=== PATIENT | female | born 1935 | race Caucasian/White ===

== ENCOUNTER 2017-03-17 14:17 | Inpatient (IN) | payer MEDICARE, OTHER ==
[~2017-03-17] VITALS: Ht 165.1 cm; Wt 73.0 kg
[2017-03-18] MEDS ORDERED: ATOR40TA16 PO (10:06)
[2017-03-18] MEDS ORDERED: MIRA50TA PO (10:06)
[2017-03-18] MEDS ORDERED: VITA100064 PO (10:06)
[2017-03-18] MEDS ORDERED: AGGR20025 PO (10:06)
[2017-03-18] MEDS ORDERED: VALS1TAB65 PO (10:06)
[2017-03-18] MEDS ORDERED: CYAN25003 SL (10:06)
[2017-03-18] MEDS ORDERED: CALC600T13 PO (10:06)
[2017-03-18] MEDS ORDERED: ASCO500C PO (10:06)
[2017-03-18] MEDS ORDERED: NEXI40CA PO (10:06)
[2017-03-18] MEDS ORDERED: MULTCAP2 PO (10:06)
[2017-03-18] MEDS ORDERED: POTA-243 PO (10:06)
[2017-03-25] MEDS ORDERED: LACTATED RINGER'S 1000 ML IV PRN (06:45)
[2017-03-25] MEDS ORDERED: INSULIN HUMAN REGULAR 1,000 UNITS/10 ML VIAL SQ PRN (06:45)
[2017-03-25] MEDS ORDERED: ceFAZolin 2 GM PREMIX 50 ML IV SCH (06:45)
[2017-03-25] MEDS ORDERED: SODIUM CHLORID 0.9% 500 ML IV PRN (06:45)
[2017-03-25] MEDS ORDERED: METRONIDAZOLE 500 MG/100 ML ISONTONIC SOLN IV PRN (06:45)
[2017-03-25] MEDS ORDERED: CHLORHEXIDINE GLUCONATE 2 % 1 PACK (2 CLOTHS) TOPICAL PRN (06:45)
[2017-03-25] MEDS ORDERED: POVIDONE IODINE 5% (ANTISEPSIS KIT) 4 APPLICATIONS EACH NARE PRN (06:45)
[2017-03-25] MEDS ORDERED: METOPROLOL TARTRATE 25 MG TAB PO PRN (06:45)
[2017-03-25] MEDS: DEXT 5%-NACL 0.9% 1000 ML INJ 1,000 ML IV SCH ×3 (06:45→22:45)
--- NOTE | 2017-03-25 07:09 | PD.HP.UP ---
H&P Update Note The Pre-Admit History and Physical Examination regarding the above named patient was reviewed (including, but not limited to, vital signs, heart, lungs, co-morbid conditions), and upon re-examination it is noted that: the patient's condition has not significantly changed since the last examination. Colleen Plummer MD Mar 25, 2017 07:09
[2017-03-25 07:24] VITALS: BP 142/70; PULSE 83; RESP 16; TEMP 98.7; O2SAT 96
[2017-03-25] MEDS ORDERED: DEXAMETHASONE SOD PHOS 4 MG/ML VIAL ONE (08:14)
[2017-03-25] MEDS ORDERED: MIDAZOLAM HCL 2 MG/2 ML VIAL ONE (08:14)
[2017-03-25] MEDS ORDERED: FAMOTIDINE 20 MG/2 ML VIAL ONE (08:14)
[2017-03-25] MEDS: D5-NS + KCL 20 MEQ INJ 1,000 ML IV SCH (13:07)
[2017-03-25] MEDS: SODIUM CHLORIDE 0.9% FLUSH 5 ML FLUSH IVF SCH ×2 (13:15→21:00)
[2017-03-25] MEDS ORDERED: NALOXONE HCL 0.4 MG/ML AMP IV PRN (13:15)
[2017-03-25] MEDS ORDERED: Post-op Orders (for Pharmacy) MISC XX ONE (13:15)
[2017-03-25] MEDS ORDERED: ENALAPRILAT 2.5 MG/2 ML VIAL IV PRN (13:15)
[2017-03-25] MEDS ORDERED: SODIUM CHLORIDE 0.9% FLUSH 5 ML FLUSH IVF PRN (13:15)
[2017-03-25] MEDS ORDERED: ENALAPRILAT 1.25 MG/ML VIAL IV PRN (13:15)
[2017-03-25] MEDS ORDERED: ACETAMINOPHEN 325 MG TAB PO PRN (13:15)
[2017-03-25] MEDS ORDERED: diphenhydrAMINE HCL 50 MG/ML VIAL IV PRN (13:15)
[2017-03-25] MEDS ORDERED: fentaNYL CITRATE 250 MCG/5 ML AMP ONE (13:17)
[2017-03-25] MEDS ORDERED: MORPHINE SULFATE 4 MG/ML INJ ONE (13:17)
[2017-03-25] MEDS: KETOROLAC TROMETHAMINE 30 MG/ML (IVP) VIAL IVP PRN ×2 (13:20→20:31)
[2017-03-25] MEDS ORDERED: *ONDANSETRON 4 MG VIAL PERIprocedural Use ONLY ONE (13:33)
[2017-03-25] MEDS: MORPHINE SULFATE 30 MG/30 ML PCA IV SCH (13:44)
[2017-03-25] MEDS ORDERED: DO NOT ADM ANY ANTICOAGULANT DRUGS PRN (13:45)
[2017-03-25 13:48] LABS: AUTOMATED NEUTROPHIL # 16.7 TH/MM3 (1.8-7.7); BASOPHIL % 0.2 % (0.0-2.0); HEMATOCRIT 29.2 % (35.0-46.0); HEMO FLAGS DIFF FINAL; LYMPH % 2.4 % (9.0-44.0); LYMPHOCYTE # 0.4 TH/MM3 (1.0-4.8); MEAN CELL VOLUME 81.4 FL (80.0-100.0); MEAN CORPUSCULAR HEMOGLOBIN 26.4 PG (27.0-34.0); MEAN CORPUSCULAR HGB CONC 32.5 % (32.0-36.0); MONO % 1.4 % (0.0-8.0); PLATELET COUNT 459 TH/MM3 (150-450); RED BLOOD COUNT 3.59 MIL/MM3 (4.00-5.30); RED CELL DISTRIBUTION WIDTH 14.3 % (11.6-17.2); WHITE BLOOD COUNT 17.4 TH/MM3 (4.0-11.0)
[2017-03-25 13:59] LABS: BICARBONATE 25.5 MEQ/L (21.0-32.0)
[2017-03-25] MEDS: PCA - TOTAL MG MORPHINE DELIVERED PER SHIFT SCH ×2 (14:00→22:00)
[2017-03-25 14:07] LABS: POTASSIUM 2.9 MEQ/L (3.5-5.1)
[2017-03-25] MEDS: POTASSIUM CHLOR 20 MEQ PREMIX 100 ML IV PRN ×2 (14:45→16:54)
[2017-03-25] MEDS ORDERED: PROPOFOL 200 MG/20 ML AMP IV ONE (14:58)
[2017-03-25] MEDS ORDERED: NEOSTIGMINE 3 MG/3 ML SYR IV ONE (14:58)
[2017-03-25] MEDS ORDERED: NORMOSOL R INJ 1,000 ML IV ONE (14:58)
[2017-03-25] MEDS ORDERED: ONDANSETRON HCL 4 MG/2 ML VIAL IV PUSH ONE (14:58)
[2017-03-25] MEDS: metroNIDAZOLE 500 MG INJ 100 ML IV SCH (16:54)
[2017-03-25 17:15] VITALS: BP 129/56; PULSE 76; RESP 18; TEMP 98.1; O2SAT 97
[2017-03-25 19:00] VITALS: BP 116/49; PULSE 66; RESP 18; TEMP 97.8; O2SAT 97
[2017-03-25 22:16] VITALS: O2SAT 97
[2017-03-25 23:00] VITALS: BP 114/47; PULSE 66; RESP 18; TEMP 98.2; O2SAT 95
[2017-03-26] VITALS (9 sets, daily range): BP systolic 101–134; BP diastolic 48–64; PULSE 66–83; RESP 14–18; TEMP 97.8–98.5; O2SAT 92–98
[2017-03-26] MEDS: metroNIDAZOLE 500 MG INJ 100 ML IV SCH ×2 (00:48→09:54)
[2017-03-26] MEDS: D5-NS + KCL 20 MEQ INJ 1,000 ML IV SCH ×5 (00:50→16:10)
[2017-03-26 04:32] LABS: AUTOMATED NEUTROPHIL # 7.4 TH/MM3 (1.8-7.7); BASOPHIL % 0.4 % (0.0-2.0); EOSINOPHIL % 0.1 % (0.0-4.0); HEMATOCRIT 26.1 % (35.0-46.0); HEMO FLAGS DIFF FINAL; LYMPHOCYTE # 1.6 TH/MM3 (1.0-4.8); MEAN CELL VOLUME 82.7 FL (80.0-100.0); MEAN CORPUSCULAR HGB CONC 32.6 % (32.0-36.0); MONO % 7.5 % (0.0-8.0); PLATELET COUNT 364 TH/MM3 (150-450); RED BLOOD COUNT 3.15 MIL/MM3 (4.00-5.30); RED CELL DISTRIBUTION WIDTH 14.4 % (11.6-17.2); WHITE BLOOD COUNT 9.8 TH/MM3 (4.0-11.0)
[2017-03-26 05:05] LABS: BICARBONATE 25.8 MEQ/L (21.0-32.0); POTASSIUM 4.1 MEQ/L (3.5-5.1)
[2017-03-26 05:17] LABS: CALCIUM-PROTEIN CORRECTED 8.1 MG/DL (8.5-10.1)
[2017-03-26] MEDS: PCA - TOTAL MG MORPHINE DELIVERED PER SHIFT SCH ×3 (06:00→22:00)
[2017-03-26] MEDS: DEXT 5%-NACL 0.9% 1000 ML INJ 1,000 ML IV SCH ×3 (06:27→21:22)
[2017-03-26] MEDS: SODIUM CHLORIDE 0.9% FLUSH 5 ML FLUSH IVF SCH ×2 (09:00→21:00)
[2017-03-26] MEDS: MORPHINE SULFATE 30 MG/30 ML PCA IV SCH ×2 (09:17→15:36)
[2017-03-26] MEDS: KETOROLAC TROMETHAMINE 30 MG/ML (IVP) VIAL IVP PRN ×3 (09:17→20:15)
[2017-03-26] MEDS: PANTOPRAZOLE SODIUM 40 MG VIAL IVP SCH (09:54)
[2017-03-26] MEDS: VALSARTAN 160 MG TAB PO SCH (11:06)
[2017-03-26] MEDS: HEPARIN SODIUM - SQ 10,000 UNITS/ML VIAL SQ SCH (12:03)
[2017-03-26] MEDS: ONDANSETRON HCL 4 MG/2 ML VIAL IV PRN (19:42)
[2017-03-26] MEDS: ACETAMINOPHEN/HYDROcodone 325 MG/5 MG TAB PO PRN (20:16)
[2017-03-27] VITALS (7 sets, daily range): BP systolic 129–162; BP diastolic 63–81; PULSE 53–93; RESP 15–18; TEMP 98–98.4; O2SAT 90–98
[2017-03-27] MEDS: HEPARIN SODIUM - SQ 10,000 UNITS/ML VIAL SQ SCH ×2 (00:27→12:20)
[2017-03-27 05:24] LABS: AUTOMATED NEUTROPHIL # 5.7 TH/MM3 (1.8-7.7); BASOPHIL # 0.1 TH/MM3 (0-0.2); BASOPHIL % 0.6 % (0.0-2.0); EOSINOPHIL # 0.2 TH/MM3 (0-0.4); EOSINOPHIL % 2.4 % (0.0-4.0); HEMATOCRIT 25.7 % (35.0-46.0); HEMO FLAGS DIFF FINAL; LYMPH % 21.2 % (9.0-44.0); LYMPHOCYTE # 1.7 TH/MM3 (1.0-4.8); MEAN CELL VOLUME 83.7 FL (80.0-100.0); MEAN CORPUSCULAR HEMOGLOBIN 26.9 PG (27.0-34.0); MEAN CORPUSCULAR HGB CONC 32.1 % (32.0-36.0); MONO % 6.6 % (0.0-8.0); NEUT % 69.2 % (16.0-70.0); PLATELET COUNT 348 TH/MM3 (150-450); RED BLOOD COUNT 3.07 MIL/MM3 (4.00-5.30); RED CELL DISTRIBUTION WIDTH 14.6 % (11.6-17.2); WHITE BLOOD COUNT 8.2 TH/MM3 (4.0-11.0)
[2017-03-27 05:46] LABS: BICARBONATE 23.9 MEQ/L (21.0-32.0)
[2017-03-27] MEDS: PCA - TOTAL MG MORPHINE DELIVERED PER SHIFT SCH (06:00)
[2017-03-27] MEDS: D5-NS + KCL 20 MEQ INJ 1,000 ML IV SCH ×2 (06:02)
[2017-03-27 06:16] LABS: CALCIUM-PROTEIN CORRECTED 8.2 MG/DL (8.5-10.1)
[2017-03-27] MEDS: DEXT 5%-NACL 0.9% 1000 ML INJ 1,000 ML IV SCH ×2 (06:45→13:35)
[2017-03-27] MEDS: SODIUM CHLORIDE 0.9% FLUSH 5 ML FLUSH IVF SCH ×2 (09:00→21:00)
[2017-03-27] MEDS: PANTOPRAZOLE SODIUM 40 MG VIAL IVP SCH (09:43)
[2017-03-27] MEDS: VALSARTAN 160 MG TAB PO SCH (09:44)
[2017-03-27] MEDS: ACETAMINOPHEN/HYDROcodone 325 MG/5 MG TAB PO PRN ×4 (09:47→22:00)
--- NOTE | 2017-03-27 12:33 | HHI.PR ---
Subjective Remarks POD #2 lap TANISHA, open ascending colectomy more comfortable Objective Vital Signs Date Time Temp Pulse Resp B/P Pulse Ox O2 Delivery O2 Flow Rate FiO2 03/27/17 11:00 98.3 89 15 162/81 95 03/27/17 11:00 89 03/27/17 11:00 96 Nasal Cannula 3.00 03/27/17 07:20 98.3 87 15 145/72 95 03/27/17 07:20 96 Nasal Cannula 3.00 03/27/17 07:20 87 03/27/17 06:00 15 03/27/17 03:11 98 Nasal Cannula 3.00 03/27/17 03:11 98.0 66 15 129/63 98 03/27/17 03:11 64 03/26/17 23:14 68 03/26/17 23:14 95 Nasal Cannula 3.00 03/26/17 23:14 98.2 68 15 117/60 95 03/26/17 22:00 15 03/26/17 20:11 92 Nasal Cannula 3.00 03/26/17 19:18 98.5 83 17 134/64 95 03/26/17 19:18 95 Nasal Cannula 3.00 03/26/17 19:00 83 03/26/17 15:41 14 03/26/17 15:36 14 03/26/17 15:27 97 Nasal Cannula 2.00 03/26/17 15:04 97.8 68 14 101/48 03/26/17 15:04 68 03/26/17 15:02 98 Nasal Cannula 2.00 03/26/17 14:00 14 I/O 03/26/17 03/26/17 03/26/17 03/27/17 03/27/17 03/27/17 07:00 15:00 23:00 07:00 15:00 23:00 Intake Total 2730 ml 1666 ml 2274 ml Output Total 400 ml 295 ml 350 ml Balance 2330 ml 1371 ml 1924 ml Intake Oral 630 ml 360 ml 480 ml IV Total 2100 ml 1306 ml 1794 ml Output Urine Total 400 ml 295 ml 350 ml # Bowel Movements 0 0 Result Diagram: 03/27/1742603/27/17426 Objective Remarks Abdomen soft, nondistended, tender Wound serous drainage, no erythema Assessment and Plan Assessment and Plan Decrease IV Mobilize D/C Bowser Transfer if bed needed Colleen Plummer MD Mar 27, 2017 12:33
[2017-03-27] MEDS: ONDANSETRON HCL 4 MG/2 ML VIAL IV PRN (17:32)
--- NOTE | 2017-03-27 20:17 | MP ---
cc: ANSHU PLUMMER M.D., MD,BETTY ARIAS. DATE OF SURGERY March 25, 2017 PREOPERATIVE DIAGNOSIS Cecal cancer. POSTOPERATIVE DIAGNOSIS 1. Cecal cancer. 2. Adhesions. SURGEON Anshu Plummer MD [employer] Khari ANESTHESIA General per ET tube. PROCEDURES 1. Laparoscopic extensive lysis of adhesions. 2. Open ascending colectomy. 3. Flexible sigmoidoscopy. ESTIMATED BLOOD LOSS 100 mL ANESTHESIA General per ET tube. OPERATIVE INDICATIONS The patient is an 81-year-old female who was recently noted have a large cecal mass on colonoscopy with biopsies positive for adenocarcinoma. OPERATIVE FINDINGS Adhesions of the omentum to the right lower quadrant, as well as to the pelvis with an extremely large cancer measuring 10-15 cm in diameter, with a pericolonic abscess adjacent. The small bowel was adhered down into the pelvis along the sigmoid colon, with the distal ileum and the sigmoid colon folded over and adherent down in the left lower quadrant to the pelvic sidewall as well. OPERATIVE COURSE The patient was brought to the operating room and placed in the supine position. After induction of general anesthesia, the skin of the anterior abdominal wall was then prepped and draped in the usual sterile fashion. A site was then chosen for the camera, being located 2 cm to the left and below the umbilicus. A 10/12 trocar was placed at this location under direct vision, using the laparoscope. CO2 insufflation was then undertaken. A brief abdominal survey was then undertaken with the notation of the above findings. At this point, although we could see the site of the tumor I was not completely certain that it was not amenable to the robotic approach, so I elected to proceed with the lysis of adhesions and reevaluation at that point. The #1 trocar was placed first. This was placed in the left mid clavicular line, two fingerbreadths below the costal margin. The #5 assist port was placed equidistant between the camera and the number one port, two fingerbreadths below the umbilicus. The 10/ 12 #3 trocar was placed just inside the right anterior superior iliac spine, and the #2 trocar was placed in the suprapubic area, just to the right of the midline. The patient was hydroplaned with head down, and an attempt was made to gently retract the small bowel out of the pelvis but it was necessary to do quite a bit of dissection to dissect it free from the sigmoid phlegmon. Eventually we were able to peel it off of the sigmoid phlegmon and get it up and out of the pelvis, and the omentum was brought up out of the pelvis as well. However, at this point the tumor was evaluated and found to be quite large and adherent to the right lateral sidewall. In addition the sigmoid colon was folded over and adherent to the left pelvic sidewall. It was very indurated and thickened as well. After evaluating all of this, in light of the patient's fairly frail condition, I did not feel that a very prolonged surgery with the necessity for a large incision any way to remove the tumor would be in her interest, so at this point we elected to proceed with the open portion of the procedure. A vertical midline incision was then made, from just above the symphysis pubis to group home between the umbilicus and the xyphoid. Using electrocautery, dissection was carried down to the fascia of the anterior abdominal wall, which was divided using electrocautery. The peritoneal cavity was then entered and further lysis of adhesions was performed to try to completely get the omentum up and out. The proximal transverse colon was also adherent to the ascending colon. This was opened up as well. Eventually we had enough visibility. The wound was protected with clean laparotomy sponges and a wound protector, and a Danielle retractor was placed. The attachments to the right lateral sidewall were carefully dissected free using electrocautery until we were able to mobilize and get down to the pelvis. The terminal ileum and cecum were then retracted up and to the left and dissection continued posteriorly, carefully dissecting free the ascending colon mesentery from the posterior peritoneum up to level of the duodenum, which was then carefully dissected free as well. Dissection then continued down and around the right corner and up the lateral abdominal sidewall, dissecting the tumor and the remainder of the ascending colon free. This was continued up to and around the hepatic flexure. The omentum was then pulled away from the transverse colon and a window was made. Dissection was continued in this plane until the lesser sac was entered. This dissection continued over to the right side of the colon, thus freeing the left side of the omentum from the edge of the transverse colon. Eventually we had full mobility of the terminal ileum, ascending colon and right side of the transverse colon. A site was then chosen for division of the terminal ileum. The ileocolic vessels were then dissected free circumferentially, doubly clamped proximally, singly clamped distally and divided and ligated using 0 Vicryl ties. A site was then chosen for division of terminal ileum. The mesentery at this level was serially divided and ligated using 0 Vicryl ties. A TX 55 stapler was placed across the bowel at this level. This was closed, fired and removed. At this point, after evaluation, the part of the bowel that had been stuck very tightly to the sigmoid was just proximal, so an additional 8 cm were removed as well. A site was then chosen for division of the transverse colon, just to the right of the middle colic vessels. the omentum was divided at this level, using electrocautery. The mesentery was cleared of the bowel circumferentially and a reload of the TX 60 stapler blue load was placed across the bowel at this level fired and removed. The branches of the colic vessels to the hepatic flexure were then dissected free, divided and ligated using 0 Vicryl ties and the intervening mesentery divided. The specimen was then taken to a back table where it was later opened, and a large tumor was noted with a pericolonic abscess as well. Prior to the reanastomosis, I elected to proceed with evaluation of the sigmoid colon. We slowly and painstakingly dissected this free from the phlegmon on the left pelvic sidewall until we were able to straighten it out from its double bend where it had been attached to the left pelvic sidewall. At this point we had good visibility from the distal descending colon down to the rectum. Due to its firmness I did elect to proceed with flexible sigmoidoscopy to evaluate the bowel. The flexible sigmoidoscope was placed into the anus and advanced proximal to the area of concern and with the exception of diverticulosis, there were no other abnormalities noted. A small amount of warm normal saline was placed in the pelvis and air was insufflated into the colon with no sign of any leakage noted. Hemostasis was then obtained with electrocautery. A piece of Seprafilm was placed into the pelvis to see if we could decrease the risk of the bowel re-adhesing down into a horseshoe configuration. The antimesenteric corners of the staple lines were then removed sharply, and one limb of the gastrointestinal stapler was placed down each limb of the bowel. The stapler was closed along the antimesenteric border, fired, and removed, thus creating an enteroenterotomy. The resulting enterotomy was closed transversely, using the TX 60 stapling device. The anastomosis was palpated and found to be widely patent. A simple stay suture was placed at the distal end of the anastomosis, using 3-0 Vicryl, and the mesenteric defect was closed in a running fashion using 3-0 Vicryl. The peritoneal cavity then copiously irrigated with warm normal saline and the omentum was gently wrapped around the anastomosis. A piece of Seprafilm was placed across the anterior surface of the bowel. The fascia at the right lower quadrant 10/12 port site was then closed in an interrupted ipltep-oh-obtls fashion using #1 PDS. The anterior fascia of the abdominal wall was then closed in a running fashion using double-stranded #1 PDS. The skin was copiously irrigated with warm normal saline. The skin was closed in a running subcutaneous fashion, using 3-0 Vicryl. The port sites were closed in an interrupted subcutaneous fashion, using 3-0 Vicryl. Sterile dressings were then applied. All sponge, needle and instrument counts were correct. The patient was returned to the post anesthesia care unit in stable condition. MD NAVEED Duarte/KK /1:12 PM /7:31 PM [facility] CENTERAdriana
[2017-03-28] VITALS (9 sets, daily range): BP systolic 127–167; BP diastolic 61–88; PULSE 80–96; RESP 17–18; TEMP 96–99; O2SAT 87–97
[2017-03-28] MEDS: HEPARIN SODIUM - SQ 10,000 UNITS/ML VIAL SQ SCH ×3 (00:02→23:33)
[2017-03-28] MEDS: D5-NS + KCL 20 MEQ INJ 1,000 ML IV SCH ×2 (00:04→10:20)
[2017-03-28 07:01] LABS: BICARBONATE 23.3 MEQ/L (21.0-32.0); POTASSIUM 3.6 MEQ/L (3.5-5.1)
[2017-03-28 07:09] LABS: AUTOMATED NEUTROPHIL # 7.9 TH/MM3 (1.8-7.7); BASOPHIL # 0.1 TH/MM3 (0-0.2); BASOPHIL % 0.6 % (0.0-2.0); EOSINOPHIL # 0.3 TH/MM3 (0-0.4); EOSINOPHIL % 2.4 % (0.0-4.0); HEMATOCRIT 27.1 % (35.0-46.0); HEMO FLAGS DIFF FINAL; LYMPHOCYTE # 2.2 TH/MM3 (1.0-4.8); MEAN CELL VOLUME 82.3 FL (80.0-100.0); MEAN CORPUSCULAR HEMOGLOBIN 26.4 PG (27.0-34.0); MEAN CORPUSCULAR HGB CONC 32.1 % (32.0-36.0); PLATELET COUNT 367 TH/MM3 (150-450); RED BLOOD COUNT 3.29 MIL/MM3 (4.00-5.30); RED CELL DISTRIBUTION WIDTH 14.7 % (11.6-17.2); WHITE BLOOD COUNT 10.8 TH/MM3 (4.0-11.0)
[2017-03-28] MEDS: KETOROLAC TROMETHAMINE 30 MG/ML (IVP) VIAL IVP PRN (08:41)
[2017-03-28] MEDS: ONDANSETRON HCL 4 MG/2 ML VIAL IV PRN (08:41)
[2017-03-28] MEDS: ACETAMINOPHEN/HYDROcodone 325 MG/5 MG TAB PO PRN ×2 (08:41→15:53)
[2017-03-28] MEDS: PANTOPRAZOLE SODIUM 40 MG VIAL IVP SCH (08:45)
[2017-03-28] MEDS: SODIUM CHLORIDE 0.9% FLUSH 5 ML FLUSH IVF SCH ×2 (08:45→21:00)
[2017-03-28] MEDS: VALSARTAN 160 MG TAB PO SCH (08:45)
--- NOTE | 2017-03-28 14:55 | HHI.PR ---
Subjective Remarks POD #3 lap TANISHA, open ascending colectomy comfortable, slight nausea Objective Vital Signs Date Time Temp Pulse Resp B/P Pulse Ox O2 Delivery O2 Flow Rate FiO2 03/28/17 12:00 97.5 88 17 153/67 90 03/28/17 09:03 92 Nasal Cannula 2.00 03/28/17 08:00 96.4 96 18 167/73 91 03/28/17 03:49 96.7 80 18 135/88 97 03/28/17 00:10 96.0 88 18 137/69 94 03/28/17 00:02 Nasal Cannula 3.00 03/27/17 23:14 98.1 73 18 142/73 93 03/27/17 23:14 93 Nasal Cannula 3.00 03/27/17 23:14 72 03/27/17 23:14 93 Nasal Cannula 3.00 03/27/17 23:00 18 03/27/17 20:26 91 Nasal Cannula 3.00 03/27/17 19:00 53 03/27/17 19:00 98.4 79 18 145/73 90 03/27/17 19:00 90 Nasal Cannula 3.00 03/27/17 15:00 93 03/27/17 15:00 94 03/27/17 15:00 98.3 89 15 140/70 95 I/O 03/27/17 03/27/17 03/27/17 03/28/17 03/28/17 03/28/17 07:00 15:00 23:00 07:00 15:00 23:00 Intake Total 2274 ml 2100 ml 1989 ml 200 ml Output Total 350 ml 1500 ml 150 ml Balance 1924 ml 600 ml 1989 ml 50 ml Intake Oral 480 ml 950 ml 280 ml 200 ml IV Total 1794 ml 1150 ml 1709 ml Output Urine Total 350 ml 1500 ml 150 ml # Voids 1 1 # Bowel Movements 0 0 0 0 Result Diagram: 03/28/170 03/28/17 0440 Objective Remarks Abdomen soft, nondistended, tender Wound clean Assessment and Plan Assessment and Plan Decrease IV Full liquids D/C planning - patient will need inpatient rehab Colleen Plummer MD March 28, 2017 14:55
[2017-03-29 00:07] VITALS: BP 125/75; PULSE 85; RESP 18; TEMP 98.9; O2SAT 98
[2017-03-29 08:00] VITALS: BP 182/76; PULSE 82; RESP 16; TEMP 98.8; O2SAT 92
[2017-03-29] MEDS: ACETAMINOPHEN/HYDROcodone 325 MG/5 MG TAB PO PRN ×2 (08:37→21:28)
[2017-03-29] MEDS: VALSARTAN 160 MG TAB PO SCH (08:38)
[2017-03-29] MEDS: PANTOPRAZOLE SODIUM 40 MG VIAL IVP SCH (08:38)
[2017-03-29] MEDS: D5-NS + KCL 20 MEQ INJ 1,000 ML IV SCH (08:44)
[2017-03-29] MEDS: SODIUM CHLORIDE 0.9% FLUSH 5 ML FLUSH IVF SCH ×2 (09:00→21:00)
--- NOTE | 2017-03-29 11:41 | HHI.PR ---
Subjective Remarks POD #4 lap TANISHA, open ascending colectomy diarrhea, reports stomach cramps/ache Objective Vital Signs Date Time Temp Pulse Resp B/P Pulse Ox O2 Delivery O2 Flow Rate FiO2 03/29/17 11:06 Nasal Cannula 3.00 03/29/17 11:05 2 03/29/17 08:00 98.8 82 16 182/76 92 03/29/17 00:07 98.9 85 18 125/75 98 03/28/17 22:44 96 Nasal Cannula 2.00 03/28/17 22:00 Nasal Cannula 3.00 03/28/17 20:16 99.0 85 18 142/65 96 03/28/17 16:30 90 03/28/17 16:00 96.9 96 17 127/61 87 03/28/17 12:00 97.5 88 17 153/67 90 I/O 03/28/17 03/28/17 03/28/17 03/29/17 03/29/17 03/29/17 07:00 15:00 23:00 07:00 15:00 23:00 Intake Total 1989 ml 560 ml 647 ml 753 ml Output Total 150 ml Balance 1989 ml 410 ml 647 ml 753 ml Intake Oral 280 ml 200 ml 280 ml 380 ml IV Total 1709 ml 360 ml 367 ml 373 ml Output Urine Total 150 ml # Voids 1 1 2 2 # Bowel Movements 0 0 Result Diagram: 03/28/17 0440 03/28/17 0440 Objective Remarks Abdomen soft, nondistended, tender Wound clean Assessment and Plan Assessment and Plan HL IV Advance diet in am Colleen Plummer MD March 29, 2017 11:41
[2017-03-29 12:00] VITALS: BP 151/70; PULSE 84; RESP 16; TEMP 97.5; O2SAT 90
[2017-03-29] MEDS: HEPARIN SODIUM - SQ 10,000 UNITS/ML VIAL SQ SCH (15:32)
[2017-03-29 16:00] VITALS: BP 144/66; PULSE 96; RESP 16; TEMP 97.3; O2SAT 96
[2017-03-29 20:00] VITALS: BP 146/85; PULSE 109; RESP 18; TEMP 98.2; O2SAT 92
[2017-03-29] MEDS: ONDANSETRON HCL 4 MG/2 ML VIAL IV PRN (21:28)
[2017-03-29 21:36] VITALS: O2SAT 96
[2017-03-30] VITALS (9 sets, daily range): BP systolic 114–143; BP diastolic 56–76; PULSE 91–106; RESP 18–28; TEMP 97.5–98.9; O2SAT 85–98
[2017-03-30] MEDS: HEPARIN SODIUM - SQ 10,000 UNITS/ML VIAL SQ SCH ×2 (00:30→13:10)
[2017-03-30] MEDS: ONDANSETRON HCL 4 MG/2 ML VIAL IV PRN (03:42)
[2017-03-30] MEDS ORDERED: RESP: ALBUTEROL 2.5 MG/IPRATROPIUM 0.5 MG NEB (PRN) NEB ONE (07:45)
[2017-03-30] MEDS: PANTOPRAZOLE SODIUM 40 MG VIAL IVP SCH (08:11)
[2017-03-30] MEDS: VALSARTAN 160 MG TAB PO SCH (08:12)
[2017-03-30] MEDS: SODIUM CHLORIDE 0.9% FLUSH 5 ML FLUSH IVF SCH ×2 (08:12→21:00)
[2017-03-30 08:41] LABS: AUTOMATED NEUTROPHIL # 29.8 TH/MM3 (1.8-7.7); BASOPHIL % 0.1 % (0.0-2.0); EOSINOPHIL % 0.1 % (0.0-4.0); HEMATOCRIT 33.4 % (35.0-46.0); HEMO FLAGS AUTO DIFF; LYMPH % 3.5 % (9.0-44.0); LYMPHOCYTE # 1.1 TH/MM3 (1.0-4.8); MEAN CELL VOLUME 81.3 FL (80.0-100.0); MEAN CORPUSCULAR HEMOGLOBIN 26.4 PG (27.0-34.0); MEAN CORPUSCULAR HGB CONC 32.5 % (32.0-36.0); MONO % 1.9 % (0.0-8.0); NEUT % 94.4 % (16.0-70.0); PLATELET COUNT 449 TH/MM3 (150-450); RED BLOOD COUNT 4.11 MIL/MM3 (4.00-5.30); RED CELL DISTRIBUTION WIDTH 15.1 % (11.6-17.2); WHITE BLOOD COUNT 31.5 TH/MM3 (4.0-11.0)
--- NOTE | 2017-03-30 08:53 | HHI.PR ---
Subjective Remarks POD #5 lap TANISHA, open ascending colectomy emesis last night SOB this am, better after treatment - on rebreather Objective Vital Signs Date Time Temp Pulse Resp B/P Pulse Ox O2 Delivery O2 Flow Rate FiO2 03/30/17 08:00 97.9 106 28 133/74 85 03/30/17 07:46 92 Nasal Cannula 6.00 50 03/30/17 00:00 98.9 104 18 143/76 96 03/29/17 23:28 18 03/29/17 21:36 96 3.00 03/29/17 21:25 Nasal Cannula 3.00 03/29/17 20:00 98.2 109 18 146/85 92 03/29/17 16:02 94 Nasal Cannula 3.00 03/29/17 16:00 97.3 96 16 144/66 96 03/29/17 12:00 97.5 84 16 151/70 90 03/29/17 11:06 Nasal Cannula 3.00 I/O 03/29/17 03/29/17 03/29/17 03/30/17 03/30/17 03/30/17 07:00 15:00 23:00 07:00 15:00 23:00 Intake Total 753 ml 150 ml 728 ml 0 ml Output Total 100 ml Balance 753 ml 50 ml 728 ml 0 ml Intake Oral 380 ml 150 ml 240 ml 0 ml IV Total 373 ml 488 ml 0 ml Output Urine Total 100 ml # Voids 2 2 2 # Bowel Movements 1 Result Diagram: 03/30/17 0830 03/28/17 0440 Objective Remarks Abdomen soft, nondistended, tender Wound clean Assessment and Plan Assessment and Plan NGT - LIS Check CXR, labs Mobilize Restart IV Colleen Plummer MD March 30, 2017 08:53
--- NOTE | 2017-03-30 09:05 | RADRPT ---
EXAM DATE/TIME: 03/30/2017 08:19 [facility] COMPARISON: CHEST PA & LAT, March 18, 2017, 10:51. INDICATIONS : Short of breath. MEDICAL HISTORY : None. SURGICAL HISTORY : Colectomy ENCOUNTER: Initial ACUITY: 3 days PAIN SCORE: 2/10 LOCATION: Bilateral chest FINDINGS: Mild hazy bibasilar parenchymal opacities present which may be atelectasis. Some minimal pleural flui d is not excluded. Ectatic for rotation, the cardiac contours are grossly stable. Nasogastric tube is present in good position. CONCLUSION: Mild basilar pleuroparenchymal opacities. Mike Bautista MD on March 30, 2017 at 9:02 Board Certified Radiologist. This report was verified electronically.
[2017-03-30 09:12] LABS: BANDS 4 % (0-6); NEUTROPHIL # MANUAL DIFF 30.2 TH/MM3 (1.8-7.7); POLYS (SEG NEUTROPHILS) 92 % (16-70); WBC DIFF SAMPLE 100
[2017-03-30 09:14] LABS: ACANTHOCYTES OCC (NORMAL); KERATOCYTES OCC (NORMAL); OVALOCYTES 1+ (NORMAL); PLATELET ESTIMATE SMEAR NORMAL (NORMAL); PLATELET MORPHOLOGY NORMAL (NORMAL); SCAN/DIFF FINAL DIFF MANUAL
[2017-03-30 09:16] LABS: BICARBONATE 26.1 MEQ/L (21.0-32.0); POTASSIUM 3.3 MEQ/L (3.5-5.1)
[2017-03-30] MEDS: POTASSIUM CHLORIDE INJ 30 MEQ in DEXT 5%-NACL 0.9% 1000 ML INJ 1,000 ML IV SCH ×2 (10:00→21:46)
[2017-03-30] MEDS: BENZOCAINE 6 MG/MENTHOL 10 MG LOZENGE BUCCAL PRN (13:15)
[2017-03-30] MEDS ORDERED: SODIUM CHLOR 0.9% 1000 ML INJ 1,000 ML IV SCH (15:45)
[2017-03-30] MEDS: RESP: ALBUTEROL 2.5 MG/IPRATROPIUM 0.5 MG NEB (PRN) NEB (21:15)
[2017-03-31] VITALS (7 sets, daily range): BP systolic 118–148; BP diastolic 55–85; PULSE 89–110; RESP 20–22; TEMP 97.8–100.6; O2SAT 86–95
[2017-03-31] MEDS: HEPARIN SODIUM - SQ 10,000 UNITS/ML VIAL SQ SCH ×2 (00:21→12:23)
[2017-03-31] MEDS: SODIUM CHLORIDE 0.9% FLUSH 5 ML FLUSH IVF SCH ×2 (09:00→20:26)
[2017-03-31] MEDS: PANTOPRAZOLE SODIUM 40 MG VIAL IVP SCH (09:28)
[2017-03-31] MEDS: VALSARTAN 160 MG TAB PO SCH (09:31)
[2017-03-31] MEDS: RESP: ALBUTEROL 2.5 MG/IPRATROPIUM 0.5 MG NEB (PRN) NEB ×2 (12:20→12:22)
[2017-03-31] MEDS ORDERED: ASPIRIN 325 MG TAB PO ONE (16:45)
[2017-03-31] MEDS: POTASSIUM CHLORIDE INJ 30 MEQ in DEXT 5%-NACL 0.9% 1000 ML INJ 1,000 ML IV SCH (16:49)
[2017-03-31] MEDS: NITROGLYCERIN 0.4 MG SL 25 TABS/BTL SL PRN ×2 (16:59→17:48)
--- NOTE | 2017-03-31 17:50 | HHI.PR ---
Subjective Remarks POD #6 lap TANISHA, open ascending colectomy chest/epigastric pain today Improved with NTG right sided abdominal pain Objective Vital Signs Date Time Temp Pulse Resp B/P Pulse Ox O2 Delivery O2 Flow Rate FiO2 03/31/17 12:17 Partial Non-Rebreather 15.00 03/31/17 12:00 86 Venturi Mask 50 03/31/17 12:00 98.7 103 20 126/60 86 03/31/17 08:00 Venturi Mask 7.00 03/31/17 08:00 100.6 108 20 120/85 92 03/31/17 04:00 97.8 110 20 148/69 92 03/31/17 00:00 98.6 96 22 118/55 95 03/30/17 21:45 Venturi Mask 7.00 50 03/30/17 21:15 93 Venturi Mask 7.00 50 03/30/17 20:00 98.1 98 20 126/56 97 I/O 03/30/17 03/30/17 03/30/17 03/31/17 03/31/17 03/31/17 07:00 15:00 23:00 07:00 15:00 23:00 Intake Total 0 ml 240 ml 1026 ml 637 ml 746 ml Output Total 1100 ml 700 ml 350 ml 400 ml Balance 0 ml -860 ml 326 ml 287 ml 346 ml Intake Oral 0 ml 0 ml 0 ml 0 ml IV Total 0 ml 240 ml 1026 ml 637 ml 746 ml Gastric Drainage Total 1100 ml 700 ml 350 ml 400 ml # Voids 2 1 1 4 # Bowel Movements 0 0 1 Result Diagram: 03/30/17 0830 03/30/17 0830 Objective Remarks Abdomen soft, nondistended, tender Wound clean Assessment and Plan Assessment and Plan EKG, cardiac enzymes pending Repeat NTG sl ASA Recheck labs, CXR in am Await Dr. Rodriguez input, patient known to him Colleen Plummer MD March 31, 2017 17:50
[2017-04-01] VITALS (19 sets, daily range): BP systolic 130–167; BP diastolic 60–88; PULSE 75–103; RESP 18–28; TEMP 97.9–100.9; O2SAT 91–98
[2017-04-01] MEDS: RESP: ALBUTEROL 2.5 MG/IPRATROPIUM 0.5 MG NEB (PRN) NEB
[2017-04-01] MEDS: HEPARIN SODIUM - SQ 10,000 UNITS/ML VIAL SQ SCH ×3 (00:10→23:09)
[2017-04-01 00:46] LABS: BLOOD GAS BASE EXCESS 3.7 mmol/L (-2-2); BLOOD GAS CARBOXYHEMOGLOBIN 1.2 % (0-4); BLOOD GAS HCO3 27 mmol/L (22-26); BLOOD GAS METHEMOGLOBIN 0.9 % (0-2); BLOOD GAS O2 HGB SATURATION 96 % (90-100); BLOOD GAS OXYGEN CONTENT 11.1 Vol % (12.0-20.0); BLOOD GAS PCO2 36 mmHg (38-42); BLOOD GAS PO2 95 mmHg (61-120); BLOOD GAS TOTAL HGB 8.1 G/DL (12.0-16.0); CRITICAL VALUE NO; FIO2 100 %; LITER FLOW 15 L/M; TEMP CORR TO 98.6
[2017-04-01 00:47] LABS: DRAW SITE RT RADIAL; NUMBER OF ARTERIAL PUNCTURES 1; STAT YES; ULNAR PULSE PRESENT
[2017-04-01] MEDS: POTASSIUM CHLORIDE INJ 30 MEQ in DEXT 5%-NACL 0.9% 1000 ML INJ 1,000 ML IV SCH ×3 (02:00→23:52)
[2017-04-01 05:45] LABS: BASOPHIL % 0.1 % (0.0-2.0); HEMATOCRIT 25.4 % (35.0-46.0); LYMPH % 2.1 % (9.0-44.0); LYMPHOCYTE # 0.8 TH/MM3 (1.0-4.8); MEAN CELL VOLUME 80.9 FL (80.0-100.0); MEAN CORPUSCULAR HEMOGLOBIN 26.5 PG (27.0-34.0); MEAN CORPUSCULAR HGB CONC 32.7 % (32.0-36.0); MONO % 2.4 % (0.0-8.0); NEUT % 95.4 % (16.0-70.0); PLATELET COUNT 269 TH/MM3 (150-450); RED BLOOD COUNT 3.14 MIL/MM3 (4.00-5.30); RED CELL DISTRIBUTION WIDTH 15.2 % (11.6-17.2); WHITE BLOOD COUNT 35.7 TH/MM3 (4.0-11.0)
[2017-04-01 05:47] LABS: HEMO FLAGS AUTO DIFF
[2017-04-01 06:12] LABS: BICARBONATE 27.2 MEQ/L (21.0-32.0); POTASSIUM 3.4 MEQ/L (3.5-5.1)
[2017-04-01] MEDS: POTASSIUM CHLOR 20 MEQ PREMIX 100 ML IV PRN (06:33)
[2017-04-01 06:34] LABS: CALCIUM-PROTEIN CORRECTED 8.3 MG/DL (8.5-10.1)
[2017-04-01 07:06] LABS: ACANTHOCYTES OCC (NORMAL); BANDS 8 % (0-6); NEUTROPHIL # MANUAL DIFF 35.3 TH/MM3 (1.8-7.7); PLATELET ESTIMATE SMEAR NORMAL (NORMAL); PLATELET MORPHOLOGY NORMAL (NORMAL); POLYS (SEG NEUTROPHILS) 91 % (16-70); SCAN/DIFF FINAL DIFF MANUAL; WBC DIFF SAMPLE 100
--- NOTE | 2017-04-01 08:50 | RADRPT ---
EXAM DATE/TIME: 04/01/2017 08:32 [facility] COMPARISON: CHEST SINGLE AP, March 30, 2017, 8:19. CHEST PA & LAT, March 18, 2017, 10:51. INDICATIONS : Short of breath. MEDICAL HISTORY : None. SURGICAL HISTORY : None. ENCOUNTER: Initial ACUITY: 3 days PAIN SCORE: 0/10 LOCATION: Bilateral upper chest FINDINGS: AP and lateral views of the chest demonstrate a normal-sized cardiac silhouette. Nasogastric tube cou rses beyond the GE junction. EKG lines overlie the patient. There is new focal air space consolidatio n in the right upper lobe and likely the superior segment of the right lower lobe. There is blunting of the costophrenic sulci, right greater than left indicative of pleural effusions. No pneumothorax i s visualized. CONCLUSION: 1. New airspace consolidation in the right midlung zone. Although nonspecific, an infectious process could have this appearance. 2. Small bilateral pleural effusions, right larger than left. Mike Valencia MD on April 01, 2017 at 8:46 Board Certified Radiologist. This report was verified electronically.
[2017-04-01] MEDS: VALSARTAN 160 MG TAB PO SCH (09:43)
[2017-04-01] MEDS: PANTOPRAZOLE SODIUM 40 MG VIAL IVP SCH (09:43)
[2017-04-01] MEDS: SODIUM CHLORIDE 0.9% FLUSH 5 ML FLUSH IVF SCH ×2 (09:44→21:00)
[2017-04-01] MEDS: ACETAMINOPHEN/HYDROcodone 325 MG/5 MG TAB PO PRN ×3 (09:44→22:23)
--- NOTE | 2017-04-01 12:07 | MB ---
cc: MIKAEL FRANKS M.D. DATE OF CONSULTATION: 04/01/2017 HISTORY OF PRESENT ILLNESS Sofia is a very pleasant 81-year-old lady with a history of nonsignificant obstructive coronary artery disease, COPD, tobacco use. She had an ascending colectomy for colon cancer on 03/25/[address] Colleen Plummer. She had laparoscopic extensive lysis of adhesions, open ascending colectomy and flexible sigmoidoscopy, estimated blood loss of 100 mL. Yesterday the patient developed chest pain, hypoxia requiring a 100% non-rebreather. Hemoglobin has dropped as low as 8.4. Troponins are negative x3. EKG does not show any ischemic changes. The patient appears very pale at the bedside, still having active chest pain which is improved after a nitro drip. Otherwise denies any fevers, chills, cough, bleeding, PND, or orthopnea. PAST MEDICAL HISTORY Per history of present illness. ALLERGIES None. SOCIAL HISTORY She does smoke. MEDICATIONS 1. Albuterol. 2. Potassium replacement. 3. Heparin 5000 subcu q.12h. 4. Pantoprazole 40, IV daily. 5. Valsartan 160, daily. PHYSICAL EXAMINATION VITAL SIGNS: Pulse 100, blood pressure 147/66, temperature 98.7, sats 94% on non-rebreather. NECK: Supple. No JVD. No bruit. CARDIOVASCULAR: S1, S2. No murmurs, rubs or gallops. LUNGS: Clear to auscultation bilaterally. ABDOMEN: Soft, nontender, nondistended. Positive bowel sounds. EXTREMITIES: No lower extremity edema. IMAGING Chest x-ray shows new airspace consolidation right mid lung zone, although nonspecific and "infectious process could have this appearance." Small bilateral pleural effusions, right larger than left. EKG EKG shows normal sinus rhythm at 95 beats per minute, right bundle branch block, left anterior fascicular block. LABORATORY White count 35.7, hemoglobin 8.3, hematocrit 25.4, platelet count 269. Sodium 145, potassium 3.4, chloride 110, bicarb 27.2, BUN 17, creatinine 0.62, calcium 7.4. Troponin 0.03, 0.04, and 0.03. CK 30, 23, and 23. Blood gas pH 7.49, PCO2 36, PO2 95 on 100% non-rebreather. DIAGNOSIS 1. Unstable angina. 2. Anemia. 3. Colon cancer. 4. Post-op day 37, ascending colectomy. 5. Elevated white count. 6. COPD. 7. Hypoxia. 8. Hypokalemia. 9. Hypocalcemia. 10.Respiratory failure. 11.Tobacco use. 12.Right bundle branch block. 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 14.Coronary artery disease. ASSESSMENT AND RECOMMENDATIONS I think the patient's unstable angina and resting chest pain is secondary to anemia. She does not have any objective evidence of myocardial necrosis or ischemia on her EKG or by troponin or CK analysis. I have discussed the case in detail with the nurse at the bedside and I recommend transfuse at least two units to keep hemoglobin greater than 10, each one over 4 hours with 40 of IV Lasix in between units, as well as p.r.n. IV Lasix should the patient develop worsening hypoxia. I have also asked the nurse have this approved by Dr. Colleen Plummer prior to transfusion. Could also use continuous p.r.n. nitroglycerin. Obviously the precipitous drop in hemoglobin is concerning for post-op bleeding and will defer this analysis to Dr. Plummer. Will continue to follow the patient closely. Mikael Franks MD AWC/BT /10:06 AM /11:51 AM
--- NOTE | 2017-04-01 15:40 | EKG ---
Date Performed: 03/31/2017 Time Performed: 16:10:01 PTAGE: 81 years EKG: Sinus rhythm RIGHT BUNDLE BRANCH BLOCK LEFT ANTERIOR FASCICULAR BLOCK POSSIBLE ANTERIOR MYOCARDIAL INFARCTION , O F INDETERMINATE AGE ABNORMAL ECG PREVIOUS TRACING : 11/29/1997 10.58 DOCTOR: Casimiro Fry Interpretating Date/Time 04/01/2017 15:34:37
[2017-04-01] MEDS ORDERED: FUROSEMIDE 20 MG/2 ML VIAL IV ONE (17:00)
[2017-04-01] MEDS ORDERED: SODIUM CHLOR 0.9% 250 ML INJ 250 ML IV ONE (17:00)
--- NOTE | 2017-04-01 17:10 | HHI.PR ---
Subjective Remarks C/R Surg POD afebrile, VSS UO fair NGT min Objective - Vital Signs Date Time Temp Pulse Resp B/P Pulse Ox O2 Delivery O2 Flow Rate FiO2 04/01/17 16:00 91 04/01/17 16:00 98.3 24 137/64 95 04/01/17 09:17 Non-Rebreather 15.00 04/01/17 00:25 100 Result Diagram: 04/01/17 0509 04/01/17 0509 Objective Remarks PE alert Abd - soft, wound dry, min tympany A/P Assessment and Plan Imp: CXR - poss infiltrate, on Ab's cont resp Rx PT Benji Nguyen MD April 01, 2017 17:10
[2017-04-01] MEDS: PIPERACIL-TAZO 3.375 GM PREMIX 50 ML IV SCH ×2 (18:00→23:09)
[2017-04-01] MEDS: RESP: ALBUTEROL 2.5 MG/IPRATROPIUM 0.5 MG NEB (SCH) NEB (20:27)
[2017-04-02] VITALS (14 sets, daily range): BP systolic 132–156; BP diastolic 60–67; PULSE 30–108; RESP 25–31; TEMP 96.9–98.7; O2SAT 91–96
[2017-04-02] MEDS: RESP: ALBUTEROL 2.5 MG/IPRATROPIUM 0.5 MG NEB (PRN) NEB ×2 (00:57→05:21)
[2017-04-02] MEDS: PIPERACIL-TAZO 3.375 GM PREMIX 50 ML IV SCH ×2 (05:07→11:59)
--- NOTE | 2017-04-02 06:26 | RADRPT ---
EXAM DATE/TIME: 04/02/2017 04:14 [facility] COMPARISON: CHEST PA & LAT, April 01, 2017, 8:32. INDICATIONS : Shortness of breath, possible pulmonary disease. MEDICAL HISTORY : None. SURGICAL HISTORY : None. ENCOUNTER: Subsequent ACUITY: 4 - 6 days PAIN SCORE: 0/10 LOCATION: Bilateral chest FINDINGS: A single view of the chest demonstrates worsening patchy airspace disease throughout the right lung w ith more confluent density in the right midlung. Minimal left basilar density. Heart enlarged. Nasoga stric tube unchanged. Osseous structures are intact. CONCLUSION: 1. Worsening patchy airspace disease throughout the right lung. 2. Minimal left basilar atelectasis. 3. Cardiomegaly. Asher Gottlieb MD on April 02, 2017 at 6:22 Board Certified Radiologist. This report was verified electronically.
[2017-04-02] MEDS: ONDANSETRON HCL 4 MG/2 ML VIAL IV PRN (07:51)
[2017-04-02] MEDS: PANTOPRAZOLE SODIUM 40 MG VIAL IVP SCH (07:51)
[2017-04-02] MEDS: VALSARTAN 160 MG TAB PO SCH (07:51)
[2017-04-02] MEDS: RESP: ALBUTEROL 2.5 MG/IPRATROPIUM 0.5 MG NEB (SCH) NEB ×3 (08:35→21:57)
[2017-04-02] MEDS: SODIUM CHLORIDE 0.9% FLUSH 5 ML FLUSH IVF SCH ×2 (08:43→22:38)
[2017-04-02] MEDS: BENZOCAINE 6 MG/MENTHOL 10 MG LOZENGE BUCCAL PRN (09:15)
[2017-04-02 11:07] LABS: REVIEW FLAG FINAL
[2017-04-02] MEDS: HEPARIN SODIUM - SQ 10,000 UNITS/ML VIAL SQ SCH (11:59)
--- NOTE | 2017-04-02 12:16 | PD.CARD.PN ---
Subjective Subjective Remarks c/o mild chest pain, c/o dyspnea Objective Vital Signs / I&O Vital Signs Date Time Temp Pulse Resp B/P Pulse Ox O2 Delivery O2 Flow Rate FiO2 04/02/17 10:00 104 04/02/17 08:36 95 Non-Rebreather 15.00 04/02/17 08:00 98.7 94 31 134/63 95 04/02/17 08:00 94 04/02/17 07:00 96 Non-Rebreather 04/02/17 06:00 90 04/02/17 04:00 88 04/02/17 04:00 96.9 88 25 138/62 96 04/02/17 02:00 88 04/02/17 00:00 97.9 94 26 135/60 92 04/02/17 00:00 94 04/01/17 23:25 97.9 94 26 135/60 92 04/01/17 22:00 102 04/01/17 21:30 99.9 96 22 143/64 93 04/01/17 20:27 94 Non-Rebreather 15.00 04/01/17 20:00 96 04/01/17 20:00 99.9 96 25 142/63 94 04/01/17 19:00 96 Non-Rebreather 04/01/17 18:00 96 04/01/17 16:00 91 04/01/17 16:00 98.3 91 24 137/64 95 04/01/17 15:48 22 04/01/17 14:00 96 I/O 04/01/17 04/01/17 04/01/17 04/02/17 04/02/17 04/02/17 07:00 15:00 23:00 07:00 15:00 23:00 Intake Total 717 ml 1138 ml 1217 ml Output Total 410 ml 275 ml 725 ml Balance 307 ml 863 ml 492 ml Intake Oral 40 ml 40 ml IV Total 717 ml 1038 ml 477 ml Packed Cells 500 ml Other 60 ml 200 ml Output Urine Total 225 ml 675 ml Gastric Drainage Total 410 ml 50 ml 50 ml # Voids 1 2 # Bowel Movements 1 0 0 Laboratory GENERAL: SKIN: Warm and dry. HEAD: Normocephalic. EYES: No scleral icterus. No injection or drainage. NECK: Supple, trachea midline. No JVD or lymphadenopathy. CARDIOVASCULAR: Regular rate and rhythm without murmurs, gallops, or rubs. RESPIRATORY: Breath sounds equal bilaterally. No accessory muscle use. GASTROINTESTINAL: Abdomen soft, non-tender, nondistended. MUSCULOSKELETAL: No cyanosis, or edema. BACK: Nontender without obvious deformity. No CVA tenderness. Laboratory Tests Test 04/01/17 04/02/17 19:07 10:45 Blood Type O POSITIVE Antibody Screen NEGATIVE Crossmatch Leukocyte-Reduced Red Blood Cells Blood Bank Comment Hemoglobin 10.7 GM/DL Hematocrit 33.0 % Assessment and Plan Problem List: (1) Anemia (2) Angina at rest (3) CAD (coronary artery disease) (4) Hypoxia Assessment and Plan 1.) Class 4 Angina/anemia - improved after transfusion, 2.) Hypoxia, check bnp, vq scan, f/u pulm rec Mikael Rodriguez MD April 02, 2017 12:16
[2017-04-02] MEDS: POTASSIUM CHLORIDE INJ 30 MEQ in DEXT 5%-NACL 0.9% 1000 ML INJ 1,000 ML IV SCH (12:39)
[2017-04-02] MEDS ORDERED: BUMETANIDE INJ 1 MG/4 ML VIAL IV PUSH ONE ×2 (12:45→17:15)
[2017-04-02] MEDS ORDERED: VANCOMYCIN INJ 1,000 MG in SODIUM CHLOR 0.9% 250 ML INJ 250 ML IV ONE (13:15)
--- NOTE | 2017-04-02 13:18 | HHI.PR ---
Subjective Remarks 04/02 Patient is on non rebreather mask CXR this morning showed worsening patchy airspace disease on right. Afebrile. Objective Vital Signs Vital Signs Date Time Temp Pulse Resp B/P Pulse Ox O2 Delivery O2 Flow Rate FiO2 04/02/17 12:00 97.9 108 30 156/64 93 04/02/17 12:00 108 04/02/17 10:00 104 04/02/17 08:36 95 Non-Rebreather 15.00 04/02/17 08:00 98.7 94 31 134/63 95 04/02/17 08:00 94 04/02/17 07:00 96 Non-Rebreather 04/02/17 06:00 90 04/02/17 04:00 88 04/02/17 04:00 96.9 88 25 138/62 96 04/02/17 02:00 88 04/02/17 00:00 97.9 94 26 135/60 92 04/02/17 00:00 94 04/01/17 23:25 97.9 94 26 135/60 92 04/01/17 22:00 102 04/01/17 21:30 99.9 96 22 143/64 93 04/01/17 20:27 94 Non-Rebreather 15.00 04/01/17 20:00 96 04/01/17 20:00 99.9 96 25 142/63 94 04/01/17 19:00 96 Non-Rebreather 04/01/17 18:00 96 04/01/17 16:00 91 04/01/17 16:00 98.3 91 24 137/64 95 04/01/17 15:48 22 04/01/17 14:00 96 I/O 04/01/17 04/01/17 04/01/17 04/02/17 04/02/17 04/02/17 07:00 15:00 23:00 07:00 15:00 23:00 Intake Total 717 ml 1138 ml 1217 ml Output Total 410 ml 275 ml 725 ml Balance 307 ml 863 ml 492 ml Intake Oral 40 ml 40 ml IV Total 717 ml 1038 ml 477 ml Packed Cells 500 ml Other 60 ml 200 ml Output Urine Total 225 ml 675 ml Gastric Drainage Total 410 ml 50 ml 50 ml # Voids 1 2 # Bowel Movements 1 0 0 Result Diagram: 04/02/17 1045 04/01/17 0509 Other Results Last Impressions Chest X-Ray 04/02/17 0000 Signed Impressions: Service Date/Time: Sunday, April 02, 2017 04:14 - CONCLUSION: 1. Worsening patchy airspace disease throughout the right lung. 2. Minimal left basilar atelectasis. 3. Cardiomegaly. Asher Gottlieb MD Laboratory Tests Test 04/01/17 04/02/17 19:07 10:45 Blood Type O POSITIVE Antibody Screen NEGATIVE Crossmatch Leukocyte-Reduced Red Blood Cells Blood Bank Comment Hemoglobin 10.7 GM/DL Hematocrit 33.0 % Objective Remarks GENERAL: Patient is 81 yo on partial rebreather mask SKIN: Warm and dry. HEAD: Normocephalic. EYES: No scleral icterus. No injection or drainage. NECK: Supple, trachea midline. No JVD or lymphadenopathy. CARDIOVASCULAR: Regular rate and rhythm without murmurs, gallops, or rubs. RESPIRATORY: Breath sounds equal bilaterally. No accessory muscle use. GASTROINTESTINAL: Abdomen soft, non-tender, nondistended. MUSCULOSKELETAL: No cyanosis, or edema. Neuro: Awake and alert A/P Assessment and Plan 1)Resp failure 2)Right sided pneumonia 3)s/p Lap TANISHA, open ascending colectomy on 03/25 4)Leukocytosis 5)Anemia Plan Wean down oxygen as andreas keep sat >92% Bronchodilators, check ABG CXR today showed worsening patchy airspace disease on right IF there is any worsening in resp status will proceed with intubation and mechanical ventilation Diurese with Bumex 1mg x1, d/c IVF Continue with abx ( Zosyn) add Azithromycin, give Vanco 1gram x1, ID eval. Check BC x 2 sets, sputum cx, strep pneumonia and Legionella urinary Ag Monitor CBC and for signs of infections ( fever, WBC) s/p transfusion 2units PRBC /5 GI/DVT prophylaxis Check labs today Andrew Ferrera MD April 02, 2017 13:18
[2017-04-02 14:41] LABS: AUTOMATED NEUTROPHIL # 37.8 TH/MM3 (1.8-7.7); BASOPHIL # 0.1 TH/MM3 (0-0.2); BASOPHIL % 0.2 % (0.0-2.0); HEMATOCRIT 30.5 % (35.0-46.0); LYMPH % 1.7 % (9.0-44.0); LYMPHOCYTE # 0.7 TH/MM3 (1.0-4.8); MEAN CELL VOLUME 82.1 FL (80.0-100.0); MEAN CORPUSCULAR HEMOGLOBIN 27.2 PG (27.0-34.0); MEAN CORPUSCULAR HGB CONC 33.1 % (32.0-36.0); MONO % 1.4 % (0.0-8.0); NEUT % 96.7 % (16.0-70.0); PLATELET COUNT 296 TH/MM3 (150-450); RED BLOOD COUNT 3.72 MIL/MM3 (4.00-5.30); RED CELL DISTRIBUTION WIDTH 15.8 % (11.6-17.2); WHITE BLOOD COUNT 39.2 TH/MM3 (4.0-11.0)
[2017-04-02 14:44] LABS: HEMO FLAGS AUTO DIFF
[2017-04-02 15:13] LABS: BANDS 13 % (0-6); POLYS (SEG NEUTROPHILS) 84 % (16-70); TOXIC VACUOLATION PRESENT (NONE SEEN); WBC DIFF SAMPLE 100
[2017-04-02 15:14] LABS: ACANTHOCYTES OCC (NORMAL); BICARBONATE 26.9 MEQ/L (21.0-32.0); KERATOCYTES OCC (NORMAL); MAGNESIUM 1.6 MG/DL (1.5-2.5); OVALOCYTES 1+ (NORMAL); POTASSIUM 3.1 MEQ/L (3.5-5.1); SCAN/DIFF FINAL DIFF MANUAL
--- NOTE | 2017-04-02 15:39 | PD.ID.CON ---
History of Present Illness Service ID Consult Requested By Dr. Ferrera Pulmonary Reason for Consult Evaluation and Mment of Sepsis, Pneumonia in a post op patient. Primary Care Physician Magda Soria Diagnoses: History of Present Illness is an 81 y/o WF with PMHx of COPD, chronic tobacco use, CAD. Patient recently underwent an ascending colectomy for colon cancer on 03/25/[address] Colleen Plummer. She had laparoscopic extensive lysis of adhesions, open ascending colectomy and flexible sigmoidoscopy, estimated blood loss of 100 mL. Yesterday, the patient developed chest pain, hypoxia requiring a 100% non- rebreather. Hemoglobin has dropped as low as 8.4. Troponins are negative x3. EKG does not show any ischemic changes. The patient appears very pale at the bedside, still having active chest pain which is improved after a nitro drip. Otherwise denies any fevers, chills, cough, bleeding, PND, or orthopnea. Patient was transferred to the ICU for resp distress. Dr.Iskandar mercadow me the case. Agree to CT Chest, A/P. Currently not on pressors, UO ok. Patient has recd 2 units PRBC overnight. ID consulted for sepsis, Pneumonia in a post op pt. Past Family Social History Allergies: Coded Allergies: No Known Allergies (Unverified , 03/25/17) Past Medical History post op DVT HTN CVA COPD CAD Past Surgical History Cataract surgery Appendectomy Cholecystectomy Bilateral knee replacement with hardware in place. Respiratory history of present illness Reported Medications Reported Meds & Active Scripts Active Reported Calcium 600 Mg Tab 1,200 Mg PO DAILY Vitamin B-12 (Cyanocobalamin) 2,500 Mcg Subl 2,500 Mcg SL DAILY Vitamin D (Cholecalciferol) 1,000 Unit Tab 1,000 Units PO DAILY Multi For Her 50+ (Multiple Vitamins W/ Minerals) 1 Cap Cap 1 Tab PO DAILY Vitamin C (Ascorbic Acid) 500 Mg Cap 500 Mg PO PRN Atorvastatin (Atorvastatin Calcium) 40 Mg Tab 40 Mg PO HS Myrbetriq (Mirabegron) 50 Mg Tab 50 Mg PO DAILY Valsartan 160 Mg Tab 160 Mg PO DAILY Nexium (Esomeprazole DR) 40 Mg Capdr 40 Mg PO BID Klor-Con 10 (Potassium Chloride) 10 Meq Tab 10 Meq PO DAILY Aggrenox (Dipyridamole/Aspirin) 200-25 Mg Cap 1 Cap PO BID Active Ordered Medications Current Medications Medications (Trade) Dose Ordered Sig/Darrell Route Start Time Stop Time Status Last Admin (NS Flush) 2 ml UNSCH PRN IVF 03/25/17 13:15 (NS Flush) 2 ml BID IVF 03/25/17 13:15 04/02/17 08:43 ([place] 5-325 Mg) 1 tab Q6H PRN PO 03/25/17 13:15 03/26/17 20:16 ([place] 5-325 Mg) 2 tab Q6H PRN PO 03/25/17 13:15 04/01/17 22:23 (Tylenol) 650 mg Q4H PRN PO 03/25/17 13:15 (Protonix Inj) 40 mg DAILY IVP 03/26/17 09:00 04/02/17 07:51 (Zofran Inj) 4 mg Q6H PRN IV 03/25/17 13:15 04/02/17 07:51 (Vasotec Inj) 1.25 mg Q4H PRN IV 03/25/17 13:15 (Vasotec Inj) 2.5 mg Q6H PRN IV 03/25/17 13:15 Benzocaine/ Menthol 1 lozenge 1 lozenge UNSCH PRN BUCCAL 03/25/17 13:15 04/02/17 09:15 Potassium Chloride 100 ml @ 50 mls/hr UNSCH PRN IV 03/25/17 13:15 04/01/17 06:33 (KCl 40 Meq Premix Inj) 100 ml @ 25 mls/hr UNSCH PRN IV 03/25/17 13:15 (Heparin Inj) 5,000 units Q12H SQ 03/26/17 12:00 04/02/17 11:59 (Narcan Inj) 0.4 mg UNSCH PRN IV 03/25/17 13:15 (Benadryl Inj) 25 mg Q6H PRN IV 03/25/17 13:15 Valsartan 160 mg 160 mg DAILY PO 03/26/17 09:00 04/02/17 07:51 Azithromycin 500 mg/Sodium Chloride 250 ml @ 250 mls/hr Q24H IV 04/02/17 15:00 Piperacillin Sod/ Tazobactam Sod 100 ml @ 200 mls/hr Q6H IV 04/02/17 15:45 UNV Pharmacy Profile Note 0 ml @ 0 mls/hr UNSCH OTHER 04/02/17 15:45 (Mycamine Inj/NS Inj) 100 ml @ 100 mls/hr ONCE ONCE IV 04/02/17 15:45 04/02/17 16:44 UNV Family History Could not be obtained as patient on BiPAP. Social History Could not be obtained as patient on 100% nonrebreather. Physical Exam Vital Signs Vital Signs Date Time Temp Pulse Resp B/P Pulse Ox O2 Delivery O2 Flow Rate FiO2 04/02/17 12:00 97.9 108 30 156/64 93 04/02/17 12:00 108 04/02/17 10:00 104 04/02/17 08:36 95 Non-Rebreather 15.00 04/02/17 08:00 98.7 94 31 134/63 95 04/02/17 08:00 94 04/02/17 07:00 96 Non-Rebreather 04/02/17 06:00 90 04/02/17 04:00 88 04/02/17 04:00 96.9 88 25 138/62 96 04/02/17 02:00 88 04/02/17 00:00 97.9 94 26 135/60 92 04/02/17 00:00 94 04/01/17 23:25 97.9 94 26 135/60 92 04/01/17 22:00 102 04/01/17 21:30 99.9 96 22 143/64 93 04/01/17 20:27 94 Non-Rebreather 15.00 04/01/17 20:00 96 04/01/17 20:00 99.9 96 25 142/63 94 04/01/17 19:00 96 Non-Rebreather 04/01/17 18:00 96 04/01/17 16:00 91 04/01/17 16:00 98.3 91 24 137/64 95 04/01/17 15:48 22 Physical Exam GENERAL: Obese, well-developed patient. On 100% nonrebreather. SKIN: No rashes, ecchymoses or lesions. Cool and dry. HEAD: Atraumatic. Normocephalic. No temporal or scalp tenderness. EYES: Pupils equal round and reactive. Extraocular motions intact. No scleral icterus. No injection or drainage. ENT: Nose without bleeding, purulent drainage or septal hematoma. Throat without erythema, tonsillar hypertrophy or exudate. Uvula midline. Airway patent. NECK: Trachea midline. Supple, nontender, no meningeal signs. CARDIOVASCULAR: Regular rate and rhythm without murmurs. RESPIRATORY: Clear to auscultation. Breath sounds equal bilaterally. No wheezes , rales, or rhonchi. GASTROINTESTINAL: Abdomen soft, non-tender, nondistended. MUSCULOSKELETAL: Bilateral knees surgical scar is intact. NEUROLOGICAL: Awake and alert. Grossly nonfocal Psych cooperative IV line sites with no evidence of infection. Laboratory Laboratory Tests Test 04/01/17 04/02/17 04/02/17 19:07 10:45 14:20 Blood Type O POSITIVE Antibody Screen NEGATIVE Crossmatch Leukocyte-Reduced Red Blood Cells Blood Bank Comment Hemoglobin 10.7 10.1 Hematocrit 33.0 30.5 White Blood Count 39.2 Red Blood Count 3.72 Mean Corpuscular Volume 82.1 Mean Corpuscular Hemoglobin 27.2 Mean Corpuscular Hemoglobin 33.1 Concent Red Cell Distribution Width 15.8 Platelet Count 296 Mean Platelet Volume 8.5 Neutrophils (%) (Auto) 96.7 Lymphocytes (%) (Auto) 1.7 Monocytes (%) (Auto) 1.4 Eosinophils (%) (Auto) 0.0 Basophils (%) (Auto) 0.2 Neutrophils # (Auto) 37.8 Lymphocytes # (Auto) 0.7 Monocytes # (Auto) 0.6 Eosinophils # (Auto) 0.0 Basophils # (Auto) 0.1 CBC Comment AUTO DIFF Differential Total Cells 100 Counted Neutrophils % (Manual) 84 Band Neutrophils % 13 Lymphocytes % 2 Monocytes % 1 Neutrophils # (Manual) 38.0 Differential Comment FINAL DIFF MANUAL Toxic Vacuolation PRESENT Ovalocytes 1+ Acanthocytes OCC Keratocytes OCC Sodium Level 146 Potassium Level 3.1 Chloride Level 109 Carbon Dioxide Level 26.9 Anion Gap 10 Blood Urea Nitrogen 18 Creatinine 0.67 Estimat Glomerular Filtration 84 Rate Random Glucose 147 Calcium Level 7.7 Phosphorus Level 2.2 Magnesium Level 1.6 B-Type Natriuretic Peptide 352 Date/Time Procedure Status Source Growth 04/02/17 14:30 Legionella Antigen Received Urine Catheterized Urine Pending 04/02/17 14:30 Streptococcus pneumoniae Antigen (M Received Urine Catheterized Urine Pending 04/02/17 14:20 Aerobic Blood Culture Received Blood Peripheral Pending 04/02/17 14:20 Anaerobic Blood Culture Received Blood Peripheral Pending Result Diagram: 04/02/17 1420 04/02/17 1420 Imaging Last Impressions Chest X-Ray 04/02/17 0000 Signed Impressions: Service Date/Time: Tuesday, April 02, 2017 04:14 - CONCLUSION: 1. Worsening patchy airspace disease throughout the right lung. 2. Minimal left basilar atelectasis. 3. Cardiomegaly. Asher Gottlieb MD Assessment and Plan Assessment and Plan Sepsis Pneumonia in the hospital setting. Acute respiratory failure on 100% nonrebreather high risk of intubation. Ascending colectomy for colon cancer on 03/25/2017 ? IA abscess or sepsis/ peritonitis High grade leucocytosis. COPD exacerbation acute CAD Recs Continue Zosyn IV (dose increased to cover PSAE) Continue Vanco IV(target 15-20) Micafungin IV x 1 (Post op possible IA sepsis, CT pending) CT Chest per . Agree with need. PNA appears to be source. Will add CT A/P to r/o IA pathology. d/w Zee Vanessa MD April 02, 2017 15:39
[2017-04-02] MEDS ORDERED: Vancomycin Consult Pharmacy 1 EA OTHER SCH (15:45)
[2017-04-02] MEDS ORDERED: IOHEXOL 350 MG/ML 10 ML VIAL (for RAD DIAG) IV ONE (15:54)
--- NOTE | 2017-04-02 16:17 | RADRPT ---
EXAM DATE/TIME: 04/02/2017 15:47 [facility] COMPARISON: No previous studies available for comparison. INDICATIONS : Shortness of breath. IV CONTRAST: 85 cc Omnipaque 350 (iohexol) IV ; Cumulative dose for multiple exams. RADIATION DOSE: 15.24 CTDIvol (mGy) MEDICAL HISTORY : Cardiovascular disease. Carcinoma, colon. SURGICAL HISTORY : None. ENCOUNTER: Initial ACUITY: 1 day PAIN SCALE: 0/10 LOCATION: Bilateral chest TECHNIQUE: Volumetric scanning of the chest was performed using a pulmonary embolism protocol MIP images were re constructed. Using automated exposure control and adjustment of the mA and/or kV according to patien t size, radiation dose was kept as low as reasonably achievable to obtain optimal diagnostic quality images. FINDINGS: No filling defects are seen to suggest metabolic disease. Contrast bolus is suboptimal. There is a large area of airspace consolidation the right lung predominantly posterior with some air bronchograms. There is also a partially loculated small to moderate right pleural effusion. There is bibasal atelectasis. Small left effusion also present. Mildly enlarged mediastinal lymph nodes presen t. Moderate to severe coronary calcifications. CONCLUSION: 1. Negative for pulmonary embolus. Dense consolidation in the right lung especially posteriorly most characteristic of a large pneumonia. There is also partially loculated small to moderate right pleura l effusion and right basilar atelectasis. On the left side there is a small pleural effusion and left basilar atelectasis. Austen Osei MD on April 02, 2017 at 16:11 Board Certified Radiologist. This report was verified electronically.
[2017-04-02] MEDS: PIPERACIL-TAZO 4.5 GM PREMIX 100 ML IV SCH ×2 (16:37→22:08)
[2017-04-02] MEDS: AZITHROMYCIN INJ 500 MG in SODIUM CHLOR 0.9% 250 ML INJ 250 ML IV SCH (16:37)
[2017-04-02] MEDS: ACETAMINOPHEN/HYDROcodone 325 MG/5 MG TAB PO PRN ×2 (16:41→22:08)
--- NOTE | 2017-04-02 16:41 | RADRPT ---
EXAM DATE/TIME: 04/02/2017 15:47 [facility] COMPARISON: No previous studies available for comparison. INDICATIONS : Evaluate for abscess. IV CONTRAST: 85 cc Omnipaque 350 (iohexol) IV ; Cumulative dose for multiple exams. ORAL CONTRAST: No oral contrast ingested. RADIATION DOSE: 12.35 CTDIvol (mGy) MEDICAL HISTORY : Cardiovascular disease. Carcinoma, colon. SURGICAL HISTORY : Abdominal. ENCOUNTER: Initial ACUITY: 1 day PAIN SCALE: 4/10 LOCATION: Bilateral abdomen. TECHNIQUE: Volumetric scanning of the abdomen and pelvis was performed. Using automated exposure control and ad justment of the mA and/or kV according to patient size, radiation dose was kept as low as reasonably achievable to obtain optimal diagnostic quality images. FINDINGS: There is dense basilar lung consolidation and atelectasis on the right with mucoid plugging in the di stal bronchi. Small to moderate right effusion and small left effusion with basilar atelectasis. No acute findings in the liver , right adrenal or pancreas. There is a 2.1 cm left adrenal nodule sta tistically most likely a adenoma. Low attenuation lesion in the spleen measuring about 1.5 cm may rep resent a cyst or hemangioma. There is a 8.2 x 4.2 cm fluid collection in the pelvis posteriorly. This probably represents complex free fluid. No loculated air is seen within this fluid collection. No free air. There is colonic dive rticulosis without diverticulitis. Bowser catheter present in bladder. There is also some air within t he bladder. There is previous partial bowel resection on the right. Previous cholecystectomy. Minimal renal parenchymal scarring. 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 CONCLUSION: 1. 8.2 x 4.2 cm fluid collection in the deep posterior pelvis, probably mildly complex free fluid. No loculated air to suggest abscess. 2. Colonic diverticulosis without diverticulitis. Postoperative cholecystectomy and partial right bow el resection. Dense consolidation at the lung bases, right greater than left bilateral effusions. Austen Osei MD on April 02, 2017 at 16:30 Board Certified Radiologist. This report was verified electronically.
[2017-04-02] MEDS ORDERED: MICAFUNGIN INJ 150 MG in SODIUM CHLORIDE 0.9% INJ 100 ML IV ONE (17:00)
[2017-04-02 17:06] LABS: BLOOD GAS BASE EXCESS 3.1 mmol/L (-2-2); BLOOD GAS CARBOXYHEMOGLOBIN 1.2 % (0-4); BLOOD GAS HCO3 26 mmol/L (22-26); BLOOD GAS METHEMOGLOBIN 1.1 % (0-2); BLOOD GAS O2 HGB SATURATION 85 % (90-100); BLOOD GAS PCO2 35 mmHg (38-42); BLOOD GAS PO2 52 mmHg (61-120); BLOOD GAS TOTAL HGB 10.9 G/DL (12.0-16.0); CRITICAL VALUE YES; OXYGEN DEVICE NRBR; TEMP CORR TO 98.6
[2017-04-02 17:07] LABS: DRAW SITE RT RADIAL; LITER FLOW 15 L/M; NUMBER OF ARTERIAL PUNCTURES 1; STAT NO; ULNAR PULSE PRESENT
[2017-04-02] MEDS: POTASSIUM CHLOR 20 MEQ PREMIX 100 ML IV SCH ×2 (19:52→22:37)
[2017-04-03] VITALS (14 sets, daily range): BP systolic 115–147; BP diastolic 56–63; PULSE 80–101; RESP 22–28; TEMP 97.8–98.3; O2SAT 93–98
[2017-04-03] MEDS: HEPARIN SODIUM - SQ 10,000 UNITS/ML VIAL SQ SCH ×3 (00:52→23:07)
[2017-04-03] MEDS: VANCOMYCIN INJ 1,250 MG in SODIUM CHLOR 0.9% 250 ML INJ 250 ML IV SCH ×2 (03:04→21:47)
[2017-04-03] MEDS: PIPERACIL-TAZO 4.5 GM PREMIX 100 ML IV SCH ×4 (04:11→23:06)
[2017-04-03] MEDS: RESP: ALBUTEROL 2.5 MG/IPRATROPIUM 0.5 MG NEB (SCH) NEB ×6 (04:25→20:57)
[2017-04-03 05:02] LABS: BICARBONATE 28.2 MEQ/L (21.0-32.0); POTASSIUM 3.2 MEQ/L (3.5-5.1)
[2017-04-03 05:39] LABS: CALCIUM-PROTEIN CORRECTED 8.3 MG/DL (8.5-10.1)
[2017-04-03 05:42] LABS: AUTOMATED NEUTROPHIL # 33.7 TH/MM3 (1.8-7.7); EOSINOPHIL % 0.1 % (0.0-4.0); HEMATOCRIT 30.4 % (35.0-46.0); LYMPH % 2.4 % (9.0-44.0); LYMPHOCYTE # 0.8 TH/MM3 (1.0-4.8); MEAN CORPUSCULAR HGB CONC 32.9 % (32.0-36.0); MONO % 1.5 % (0.0-8.0); PLATELET COUNT 298 TH/MM3 (150-450); RED BLOOD COUNT 3.71 MIL/MM3 (4.00-5.30); WHITE BLOOD COUNT 35.1 TH/MM3 (4.0-11.0)
[2017-04-03 05:43] LABS: HEMO FLAGS AUTO DIFF
[2017-04-03 07:38] LABS: BANDS 9 % (0-6); NEUTROPHIL # MANUAL DIFF 32.6 TH/MM3 (1.8-7.7); POLYS (SEG NEUTROPHILS) 84 % (16-70); WBC DIFF SAMPLE 100
[2017-04-03 07:41] LABS: BURR CELLS 1+ (NORMAL); KERATOCYTES OCC (NORMAL); PLATELET ESTIMATE SMEAR NORMAL (NORMAL); PLATELET MORPHOLOGY NORMAL (NORMAL); SCAN/DIFF FINAL DIFF MANUAL
[2017-04-03] MEDS: PANTOPRAZOLE SODIUM 40 MG VIAL IVP SCH (08:32)
[2017-04-03] MEDS: SODIUM CHLORIDE 0.9% FLUSH 5 ML FLUSH IVF SCH ×2 (08:32→19:58)
[2017-04-03] MEDS: VALSARTAN 160 MG TAB PO SCH (08:32)
[2017-04-03] MEDS: POTASSIUM CHLOR 20 MEQ PREMIX 100 ML IV SCH ×2 (10:00→12:00)
[2017-04-03] MEDS ORDERED: DEXTROSE 50% IN WATER 50 ML VIAL(D50) IV PRN (10:00)
[2017-04-03] MEDS ORDERED: GLUCAGON 1 MG/ML VIAL IM/SQ PRN (10:00)
[2017-04-03] MEDS: INSULIN NovoLIN REGULAR SUPPLEMENTAL SCALE SQ SCH ×3 (11:00→21:00)
--- NOTE | 2017-04-03 12:28 | HHI.PR ---
Subjective Remarks Patient remains on non rebreather mask feeling somewhat better. CTA chest yesterday showed right sided pneumonia with small effusion and right basilar atelectasis, no PE. Afebrile. Objective Vital Signs Vital Signs Date Time Temp Pulse Resp B/P Pulse Ox O2 Delivery O2 Flow Rate FiO2 04/03/17 10:00 101 04/03/17 08:20 93 Non-Rebreather 15.00 04/03/17 08:00 98.3 88 24 121/56 97 04/03/17 07:00 98 Non-Rebreather 04/03/17 06:00 99 04/03/17 04:00 90 04/03/17 04:00 97.9 91 24 116/57 95 04/03/17 02:00 93 04/03/17 00:00 91 04/03/17 00:00 98.0 91 25 133/57 93 04/02/17 22:00 100 04/02/17 21:57 95 Non-Rebreather 15.00 04/02/17 20:00 94 04/02/17 20:00 97.9 93 27 143/67 91 04/02/17 19:00 91 Non-Rebreather 04/02/17 18:00 96 04/02/17 16:00 98.1 30 26 132/63 92 04/02/17 16:00 100 04/02/17 14:00 99 I/O 04/02/17 04/02/17 04/02/17 04/03/17 04/03/17 04/03/17 07:00 15:00 23:00 07:00 15:00 23:00 Intake Total 1217 ml 923 ml 940 ml 940 ml Output Total 725 ml 600 ml 1000 ml 600 ml Balance 492 ml 323 ml -60 ml 340 ml Intake Oral 40 ml 240 ml 240 ml IV Total 477 ml 923 ml 700 ml 700 ml Packed Cells 500 ml Other 200 ml Output Urine Total 675 ml 600 ml 1000 ml 600 ml Gastric Drainage Total 50 ml 0 ml # Bowel Movements 0 0 0 Result Diagram: 04/03/17 0412 04/03/17 0412 Other Results Laboratory Tests Test 04/02/17 04/02/17 04/02/17 04/03/17 14:20 16:44 18:30 04:12 White Blood Count 39.2 TH/MM3 35.1 TH/MM3 Red Blood Count 3.72 MIL/MM3 3.71 MIL/MM3 Hemoglobin 10.1 GM/DL 10.0 GM/DL Hematocrit 30.5 % 30.4 % Mean Corpuscular Volume 82.1 FL 82.0 FL Mean Corpuscular Hemoglobin 27.2 PG 27.0 PG Mean Corpuscular Hemoglobin 33.1 % 32.9 % Concent Red Cell Distribution Width 15.8 % 16.0 % Platelet Count 296 TH/MM3 298 TH/MM3 Mean Platelet Volume 8.5 FL 8.6 FL Neutrophils (%) (Auto) 96.7 % 96.0 % Lymphocytes (%) (Auto) 1.7 % 2.4 % Monocytes (%) (Auto) 1.4 % 1.5 % Eosinophils (%) (Auto) 0.0 % 0.1 % Basophils (%) (Auto) 0.2 % 0.0 % Neutrophils # (Auto) 37.8 TH/MM3 33.7 TH/MM3 Lymphocytes # (Auto) 0.7 TH/MM3 0.8 TH/MM3 Monocytes # (Auto) 0.6 TH/MM3 0.5 TH/MM3 Eosinophils # (Auto) 0.0 TH/MM3 0.0 TH/MM3 Basophils # (Auto) 0.1 TH/MM3 0.0 TH/MM3 CBC Comment AUTO DIFF AUTO DIFF Differential Total Cells 100 100 Counted Neutrophils % (Manual) 84 % 84 % Band Neutrophils % 13 % 9 % Lymphocytes % 2 % 5 % Monocytes % 1 % 2 % Neutrophils # (Manual) 38.0 TH/MM3 32.6 TH/MM3 Differential Comment FINAL DIFF FINAL DIFF MANUAL MANUAL Toxic Vacuolation PRESENT Ovalocytes 1+ Acanthocytes OCC Keratocytes OCC OCC Sodium Level 146 MEQ/L 141 MEQ/L Potassium Level 3.1 MEQ/L 3.2 MEQ/L Chloride Level 109 MEQ/L 105 MEQ/L Carbon Dioxide Level 26.9 MEQ/L 28.2 MEQ/L Anion Gap 10 MEQ/L 8 MEQ/L Blood Urea Nitrogen 18 MG/DL 15 MG/DL Creatinine 0.67 MG/DL 0.66 MG/DL Estimat Glomerular Filtration 84 ML/MIN 86 ML/MIN Rate Random Glucose 147 MG/DL 105 MG/DL Calcium Level 7.7 MG/DL 7.3 MG/DL Phosphorus Level 2.2 MG/DL Magnesium Level 1.6 MG/DL B-Type Natriuretic Peptide 352 PG/ML 220 PG/ML Blood Gas Puncture Site RT RADIAL Blood Gas Patient Temperature 98.6 Blood Gas HCO3 26 mmol/L Blood Gas Base Excess 3.1 mmol/L Blood Gas Oxygen Saturation 85 % Arterial Blood pH 7.49 Arterial Blood Partial 35 mmHg Pressure CO2 Arterial Blood Partial 52 mmHg Pressure O2 Arterial Blood Oxygen Content 13.0 Vol % Arterial Blood 1.2 % Carboxyhemoglobin Arterial Blood Methemoglobin 1.1 % Blood Gas Hemoglobin 10.9 G/DL Oxygen Delivery Device NRBR Blood Gas Liter Flow 15 L/M Nasal Screen MRSA (PCR) MRSA DETECTED Platelet Estimate NORMAL Platelet Morphology Comment NORMAL Justice Cells 1+ Protein Corrected Calcium 8.3 MG/DL Total Protein 5.3 GM/DL Objective Remarks GENERAL: Patient is 81 yo on partial rebreather mask SKIN: Warm and dry. HEAD: Normocephalic. EYES: No scleral icterus. No injection or drainage. NECK: Supple, trachea midline. No JVD or lymphadenopathy. CARDIOVASCULAR: Tachycardic without murmurs, gallops, or rubs. RESPIRATORY: Breath sounds equal bilaterally. Coarse BS on right GASTROINTESTINAL: Abdomen soft, non-tender, nondistended. MUSCULOSKELETAL: No cyanosis, or edema. Neuro: Awake and alert A/P Assessment and Plan 1)Resp failure 2)Right sided pneumonia 3)s/p Lap TANISHA, open ascending colectomy on 03/25 4)Leukocytosis 5)Anemia Plan Wean down oxygen as andreas keep sat >92% Bronchodilators, solumederol 40mg IV Q6 x 4 doses NIPPV PRN for resp distress Diurese with Bumex 1mg x1, Continue with abx ( Zosyn, Azithromycin, Vanco ) ID is following strep pneumonia and Legionella urinary Ag negative, check sputum cx BC /6: NGTD Monitor CBC and for signs of infections ( fever, WBC) WBC trending down Monitor renal function, electrolytes replacement per protocol. GI/DVT prophylaxis Andrew Ferrera MD April 03, 2017 12:28
--- NOTE | 2017-04-03 12:32 | PD.CARD.PN ---
Subjective Subjective Remarks alert on nrb in nad Objective Vital Signs / I&O Vital Signs Date Time Temp Pulse Resp B/P Pulse Ox O2 Delivery O2 Flow Rate FiO2 04/03/17 10:00 101 04/03/17 08:20 93 Non-Rebreather 15.00 04/03/17 08:00 98.3 88 24 121/56 97 04/03/17 07:00 98 Non-Rebreather 04/03/17 06:00 99 04/03/17 04:00 90 04/03/17 04:00 97.9 91 24 116/57 95 04/03/17 02:00 93 04/03/17 00:00 91 04/03/17 00:00 98.0 91 25 133/57 93 04/02/17 22:00 100 04/02/17 21:57 95 Non-Rebreather 15.00 04/02/17 20:00 94 04/02/17 20:00 97.9 93 27 143/67 91 04/02/17 19:00 91 Non-Rebreather 04/02/17 18:00 96 04/02/17 16:00 98.1 30 26 132/63 92 04/02/17 16:00 100 04/02/17 14:00 99 I/O 04/02/17 04/02/17 04/02/17 04/03/17 04/03/17 04/03/17 07:00 15:00 23:00 07:00 15:00 23:00 Intake Total 1217 ml 923 ml 940 ml 940 ml Output Total 725 ml 600 ml 1000 ml 600 ml Balance 492 ml 323 ml -60 ml 340 ml Intake Oral 40 ml 240 ml 240 ml IV Total 477 ml 923 ml 700 ml 700 ml Packed Cells 500 ml Other 200 ml Output Urine Total 675 ml 600 ml 1000 ml 600 ml Gastric Drainage Total 50 ml 0 ml # Bowel Movements 0 0 0 Laboratory GENERAL: SKIN: Warm and dry. HEAD: Normocephalic. EYES: No scleral icterus. No injection or drainage. NECK: Supple, trachea midline. No JVD or lymphadenopathy. CARDIOVASCULAR: Regular rate and rhythm without murmurs, gallops, or rubs. RESPIRATORY: Breath sounds equal bilaterally. No accessory muscle use. GASTROINTESTINAL: Abdomen soft, non-tender, nondistended. MUSCULOSKELETAL: No cyanosis, or edema. BACK: Nontender without obvious deformity. No CVA tenderness. Laboratory Tests Test 04/02/17 04/02/17 04/02/17 04/03/17 14:20 16:44 18:30 04:12 White Blood Count 39.2 TH/MM3 35.1 TH/MM3 Red Blood Count 3.72 MIL/MM3 3.71 MIL/MM3 Hemoglobin 10.1 GM/DL 10.0 GM/DL Hematocrit 30.5 % 30.4 % Mean Corpuscular Volume 82.1 FL 82.0 FL Mean Corpuscular Hemoglobin 27.2 PG 27.0 PG Mean Corpuscular Hemoglobin 33.1 % 32.9 % Concent Red Cell Distribution Width 15.8 % 16.0 % Platelet Count 296 TH/MM3 298 TH/MM3 Mean Platelet Volume 8.5 FL 8.6 FL Neutrophils (%) (Auto) 96.7 % 96.0 % Lymphocytes (%) (Auto) 1.7 % 2.4 % Monocytes (%) (Auto) 1.4 % 1.5 % Eosinophils (%) (Auto) 0.0 % 0.1 % Basophils (%) (Auto) 0.2 % 0.0 % Neutrophils # (Auto) 37.8 TH/MM3 33.7 TH/MM3 Lymphocytes # (Auto) 0.7 TH/MM3 0.8 TH/MM3 Monocytes # (Auto) 0.6 TH/MM3 0.5 TH/MM3 Eosinophils # (Auto) 0.0 TH/MM3 0.0 TH/MM3 Basophils # (Auto) 0.1 TH/MM3 0.0 TH/MM3 CBC Comment AUTO DIFF AUTO DIFF Differential Total Cells 100 100 Counted Neutrophils % (Manual) 84 % 84 % Band Neutrophils % 13 % 9 % Lymphocytes % 2 % 5 % Monocytes % 1 % 2 % Neutrophils # (Manual) 38.0 TH/MM3 32.6 TH/MM3 Differential Comment FINAL DIFF FINAL DIFF MANUAL MANUAL Toxic Vacuolation PRESENT Ovalocytes 1+ Acanthocytes OCC Keratocytes OCC OCC Sodium Level 146 MEQ/L 141 MEQ/L Potassium Level 3.1 MEQ/L 3.2 MEQ/L Chloride Level 109 MEQ/L 105 MEQ/L Carbon Dioxide Level 26.9 MEQ/L 28.2 MEQ/L Anion Gap 10 MEQ/L 8 MEQ/L Blood Urea Nitrogen 18 MG/DL 15 MG/DL Creatinine 0.67 MG/DL 0.66 MG/DL Estimat Glomerular Filtration 84 ML/MIN 86 ML/MIN Rate Random Glucose 147 MG/DL 105 MG/DL Calcium Level 7.7 MG/DL 7.3 MG/DL Phosphorus Level 2.2 MG/DL Magnesium Level 1.6 MG/DL B-Type Natriuretic Peptide 352 PG/ML 220 PG/ML Blood Gas Puncture Site RT RADIAL Blood Gas Patient Temperature 98.6 Blood Gas HCO3 26 mmol/L Blood Gas Base Excess 3.1 mmol/L Blood Gas Oxygen Saturation 85 % Arterial Blood pH 7.49 Arterial Blood Partial 35 mmHg Pressure CO2 Arterial Blood Partial 52 mmHg Pressure O2 Arterial Blood Oxygen Content 13.0 Vol % Arterial Blood 1.2 % Carboxyhemoglobin Arterial Blood Methemoglobin 1.1 % Blood Gas Hemoglobin 10.9 G/DL Oxygen Delivery Device NRBR Blood Gas Liter Flow 15 L/M Nasal Screen MRSA (PCR) MRSA DETECTED Platelet Estimate NORMAL Platelet Morphology Comment NORMAL Arnold Cells 1+ Protein Corrected Calcium 8.3 MG/DL Total Protein 5.3 GM/DL Assessment and Plan Problem List: (1) Anemia (2) Angina at rest (3) CAD (coronary artery disease) (4) Hypoxia Assessment and Plan 1.) Class 4 Angina/anemia - improved after transfusion, 2.) Hypoxia due to pneumonia/copd, f/u pulm rec Mikael Rodriguez MD April 03, 2017 12:32
[2017-04-03] MEDS: ACETAMINOPHEN/HYDROcodone 325 MG/5 MG TAB PO PRN ×3 (12:33→22:42)
[2017-04-03] MEDS: methylPREDNISolone SOD SUCC 40 MG/1 ML VIAL IV PUSH SCH ×3 (12:55→23:07)
[2017-04-03] MEDS ORDERED: BUMETANIDE INJ 1 MG/4 ML VIAL IV PUSH ONE (13:00)
[2017-04-03] MEDS: AZITHROMYCIN INJ 500 MG in SODIUM CHLOR 0.9% 250 ML INJ 250 ML IV SCH (14:34)
--- NOTE | 2017-04-03 14:39 | HHI.IDPN ---
Subjective Subjective Remarks is an 81 y/o WF with PMHx of COPD, chronic tobacco use, CAD. Patient recently underwent an ascending colectomy for colon cancer on 03/25/[address] Colleen Plummer. She had laparoscopic extensive lysis of adhesions, open ascending colectomy and flexible sigmoidoscopy, estimated blood loss of 100 mL. Yesterday, the patient developed chest pain, hypoxia requiring a 100% non- rebreather. Hemoglobin has dropped as low as 8.4. Troponins are negative x3. EKG does not show any ischemic changes. The patient appears very pale at the bedside, still having active chest pain which is improved after a nitro drip. Otherwise denies any fevers, chills, cough, bleeding, PND, or orthopnea. Patient was transferred to the ICU for resp distress. Dr.Iskandar mercadow me the case. Agree to CT Chest, A/P. Currently not on pressors, UO ok. Patient has recd 2 units PRBC overnight. ID consulted for sepsis, Pneumonia in a post op pt. Overnight events reviewed. No fevers No rash No diarrhea Sats 93% on NRB coughs not much expectoration. Antibiotics Zosyn IV Azithro IV Vanco IV Lines Line sites with no e.o infection. Past Medical History reviewed Allergies: Coded Allergies: No Known Allergies (Unverified , 03/25/17) Objective . Vital Signs Date Time Temp Pulse Resp B/P Pulse Ox O2 Delivery O2 Flow Rate FiO2 04/03/17 14:34 22 04/03/17 12:00 89 04/03/17 10:00 101 04/03/17 08:20 93 Non-Rebreather 15.00 04/03/17 08:00 98.3 88 24 121/56 97 04/03/17 07:00 98 Non-Rebreather 04/03/17 06:00 99 04/03/17 04:00 90 04/03/17 04:00 97.9 91 24 116/57 95 04/03/17 02:00 93 04/03/17 00:00 91 04/03/17 00:00 98.0 91 25 133/57 93 04/02/17 22:00 100 04/02/17 21:57 95 Non-Rebreather 15.00 04/02/17 20:00 94 04/02/17 20:00 97.9 93 27 143/67 91 04/02/17 19:00 91 Non-Rebreather 04/02/17 18:00 96 04/02/17 16:00 98.1 30 26 132/63 92 04/02/17 16:00 100 04/02/17 04/02/17 04/03/17 15:00 23:00 07:00 Intake Total 923 ml 940 ml 940 ml Output Total 600 ml 1000 ml 600 ml Balance 323 ml -60 ml 340 ml Intake Oral 240 ml 240 ml IV Total 923 ml 700 ml 700 ml Output Urine Total 600 ml 1000 ml 600 ml Gastric Drainage Total 0 ml # Bowel Movements 0 0 . Laboratory Tests Test 04/02/17 04/02/17 04/03/17 10:45 14:20 04:12 Hemoglobin 10.7 GM/DL 10.1 GM/DL 10.0 GM/DL Hematocrit 33.0 % 30.5 % 30.4 % White Blood Count 39.2 TH/MM3 35.1 TH/MM3 Red Blood Count 3.72 MIL/MM3 3.71 MIL/MM3 Mean Corpuscular Volume 82.1 FL 82.0 FL Mean Corpuscular Hemoglobin 27.2 PG 27.0 PG Mean Corpuscular Hemoglobin 33.1 % 32.9 % Concent Red Cell Distribution Width 15.8 % 16.0 % Platelet Count 296 TH/MM3 298 TH/MM3 Mean Platelet Volume 8.5 FL 8.6 FL Neutrophils (%) (Auto) 96.7 % 96.0 % Lymphocytes (%) (Auto) 1.7 % 2.4 % Monocytes (%) (Auto) 1.4 % 1.5 % Eosinophils (%) (Auto) 0.0 % 0.1 % Basophils (%) (Auto) 0.2 % 0.0 % Neutrophils # (Auto) 37.8 TH/MM3 33.7 TH/MM3 Lymphocytes # (Auto) 0.7 TH/MM3 0.8 TH/MM3 Monocytes # (Auto) 0.6 TH/MM3 0.5 TH/MM3 Eosinophils # (Auto) 0.0 TH/MM3 0.0 TH/MM3 Basophils # (Auto) 0.1 TH/MM3 0.0 TH/MM3 CBC Comment AUTO DIFF AUTO DIFF Differential Total Cells 100 100 Counted Neutrophils % (Manual) 84 % 84 % Band Neutrophils % 13 % 9 % Lymphocytes % 2 % 5 % Monocytes % 1 % 2 % Neutrophils # (Manual) 38.0 TH/MM3 32.6 TH/MM3 Differential Comment FINAL DIFF FINAL DIFF MANUAL MANUAL Toxic Vacuolation PRESENT Ovalocytes 1+ Acanthocytes OCC Keratocytes OCC OCC Platelet Estimate NORMAL Platelet Morphology Comment NORMAL Anu Cells 1+ Laboratory Tests Test 04/02/17 04/03/17 14:20 04:12 Sodium Level 146 MEQ/L 141 MEQ/L Potassium Level 3.1 MEQ/L 3.2 MEQ/L Chloride Level 109 MEQ/L 105 MEQ/L Carbon Dioxide Level 26.9 MEQ/L 28.2 MEQ/L Anion Gap 10 MEQ/L 8 MEQ/L Blood Urea Nitrogen 18 MG/DL 15 MG/DL Creatinine 0.67 MG/DL 0.66 MG/DL Estimat Glomerular Filtration 84 ML/MIN 86 ML/MIN Rate Random Glucose 147 MG/DL 105 MG/DL Calcium Level 7.7 MG/DL 7.3 MG/DL Phosphorus Level 2.2 MG/DL Magnesium Level 1.6 MG/DL B-Type Natriuretic Peptide 352 PG/ML 220 PG/ML Protein Corrected Calcium 8.3 MG/DL Total Protein 5.3 GM/DL Microbiology Date/Time Procedure Status Source Growth 04/02/17 14:20 Aerobic Blood Culture - Preliminary Resulted Blood Peripheral NO GROWTH IN 1 DAY 04/02/17 14:20 Anaerobic Blood Culture - Preliminary Resulted Blood Peripheral NO GROWTH IN 1 DAY 04/02/17 14:30 Legionella Antigen - Final Complete Urine Catheterized Urine PRESUMPTIVE NEGATIVE FOR LEGIONELLA P... 04/02/17 14:30 Streptococcus pneumoniae Antigen (M - Final Complete Urine Catheterized Urine PRESUMPTIVE NEGATIVE FOR STREPTOCOCCU... 04/02/17 15:00 Aerobic Blood Culture - Preliminary Resulted Blood Peripheral NO GROWTH IN 1 DAY 04/02/17 15:00 Anaerobic Blood Culture - Preliminary Resulted Blood Peripheral NO GROWTH IN 1 DAY Imaging Last Impressions Chest X-Ray 04/02/17 0000 Signed Impressions: Service Date/Time: Sunday, April 02, 2017 04:14 - CONCLUSION: 1. Worsening patchy airspace disease throughout the right lung. 2. Minimal left basilar atelectasis. 3. Cardiomegaly. Asher Gottlieb MD CT Angiography 04/02/17 0000 Signed Impressions: Service Date/Time: Sunday, April 02, 2017 15:47 - CONCLUSION: 1. Negative for pulmonary embolus. Dense consolidation in the right lung especially posteriorly most characteristic of a large pneumonia. There is also partially loculated small to moderate right pleural effusion and right basilar atelectasis. On the left side there is a small pleural effusion and left basilar atelectasis. Austen Osei MD Abdomen/Pelvis CT 04/02/17 0000 Signed Impressions: Service Date/Time: Sunday, April 02, 2017 15:47 - CONCLUSION: 1. 8.2 x 4.2 cm fluid collection in the deep posterior pelvis, probably mildly complex free fluid. No loculated air to suggest abscess. 2. Colonic diverticulosis without diverticulitis. Postoperative cholecystectomy and partial right bowel resection. Dense consolidation at the lung bases, right greater than left bilateral effusions. Austen Osei MD Physical Exam GENERAL: Obese, well-developed patient. On 100% nonrebreather. SKIN: No rashes, ecchymoses or lesions. Cool and dry. HEAD: Atraumatic. Normocephalic. No temporal or scalp tenderness. EYES: Pupils equal round and reactive. Extraocular motions intact. No scleral icterus. No injection or drainage. ENT: Nose without bleeding, purulent drainage or septal hematoma. Throat without erythema, tonsillar hypertrophy or exudate. Uvula midline. Airway patent. NECK: Trachea midline. Supple, nontender, no meningeal signs. CARDIOVASCULAR: Regular rate and rhythm without murmurs. RESPIRATORY: Clear to auscultation. Breath sounds equal bilaterally. No wheezes , rales, or rhonchi. GASTROINTESTINAL: Abdomen soft, non-tender, nondistended. MUSCULOSKELETAL: Bilateral knees surgical scar is intact. NEUROLOGICAL: Awake and alert. Grossly nonfocal Psych cooperative IV line sites with no evidence of infection. Assessment & Plan Remarks Sepsis Pneumonia in the hospital setting. Acute respiratory failure on 100% nonrebreather high risk of intubation. Ascending colectomy for colon cancer on 03/25/2017 ? IA abscess or sepsis/ peritonitis High grade leucocytosis. COPD exacerbation acute CAD Recs Continue Zosyn IV (dose increased to cover PSAE) Continue Vanco IV(target 15-20) continue Azithro change to oral. Will start deescalating next week depending on clinical response. CT Chest reviewed PNA appears to the source. d/w RN and family in room. Zee Arriaga MD April 03, 2017 14:39
[2017-04-03] MEDS: MULTIVITAMIN INJ 10 ML, FOLIC ACID INJ 1 MG, INSULIN HUMAN REGULAR INJ 40 UNITS in AMIN... IV SCH (19:58)
[2017-04-03] MEDS: FAT EMULSION 20% INJ 250 ML (@10 mls/hr) IV SCH (19:58)
[2017-04-04] VITALS (18 sets, daily range): BP systolic 127–154; BP diastolic 60–67; PULSE 77–89; RESP 25–31; TEMP 97.5–98.4; O2SAT 87–97
[2017-04-04] MEDS: RESP: ALBUTEROL 2.5 MG/IPRATROPIUM 0.5 MG NEB (SCH) NEB ×7 (00:59→23:45)
[2017-04-04] MEDS: PIPERACIL-TAZO 4.5 GM PREMIX 100 ML IV SCH ×4 (03:30→21:35)
[2017-04-04 04:08] LABS: AUTOMATED NEUTROPHIL # 27.1 TH/MM3 (1.8-7.7); BASOPHIL # 0.1 TH/MM3 (0-0.2); BASOPHIL % 0.2 % (0.0-2.0); HEMATOCRIT 31.9 % (35.0-46.0); LYMPH % 2.2 % (9.0-44.0); LYMPHOCYTE # 0.6 TH/MM3 (1.0-4.8); MEAN CELL VOLUME 81.8 FL (80.0-100.0); MEAN CORPUSCULAR HEMOGLOBIN 26.2 PG (27.0-34.0); MONO % 1.2 % (0.0-8.0); NEUT % 96.4 % (16.0-70.0); PLATELET COUNT 294 TH/MM3 (150-450); WHITE BLOOD COUNT 28.1 TH/MM3 (4.0-11.0)
[2017-04-04 04:34] LABS: HEMO FLAGS AUTO DIFF
[2017-04-04 04:49] LABS: BICARBONATE 30.6 MEQ/L (21.0-32.0)
[2017-04-04 04:50] LABS: POTASSIUM 2.9 MEQ/L (3.5-5.1)
[2017-04-04 05:11] LABS: CALCIUM-PROTEIN CORRECTED 7.8 MG/DL (8.5-10.1)
[2017-04-04] MEDS: methylPREDNISolone SOD SUCC 40 MG/1 ML VIAL IV PUSH SCH (05:24)
[2017-04-04] MEDS: POTASSIUM CHLOR 20 MEQ PREMIX 100 ML IV PRN ×4 (05:24→15:51)
[2017-04-04 05:42] LABS: BANDS 4 % (0-6); NEUTROPHIL # MANUAL DIFF 26.7 TH/MM3 (1.8-7.7); POLYS (SEG NEUTROPHILS) 91 % (16-70); WBC DIFF SAMPLE 100
[2017-04-04 05:43] LABS: PLATELET ESTIMATE SMEAR NORMAL (NORMAL); PLATELET MORPHOLOGY NORMAL (NORMAL); SCAN/DIFF FINAL DIFF MANUAL; TOXIC VACUOLATION PRESENT (NONE SEEN)
[2017-04-04 05:44] LABS: ACANTHOCYTES OCC (NORMAL); BURR CELLS 1+ (NORMAL); OVALOCYTES 1+ (NORMAL)
[2017-04-04] MEDS: AZITHROMYCIN 250 MG TAB PO SCH (08:18)
[2017-04-04] MEDS: PANTOPRAZOLE SODIUM 40 MG VIAL IVP SCH (08:18)
[2017-04-04] MEDS: INSULIN NovoLIN REGULAR SUPPLEMENTAL SCALE SQ SCH ×4 (08:18→21:00)
[2017-04-04] MEDS: SODIUM CHLORIDE 0.9% FLUSH 5 ML FLUSH IVF SCH ×2 (08:19→21:00)
[2017-04-04] MEDS: VALSARTAN 160 MG TAB PO SCH (08:19)
--- NOTE | 2017-04-04 09:22 | MB ---
cc: NATALIIA WILLIAM M.D. DATE OF CONSULTATION: 04/01/2017 REASON FOR CONSULTATION: Respiratory failure, pneumonia. HISTORY OF PRESENT ILLNESS: Mrs. Gonzales is an 81-year-old female. She has known history of COPD and coronary artery disease admitted for colectomy for colon cancer done by Dr. Colleen Plummer. The patient did well postoperatively and last night had developed increasing shortness of breath and chest pain with negative cardiac enzymes and was seen by cardiology and felt to have an unstable angina. She was noted as well to have dropped her hemoglobin to 8.4. The patient is on a non-rebreather mask now to maintain adequate oxygenation. PAST MEDICAL HISTORY: Her past medical history is that of: 1. COPD. 2. coronary artery disease. 3. No diabetes mellitus MEDICATIONS: Medications at home include: 1. Albuterol. 2. Potassium. 3. Pantoprazole. 4. Valsartan. ALLERGIES: None known to medication. SOCIAL HISTORY: Long heavy smoking history, continues to smoke until recently. FAMILY HISTORY: Noncontributory. REVIEW OF SYSTEMS: A twelve-point review of systems is as per the history of present illness and past history, otherwise negative. PHYSICAL EXAMINATION: VITAL SIGNS: On exam, pulse is 90, respirations 18, blood pressure 140/70, temperature 98 degrees Fahrenheit. Oxygen saturation 95% on nonrebreather mask. HEAD, EYES, EARS, NOSE, THROAT: Unremarkable. Eyes without icterus. NECK: Without adenopathy or thyroid enlargement. CHEST: A few rhonchi at bases. CARDIAC: PMI not appreciated. S1-S2 audible. No murmur, no rub. ABDOMEN: Lax. Bowel sounds audible. EXTREMITIES: No cyanosis, clubbing or edema. LABORATORY DATA: White count 35,000, hemoglobin 8.3, hematocrit 25, platelets at 269,000. Sodium 145, potassium 3.4, BUN 17, creatinine 0.6. Arterial blood gas when done on a non-rebreather: pH 7.49, pCO2 36, pO2 of 95. RADIOLOGICAL STUDIES: Chest x-ray: Right middle lobe infiltrate suggestive of acute infiltrate. IMPRESSION: 1. Respiratory failure on oxygen therapy. 2. COPD. 3. Probable pneumonia, question aspiration. 4. Status post ascending colectomy. 5. Coronary artery disease. PLAN: 1. The patient will be maintained on oxygen therapy as needed. 2. Should be maintained on as much oxygen as needed to maintain adequate saturation. 3. BiPAP therapy will be utilized if needed. 4. She is maintaining her oxygenation at this point on a mask. 5. Nebulization therapy will be given. 6. Chest x-ray will be followed. 7. Antibiotic therapy has been instituted, and appropriately so. 8. Will follow up her care with you and depending on progress proceed further. I do thank you for asking me to partake in Mrs. Gonzales's care. Nataliia William MD WWW/MARVIN /7:03 PM /9:14 AM
[2017-04-04] MEDS: HEPARIN SODIUM - SQ 10,000 UNITS/ML VIAL SQ SCH (11:38)
--- NOTE | 2017-04-04 13:18 | PD.CARD.PN ---
Subjective Subjective Remarks more alert in nad Objective Vital Signs / I&O Vital Signs Date Time Temp Pulse Resp B/P Pulse Ox O2 Delivery O2 Flow Rate FiO2 04/04/17 12:34 94 Partial Rebreather 9.00 04/04/17 12:00 82 04/04/17 12:00 97.8 82 25 140/66 92 04/04/17 10:00 89 04/04/17 09:02 87 Nasal Cannula 6.00 04/04/17 08:00 83 04/04/17 08:00 97.6 83 29 127/60 93 04/04/17 08:00 92 Non-Rebreather 04/04/17 06:00 87 04/04/17 04:00 77 04/04/17 04:00 97.9 77 25 140/60 92 04/04/17 03:50 93 Partial Rebreather 10.00 04/04/17 02:00 77 04/04/17 00:00 97.9 81 27 131/60 95 04/04/17 00:00 81 04/03/17 22:00 85 04/03/17 20:57 95 Non-Rebreather 15.00 100 04/03/17 20:00 94 04/03/17 20:00 98.3 84 28 147/63 97 04/03/17 19:00 96 Non-Rebreather 04/03/17 18:00 97 04/03/17 16:00 97.8 80 22 115/57 98 04/03/17 16:00 87 04/03/17 14:34 22 04/03/17 14:00 97 I/O 04/03/17 04/03/17 04/03/17 04/04/17 04/04/17 04/04/17 07:00 15:00 23:00 07:00 15:00 23:00 Intake Total 940 ml 860 ml 1062 ml 1163 ml Output Total 600 ml 350 ml 475 ml 275 ml Balance 340 ml 510 ml 587 ml 888 ml Intake Oral 240 ml 360 ml 360 ml 240 ml IV Total 700 ml 500 ml 600 ml 470 ml TPN/PPN 85 ml 377 ml Lipid 17 ml 76 ml Output Urine Total 600 ml 350 ml 475 ml 275 ml # Bowel Movements 0 0 0 Laboratory GENERAL: SKIN: Warm and dry. HEAD: Normocephalic. EYES: No scleral icterus. No injection or drainage. NECK: Supple, trachea midline. No JVD or lymphadenopathy. CARDIOVASCULAR: Regular rate and rhythm without murmurs, gallops, or rubs. RESPIRATORY: Breath sounds equal bilaterally. No accessory muscle use. GASTROINTESTINAL: Abdomen soft, non-tender, nondistended. MUSCULOSKELETAL: No cyanosis, or edema. BACK: Nontender without obvious deformity. No CVA tenderness. Laboratory Tests Test 04/04/17 03:03 White Blood Count 28.1 TH/MM3 Red Blood Count 3.90 MIL/MM3 Hemoglobin 10.2 GM/DL Hematocrit 31.9 % Mean Corpuscular Volume 81.8 FL Mean Corpuscular Hemoglobin 26.2 PG Mean Corpuscular Hemoglobin 32.0 % Concent Red Cell Distribution Width 16.0 % Platelet Count 294 TH/MM3 Mean Platelet Volume 8.7 FL Neutrophils (%) (Auto) 96.4 % Lymphocytes (%) (Auto) 2.2 % Monocytes (%) (Auto) 1.2 % Eosinophils (%) (Auto) 0.0 % Basophils (%) (Auto) 0.2 % Neutrophils # (Auto) 27.1 TH/MM3 Lymphocytes # (Auto) 0.6 TH/MM3 Monocytes # (Auto) 0.3 TH/MM3 Eosinophils # (Auto) 0.0 TH/MM3 Basophils # (Auto) 0.1 TH/MM3 CBC Comment AUTO DIFF Differential Total Cells 100 Counted Neutrophils % (Manual) 91 % Band Neutrophils % 4 % Lymphocytes % 5 % Neutrophils # (Manual) 26.7 TH/MM3 Differential Comment FINAL DIFF MANUAL Toxic Vacuolation PRESENT Platelet Estimate NORMAL Platelet Morphology Comment NORMAL Ovalocytes 1+ Anu Cells 1+ Acanthocytes OCC Sodium Level 139 MEQ/L Potassium Level 2.9 MEQ/L Chloride Level 99 MEQ/L Carbon Dioxide Level 30.6 MEQ/L Anion Gap 9 MEQ/L Blood Urea Nitrogen 18 MG/DL Creatinine 0.53 MG/DL Estimat Glomerular Filtration 110 ML/MIN Rate Random Glucose 141 MG/DL Calcium Level 7.0 MG/DL Protein Corrected Calcium 7.8 MG/DL Total Protein 5.6 GM/DL Assessment and Plan Problem List: (1) Anemia (2) Angina at rest (3) CAD (coronary artery disease) (4) Hypoxia Assessment and Plan 1.) Class 4 Angina/anemia - improved after transfusion, 2.) Hypoxia due to pneumonia/copd, f/u pulm rec, hypoxia improved on less O2 Mikael Rodriguez MD April 04, 2017 13:18
--- NOTE | 2017-04-04 14:52 | HHI.PR ---
Subjective Remarks POD #10 lap TANISHA, open ascending colectomy Feels better, less SOB tolerating small amounts liquid Objective Vital Signs Date Time Temp Pulse Resp B/P Pulse Ox O2 Delivery O2 Flow Rate FiO2 04/04/17 12:34 94 Partial Rebreather 9.00 04/04/17 12:00 82 04/04/17 12:00 97.8 82 25 140/66 92 04/04/17 10:00 89 04/04/17 09:02 87 Nasal Cannula 6.00 04/04/17 08:00 83 04/04/17 08:00 97.6 83 29 127/60 93 04/04/17 08:00 92 Non-Rebreather 04/04/17 06:00 87 04/04/17 04:00 77 04/04/17 04:00 97.9 77 25 140/60 92 04/04/17 03:50 93 Partial Rebreather 10.00 04/04/17 02:00 77 04/04/17 00:00 97.9 81 27 131/60 95 04/04/17 00:00 81 04/03/17 22:00 85 04/03/17 20:57 95 Non-Rebreather 15.00 100 04/03/17 20:00 94 04/03/17 20:00 98.3 84 28 147/63 97 04/03/17 19:00 96 Non-Rebreather 04/03/17 18:00 97 04/03/17 16:00 97.8 80 22 115/57 98 04/03/17 16:00 87 I/O 04/03/17 04/03/17 04/03/17 04/04/17 04/04/17 04/04/17 06:59 14:59 22:59 06:59 14:59 22:59 Intake Total 940 ml 860 ml 1062 ml 1163 ml Output Total 600 ml 350 ml 475 ml 275 ml Balance 340 ml 510 ml 587 ml 888 ml Intake Oral 240 ml 360 ml 360 ml 240 ml IV Total 700 ml 500 ml 600 ml 470 ml TPN/PPN 85 ml 377 ml Lipid 17 ml 76 ml Output Urine Total 600 ml 350 ml 475 ml 275 ml # Bowel Movements 0 0 0 Result Diagram: 04/04/17 0303 04/04/17 0303 Objective Remarks Abdomen soft, nondistended, tender Wound clean Assessment and Plan Assessment and Plan Bowel function starting Go slow with PO PICC for TPN Resume PT Colleen Plummer MD April 04, 2017 14:52
[2017-04-04] MEDS ORDERED: PHARMACY ORDERED LAB ONE (15:45)
--- NOTE | 2017-04-04 15:50 | HHI.PR ---
Subjective Remarks ALERT LESS SOB STILL NEEDS HIGH FIO2 Objective GENERAL: SKIN: Warm and dry. HEAD: Atraumatic. Normocephalic. EYES: Pupils equal and round. No scleral icterus. No injection or drainage. ENT: No nasal bleeding or discharge. Mucous membranes pink and moist. NECK: Trachea midline. No JVD. CARDIOVASCULAR: Regular rate and rhythm. RESPIRATORY: No accessory muscle use.DECREASED BREATH SOUNDS AT BASIS. GASTROINTESTINAL: Abdomen soft, non-tender, nondistended. Hepatic and splenic margins not palpable. MUSCULOSKELETAL: Extremities without clubbing, cyanosis, or edema. No obvious deformities. NEUROLOGICAL: Awake and alert. No obvious cranial nerve deficits. Motor grossly within normal limits. Five out of 5 muscle strength in the arms and legs. Normal speech. PSYCHIATRIC: Appropriate mood and affect; insight and judgment normal. Vital Signs Date Time Temp Pulse Resp B/P Pulse Ox O2 Delivery O2 Flow Rate FiO2 04/04/17 14:00 89 04/04/17 12:34 94 Partial Rebreather 9.00 04/04/17 12:00 82 04/04/17 12:00 97.8 82 25 140/66 92 04/04/17 10:00 89 04/04/17 09:02 87 Nasal Cannula 6.00 04/04/17 08:00 83 04/04/17 08:00 97.6 83 29 127/60 93 04/04/17 08:00 92 Non-Rebreather 04/04/17 06:00 87 04/04/17 04:00 77 04/04/17 04:00 97.9 77 25 140/60 92 04/04/17 03:50 93 Partial Rebreather 10.00 04/04/17 02:00 77 04/04/17 00:00 97.9 81 27 131/60 95 04/04/17 00:00 81 04/03/17 22:00 85 04/03/17 20:57 95 Non-Rebreather 15.00 100 04/03/17 20:00 94 04/03/17 20:00 98.3 84 28 147/63 97 04/03/17 19:00 96 Non-Rebreather 04/03/17 18:00 97 04/03/17 16:00 97.8 80 22 115/57 98 04/03/17 16:00 87 I/O 5/704/03/17 04/03/17 04/04/17 04/04/17 04/04/17 07:00 15:00 23:00 07:00 15:00 23:00 Intake Total 940 ml 860 ml 1062 ml 1163 ml 1481 ml Output Total 600 ml 350 ml 475 ml 275 ml 300 ml Balance 340 ml 510 ml 587 ml 888 ml 1181 ml Intake Oral 240 ml 360 ml 360 ml 240 ml 238 ml IV Total 700 ml 500 ml 600 ml 470 ml 645 ml TPN/PPN 85 ml 377 ml 499 ml Lipid 17 ml 76 ml 99 ml Output Urine Total 600 ml 350 ml 475 ml 275 ml 300 ml # Bowel Movements 0 0 0 1 Result Diagram: 04/04/1730204/04/17302 Assessment and Plan Assessment and Plan RESPIRATORY FAILURE PNEUMONIA POST COLECTOMY PLAN O2 NEEDED ANTIBIOTICS PLM TOILET Discharge Planning GENERAL: SKIN: Warm and dry. HEAD: Atraumatic. Normocephalic. EYES: Pupils equal and round. No scleral icterus. No injection or drainage. ENT: No nasal bleeding or discharge. Mucous membranes pink and moist. NECK: Trachea midline. No JVD. CARDIOVASCULAR: Regular rate and rhythm. RESPIRATORY: No accessory muscle use. DECRESED BREATH SOUNDS AT BASIS. GASTROINTESTINAL: Abdomen soft, non-tender, nondistended. Hepatic and splenic margins not palpable. MUSCULOSKELETAL: Extremities without clubbing, cyanosis, or edema. No obvious deformities. NEUROLOGICAL: Awake and alert. No obvious cranial nerve deficits. Motor grossly within normal limits. Five out of 5 muscle strength in the arms and legs. Normal speech. PSYCHIATRIC: Appropriate mood and affect; insight and judgment normal. Physician Attestation ALERT LESS SOB Nataliia William MD April 04, 2017 15:50
--- NOTE | 2017-04-04 16:45 | HHI.IDPN ---
Subjective Subjective Remarks is an 81 y/o WF with PMHx of COPD, chronic tobacco use, CAD. Patient recently underwent an ascending colectomy for colon cancer on 03/25/[address] Colleen Plummer. She had laparoscopic extensive lysis of adhesions, open ascending colectomy and flexible sigmoidoscopy, estimated blood loss of 100 mL. Yesterday, the patient developed chest pain, hypoxia requiring a 100% non- rebreather. Hemoglobin has dropped as low as 8.4. Troponins are negative x3. EKG does not show any ischemic changes. The patient appears very pale at the bedside, still having active chest pain which is improved after a nitro drip. Otherwise denies any fevers, chills, cough, bleeding, PND, or orthopnea. Patient was transferred to the ICU for resp distress. Dr.Iskandar mercadow me the case. Agree to CT Chest, A/P. Currently not on pressors, UO ok. Patient has recd 2 units PRBC overnight. ID consulted for sepsis, Pneumonia in a post op pt. Overnight events reviewed. No fevers No rash No diarrhea Sats 94% on partial rebreather. coughs not much expectoration. Antibiotics Zosyn IV Azithro IV Vanco IV Lines Line sites with no e.o infection. Past Medical History reviewed Allergies: Coded Allergies: *MDRO Multi-Drug Resistant Organism (Verified Adverse Reaction, Unknown, ) MRSA PCR Screen POSITIVE - 04/02/2017 Objective . Vital Signs Date Time Temp Pulse Resp B/P Pulse Ox O2 Delivery O2 Flow Rate FiO2 04/04/17 16:00 87 04/04/17 14:00 89 04/04/17 12:34 94 Partial Rebreather 9.00 04/04/17 12:00 82 04/04/17 12:00 97.8 82 25 140/66 92 04/04/17 10:00 89 04/04/17 09:02 87 Nasal Cannula 6.00 04/04/17 08:00 83 04/04/17 08:00 97.6 83 29 127/60 93 04/04/17 08:00 92 Non-Rebreather 04/04/17 06:00 87 04/04/17 04:00 77 04/04/17 04:00 97.9 77 25 140/60 92 04/04/17 03:50 93 Partial Rebreather 10.00 04/04/17 02:00 77 04/04/17 00:00 97.9 81 27 131/60 95 04/04/17 00:00 81 04/03/17 22:00 85 04/03/17 20:57 95 Non-Rebreather 15.00 100 04/03/17 20:00 94 04/03/17 20:00 98.3 84 28 147/63 97 04/03/17 19:00 96 Non-Rebreather 04/03/17 18:00 97 04/03/17 04/03/17 04/04/17 15:00 23:00 07:00 Intake Total 860 ml 1062 ml 1163 ml Output Total 350 ml 475 ml 275 ml Balance 510 ml 587 ml 888 ml Intake Oral 360 ml 360 ml 240 ml IV Total 500 ml 600 ml 470 ml TPN/PPN 85 ml 377 ml Lipid 17 ml 76 ml Output Urine Total 350 ml 475 ml 275 ml # Bowel Movements 0 0 . Laboratory Tests Test 04/03/17 04/04/17 04:12 03:03 White Blood Count 35.1 TH/MM3 28.1 TH/MM3 Red Blood Count 3.71 MIL/MM3 3.90 MIL/MM3 Hemoglobin 10.0 GM/DL 10.2 GM/DL Hematocrit 30.4 % 31.9 % Mean Corpuscular Volume 82.0 FL 81.8 FL Mean Corpuscular Hemoglobin 27.0 PG 26.2 PG Mean Corpuscular Hemoglobin 32.9 % 32.0 % Concent Red Cell Distribution Width 16.0 % 16.0 % Platelet Count 298 TH/MM3 294 TH/MM3 Mean Platelet Volume 8.6 FL 8.7 FL Neutrophils (%) (Auto) 96.0 % 96.4 % Lymphocytes (%) (Auto) 2.4 % 2.2 % Monocytes (%) (Auto) 1.5 % 1.2 % Eosinophils (%) (Auto) 0.1 % 0.0 % Basophils (%) (Auto) 0.0 % 0.2 % Neutrophils # (Auto) 33.7 TH/MM3 27.1 TH/MM3 Lymphocytes # (Auto) 0.8 TH/MM3 0.6 TH/MM3 Monocytes # (Auto) 0.5 TH/MM3 0.3 TH/MM3 Eosinophils # (Auto) 0.0 TH/MM3 0.0 TH/MM3 Basophils # (Auto) 0.0 TH/MM3 0.1 TH/MM3 CBC Comment AUTO DIFF AUTO DIFF Differential Total Cells 100 100 Counted Neutrophils % (Manual) 84 % 91 % Band Neutrophils % 9 % 4 % Lymphocytes % 5 % 5 % Monocytes % 2 % Neutrophils # (Manual) 32.6 TH/MM3 26.7 TH/MM3 Differential Comment FINAL DIFF FINAL DIFF MANUAL MANUAL Platelet Estimate NORMAL NORMAL Platelet Morphology Comment NORMAL NORMAL Anu Cells 1+ 1+ Keratocytes OCC Toxic Vacuolation PRESENT Ovalocytes 1+ Acanthocytes OCC Laboratory Tests Test 04/03/17 04/04/17 04:12 03:03 Sodium Level 141 MEQ/L 139 MEQ/L Potassium Level 3.2 MEQ/L 2.9 MEQ/L Chloride Level 105 MEQ/L 99 MEQ/L Carbon Dioxide Level 28.2 MEQ/L 30.6 MEQ/L Anion Gap 8 MEQ/L 9 MEQ/L Blood Urea Nitrogen 15 MG/DL 18 MG/DL Creatinine 0.66 MG/DL 0.53 MG/DL Estimat Glomerular Filtration 86 ML/MIN 110 ML/MIN Rate Random Glucose 105 MG/DL 141 MG/DL Calcium Level 7.3 MG/DL 7.0 MG/DL Protein Corrected Calcium 8.3 MG/DL 7.8 MG/DL B-Type Natriuretic Peptide 220 PG/ML Total Protein 5.3 GM/DL 5.6 GM/DL Microbiology Date/Time Procedure Status Source Growth 04/02/17 14:20 Aerobic Blood Culture - Preliminary Resulted Blood Peripheral NO GROWTH IN 2 DAYS 04/02/17 14:20 Anaerobic Blood Culture - Preliminary Resulted Blood Peripheral NO GROWTH IN 2 DAYS 04/02/17 14:30 Legionella Antigen - Final Complete Urine Catheterized Urine PRESUMPTIVE NEGATIVE FOR LEGIONELLA P... 04/02/17 14:30 Streptococcus pneumoniae Antigen (M - Final Complete Urine Catheterized Urine PRESUMPTIVE NEGATIVE FOR STREPTOCOCCU... 04/02/17 15:00 Aerobic Blood Culture - Preliminary Resulted Blood Peripheral NO GROWTH IN 2 DAYS 04/02/17 15:00 Anaerobic Blood Culture - Preliminary Resulted Blood Peripheral NO GROWTH IN 2 DAYS Imaging Last Impressions Chest X-Ray 04/02/17 0000 Signed Impressions: Service Date/Time: Sunday, April 02, 2017 04:14 - CONCLUSION: 1. Worsening patchy airspace disease throughout the right lung. 2. Minimal left basilar atelectasis. 3. Cardiomegaly. Asher Gottlieb MD CT Angiography 04/02/17 0000 Signed Impressions: Service Date/Time: Sunday, April 02, 2017 15:47 - CONCLUSION: 1. Negative for pulmonary embolus. Dense consolidation in the right lung especially posteriorly most characteristic of a large pneumonia. There is also partially loculated small to moderate right pleural effusion and right basilar atelectasis. On the left side there is a small pleural effusion and left basilar atelectasis. Austen Osei MD Abdomen/Pelvis CT 04/02/17 0000 Signed Impressions: Service Date/Time: Sunday, April 02, 2017 15:47 - CONCLUSION: 1. 8.2 x 4.2 cm fluid collection in the deep posterior pelvis, probably mildly complex free fluid. No loculated air to suggest abscess. 2. Colonic diverticulosis without diverticulitis. Postoperative cholecystectomy and partial right bowel resection. Dense consolidation at the lung bases, right greater than left bilateral effusions. Austen Osei MD Physical Exam GENERAL: Obese, well-developed patient. On 100% nonrebreather. SKIN: No rashes, ecchymoses or lesions. Cool and dry. HEAD: Atraumatic. Normocephalic. No temporal or scalp tenderness. EYES: Pupils equal round and reactive. Extraocular motions intact. No scleral icterus. No injection or drainage. ENT: Nose without bleeding, purulent drainage or septal hematoma. Throat without erythema, tonsillar hypertrophy or exudate. Uvula midline. Airway patent. NECK: Trachea midline. Supple, nontender, no meningeal signs. CARDIOVASCULAR: Regular rate and rhythm without murmurs. RESPIRATORY: Clear to auscultation. Breath sounds equal bilaterally. No wheezes , rales, or rhonchi. GASTROINTESTINAL: Abdomen soft, non-tender, nondistended. MUSCULOSKELETAL: Bilateral knees surgical scar is intact. NEUROLOGICAL: Awake and alert. Grossly nonfocal Psych cooperative IV line sites with no evidence of infection. Assessment & Plan Remarks Sepsis Pneumonia in the hospital setting. Acute respiratory failure on 100% nonrebreather high risk of intubation. Ascending colectomy for colon cancer on 03/25/2017 ? IA abscess or sepsis/ peritonitis High grade leucocytosis. COPD exacerbation acute CAD Recs Continue Zosyn IV (dose increased to cover PSAE) Continue Vanco IV(target 15-20) continue Azithro change to oral. CXR today CT Chest reviewed PNA appears to the source. d/w RN and family in room. Zee Arriaga MD April 04, 2017 16:45
--- NOTE | 2017-04-04 17:16 | RADRPT ---
EXAM DATE/TIME: 04/04/2017 16:46 [facility] COMPARISON: CHEST SINGLE AP, April 02, 2017, 4:14. INDICATIONS : Shortness of breath. MEDICAL HISTORY : Cardiovascular disease. Carcinoma, colon. SURGICAL HISTORY : None. ENCOUNTER: Subsequent ACUITY: 1 week PAIN SCORE: 0/10 LOCATION: Bilateral chest FINDINGS: Single view of the chest demonstrates slight improvement in aeration. Diffuse interstitial alveolar i nfiltrate throughout the right lung is unchanged. There is mild basilar airspace disease on the left. Small right pleural effusion is stable. Heart and mediastinal structures are unchanged in appearance. CONCLUSION: Improvement in aeration however significant right-sided airspace disease and left basilar airspace di sease have not significantly improved. Nasogastric tube has been removed. Srinath Graves MD on April 04, 2017 at 17:12 Board Certified Radiologist. This report was verified electronically.
[2017-04-04] MEDS: VANCOMYCIN INJ 1,250 MG in SODIUM CHLOR 0.9% 250 ML INJ 250 ML IV SCH (17:35)
[2017-04-04] MEDS: FAT EMULSION 20% INJ 250 ML (@10 mls/hr) IV SCH (19:53)
[2017-04-04] MEDS: MULTIVITAMIN INJ 10 ML, FOLIC ACID INJ 1 MG, INSULIN HUMAN REGULAR INJ 40 UNITS in AMIN... IV SCH (21:35)
[2017-04-05] VITALS (18 sets, daily range): BP systolic 124–155; BP diastolic 61–69; PULSE 81–99; RESP 21–28; TEMP 98.3–99.6; O2SAT 89–94
[2017-04-05] MEDS: HEPARIN SODIUM - SQ 10,000 UNITS/ML VIAL SQ SCH ×3 (00:18→23:10)
[2017-04-05] MEDS: PIPERACIL-TAZO 4.5 GM PREMIX 100 ML IV SCH ×4 (03:51→23:09)
[2017-04-05] MEDS: RESP: ALBUTEROL 2.5 MG/IPRATROPIUM 0.5 MG NEB (SCH) NEB ×6 (03:51→23:42)
[2017-04-05] MEDS: VANCOMYCIN 1,000 MG/NS 250 ML IV SCH ×4 (04:24→15:17)
[2017-04-05] MEDS: INSULIN NovoLIN REGULAR SUPPLEMENTAL SCALE SQ SCH ×4 (06:50→20:27)
[2017-04-05] MEDS: BENZOCAINE 6 MG/MENTHOL 10 MG LOZENGE BUCCAL PRN (09:00)
[2017-04-05] MEDS: PANTOPRAZOLE SODIUM 40 MG VIAL IVP SCH (09:00)
[2017-04-05] MEDS: AZITHROMYCIN 250 MG TAB PO SCH (09:00)
[2017-04-05] MEDS: VALSARTAN 160 MG TAB PO SCH (09:00)
[2017-04-05] MEDS: SODIUM CHLORIDE 0.9% FLUSH 5 ML FLUSH IVF SCH ×2 (09:01→20:27)
[2017-04-05 10:49] LABS: AUTOMATED NEUTROPHIL # 20.2 TH/MM3 (1.8-7.7); BASOPHIL % 0.1 % (0.0-2.0); EOSINOPHIL % 0.1 % (0.0-4.0); HEMATOCRIT 32.7 % (35.0-46.0); LYMPH % 5.5 % (9.0-44.0); LYMPHOCYTE # 1.2 TH/MM3 (1.0-4.8); MEAN CELL VOLUME 80.6 FL (80.0-100.0); MEAN CORPUSCULAR HEMOGLOBIN 26.5 PG (27.0-34.0); MEAN CORPUSCULAR HGB CONC 32.9 % (32.0-36.0); MONO % 3.1 % (0.0-8.0); NEUT % 91.2 % (16.0-70.0); PLATELET COUNT 395 TH/MM3 (150-450); RED BLOOD COUNT 4.05 MIL/MM3 (4.00-5.30); RED CELL DISTRIBUTION WIDTH 16.2 % (11.6-17.2); WHITE BLOOD COUNT 22.1 TH/MM3 (4.0-11.0)
[2017-04-05 10:57] LABS: HEMO FLAGS AUTO DIFF
[2017-04-05 11:40] LABS: BANDS 5 % (0-6); MYELOCYTES 2 % (0-0); POLYS (SEG NEUTROPHILS) 88 % (16-70); WBC DIFF SAMPLE 100
[2017-04-05 11:41] LABS: ACANTHOCYTES OCC (NORMAL); PLATELET ESTIMATE SMEAR NORMAL (NORMAL); PLATELET MORPHOLOGY ENLARGED (NORMAL); TOXIC GRANULATION 1+ (NORMAL)
[2017-04-05 11:42] LABS: SCAN/DIFF FINAL DIFF MANUAL
[2017-04-05] MEDS: ACETAMINOPHEN/HYDROcodone 325 MG/5 MG TAB PO PRN ×2 (14:00→22:24)
--- NOTE | 2017-04-05 14:38 | PD.CARD.PN ---
Subjective Subjective Remarks on nc in nad, c/o cp with cough Objective Vital Signs / I&O Vital Signs Date Time Temp Pulse Resp B/P Pulse Ox O2 Delivery O2 Flow Rate FiO2 04/05/17 12:00 98.6 99 25 155/68 93 04/05/17 12:00 99 04/05/17 11:54 94 High Flow Nasal Cannula 20.00 50 04/05/17 10:00 94 04/05/17 08:00 99.6 93 28 145/65 89 04/05/17 08:00 93 04/05/17 07:59 91 High Flow Nasal Cannula 25.00 60 04/05/17 07:00 90 Nasal Cannula 60 Humidified 04/05/17 06:00 86 04/05/17 04:00 98.3 88 23 142/63 91 04/05/17 04:00 88 04/05/17 02:00 84 04/05/17 00:00 90 04/05/17 00:00 98.8 90 21 143/68 91 04/04/17 22:00 83 04/04/17 20:00 98.4 88 31 137/66 91 04/04/17 20:00 88 04/04/17 19:59 92 High Flow Nasal Cannula 25.00 60 04/04/17 19:15 97 High Flow Nasal Cannula 25.00 60 04/04/17 19:00 92 Nasal Cannula 60 Non-Rebreather 04/04/17 18:00 87 04/04/17 16:57 90 High Flow Nasal Cannula 25.00 60 04/04/17 16:00 87 04/04/17 16:00 97.5 85 27 154/67 93 I/O 04/04/17 04/04/17 04/04/17 04/05/17 04/05/17 04/05/17 07:00 15:00 23:00 07:00 15:00 23:00 Intake Total 1163 ml 1481 ml 1203 ml 812 ml Output Total 275 ml 300 ml 300 ml 400 ml Balance 888 ml 1181 ml 903 ml 412 ml Intake Oral 240 ml 238 ml 240 ml IV Total 470 ml 645 ml 533 ml 380 ml TPN/PPN 377 ml 499 ml 360 ml 361 ml Lipid 76 ml 99 ml 70 ml 71 ml Output Urine Total 275 ml 300 ml 300 ml 400 ml # Bowel Movements 0 1 0 1 Laboratory Laboratory Tests Test 04/04/17 04/05/17 16:21 10:26 Vancomycin Level Trough 11.0 MCG/ML White Blood Count 22.1 TH/MM3 Red Blood Count 4.05 MIL/MM3 Hemoglobin 10.7 GM/DL Hematocrit 32.7 % Mean Corpuscular Volume 80.6 FL Mean Corpuscular Hemoglobin 26.5 PG Mean Corpuscular Hemoglobin 32.9 % Concent Red Cell Distribution Width 16.2 % Platelet Count 395 TH/MM3 Mean Platelet Volume 8.4 FL Neutrophils (%) (Auto) 91.2 % Lymphocytes (%) (Auto) 5.5 % Monocytes (%) (Auto) 3.1 % Eosinophils (%) (Auto) 0.1 % Basophils (%) (Auto) 0.1 % Neutrophils # (Auto) 20.2 TH/MM3 Lymphocytes # (Auto) 1.2 TH/MM3 Monocytes # (Auto) 0.7 TH/MM3 Eosinophils # (Auto) 0.0 TH/MM3 Basophils # (Auto) 0.0 TH/MM3 CBC Comment AUTO DIFF Differential Total Cells 100 Counted Neutrophils % (Manual) 88 % Band Neutrophils % 5 % Lymphocytes % 3 % Monocytes % 2 % Neutrophils # (Manual) 21.0 TH/MM3 Myelocytes 2 % Differential Comment FINAL DIFF MANUAL Toxic Granulation 1+ Platelet Estimate NORMAL Platelet Morphology Comment ENLARGED Acanthocytes OCC Keratocytes Imaging GENERAL: SKIN: Warm and dry. HEAD: Normocephalic. EYES: No scleral icterus. No injection or drainage. NECK: Supple, trachea midline. No JVD or lymphadenopathy. CARDIOVASCULAR: Regular rate and rhythm without murmurs, gallops, or rubs. RESPIRATORY: Breath sounds equal bilaterally. No accessory muscle use. GASTROINTESTINAL: Abdomen soft, non-tender, nondistended. MUSCULOSKELETAL: No cyanosis, or edema. BACK: Nontender without obvious deformity. No CVA tenderness. Assessment and Plan Problem List: (1) Anemia (2) Angina at rest (3) CAD (coronary artery disease) (4) Hypoxia Assessment and Plan 1.) Class 4 Angina/anemia - improved after transfusion, 2.) Hypoxia due to pneumonia/copd, f/u pulm rec, hypoxia improved on less O2 Mikael Rodriguez MD April 05, 2017 14:38
--- NOTE | 2017-04-05 15:08 | HHI.IDPN ---
Subjective Subjective Remarks is an 81 y/o WF with PMHx of COPD, chronic tobacco use, CAD. Patient recently underwent an ascending colectomy for colon cancer on 03/25/[address] Colleen Plummer. She had laparoscopic extensive lysis of adhesions, open ascending colectomy and flexible sigmoidoscopy, estimated blood loss of 100 mL. Yesterday, the patient developed chest pain, hypoxia requiring a 100% non- rebreather. Hemoglobin has dropped as low as 8.4. Troponins are negative x3. EKG does not show any ischemic changes. The patient appears very pale at the bedside, still having active chest pain which is improved after a nitro drip. Otherwise denies any fevers, chills, cough, bleeding, PND, or orthopnea. Patient was transferred to the ICU for resp distress. Dr.Iskandar mercadow me the case. Agree to CT Chest, A/P. Currently not on pressors, UO ok. Patient has recd 2 units PRBC overnight. ID consulted for sepsis, Pneumonia in a post op pt. Overnight events reviewed. No fevers No rash No diarrhea On high eva nasal canula. coughs not much expectoration. Antibiotics Zosyn IV Azithro IV Vanco IV Lines Line sites with no e.o infection. Past Medical History reviewed Allergies: Coded Allergies: *MDRO Multi-Drug Resistant Organism (Verified Adverse Reaction, Unknown, ) MRSA PCR Screen POSITIVE - 04/02/2017 Objective . Vital Signs Date Time Temp Pulse Resp B/P Pulse Ox O2 Delivery O2 Flow Rate FiO2 04/05/17 12:00 98.6 99 25 155/68 93 04/05/17 12:00 99 04/05/17 11:54 94 High Flow Nasal Cannula 20.00 50 04/05/17 10:00 94 04/05/17 08:00 99.6 93 28 145/65 89 04/05/17 08:00 93 04/05/17 07:59 91 High Flow Nasal Cannula 25.00 60 04/05/17 07:00 90 Nasal Cannula 60 Humidified 04/05/17 06:00 86 04/05/17 04:00 98.3 88 23 142/63 91 04/05/17 04:00 88 04/05/17 02:00 84 04/05/17 00:00 90 04/05/17 00:00 98.8 90 21 143/68 91 04/04/17 22:00 83 04/04/17 20:00 98.4 88 31 137/66 91 04/04/17 20:00 88 04/04/17 19:59 92 High Flow Nasal Cannula 25.00 60 04/04/17 19:15 97 High Flow Nasal Cannula 25.00 60 04/04/17 19:00 92 Nasal Cannula 60 Non-Rebreather 04/04/17 18:00 87 04/04/17 16:57 90 High Flow Nasal Cannula 25.00 60 04/04/17 16:00 87 04/04/17 16:00 97.5 85 27 154/67 93 04/04/17 04/04/17 04/05/17 15:00 23:00 07:00 Intake Total 1481 ml 1203 ml 812 ml Output Total 300 ml 300 ml 400 ml Balance 1181 ml 903 ml 412 ml Intake Oral 238 ml 240 ml IV Total 645 ml 533 ml 380 ml TPN/PPN 499 ml 360 ml 361 ml Lipid 99 ml 70 ml 71 ml Output Urine Total 300 ml 300 ml 400 ml # Bowel Movements 1 0 1 . Laboratory Tests Test 04/04/17 04/05/17 03:03 10:26 White Blood Count 28.1 TH/MM3 22.1 TH/MM3 Red Blood Count 3.90 MIL/MM3 4.05 MIL/MM3 Hemoglobin 10.2 GM/DL 10.7 GM/DL Hematocrit 31.9 % 32.7 % Mean Corpuscular Volume 81.8 FL 80.6 FL Mean Corpuscular Hemoglobin 26.2 PG 26.5 PG Mean Corpuscular Hemoglobin 32.0 % 32.9 % Concent Red Cell Distribution Width 16.0 % 16.2 % Platelet Count 294 TH/MM3 395 TH/MM3 Mean Platelet Volume 8.7 FL 8.4 FL Neutrophils (%) (Auto) 96.4 % 91.2 % Lymphocytes (%) (Auto) 2.2 % 5.5 % Monocytes (%) (Auto) 1.2 % 3.1 % Eosinophils (%) (Auto) 0.0 % 0.1 % Basophils (%) (Auto) 0.2 % 0.1 % Neutrophils # (Auto) 27.1 TH/MM3 20.2 TH/MM3 Lymphocytes # (Auto) 0.6 TH/MM3 1.2 TH/MM3 Monocytes # (Auto) 0.3 TH/MM3 0.7 TH/MM3 Eosinophils # (Auto) 0.0 TH/MM3 0.0 TH/MM3 Basophils # (Auto) 0.1 TH/MM3 0.0 TH/MM3 CBC Comment AUTO DIFF AUTO DIFF Differential Total Cells 100 100 Counted Neutrophils % (Manual) 91 % 88 % Band Neutrophils % 4 % 5 % Lymphocytes % 5 % 3 % Neutrophils # (Manual) 26.7 TH/MM3 21.0 TH/MM3 Differential Comment FINAL DIFF FINAL DIFF MANUAL MANUAL Toxic Vacuolation PRESENT Platelet Estimate NORMAL NORMAL Platelet Morphology Comment NORMAL ENLARGED Ovalocytes 1+ Anu Cells 1+ Acanthocytes OCC OCC Monocytes % 2 % Myelocytes 2 % Toxic Granulation 1+ Keratocytes Laboratory Tests Test 04/04/17 03:03 Sodium Level 139 MEQ/L Potassium Level 2.9 MEQ/L Chloride Level 99 MEQ/L Carbon Dioxide Level 30.6 MEQ/L Anion Gap 9 MEQ/L Blood Urea Nitrogen 18 MG/DL Creatinine 0.53 MG/DL Estimat Glomerular Filtration 110 ML/MIN Rate Random Glucose 141 MG/DL Calcium Level 7.0 MG/DL Protein Corrected Calcium 7.8 MG/DL Total Protein 5.6 GM/DL Imaging Last Impressions Chest X-Ray 04/02/17 0000 Signed Impressions: Service Date/Time: Sunday, April 02, 2017 04:14 - CONCLUSION: 1. Worsening patchy airspace disease throughout the right lung. 2. Minimal left basilar atelectasis. 3. Cardiomegaly. Asher Gottlieb MD CT Angiography 04/02/17 0000 Signed Impressions: Service Date/Time: Sunday, April 02, 2017 15:47 - CONCLUSION: 1. Negative for pulmonary embolus. Dense consolidation in the right lung especially posteriorly most characteristic of a large pneumonia. There is also partially loculated small to moderate right pleural effusion and right basilar atelectasis. On the left side there is a small pleural effusion and left basilar atelectasis. Austen Osei MD Abdomen/Pelvis CT 04/02/17 0000 Signed Impressions: Service Date/Time: Sunday, April 02, 2017 15:47 - CONCLUSION: 1. 8.2 x 4.2 cm fluid collection in the deep posterior pelvis, probably mildly complex free fluid. No loculated air to suggest abscess. 2. Colonic diverticulosis without diverticulitis. Postoperative cholecystectomy and partial right bowel resection. Dense consolidation at the lung bases, right greater than left bilateral effusions. Austen Osei MD Physical Exam GENERAL: Obese, well-developed patient. On 100% nonrebreather. SKIN: No rashes, ecchymoses or lesions. Cool and dry. HEAD: Atraumatic. Normocephalic. No temporal or scalp tenderness. EYES: Pupils equal round and reactive. Extraocular motions intact. No scleral icterus. No injection or drainage. ENT: Nose without bleeding, purulent drainage or septal hematoma. Throat without erythema, tonsillar hypertrophy or exudate. Uvula midline. Airway patent. NECK: Trachea midline. Supple, nontender, no meningeal signs. CARDIOVASCULAR: Regular rate and rhythm without murmurs. RESPIRATORY: Clear to auscultation. Breath sounds equal bilaterally. No wheezes , rales, or rhonchi. GASTROINTESTINAL: Abdomen soft, non-tender, nondistended. MUSCULOSKELETAL: Bilateral knees surgical scar is intact. NEUROLOGICAL: Awake and alert. Grossly nonfocal Psych cooperative IV line sites with no evidence of infection. Assessment & Plan Remarks Sepsis Pneumonia in the hospital setting. Acute respiratory failure on 100% nonrebreather high risk of intubation. Ascending colectomy for colon cancer on 03/25/2017 ? IA abscess or sepsis/ peritonitis High grade leucocytosis. COPD exacerbation acute CAD Recs Continue Zosyn IV (dose increased to cover PSAE) Continue Vanco IV(target 15-20) continue Azithro change to oral. CT Chest reviewed PNA appears to the source. d/w RN and family in room. Zee Arriaga MD April 05, 2017 15:08
--- NOTE | 2017-04-05 17:28 | HHI.PR ---
Subjective Remarks ALERT LESS SOB STILL NEEDS HIGH FIO2 Objective Vital Signs Date Time Temp Pulse Resp B/P Pulse Ox O2 Delivery O2 Flow Rate FiO2 04/05/17 16:00 86 04/05/17 14:00 94 04/05/17 12:00 98.6 99 25 155/68 93 04/05/17 12:00 99 04/05/17 11:54 94 High Flow Nasal Cannula 20.00 50 04/05/17 10:00 94 04/05/17 08:00 99.6 93 28 145/65 89 04/05/17 08:00 93 04/05/17 07:59 91 High Flow Nasal Cannula 25.00 60 04/05/17 07:00 90 Nasal Cannula 60 Humidified 04/05/17 06:00 86 04/05/17 04:00 98.3 88 23 142/63 91 04/05/17 04:00 88 04/05/17 02:00 84 04/05/17 00:00 90 04/05/17 00:00 98.8 90 21 143/68 91 04/04/17 22:00 83 04/04/17 20:00 98.4 88 31 137/66 91 04/04/17 20:00 88 04/04/17 19:59 92 High Flow Nasal Cannula 25.00 60 04/04/17 19:15 97 High Flow Nasal Cannula 25.00 60 04/04/17 19:00 92 Nasal Cannula 60 Non-Rebreather 04/04/17 18:00 87 I/O 04/04/17 04/04/17 04/04/17 04/05/17 04/05/17 04/05/17 07:00 15:00 23:00 07:00 15:00 23:00 Intake Total 1163 ml 1481 ml 1203 ml 812 ml 773 ml Output Total 275 ml 300 ml 300 ml 400 ml 450 ml Balance 888 ml 1181 ml 903 ml 412 ml 323 ml Intake Oral 240 ml 238 ml 240 ml 238 ml IV Total 470 ml 645 ml 533 ml 380 ml 103 ml TPN/PPN 377 ml 499 ml 360 ml 361 ml 356 ml Lipid 76 ml 99 ml 70 ml 71 ml 76 ml Output Urine Total 275 ml 300 ml 300 ml 400 ml 450 ml # Bowel Movements 0 1 0 1 0 Result Diagram: 04/05/17 1026 04/04/17 0303 Objective Remarks GENERAL: SKIN: Warm and dry. HEAD: Atraumatic. Normocephalic. EYES: Pupils equal and round. No scleral icterus. No injection or drainage. ENT: No nasal bleeding or discharge. Mucous membranes pink and moist. NECK: Trachea midline. No JVD. CARDIOVASCULAR: Regular rate and rhythm. RESPIRATORY: No accessory muscle use. Clear to auscultation. Breath sounds equal bilaterally. GASTROINTESTINAL: Abdomen soft, non-tender, nondistended. Hepatic and splenic margins not palpable. MUSCULOSKELETAL: Extremities without clubbing, cyanosis, or edema. No obvious deformities. NEUROLOGICAL: Awake and alert. No obvious cranial nerve deficits. Motor grossly within normal limits. Five out of 5 muscle strength in the arms and legs. Normal speech. PSYCHIATRIC: Appropriate mood and affect; insight and judgment normal. Assessment and Plan Assessment and Plan RESPIRATORY FAILURE PNEUMONIA , improving POST COLECTOMY PLAN O2 NEEDED ANTIBIOTICS PLM TOILET Nataliia William MD April 05, 2017 17:28
--- NOTE | 2017-04-05 17:55 | HHI.PR ---
Subjective Remarks POD #11 lap TANISHA, open ascending colectomy More comfortable, on NC O2 Passing stool Objective Vital Signs Date Time Temp Pulse Resp B/P Pulse Ox O2 Delivery O2 Flow Rate FiO2 04/05/17 16:00 86 04/05/17 14:00 94 04/05/17 12:00 98.6 99 25 155/68 93 04/05/17 12:00 99 04/05/17 11:54 94 High Flow Nasal Cannula 20.00 50 04/05/17 10:00 94 04/05/17 08:00 99.6 93 28 145/65 89 04/05/17 08:00 93 04/05/17 07:59 91 High Flow Nasal Cannula 25.00 60 04/05/17 07:00 90 Nasal Cannula 60 Humidified 04/05/17 06:00 86 04/05/17 04:00 98.3 88 23 142/63 91 04/05/17 04:00 88 04/05/17 02:00 84 04/05/17 00:00 90 04/05/17 00:00 98.8 90 21 143/68 91 04/04/17 22:00 83 04/04/17 20:00 98.4 88 31 137/66 91 04/04/17 20:00 88 04/04/17 19:59 92 High Flow Nasal Cannula 25.00 60 04/04/17 19:15 97 High Flow Nasal Cannula 25.00 60 04/04/17 19:00 92 Nasal Cannula 60 Non-Rebreather 04/04/17 18:00 87 I/O 04/04/17 04/04/17 04/04/17 04/05/17 04/05/17 04/05/17 07:00 15:00 23:00 07:00 15:00 23:00 Intake Total 1163 ml 1481 ml 1203 ml 812 ml 773 ml Output Total 275 ml 300 ml 300 ml 400 ml 450 ml Balance 888 ml 1181 ml 903 ml 412 ml 323 ml Intake Oral 240 ml 238 ml 240 ml 238 ml IV Total 470 ml 645 ml 533 ml 380 ml 103 ml TPN/PPN 377 ml 499 ml 360 ml 361 ml 356 ml Lipid 76 ml 99 ml 70 ml 71 ml 76 ml Output Urine Total 275 ml 300 ml 300 ml 400 ml 450 ml # Bowel Movements 0 1 0 1 0 Result Diagram: 04/05/17 1026 04/04/17 0303 Objective Remarks Abdomen soft, nondistended, tender Wound clean Assessment and Plan Assessment and Plan Advance diet check K level Colleen Plummer MD April 05, 2017 17:55
[2017-04-05] MEDS: MULTIVITAMIN INJ 10 ML, FOLIC ACID INJ 1 MG, INSULIN HUMAN REGULAR INJ 40 UNITS in AMIN... IV SCH (20:27)
[2017-04-05] MEDS: FAT EMULSION 20% INJ 250 ML (@10 mls/hr) IV SCH (20:27)
[2017-04-05 21:43] LABS: BICARBONATE 26.8 MEQ/L (21.0-32.0); POTASSIUM 3.1 MEQ/L (3.5-5.1)
[2017-04-06] VITALS (18 sets, daily range): BP systolic 107–149; BP diastolic 54–68; PULSE 77–97; RESP 18–28; TEMP 97.5–98.6; O2SAT 88–93
[2017-04-06] MEDS: PIPERACIL-TAZO 4.5 GM PREMIX 100 ML IV SCH ×4 (03:34→23:27)
[2017-04-06] MEDS ORDERED: PHARMACY ORDERED LAB ONE (03:45)
--- NOTE | 2017-04-06 03:57 | RADRPT ---
EXAM DATE/TIME: 04/06/2017 02:57 [facility] COMPARISON: CHEST SINGLE AP, April 04, 2017, 16:46. INDICATIONS : Shortness of breath. MEDICAL HISTORY : Cardiovascular disease. Carcinoma, colon. SURGICAL HISTORY : None. ENCOUNTER: Subsequent ACUITY: 1 week PAIN SCORE: Non-responsive. LOCATION: Bilateral chest FINDINGS: Single portable frontal view of the chest shows bilateral pulmonary infiltrates more pronounced on th e right. These are unchanged. Tiny left effusion. Questionable tiny right effusion. Heart mildly enla rged. CONCLUSION: Unchanged exam with bilateral pulmonary infiltrates. Maicol Sears Jr., MD on April 06, 2017 at 3:54 Board Certified Radiologist. This report was verified electronically.
[2017-04-06] MEDS: RESP: ALBUTEROL 2.5 MG/IPRATROPIUM 0.5 MG NEB (SCH) NEB ×3 (04:01→12:33)
[2017-04-06] MEDS: ONDANSETRON HCL 4 MG/2 ML VIAL IV PRN (05:56)
[2017-04-06] MEDS: VANCOMYCIN 1,000 MG/NS 250 ML IV SCH ×4 (05:57→15:24)
[2017-04-06] MEDS: INSULIN NovoLIN REGULAR SUPPLEMENTAL SCALE SQ SCH ×4 (07:00→21:00)
[2017-04-06] MEDS: AZITHROMYCIN 250 MG TAB PO SCH (09:16)
[2017-04-06] MEDS: PANTOPRAZOLE SODIUM 40 MG VIAL IVP SCH (09:16)
[2017-04-06] MEDS: VALSARTAN 160 MG TAB PO SCH (09:17)
[2017-04-06] MEDS: SODIUM CHLORIDE 0.9% FLUSH 5 ML FLUSH IVF SCH ×2 (10:12→20:36)
[2017-04-06] MEDS ORDERED: CHLORHEXIDINE GLUCONATE 2 % 1 PACK (2 CLOTHS)(extra cloths) TOPICAL PRN (11:45)
[2017-04-06] MEDS: HEPARIN SODIUM - SQ 10,000 UNITS/ML VIAL SQ SCH ×2 (11:55→23:28)
[2017-04-06] MEDS: ACETAMINOPHEN/HYDROcodone 325 MG/5 MG TAB PO PRN (12:26)
--- NOTE | 2017-04-06 13:23 | HHI.PR ---
Subjective Remarks POD #12 lap TANISHA, open ascending colectomy SOB with up in chair Objective Vital Signs Date Time Temp Pulse Resp B/P Pulse Ox O2 Delivery O2 Flow Rate FiO2 04/06/17 10:07 89 High Flow Nasal Cannula 20.00 90 04/06/17 10:00 97 04/06/17 08:49 88 High Flow Nasal Cannula 20.00 50 04/06/17 08:00 97.5 82 28 124/60 90 04/06/17 08:00 82 04/06/17 07:00 92 Nasal Cannula 50 04/06/17 06:00 82 19 135/63 90 04/06/17 06:00 82 04/06/17 05:00 77 04/06/17 05:00 77 18 138/63 88 04/06/17 04:00 81 04/06/17 04:00 98.2 81 22 130/58 90 04/06/17 03:00 80 19 126/59 90 04/06/17 03:00 80 04/06/17 02:00 78 23 142/64 90 04/06/17 02:00 78 04/06/17 01:00 95 04/06/17 01:00 95 27 149/68 89 04/06/17 00:00 98.6 83 22 128/60 90 04/06/17 00:00 83 04/05/17 23:24 21 04/05/17 23:00 81 22 124/62 91 04/05/17 23:00 81 04/05/17 22:00 83 04/05/17 22:00 83 25 151/67 92 04/05/17 21:00 88 27 153/66 91 04/05/17 21:00 88 04/05/17 20:28 89 High Flow Nasal Cannula 20.00 50 04/05/17 20:00 98.3 84 23 146/69 90 04/05/17 20:00 84 04/05/17 19:00 84 04/05/17 19:00 92 Nasal Cannula 60 Non-Rebreather 04/05/17 19:00 84 26 140/65 91 04/05/17 18:00 89 04/05/17 16:00 98.3 84 28 131/61 90 04/05/17 16:00 86 04/05/17 14:00 94 I/O 5/9/04/05/17 04/05/17 04/06/17 04/06/17 04/06/17 07:00 15:00 23:00 07:00 15:00 23:00 Intake Total 812 ml 773 ml 715 ml 480 ml Output Total 400 ml 450 ml 450 ml 350 ml Balance 412 ml 323 ml 265 ml 130 ml Intake Oral 238 ml 240 ml IV Total 380 ml 103 ml 0 ml TPN/PPN 361 ml 356 ml 400 ml 400 ml Lipid 71 ml 76 ml 75 ml 80 ml Output Urine Total 400 ml 450 ml 450 ml 350 ml # Bowel Movements 1 0 Result Diagram: 04/05/17 1026 04/05/172058 Objective Remarks Abdomen soft, nondistended, tender Wound clean Assessment and Plan Assessment and Plan Advance diet in am d/c nation lasix bipap at night Colleen Plummer MD April 06, 2017 13:23
--- NOTE | 2017-04-06 13:51 | PD.CARD.PN ---
Subjective Subjective Remarks alert in nad Objective Vital Signs / I&O Vital Signs Date Time Temp Pulse Resp B/P Pulse Ox O2 Delivery O2 Flow Rate FiO2 04/06/17 12:00 97.5 90 28 132/60 90 04/06/17 12:00 90 04/06/17 10:07 89 High Flow Nasal Cannula 20.00 90 04/06/17 10:00 97 04/06/17 08:49 88 High Flow Nasal Cannula 20.00 50 04/06/17 08:00 97.5 82 28 124/60 90 04/06/17 08:00 82 04/06/17 07:00 92 Nasal Cannula 50 04/06/17 06:00 82 19 135/63 90 04/06/17 06:00 82 04/06/17 05:00 77 04/06/17 05:00 77 18 138/63 88 04/06/17 04:00 81 04/06/17 04:00 98.2 81 22 130/58 90 04/06/17 03:00 80 19 126/59 90 04/06/17 03:00 80 04/06/17 02:00 78 23 142/64 90 04/06/17 02:00 78 04/06/17 01:00 95 04/06/17 01:00 95 27 149/68 89 04/06/17 00:00 98.6 83 22 128/60 90 04/06/17 00:00 83 04/05/17 23:24 21 04/05/17 23:00 81 22 124/62 91 04/05/17 23:00 81 04/05/17 22:00 83 04/05/17 22:00 83 25 151/67 92 04/05/17 21:00 88 27 153/66 91 04/05/17 21:00 88 04/05/17 20:28 89 High Flow Nasal Cannula 20.00 50 04/05/17 20:00 98.3 84 23 146/69 90 04/05/17 20:00 84 04/05/17 19:00 84 04/05/17 19:00 92 Nasal Cannula 60 Non-Rebreather 04/05/17 19:00 84 26 140/65 91 04/05/17 18:00 89 04/05/17 16:00 98.3 84 28 131/61 90 04/05/17 16:00 86 04/05/17 14:00 94 I/O 04/05/17 04/05/17 04/05/17 04/06/17 04/06/17 04/06/17 07:00 15:00 23:00 07:00 15:00 23:00 Intake Total 812 ml 773 ml 715 ml 480 ml Output Total 400 ml 450 ml 450 ml 350 ml Balance 412 ml 323 ml 265 ml 130 ml Intake Oral 238 ml 240 ml IV Total 380 ml 103 ml 0 ml TPN/PPN 361 ml 356 ml 400 ml 400 ml Lipid 71 ml 76 ml 75 ml 80 ml Output Urine Total 400 ml 450 ml 450 ml 350 ml # Bowel Movements 1 0 Laboratory GENERAL: SKIN: Warm and dry. HEAD: Normocephalic. EYES: No scleral icterus. No injection or drainage. NECK: Supple, trachea midline. No JVD or lymphadenopathy. CARDIOVASCULAR: Regular rate and rhythm without murmurs, gallops, or rubs. RESPIRATORY: Breath sounds equal bilaterally. No accessory muscle use. GASTROINTESTINAL: Abdomen soft, non-tender, nondistended. MUSCULOSKELETAL: No cyanosis, or edema. BACK: Nontender without obvious deformity. No CVA tenderness. Laboratory Tests Test 04/05/17 04/06/17 20:59 04:50 Sodium Level 134 MEQ/L Potassium Level 3.1 MEQ/L Chloride Level 98 MEQ/L Carbon Dioxide Level 26.8 MEQ/L Anion Gap 9 MEQ/L Blood Urea Nitrogen 16 MG/DL Creatinine 0.50 MG/DL Estimat Glomerular Filtration 118 ML/MIN Rate Random Glucose 86 MG/DL Calcium Level 7.8 MG/DL Vancomycin Level Trough 18.5 MCG/ML Assessment and Plan Problem List: (1) Anemia (2) Angina at rest (3) CAD (coronary artery disease) (4) Hypoxia Assessment and Plan 1.) Class 4 Angina/anemia - improved after transfusion, 2.) Hypoxia due to pneumonia/copd, f/u pulm rec, hypoxia improved on less O2 Mikael Rodriguez MD April 06, 2017 13:51
[2017-04-06] MEDS: MUPIROCIN 2% OINT 1 APPLIC/GM SYR NASAL SCH ×2 (15:24→20:36)
[2017-04-06 15:29] LABS: AUTOMATED NEUTROPHIL # 24.4 TH/MM3 (1.8-7.7); EOSINOPHIL # 0.1 TH/MM3 (0-0.4); EOSINOPHIL % 0.2 % (0.0-4.0); HEMATOCRIT 30.9 % (35.0-46.0); LYMPH % 3.9 % (9.0-44.0); MEAN CELL VOLUME 80.8 FL (80.0-100.0); MEAN CORPUSCULAR HEMOGLOBIN 26.8 PG (27.0-34.0); MEAN CORPUSCULAR HGB CONC 33.1 % (32.0-36.0); MONO % 1.7 % (0.0-8.0); NEUT % 94.2 % (16.0-70.0); PLATELET COUNT 360 TH/MM3 (150-450); RED BLOOD COUNT 3.82 MIL/MM3 (4.00-5.30); RED CELL DISTRIBUTION WIDTH 15.9 % (11.6-17.2)
[2017-04-06 15:31] LABS: HEMO FLAGS AUTO DIFF
--- NOTE | 2017-04-06 16:16 | HHI.IDPN ---
Subjective Subjective Remarks is an 81 y/o WF with PMHx of COPD, chronic tobacco use, CAD. Patient recently underwent an ascending colectomy for colon cancer on 03/25/[address] Colleen Plummer. She had laparoscopic extensive lysis of adhesions, open ascending colectomy and flexible sigmoidoscopy, estimated blood loss of 100 mL. Yesterday, the patient developed chest pain, hypoxia requiring a 100% non- rebreather. Hemoglobin has dropped as low as 8.4. Troponins are negative x3. EKG does not show any ischemic changes. The patient appears very pale at the bedside, still having active chest pain which is improved after a nitro drip. Otherwise denies any fevers, chills, cough, bleeding, PND, or orthopnea. Patient was transferred to the ICU for resp distress. Dr.Iskandar mercadow me the case. Agree to CT Chest, A/P. Currently not on pressors, UO ok. Patient has recd 2 units PRBC overnight. ID consulted for sepsis, Pneumonia in a post op pt. Overnight events reviewed. No fevers No rash No diarrhea coughs not much expectoration. Antibiotics Zosyn IV Vanco IV Lines Line sites with no e.o infection. Past Medical History reviewed Allergies: Coded Allergies: *MDRO Multi-Drug Resistant Organism (Verified Adverse Reaction, Unknown, ) MRSA PCR Screen POSITIVE - 04/02/2017 Objective . Vital Signs Date Time Temp Pulse Resp B/P Pulse Ox O2 Delivery O2 Flow Rate FiO2 04/06/17 16:00 97.8 85 26 107/55 93 04/06/17 16:00 89 04/06/17 14:00 89 04/06/17 12:00 97.5 90 28 132/60 90 04/06/17 12:00 90 04/06/17 10:07 89 High Flow Nasal Cannula 20.00 90 04/06/17 10:00 97 04/06/17 08:49 88 High Flow Nasal Cannula 20.00 50 04/06/17 08:00 97.5 82 28 124/60 90 04/06/17 08:00 82 04/06/17 07:00 92 Nasal Cannula 50 04/06/17 06:00 82 19 135/63 90 04/06/17 06:00 82 04/06/17 05:00 77 5/10/17 05:00 77 18 138/63 88 04/06/17 04:00 81 04/06/17 04:00 98.2 81 22 130/58 90 04/06/17 03:00 80 19 126/59 90 04/06/17 03:00 80 04/06/17 02:00 78 23 142/64 90 04/06/17 02:00 78 04/06/17 01:00 95 04/06/17 01:00 95 27 149/68 89 04/06/17 00:00 98.6 83 22 128/60 90 04/06/17 00:00 83 04/05/17 23:24 21 04/05/17 23:00 81 22 124/62 91 04/05/17 23:00 81 04/05/17 22:00 83 04/05/17 22:00 83 25 151/67 92 04/05/17 21:00 88 27 153/66 91 04/05/17 21:00 88 04/05/17 20:28 89 High Flow Nasal Cannula 20.00 50 04/05/17 20:00 98.3 84 23 146/69 90 04/05/17 20:00 84 04/05/17 19:00 84 04/05/17 19:00 92 Nasal Cannula 60 Non-Rebreather 04/05/17 19:00 84 26 140/65 91 04/05/17 18:00 89 04/05/17 04/05/17 04/06/17 15:00 23:00 07:00 Intake Total 773 ml 715 ml 480 ml Output Total 450 ml 450 ml 350 ml Balance 323 ml 265 ml 130 ml Intake Oral 238 ml 240 ml IV Total 103 ml 0 ml TPN/PPN 356 ml 400 ml 400 ml Lipid 76 ml 75 ml 80 ml Output Urine Total 450 ml 450 ml 350 ml # Bowel Movements 0 . Laboratory Tests Test 04/05/17 04/06/17 10:26 14:14 White Blood Count 22.1 TH/MM3 26.0 TH/MM3 Red Blood Count 4.05 MIL/MM3 3.82 MIL/MM3 Hemoglobin 10.7 GM/DL 10.2 GM/DL Hematocrit 32.7 % 30.9 % Mean Corpuscular Volume 80.6 FL 80.8 FL Mean Corpuscular Hemoglobin 26.5 PG 26.8 PG Mean Corpuscular Hemoglobin 32.9 % 33.1 % Concent Red Cell Distribution Width 16.2 % 15.9 % Platelet Count 395 TH/MM3 360 TH/MM3 Mean Platelet Volume 8.4 FL 8.8 FL Neutrophils (%) (Auto) 91.2 % 94.2 % Lymphocytes (%) (Auto) 5.5 % 3.9 % Monocytes (%) (Auto) 3.1 % 1.7 % Eosinophils (%) (Auto) 0.1 % 0.2 % Basophils (%) (Auto) 0.1 % 0.0 % Neutrophils # (Auto) 20.2 TH/MM3 24.4 TH/MM3 Lymphocytes # (Auto) 1.2 TH/MM3 1.0 TH/MM3 Monocytes # (Auto) 0.7 TH/MM3 0.4 TH/MM3 Eosinophils # (Auto) 0.0 TH/MM3 0.1 TH/MM3 Basophils # (Auto) 0.0 TH/MM3 0.0 TH/MM3 CBC Comment AUTO DIFF AUTO DIFF Differential Total Cells 100 Counted Neutrophils % (Manual) 88 % Band Neutrophils % 5 % Lymphocytes % 3 % Monocytes % 2 % Neutrophils # (Manual) 21.0 TH/MM3 Myelocytes 2 % Differential Comment FINAL DIFF MANUAL Toxic Granulation 1+ Platelet Estimate NORMAL Platelet Morphology Comment ENLARGED Acanthocytes OCC Keratocytes Laboratory Tests Test 04/05/17 20:59 Sodium Level 134 MEQ/L Potassium Level 3.1 MEQ/L Chloride Level 98 MEQ/L Carbon Dioxide Level 26.8 MEQ/L Anion Gap 9 MEQ/L Blood Urea Nitrogen 16 MG/DL Creatinine 0.50 MG/DL Estimat Glomerular Filtration 118 ML/MIN Rate Random Glucose 86 MG/DL Calcium Level 7.8 MG/DL Imaging Last Impressions Chest X-Ray 04/02/17 0000 Signed Impressions: Service Date/Time: Sunday, April 02, 2017 04:14 - CONCLUSION: 1. Worsening patchy airspace disease throughout the right lung. 2. Minimal left basilar atelectasis. 3. Cardiomegaly. Asher Gottlieb MD CT Angiography 04/02/17 0000 Signed Impressions: Service Date/Time: Sunday, April 02, 2017 15:47 - CONCLUSION: 1. Negative for pulmonary embolus. Dense consolidation in the right lung especially posteriorly most characteristic of a large pneumonia. There is also partially loculated small to moderate right pleural effusion and right basilar atelectasis. On the left side there is a small pleural effusion and left basilar atelectasis. Austen Osei MD Abdomen/Pelvis CT 04/02/17 0000 Signed Impressions: Service Date/Time: Sunday, April 02, 2017 15:47 - CONCLUSION: 1. 8.2 x 4.2 cm fluid collection in the deep posterior pelvis, probably mildly complex free fluid. No loculated air to suggest abscess. 2. Colonic diverticulosis without diverticulitis. Postoperative cholecystectomy and partial right bowel resection. Dense consolidation at the lung bases, right greater than left bilateral effusions. Austen Osei MD Physical Exam GENERAL: Obese, well-developed patient. SKIN: No rashes, ecchymoses or lesions. Cool and dry. HEAD: Atraumatic. Normocephalic. No temporal or scalp tenderness. EYES: Pupils equal round and reactive. Extraocular motions intact. No scleral icterus. No injection or drainage. ENT: Nose without bleeding, purulent drainage or septal hematoma. Throat without erythema, tonsillar hypertrophy or exudate. Uvula midline. Airway patent. NECK: Trachea midline. Supple, nontender, no meningeal signs. CARDIOVASCULAR: Regular rate and rhythm without murmurs. RESPIRATORY: Clear to auscultation. Breath sounds equal bilaterally. No wheezes , rales, or rhonchi. GASTROINTESTINAL: Abdomen soft, non-tender, nondistended. MUSCULOSKELETAL: Bilateral knees surgical scar is intact. NEUROLOGICAL: Awake and alert. Grossly nonfocal Psych cooperative IV line sites with no evidence of infection. Assessment & Plan Remarks Sepsis Pneumonia in the hospital setting. Acute respiratory failure on 100% nonrebreather high risk of intubation. Ascending colectomy for colon cancer on 03/25/2017 ? IA abscess or sepsis/ peritonitis High grade leucocytosis. COPD exacerbation acute CAD Recs Continue Zosyn IV (dose increased to cover PSAE) DC Vanco IV(target 15-20) continue Azithro change to oral. d/w RN and family in room. d/w : will deescalate to help with fluid overload. Zee Arriaga MD April 06, 2017 16:16
[2017-04-06 16:26] LABS: ACANTHOCYTES OCC (NORMAL); KERATOCYTES OCC (NORMAL)
[2017-04-06 16:27] LABS: OVALOCYTES 1+ (NORMAL); PLATELET ESTIMATE SMEAR NORMAL (NORMAL); PLATELET MORPHOLOGY NORMAL (NORMAL); SCAN/DIFF AUTO DIFF CONFIRMED
[2017-04-06] MEDS: FUROSEMIDE 20 MG/2 ML VIAL IV PUSH SCH (18:35)
--- NOTE | 2017-04-06 18:38 | RADRPT ---
EXAM DATE/TIME: 04/06/2017 18:19 [facility] COMPARISON: CHEST SINGLE AP, April 06, 2017, 2:57. INDICATIONS : Post PICC line placement. MEDICAL HISTORY : Cardiovascular disease. Carcinoma, colon. SURGICAL HISTORY : None. ENCOUNTER: Subsequent ACUITY: 1 week PAIN SCORE: 0/10 LOCATION: Bilateral chest FINDINGS: Right arm PICC line is present with tip extending in the SVC. There is no evidence of complication of placement. There is persistent hazy bilateral pleural-parenchymal opacity, right worse the left. Are a contours are grossly stable. CONCLUSION: Satisfactory PICC line position. Otherwise stable chest Mike Bautista MD on April 06, 2017 at 18:36 Board Certified Radiologist. This report was verified electronically.
--- NOTE | 2017-04-06 18:44 | HHI.PR ---
Subjective Remarks ALERT LESS SOB STILL NEEDS HIGH FIO2 Objective Vital Signs Date Time Temp Pulse Resp B/P Pulse Ox O2 Delivery O2 Flow Rate FiO2 04/06/17 18:00 89 04/06/17 16:00 97.8 85 26 107/55 93 04/06/17 16:00 89 04/06/17 14:00 89 04/06/17 12:00 97.5 90 28 132/60 90 04/06/17 12:00 90 04/06/17 10:07 89 High Flow Nasal Cannula 20.00 90 04/06/17 10:00 97 04/06/17 08:49 88 High Flow Nasal Cannula 20.00 50 04/06/17 08:00 97.5 82 28 124/60 90 04/06/17 08:00 82 04/06/17 07:00 92 Nasal Cannula 50 04/06/17 06:00 82 19 135/63 90 04/06/17 06:00 82 04/06/17 05:00 77 04/06/17 05:00 77 18 138/63 88 04/06/17 04:00 81 04/06/17 04:00 98.2 81 22 130/58 90 04/06/17 03:00 80 19 126/59 90 04/06/17 03:00 80 04/06/17 02:00 78 23 142/64 90 04/06/17 02:00 78 04/06/17 01:00 95 04/06/17 01:00 95 27 149/68 89 04/06/17 00:00 98.6 83 22 128/60 90 04/06/17 00:00 83 04/05/17 23:24 21 04/05/17 23:00 81 22 124/62 91 04/05/17 23:00 81 04/05/17 22:00 83 04/05/17 22:00 83 25 151/67 92 04/05/17 21:00 88 27 153/66 91 04/05/17 21:00 88 04/05/17 20:28 89 High Flow Nasal Cannula 20.00 50 04/05/17 20:00 98.3 84 23 146/69 90 04/05/17 20:00 84 04/05/17 19:00 84 04/05/17 19:00 92 Nasal Cannula 60 Non-Rebreather 04/05/17 19:00 84 26 140/65 91 I/O 04/05/17 04/05/17 04/05/17 04/06/17 04/06/17 04/06/17 07:00 15:00 23:00 07:00 15:00 23:00 Intake Total 812 ml 773 ml 715 ml 480 ml 880 ml Output Total 400 ml 450 ml 450 ml 350 ml 375 ml Balance 412 ml 323 ml 265 ml 130 ml 505 ml Intake Oral 238 ml 240 ml IV Total 380 ml 103 ml 0 ml 375 ml TPN/PPN 361 ml 356 ml 400 ml 400 ml 421 ml Lipid 71 ml 76 ml 75 ml 80 ml 84 ml Output Urine Total 400 ml 450 ml 450 ml 350 ml 375 ml # Bowel Movements 1 0 Result Diagram: 04/06/174 04/05/172058 Objective Remarks GENERAL: SKIN: Warm and dry. HEAD: Atraumatic. Normocephalic. EYES: Pupils equal and round. No scleral icterus. No injection or drainage. ENT: No nasal bleeding or discharge. Mucous membranes pink and moist. NECK: Trachea midline. No JVD. CARDIOVASCULAR: Regular rate and rhythm. RESPIRATORY: No accessory muscle use. Clear to auscultation. Breath sounds equal bilaterally. GASTROINTESTINAL: Abdomen soft, non-tender, nondistended. Hepatic and splenic margins not palpable. MUSCULOSKELETAL: Extremities without clubbing, cyanosis, or edema. No obvious deformities. NEUROLOGICAL: Awake and alert. No obvious cranial nerve deficits. Motor grossly within normal limits. Five out of 5 muscle strength in the arms and legs. Normal speech. PSYCHIATRIC: Appropriate mood and affect; insight and judgment normal. Assessment and Plan Assessment and Plan RESPIRATORY FAILURE PNEUMONIA , improving POST COLECTOMY PLAN O2 NEEDED ANTIBIOTICS PLM TOILET Nataliia William MD April 06, 2017 18:44
[2017-04-06] MEDS ORDERED: SODIUM CHLORIDE 0.9% FLUSH 10 ML FLUSH IV FLUSH PRN (19:00)
[2017-04-06] MEDS: FAT EMULSION 20% INJ 250 ML (@10 mls/hr) IV SCH (20:33)
[2017-04-06] MEDS: MULTIVITAMIN INJ 10 ML, FOLIC ACID INJ 1 MG, INSULIN HUMAN REGULAR INJ 40 UNITS in AMIN... IV SCH (20:35)
[2017-04-07] VITALS (16 sets, daily range): BP systolic 108–133; BP diastolic 54–63; PULSE 71–96; RESP 20–32; TEMP 97.9–100.1; O2SAT 87–95
[2017-04-07] MEDS: ACETAMINOPHEN/HYDROcodone 325 MG/5 MG TAB PO PRN ×4 (01:11→16:50)
[2017-04-07] MEDS: CHLORHEXIDINE GLUCONATE 2 % 1 PACK (2 CLOTHS)(taper/protocol) TOPICAL SCH (04:00)
[2017-04-07] MEDS: PIPERACIL-TAZO 4.5 GM PREMIX 100 ML IV SCH ×4 (04:25→22:48)
[2017-04-07] MEDS: INSULIN NovoLIN REGULAR SUPPLEMENTAL SCALE SQ SCH ×4 (07:00→20:41)
[2017-04-07] MEDS: POTASSIUM CHLOR 40 MEQ PREMIX 100 ML IV PRN (08:07)
[2017-04-07] MEDS: VALSARTAN 160 MG TAB PO SCH (08:07)
[2017-04-07] MEDS: MUPIROCIN 2% OINT 1 APPLIC/GM SYR NASAL SCH ×2 (08:08→20:08)
[2017-04-07] MEDS: SODIUM CHLORIDE 0.9% FLUSH 5 ML FLUSH IVF SCH ×2 (08:08→20:08)
[2017-04-07] MEDS: FUROSEMIDE 20 MG/2 ML VIAL IV PUSH SCH ×2 (08:08→18:33)
[2017-04-07] MEDS: AZITHROMYCIN 250 MG TAB PO SCH (08:08)
[2017-04-07] MEDS: PANTOPRAZOLE SODIUM 40 MG VIAL IVP SCH (08:09)
[2017-04-07] MEDS: SODIUM CHLORIDE 0.9% FLUSH 10 ML FLUSH IV FLUSH SCH (09:00)
[2017-04-07] MEDS: RESP: ALBUTEROL 2.5 MG/IPRATROPIUM 0.5 MG NEB (PRN) NEB ×2 (09:02→21:14)
--- NOTE | 2017-04-07 10:19 | HHI.PR ---
Subjective Remarks POD #13 lap TANISHA, open ascending colectomy 'rough' Objective Vital Signs Date Time Temp Pulse Resp B/P Pulse Ox O2 Delivery O2 Flow Rate FiO2 04/07/17 09:02 91 High Flow Nasal Cannula 20.00 45 04/07/17 06:00 80 04/07/17 05:00 95 High Flow Nasal Cannula 15.00 40 04/07/17 04:00 98.6 76 21 111/56 95 04/07/17 04:00 76 04/07/17 02:15 22 04/07/17 02:00 88 04/07/17 01:30 94 High Flow Nasal Cannula 25.00 60 04/07/17 00:00 90 04/07/17 00:00 98.2 90 32 133/60 87 04/06/17 22:00 88 04/06/17 20:23 90 High Flow Nasal Cannula 15.00 35 04/06/17 20:00 98.2 86 22 114/54 90 04/06/17 20:00 86 04/06/17 19:00 90 Nasal Cannula 35 Non-Rebreather 04/06/17 18:00 89 04/06/17 16:00 97.8 85 26 107/55 93 04/06/17 16:00 89 04/06/17 14:00 89 04/06/17 12:00 97.5 90 28 132/60 90 04/06/17 12:00 90 I/O 04/06/17 04/06/17 04/06/17 04/07/17 04/07/17 04/07/17 07:00 15:00 23:00 07:00 15:00 23:00 Intake Total 480 ml 880 ml 881 ml 566 ml Output Total 350 ml 375 ml 75 ml Balance 130 ml 505 ml 806 ml 566 ml Intake Oral 240 ml IV Total 375 ml 430 ml 219 ml TPN/PPN 400 ml 421 ml 176 ml 289 ml Lipid 80 ml 84 ml 35 ml 58 ml Output Urine Total 350 ml 375 ml 75 ml # Voids 2 1 # Bowel Movements 2 0 Result Diagram: 04/06/17 1414 04/07/17 0400 Objective Remarks Wet cough Left upper exstremity edema Abdomen soft, nondistended, tender Wound clean Assessment and Plan Assessment and Plan OOB Encourage IS Colleen Plummer MD April 07, 2017 10:18
[2017-04-07] MEDS: HEPARIN SODIUM - SQ 10,000 UNITS/ML VIAL SQ SCH (13:00)
--- NOTE | 2017-04-07 15:43 | PD.CARD.PN ---
Subjective Subjective Remarks alert in nad oob in chair Objective Vital Signs / I&O Vital Signs Date Time Temp Pulse Resp B/P Pulse Ox O2 Delivery O2 Flow Rate FiO2 04/07/17 09:02 91 High Flow Nasal Cannula 20.00 45 04/07/17 06:00 80 04/07/17 05:00 95 High Flow Nasal Cannula 15.00 40 04/07/17 04:00 98.6 76 21 111/56 95 04/07/17 04:00 76 04/07/17 02:15 22 04/07/17 02:00 88 04/07/17 01:30 94 High Flow Nasal Cannula 25.00 60 04/07/17 00:00 90 04/07/17 00:00 98.2 90 32 133/60 87 04/06/17 22:00 88 04/06/17 20:23 90 High Flow Nasal Cannula 15.00 35 04/06/17 20:00 98.2 86 22 114/54 90 04/06/17 20:00 86 04/06/17 19:00 90 Nasal Cannula 35 Non-Rebreather 04/06/17 18:00 89 04/06/17 16:00 97.8 85 26 107/55 93 04/06/17 16:00 89 I/O 04/06/17 04/06/17 04/06/17 04/07/17 04/07/17 04/07/17 07:00 15:00 23:00 07:00 15:00 23:00 Intake Total 480 ml 880 ml 881 ml 566 ml Output Total 350 ml 375 ml 75 ml Balance 130 ml 505 ml 806 ml 566 ml Intake Oral 240 ml IV Total 375 ml 430 ml 219 ml TPN/PPN 400 ml 421 ml 176 ml 289 ml Lipid 80 ml 84 ml 35 ml 58 ml Output Urine Total 350 ml 375 ml 75 ml # Voids 2 1 # Bowel Movements 2 0 Laboratory GENERAL: SKIN: Warm and dry. HEAD: Normocephalic. EYES: No scleral icterus. No injection or drainage. NECK: Supple, trachea midline. No JVD or lymphadenopathy. CARDIOVASCULAR: Regular rate and rhythm without murmurs, gallops, or rubs. RESPIRATORY: Breath sounds equal bilaterally. No accessory muscle use. GASTROINTESTINAL: Abdomen soft, non-tender, nondistended. MUSCULOSKELETAL: No cyanosis, or edema. BACK: Nontender without obvious deformity. No CVA tenderness. Laboratory Tests Test 04/07/17 04:00 Potassium Level 2.9 MEQ/L Creatinine 0.52 MG/DL Estimat Glomerular Filtration 113 ML/MIN Rate Assessment and Plan Problem List: (1) Anemia (2) Angina at rest (3) CAD (coronary artery disease) (4) Hypoxia Assessment and Plan 1.) Class 4 Angina/anemia - resolved, improved after transfusion, 2.) Hypoxia due to pneumonia/copd, f/u pulm rec, hypoxia improved on less O2 Mikael Rodriguez MD April 07, 2017 15:43
--- NOTE | 2017-04-07 15:54 | HHI.IDPN ---
Subjective Subjective Remarks is an 81 y/o WF with PMHx of COPD, chronic tobacco use, CAD. Patient recently underwent an ascending colectomy for colon cancer on 03/25/[address] Colleen Plummer. She had laparoscopic extensive lysis of adhesions, open ascending colectomy and flexible sigmoidoscopy, estimated blood loss of 100 mL. Yesterday, the patient developed chest pain, hypoxia requiring a 100% non- rebreather. Hemoglobin has dropped as low as 8.4. Troponins are negative x3. EKG does not show any ischemic changes. The patient appears very pale at the bedside, still having active chest pain which is improved after a nitro drip. Otherwise denies any fevers, chills, cough, bleeding, PND, or orthopnea. Patient was transferred to the ICU for resp distress. Dr.Iskandar mercadow me the case. Agree to CT Chest, A/P. Currently not on pressors, UO ok. Patient has recd 2 units PRBC overnight. ID consulted for sepsis, Pneumonia in a post op pt. Overnight events reviewed. No fevers No rash No diarrhea coughs not much expectoration. Antibiotics Zosyn IV Lines Line sites with no e.o infection. Past Medical History reviewed Allergies: Coded Allergies: *MDRO Multi-Drug Resistant Organism (Verified Adverse Reaction, Unknown, ) MRSA PCR Screen POSITIVE - 04/02/2017 Objective . Vital Signs Date Time Temp Pulse Resp B/P Pulse Ox O2 Delivery O2 Flow Rate FiO2 04/07/17 09:02 91 High Flow Nasal Cannula 20.00 45 04/07/17 06:00 80 04/07/17 05:00 95 High Flow Nasal Cannula 15.00 40 04/07/17 04:00 98.6 76 21 111/56 95 04/07/17 04:00 76 04/07/17 02:15 22 04/07/17 02:00 88 04/07/17 01:30 94 High Flow Nasal Cannula 25.00 60 04/07/17 00:00 90 04/07/17 00:00 98.2 90 32 133/60 87 04/06/17 22:00 88 04/06/17 20:23 90 High Flow Nasal Cannula 15.00 35 04/06/17 20:00 98.2 86 22 114/54 90 04/06/17 20:00 86 04/06/17 19:00 90 Nasal Cannula 35 Non-Rebreather 04/06/17 18:00 89 04/06/17 16:00 97.8 85 26 107/55 93 04/06/17 16:00 89 04/06/17 04/06/17 04/07/17 15:00 23:00 07:00 Intake Total 880 ml 881 ml 566 ml Output Total 375 ml 75 ml Balance 505 ml 806 ml 566 ml Intake Oral 240 ml IV Total 375 ml 430 ml 219 ml TPN/PPN 421 ml 176 ml 289 ml Lipid 84 ml 35 ml 58 ml Output Urine Total 375 ml 75 ml # Voids 2 1 # Bowel Movements 2 0 . Laboratory Tests Test 04/06/17 14:14 White Blood Count 26.0 TH/MM3 Red Blood Count 3.82 MIL/MM3 Hemoglobin 10.2 GM/DL Hematocrit 30.9 % Mean Corpuscular Volume 80.8 FL Mean Corpuscular Hemoglobin 26.8 PG Mean Corpuscular Hemoglobin 33.1 % Concent Red Cell Distribution Width 15.9 % Platelet Count 360 TH/MM3 Mean Platelet Volume 8.8 FL Neutrophils (%) (Auto) 94.2 % Lymphocytes (%) (Auto) 3.9 % Monocytes (%) (Auto) 1.7 % Eosinophils (%) (Auto) 0.2 % Basophils (%) (Auto) 0.0 % Neutrophils # (Auto) 24.4 TH/MM3 Lymphocytes # (Auto) 1.0 TH/MM3 Monocytes # (Auto) 0.4 TH/MM3 Eosinophils # (Auto) 0.1 TH/MM3 Basophils # (Auto) 0.0 TH/MM3 CBC Comment AUTO DIFF Differential Comment AUTO DIFF CONFIRMED Platelet Estimate NORMAL Platelet Morphology Comment NORMAL Ovalocytes 1+ Acanthocytes OCC Keratocytes OCC Laboratory Tests Test 04/05/17 04/07/17 20:59 04:00 Sodium Level 134 MEQ/L Potassium Level 3.1 MEQ/L 2.9 MEQ/L Chloride Level 98 MEQ/L Carbon Dioxide Level 26.8 MEQ/L Anion Gap 9 MEQ/L Blood Urea Nitrogen 16 MG/DL Creatinine 0.50 MG/DL 0.52 MG/DL Estimat Glomerular Filtration 118 ML/MIN 113 ML/MIN Rate Random Glucose 86 MG/DL Calcium Level 7.8 MG/DL Imaging Last Impressions Chest X-Ray 5/6/17 0000 Signed Impressions: Service Date/Time: Sunday, April 02, 2017 04:14 - CONCLUSION: 1. Worsening patchy airspace disease throughout the right lung. 2. Minimal left basilar atelectasis. 3. Cardiomegaly. Asher Gottlieb MD CT Angiography 04/02/17 0000 Signed Impressions: Service Date/Time: Sunday, April 02, 2017 15:47 - CONCLUSION: 1. Negative for pulmonary embolus. Dense consolidation in the right lung especially posteriorly most characteristic of a large pneumonia. There is also partially loculated small to moderate right pleural effusion and right basilar atelectasis. On the left side there is a small pleural effusion and left basilar atelectasis. Austen Osei MD Abdomen/Pelvis CT 04/02/17 0000 Signed Impressions: Service Date/Time: Sunday, April 02, 2017 15:47 - CONCLUSION: 1. 8.2 x 4.2 cm fluid collection in the deep posterior pelvis, probably mildly complex free fluid. No loculated air to suggest abscess. 2. Colonic diverticulosis without diverticulitis. Postoperative cholecystectomy and partial right bowel resection. Dense consolidation at the lung bases, right greater than left bilateral effusions. Austen Osei MD Physical Exam GENERAL: Obese, well-developed patient. SKIN: No rashes, ecchymoses or lesions. Cool and dry. HEAD: Atraumatic. Normocephalic. No temporal or scalp tenderness. EYES: Pupils equal round and reactive. Extraocular motions intact. No scleral icterus. No injection or drainage. ENT: Nose without bleeding, purulent drainage or septal hematoma. Throat without erythema, tonsillar hypertrophy or exudate. Uvula midline. Airway patent. NECK: Trachea midline. Supple, nontender, no meningeal signs. CARDIOVASCULAR: Regular rate and rhythm without murmurs. RESPIRATORY: Clear to auscultation. Breath sounds equal bilaterally. No wheezes , rales, or rhonchi. GASTROINTESTINAL: Abdomen soft, non-tender, nondistended. MUSCULOSKELETAL: Bilateral knees surgical scar is intact. NEUROLOGICAL: Awake and alert. Grossly nonfocal Psych cooperative IV line sites with no evidence of infection. Assessment & Plan Remarks Sepsis Pneumonia in the hospital setting. Acute respiratory failure on 100% nonrebreather high risk of intubation. Ascending colectomy for colon cancer on 03/25/2017 ? IA abscess or sepsis/ peritonitis High grade leucocytosis. COPD exacerbation acute CAD Recs Continue Zosyn IV continue Azithro oral (stop date 04/09/2017) Follow CXR Follow clinically. d/w RN and family in room. Will follow prn. When ready for Discharge ok to transition to oral levaquin duration based on clinical response and CXR. Usually 7 days. covering for me this weekend. Zee Arriaga MD April 07, 2017 15:54
[2017-04-07] MEDS: FAT EMULSION 20% INJ 250 ML (@10 mls/hr) IV SCH (20:05)
[2017-04-07] MEDS: MULTIVITAMIN INJ 10 ML, FOLIC ACID INJ 1 MG, INSULIN HUMAN REGULAR INJ 40 UNITS in AMIN... IV SCH (20:08)
--- NOTE | 2017-04-07 20:36 | HHI.PR ---
Subjective Remarks Patient remains on NC feeling somewhat better. CTA chest yesterday showed right sided pneumonia with small effusion and right basilar atelectasis, no PE. Afebrile. Breathing better Cough, small amount of sp Objective Vital Signs Vital Signs Date Time Temp Pulse Resp B/P Pulse Ox O2 Delivery O2 Flow Rate FiO2 04/07/17 19:48 93 High Flow Nasal Cannula 20.00 50 04/07/17 18:00 25 04/07/17 16:00 99.0 80 21 108/54 95 04/07/17 12:00 99.2 94 24 119/57 92 04/07/17 09:02 91 High Flow Nasal Cannula 20.00 45 04/07/17 08:00 100.1 89 28 129/63 88 04/07/17 06:00 80 04/07/17 05:00 95 High Flow Nasal Cannula 15.00 40 04/07/17 04:00 98.6 76 21 111/56 95 04/07/17 04:00 76 04/07/17 02:15 22 04/07/17 02:00 88 04/07/17 01:30 94 High Flow Nasal Cannula 25.00 60 04/07/17 00:00 90 04/07/17 00:00 98.2 90 32 133/60 87 04/06/17 22:00 88 I/O 04/06/17 04/06/17 04/06/17 04/07/17 04/07/17 04/07/17 06:59 14:59 22:59 06:59 14:59 22:59 Intake Total 480 ml 880 ml 881 ml 566 ml Output Total 350 ml 375 ml 75 ml Balance 130 ml 505 ml 806 ml 566 ml Intake Oral 240 ml IV Total 375 ml 430 ml 219 ml TPN/PPN 400 ml 421 ml 176 ml 289 ml Lipid 80 ml 84 ml 35 ml 58 ml Output Urine Total 350 ml 375 ml 75 ml # Voids 2 1 # Bowel Movements 2 0 Result Diagram: 04/06/17 1414 04/07/17 0400 Objective Remarks GENERAL: Patient is 81 yo on NC SKIN: Warm and dry. HEAD: Normocephalic. EYES: No scleral icterus. No injection or drainage. NECK: Supple, trachea midline. No JVD or lymphadenopathy. CARDIOVASCULAR: Tachycardic without murmurs, gallops, or rubs. RESPIRATORY: Breath sounds equal bilaterally. Coarse BS on right GASTROINTESTINAL: Abdomen soft, non-tender, nondistended. MUSCULOSKELETAL: No cyanosis, or edema. Neuro: Awake and alert A/P Assessment and Plan 1)Resp failure 2)Right sided pneumonia 3)s/p Lap TANISHA, open ascending colectomy on 03/25 4)Leukocytosis 5)Anemia Plan Wean down oxygen as andreas keep sat >92% Bronchodilators, solumederol 40mg IV Q6 x 4 doses NIPPV PRN for resp distress Continue with abx Monitor CBC and for signs of infections ( fever, WBC) WBC trending down Monitor renal function, electrolytes replacement per protocol. GI/DVT prophylaxis Angel Key MD April 07, 2017 20:36
[2017-04-08] VITALS (14 sets, daily range): BP systolic 110–155; BP diastolic 56–70; PULSE 74–98; RESP 19–30; TEMP 97.8–99.8; O2SAT 87–96
[2017-04-08] MEDS: HEPARIN SODIUM - SQ 10,000 UNITS/ML VIAL SQ SCH ×3 (01:08→23:37)
[2017-04-08] MEDS ORDERED: PHARMACY ORDERED LAB ONE (03:45)
[2017-04-08] MEDS: CHLORHEXIDINE GLUCONATE 2 % 1 PACK (2 CLOTHS)(taper/protocol) TOPICAL SCH (04:00)
[2017-04-08] MEDS: PIPERACIL-TAZO 4.5 GM PREMIX 100 ML IV SCH ×4 (05:01→23:37)
[2017-04-08] MEDS: INSULIN NovoLIN REGULAR SUPPLEMENTAL SCALE SQ SCH ×4 (07:00→21:00)
[2017-04-08] MEDS: SODIUM CHLORIDE 0.9% FLUSH 10 ML FLUSH IV FLUSH SCH (09:00)
[2017-04-08] MEDS: SODIUM CHLORIDE 0.9% FLUSH 5 ML FLUSH IVF SCH ×2 (09:00→20:55)
[2017-04-08] MEDS: ONDANSETRON HCL 4 MG/2 ML VIAL IV PRN (09:09)
[2017-04-08] MEDS: FUROSEMIDE 20 MG/2 ML VIAL IV PUSH SCH ×2 (09:10→18:20)
[2017-04-08] MEDS: MUPIROCIN 2% OINT 1 APPLIC/GM SYR NASAL SCH ×2 (09:10→20:55)
[2017-04-08] MEDS: PANTOPRAZOLE SODIUM 40 MG VIAL IVP SCH (09:10)
[2017-04-08] MEDS: ACETAMINOPHEN/HYDROcodone 325 MG/5 MG TAB PO PRN ×2 (09:11→16:26)
[2017-04-08] MEDS: AZITHROMYCIN 250 MG TAB PO SCH (09:12)
[2017-04-08] MEDS: VALSARTAN 160 MG TAB PO SCH (09:12)
--- NOTE | 2017-04-08 10:42 | PD.CARD.PN ---
Subjective Subjective Remarks alert in nad Objective Vital Signs / I&O Vital Signs Date Time Temp Pulse Resp B/P Pulse Ox O2 Delivery O2 Flow Rate FiO2 04/08/17 06:00 94 04/08/17 04:00 87 04/08/17 04:00 98.9 87 23 136/65 95 04/08/17 02:00 82 04/08/17 00:00 84 04/08/17 00:00 98.4 84 29 125/62 89 04/07/17 22:00 74 04/07/17 20:00 71 04/07/17 20:00 97.9 71 20 121/60 95 04/07/17 19:48 93 High Flow Nasal Cannula 20.00 50 04/07/17 19:00 91 Nasal Cannula 50 04/07/17 18:00 92 Nasal Cannula 35 Non-Rebreather 04/07/17 18:00 76 04/07/17 18:00 25 04/07/17 16:00 99.0 80 21 108/54 95 04/07/17 16:00 80 04/07/17 14:00 88 04/07/17 12:00 94 04/07/17 12:00 99.2 94 24 119/57 92 I/O 04/07/17 04/07/17 04/07/17 04/08/17 04/08/17 04/08/17 07:00 15:00 23:00 07:00 15:00 23:00 Intake Total 566 ml 670 ml 1102 ml 742 ml Output Total 675 ml Balance 566 ml -5 ml 1102 ml 742 ml Intake Oral 240 ml 100 ml IV Total 219 ml 220 ml 287 ml 250 ml TPN/PPN 289 ml 390 ml 463 ml 327 ml Lipid 58 ml 60 ml 112 ml 65 ml Output Urine Total 675 ml # Voids 1 6 6 4 # Bowel Movements 0 1 0 0 Physical Exam GENERAL: SKIN: Warm and dry. HEAD: Normocephalic. EYES: No scleral icterus. No injection or drainage. NECK: Supple, trachea midline. No JVD or lymphadenopathy. CARDIOVASCULAR: Regular rate and rhythm without murmurs, gallops, or rubs. RESPIRATORY: Breath sounds equal bilaterally. No accessory muscle use. GASTROINTESTINAL: Abdomen soft, non-tender, nondistended. MUSCULOSKELETAL: No cyanosis, or edema. BACK: Nontender without obvious deformity. No CVA tenderness. Assessment and Plan Problem List: (1) Anemia (2) Angina at rest (3) CAD (coronary artery disease) (4) Hypoxia Assessment and Plan 1.) Class 4 Angina/anemia - resolved, improved after transfusion, 2.) Hypoxia due to pneumonia/copd, f/u pulm rec, hypoxia improved on less O2 Mikael Rodriguez MD April 08, 2017 10:42
--- NOTE | 2017-04-08 12:46 | HHI.PR ---
Subjective Remarks POD #14 lap TANISHA, open ascending colectomy more comfortable Objective Vital Signs Date Time Temp Pulse Resp B/P Pulse Ox O2 Delivery O2 Flow Rate FiO2 04/08/17 10:15 32 04/08/17 06:00 94 04/08/17 04:00 87 04/08/17 04:00 98.9 87 23 136/65 95 04/08/17 02:00 82 04/08/17 00:00 84 04/08/17 00:00 98.4 84 29 125/62 89 04/07/17 22:00 74 04/07/17 20:00 71 04/07/17 20:00 97.9 71 20 121/60 95 04/07/17 19:48 93 High Flow Nasal Cannula 20.00 50 04/07/17 19:00 91 Nasal Cannula 50 04/07/17 18:00 92 Nasal Cannula 35 Non-Rebreather 04/07/17 18:00 76 04/07/17 16:00 99.0 80 21 108/54 95 04/07/17 16:00 80 04/07/17 14:00 88 I/O 04/07/17 04/07/17 04/07/17 04/08/17 04/08/17 04/08/17 07:00 15:00 23:00 07:00 15:00 23:00 Intake Total 566 ml 670 ml 1102 ml 742 ml Output Total 675 ml Balance 566 ml -5 ml 1102 ml 742 ml Intake Oral 240 ml 100 ml IV Total 219 ml 220 ml 287 ml 250 ml TPN/PPN 289 ml 390 ml 463 ml 327 ml Lipid 58 ml 60 ml 112 ml 65 ml Output Urine Total 675 ml # Voids 1 6 6 4 # Bowel Movements 0 1 0 0 Result Diagram: 04/06/17 1414 04/07/17 0400 Objective Remarks Abdomen soft, nondistended, wound clean Assessment and Plan Assessment and Plan Encourage IS Wean TPN to stimulate appetite Check xray, labs Colleen Plummer MD April 08, 2017 12:46
--- NOTE | 2017-04-08 13:19 | HHI.IDPN ---
Subjective Subjective Remarks is an 81 y/o WF with PMHx of COPD, chronic tobacco use, CAD. Patient recently underwent an ascending colectomy for colon cancer on 03/25/[address] Colleen Plummer. She had laparoscopic extensive lysis of adhesions, open ascending colectomy and flexible sigmoidoscopy, estimated blood loss of 100 mL. Yesterday, the patient developed chest pain, hypoxia requiring a 100% non- rebreather. Hemoglobin has dropped as low as 8.4. Troponins are negative x3. EKG does not show any ischemic changes. The patient appears very pale at the bedside, still having active chest pain which is improved after a nitro drip. Otherwise denies any fevers, chills, cough, bleeding, PND, or orthopnea. Patient was transferred to the ICU for resp distress. Dr.Iskandar mercaodw me the case. Agree to CT Chest, A/P. Currently not on pressors, UO ok. Patient has recd 2 units PRBC overnight. ID consulted for sepsis, Pneumonia in a post op pt. Overnight events reviewed. No fevers No rash No diarrhea coughs not much expectoration.Sounds very wet and noisy in her upper airway. Antibiotics Zosyn IV Azithro oral. Lines Line sites with no e.o infection. Past Medical History reviewed Allergies: Coded Allergies: *MDRO Multi-Drug Resistant Organism (Verified Adverse Reaction, Unknown, ) MRSA PCR Screen POSITIVE - 04/02/2017 Objective . Vital Signs Date Time Temp Pulse Resp B/P Pulse Ox O2 Delivery O2 Flow Rate FiO2 04/08/17 10:15 32 04/08/17 06:00 94 04/08/17 04:00 87 04/08/17 04:00 98.9 87 23 136/65 95 04/08/17 02:00 82 04/08/17 00:00 84 04/08/17 00:00 98.4 84 29 125/62 89 04/07/17 22:00 74 04/07/17 20:00 71 04/07/17 20:00 97.9 71 20 121/60 95 04/07/17 19:48 93 High Flow Nasal Cannula 20.00 50 04/07/17 19:00 91 Nasal Cannula 50 04/07/17 18:00 92 Nasal Cannula 35 Non-Rebreather 04/07/17 18:00 76 04/07/17 16:00 99.0 80 21 108/54 95 04/07/17 16:00 80 04/07/17 14:00 88 04/07/17 04/07/17 04/08/17 15:00 23:00 07:00 Intake Total 670 ml 1102 ml 742 ml Output Total 675 ml Balance -5 ml 1102 ml 742 ml Intake Oral 240 ml 100 ml IV Total 220 ml 287 ml 250 ml TPN/PPN 390 ml 463 ml 327 ml Lipid 60 ml 112 ml 65 ml Output Urine Total 675 ml # Voids 6 6 4 # Bowel Movements 1 0 0 . Laboratory Tests Test 04/06/17 14:14 White Blood Count 26.0 TH/MM3 Red Blood Count 3.82 MIL/MM3 Hemoglobin 10.2 GM/DL Hematocrit 30.9 % Mean Corpuscular Volume 80.8 FL Mean Corpuscular Hemoglobin 26.8 PG Mean Corpuscular Hemoglobin 33.1 % Concent Red Cell Distribution Width 15.9 % Platelet Count 360 TH/MM3 Mean Platelet Volume 8.8 FL Neutrophils (%) (Auto) 94.2 % Lymphocytes (%) (Auto) 3.9 % Monocytes (%) (Auto) 1.7 % Eosinophils (%) (Auto) 0.2 % Basophils (%) (Auto) 0.0 % Neutrophils # (Auto) 24.4 TH/MM3 Lymphocytes # (Auto) 1.0 TH/MM3 Monocytes # (Auto) 0.4 TH/MM3 Eosinophils # (Auto) 0.1 TH/MM3 Basophils # (Auto) 0.0 TH/MM3 CBC Comment AUTO DIFF Differential Comment AUTO DIFF CONFIRMED Platelet Estimate NORMAL Platelet Morphology Comment NORMAL Ovalocytes 1+ Acanthocytes OCC Keratocytes OCC Laboratory Tests Test 04/07/17 04:00 Potassium Level 2.9 MEQ/L Creatinine 0.52 MG/DL Estimat Glomerular Filtration 113 ML/MIN Rate Imaging Last Impressions Chest X-Ray 04/02/17 0000 Signed Impressions: Service Date/Time: Sunday, April 02, 2017 04:14 - CONCLUSION: 1. Worsening patchy airspace disease throughout the right lung. 2. Minimal left basilar atelectasis. 3. Cardiomegaly. Asher Gottlieb MD CT Angiography 04/02/17 0000 Signed Impressions: Service Date/Time: Sunday, April 02, 2017 15:47 - CONCLUSION: 1. Negative for pulmonary embolus. Dense consolidation in the right lung especially posteriorly most characteristic of a large pneumonia. There is also partially loculated small to moderate right pleural effusion and right basilar atelectasis. On the left side there is a small pleural effusion and left basilar atelectasis. Austen Osei MD Abdomen/Pelvis CT 04/02/17 0000 Signed Impressions: Service Date/Time: Sunday, April 02, 2017 15:47 - CONCLUSION: 1. 8.2 x 4.2 cm fluid collection in the deep posterior pelvis, probably mildly complex free fluid. No loculated air to suggest abscess. 2. Colonic diverticulosis without diverticulitis. Postoperative cholecystectomy and partial right bowel resection. Dense consolidation at the lung bases, right greater than left bilateral effusions. Austen Osei MD Physical Exam GENERAL: Obese, well-developed patient. SKIN: No rashes, ecchymoses or lesions. Cool and dry. HEAD: Atraumatic. Normocephalic. No temporal or scalp tenderness. EYES: Pupils equal round and reactive. Extraocular motions intact. No scleral icterus. No injection or drainage. ENT: Nose without bleeding, purulent drainage or septal hematoma. Throat without erythema, tonsillar hypertrophy or exudate. Uvula midline. Airway patent. NECK: Trachea midline. Supple, nontender, no meningeal signs. CARDIOVASCULAR: Regular rate and rhythm without murmurs. RESPIRATORY: Bilateral occ wheezes, occ creps. Conducted noisy upper airway sounds. GASTROINTESTINAL: Abdomen soft, non-tender, nondistended. MUSCULOSKELETAL: Bilateral knees surgical scar is intact. NEUROLOGICAL: Awake and alert. Grossly nonfocal Psych cooperative IV line sites with no evidence of infection. Assessment & Plan Remarks Sepsis Pneumonia in the hospital setting. Acute respiratory failure on 100% nonrebreather high risk of intubation. Ascending colectomy for colon cancer on 03/25/2017 ? [place] abscess or sepsis/ peritonitis High grade leucocytosis. COPD exacerbation acute CAD Recs Continue Zosyn IV continue Azithro oral (stop date 04/09/2017) Follow CXR today if persistent infiltrates consider adding Zyvox oral and or increasing diuresis. TPN being cut back by . NT suctioning. Mucinex for helping with expectoration. Follow clinically. covering for me this weekend. Zee Arriaga MD April 08, 2017 13:19
[2017-04-08 13:41] LABS: AUTOMATED NEUTROPHIL # 26.5 TH/MM3 (1.8-7.7); BASOPHIL # 0.1 TH/MM3 (0-0.2); BASOPHIL % 0.2 % (0.0-2.0); EOSINOPHIL # 0.1 TH/MM3 (0-0.4); EOSINOPHIL % 0.4 % (0.0-4.0); HEMATOCRIT 29.9 % (35.0-46.0); LYMPH % 3.3 % (9.0-44.0); LYMPHOCYTE # 0.9 TH/MM3 (1.0-4.8); MEAN CELL VOLUME 81.5 FL (80.0-100.0); MEAN CORPUSCULAR HEMOGLOBIN 26.1 PG (27.0-34.0); MONO % 2.1 % (0.0-8.0); PLATELET COUNT 359 TH/MM3 (150-450); RED BLOOD COUNT 3.66 MIL/MM3 (4.00-5.30); RED CELL DISTRIBUTION WIDTH 16.8 % (11.6-17.2); WHITE BLOOD COUNT 28.2 TH/MM3 (4.0-11.0)
[2017-04-08 13:42] LABS: HEMO FLAGS AUTO DIFF
[2017-04-08 14:31] LABS: BANDS 8 % (0-6); MYELOCYTES 1 % (0-0); NEUTROPHIL # MANUAL DIFF 26.8 TH/MM3 (1.8-7.7); POLYS (SEG NEUTROPHILS) 86 % (16-70); WBC DIFF SAMPLE 100
[2017-04-08 14:32] LABS: ACANTHOCYTES OCC (NORMAL); KERATOCYTES OCC (NORMAL)
[2017-04-08 14:33] LABS: PLATELET ESTIMATE SMEAR NORMAL (NORMAL); PLATELET MORPHOLOGY NORMAL (NORMAL); SCAN/DIFF FINAL DIFF MANUAL
[2017-04-08] MEDS: guaiFENesin E.R. 600 MG TAB PO SCH ×2 (15:56→20:55)
[2017-04-08 16:27] LABS: ALKALINE PHOSPHATASE 112 U/L (45-117); ALT (GPT) 7 U/L (10-53); ANION GAP 10 MEQ/L (5-15); AST (GOT) 18 U/L (15-37); BICARBONATE 30.8 MEQ/L (21.0-32.0); BLOOD UREA NITROGEN 10 MG/DL (7-18); CHLORIDE 94 MEQ/L (98-107); GLOMERULAR FILTRATION RATE 121 ML/MIN (>89); SODIUM (NA) 135 MEQ/L (136-145); TOTAL BILIRUBIN ADULT 0.5 MG/DL (0.2-1.0)
[2017-04-08 16:39] LABS: POTASSIUM 2.9 MEQ/L (3.5-5.1)
--- NOTE | 2017-04-08 17:45 | RADRPT ---
EXAM DATE/TIME: 04/08/2017 17:27 [facility] COMPARISON: CHEST PA & LAT, April 01, 2017, 8:32. INDICATIONS : Shortness of breath, cough MEDICAL HISTORY : Cardiovascular disease. Carcinoma, colon. SURGICAL HISTORY : None. ENCOUNTER: Subsequent ACUITY: 1 week PAIN SCORE: 0/10 LOCATION: Bilateral chest FINDINGS: PICC line is in good position. Left lung is clear. Consolidative changes are seen on the right prog ressed in the interval. The heart remains enlarged. CONCLUSION: 1. PICC line in good position. 2. Increasing consolidative changes on the right. Cem Benito MD FACR on April 08, 2017 at 17:41 Board Certified Radiologist. This report was verified electronically.
--- NOTE | 2017-04-08 18:38 | HHI.PR ---
Subjective Remarks Patient PRB feeling somewhat better. CTA chest yesterday showed right sided pneumonia with small effusion and right basilar atelectasis, no PE. Afebrile. Breathing better Tolerates liquids Cough, small amount of sp Objective Vital Signs Vital Signs Date Time Temp Pulse Resp B/P Pulse Ox O2 Delivery O2 Flow Rate FiO2 04/08/17 18:20 32 04/08/17 16:24 95 High Flow Nasal Cannula 30.00 60 04/08/17 16:00 99.0 92 26 134/62 96 04/08/17 16:00 92 04/08/17 14:00 92 04/08/17 12:00 99.8 85 20 126/57 95 04/08/17 12:00 81 04/08/17 10:00 85 04/08/17 08:00 98 04/08/17 08:00 98.9 88 30 155/70 90 04/08/17 06:00 94 04/08/17 04:00 87 04/08/17 04:00 98.9 87 23 136/65 95 04/08/17 02:00 82 04/08/17 00:00 84 04/08/17 00:00 98.4 84 29 125/62 89 04/07/17 22:00 74 04/07/17 20:00 71 04/07/17 20:00 97.9 71 20 121/60 95 04/07/17 19:48 93 High Flow Nasal Cannula 20.00 50 04/07/17 19:00 91 Nasal Cannula 50 I/O 04/07/17 04/07/17 04/07/17 04/08/17 04/08/17 04/08/17 07:00 15:00 23:00 07:00 15:00 23:00 Intake Total 566 ml 670 ml 1102 ml 742 ml 1067 ml Output Total 675 ml 1200 ml Balance 566 ml -5 ml 1102 ml 742 ml -133 ml Intake Oral 240 ml 100 ml 250 ml IV Total 219 ml 220 ml 287 ml 250 ml 285 ml TPN/PPN 289 ml 390 ml 463 ml 327 ml 456 ml Lipid 58 ml 60 ml 112 ml 65 ml 76 ml Output Urine Total 675 ml 1200 ml # Voids 1 6 6 4 8 # Bowel Movements 0 1 0 0 2 Result Diagram: 04/08/17 1000 04/08/17 1435 Objective Remarks GENERAL: Patient is 81 yo on NC SKIN: Warm and dry. HEAD: Normocephalic. EYES: No scleral icterus. No injection or drainage. NECK: Supple, trachea midline. No JVD or lymphadenopathy. CARDIOVASCULAR: Tachycardic without murmurs, gallops, or rubs. RESPIRATORY: Breath sounds equal bilaterally. Coarse BS on right GASTROINTESTINAL: Abdomen soft, non-tender, nondistended. MUSCULOSKELETAL: No cyanosis, or edema. Neuro: Awake and alert A/P Assessment and Plan 1)Resp failure 2)Right sided pneumonia 3)s/p Lap TANISHA, open ascending colectomy on 03/25 4)Leukocytosis 5)Anemia Plan Wean down oxygen as tolerated, keep sat >92% Bronchodilators, solumederol 40mg IV Q6 x 4 doses NIPPV PRN for resp distress Continue with abx Monitor CBC and for signs of infections ( fever, WBC) WBC trending down Monitor renal function, electrolytes replacement per protocol. GI/DVT prophylaxis Angel Key MD April 08, 2017 18:38
[2017-04-08] MEDS: FAT EMULSION 20% INJ 250 ML (@10 mls/hr) IV SCH (20:00)
[2017-04-08] MEDS: MULTIVITAMIN INJ 10 ML, FOLIC ACID INJ 1 MG, INSULIN HUMAN REGULAR INJ 40 UNITS in AMIN... IV SCH (20:55)
[2017-04-08] MEDS: LINEZOLID 600 MG TAB PO SCH (20:55)
[2017-04-08] MEDS: POTASSIUM CHLOR 40 MEQ PREMIX 100 ML IV PRN (20:56)
[2017-04-09] VITALS (14 sets, daily range): BP systolic 115–140; BP diastolic 58–65; PULSE 73–99; RESP 22–32; TEMP 97.8–99; O2SAT 88–100
[2017-04-09] MEDS: CHLORHEXIDINE GLUCONATE 2 % 1 PACK (2 CLOTHS)(taper/protocol) TOPICAL SCH (04:00)
[2017-04-09] MEDS: ACETAMINOPHEN/HYDROcodone 325 MG/5 MG TAB PO PRN ×3 (04:17→18:00)
[2017-04-09] MEDS: PIPERACIL-TAZO 4.5 GM PREMIX 100 ML IV SCH ×4 (04:18→21:18)
[2017-04-09] MEDS: INSULIN NovoLIN REGULAR SUPPLEMENTAL SCALE SQ SCH ×4 (07:00→21:00)
[2017-04-09] MEDS: SODIUM CHLORIDE 0.9% FLUSH 5 ML FLUSH IVF SCH ×2 (09:00→21:00)
[2017-04-09] MEDS: SODIUM CHLORIDE 0.9% FLUSH 10 ML FLUSH IV FLUSH SCH (09:00)
[2017-04-09] MEDS: PANTOPRAZOLE SODIUM 40 MG VIAL IVP SCH (10:19)
[2017-04-09] MEDS: FUROSEMIDE 20 MG/2 ML VIAL IV PUSH SCH ×2 (10:20→18:00)
[2017-04-09] MEDS: MUPIROCIN 2% OINT 1 APPLIC/GM SYR NASAL SCH ×2 (10:20→21:14)
[2017-04-09] MEDS: guaiFENesin E.R. 600 MG TAB PO SCH ×2 (10:21→21:15)
[2017-04-09] MEDS: VALSARTAN 160 MG TAB PO SCH (10:21)
[2017-04-09] MEDS: LINEZOLID 600 MG TAB PO SCH ×2 (10:22→21:15)
[2017-04-09] MEDS: HEPARIN SODIUM - SQ 10,000 UNITS/ML VIAL SQ SCH (11:54)
--- NOTE | 2017-04-09 15:37 | PD.CARD.PN ---
Subjective Subjective Remarks alert in nad Objective Vital Signs / I&O Vital Signs Date Time Temp Pulse Resp B/P Pulse Ox O2 Delivery O2 Flow Rate FiO2 04/09/17 14:00 81 04/09/17 12:00 88 04/09/17 11:30 58 04/09/17 10:00 99 04/09/17 09:00 100 Venturi Mask 6.00 50 04/09/17 08:00 73 04/09/17 06:00 81 04/09/17 04:00 86 04/09/17 04:00 98.8 86 24 140/65 88 04/09/17 02:00 86 04/09/17 00:00 Venturi Mask 40 04/09/17 00:00 98.3 80 22 126/60 92 04/09/17 00:00 80 04/08/17 22:00 82 04/08/17 21:20 94 Venturi Mask 6.00 50 04/08/17 20:00 74 04/08/17 20:00 97.8 74 19 110/56 87 04/08/17 20:00 87 Venturi Mask 50 04/08/17 19:00 97 Partial Non-Rebreather 04/08/17 18:00 80 04/08/17 16:24 95 High Flow Nasal Cannula 30.00 60 04/08/17 16:00 99.0 92 26 134/62 96 04/08/17 16:00 92 I/O 04/08/17 04/08/17 04/08/17 04/09/17 04/09/17 04/09/17 07:00 15:00 23:00 07:00 15:00 23:00 Intake Total 742 ml 1067 ml 570 ml 826 ml Output Total 1200 ml Balance 742 ml -133 ml 570 ml 826 ml Intake Oral 100 ml 250 ml 100 ml 100 ml IV Total 250 ml 285 ml 183 ml 397 ml TPN/PPN 327 ml 456 ml 229 ml 241 ml Lipid 65 ml 76 ml 58 ml 88 ml Output Urine Total 1200 ml # Voids 4 8 6 5 # Bowel Movements 0 2 0 1 Physical Exam GENERAL: SKIN: Warm and dry. HEAD: Normocephalic. EYES: No scleral icterus. No injection or drainage. NECK: Supple, trachea midline. No JVD or lymphadenopathy. CARDIOVASCULAR: Regular rate and rhythm without murmurs, gallops, or rubs. RESPIRATORY: Breath sounds equal bilaterally. No accessory muscle use. GASTROINTESTINAL: Abdomen soft, non-tender, nondistended. MUSCULOSKELETAL: No cyanosis, or edema. BACK: Nontender without obvious deformity. No CVA tenderness. Laboratory Laboratory Tests Test 04/09/17 04:30 Creatinine 0.47 MG/DL Estimat Glomerular Filtration 127 ML/MIN Rate Assessment and Plan Problem List: (1) Anemia (2) Angina at rest (3) CAD (coronary artery disease) (4) Hypoxia Assessment and Plan 1.) Class 4 Angina/anemia - resolved, improved after transfusion, 2.) Hypoxia due to pneumonia/copd, f/u pulm rec, hypoxia improved on less O2 Mikael Rodriguez MD April 09, 2017 15:37
[2017-04-09] MEDS: methylPREDNISolone SOD SUCC 40 MG/1 ML VIAL IV PUSH SCH (16:47)
[2017-04-09] MEDS: RESP: ACETYLCYSTEINE 20% 30 ML NEB NEB SCH ×2 (17:30→21:29)
[2017-04-09] MEDS: RESP: ALBUTEROL 2.5 MG/IPRATROPIUM 0.5 MG NEB (SCH) INH ×2 (17:58→21:29)
--- NOTE | 2017-04-09 22:52 | HHI.PR ---
Subjective Remarks C/R Surg POD afebrile, VSS UO adeq andreas PO +BM Objective - Vital Signs Date Time Temp Pulse Resp B/P Pulse Ox O2 Delivery O2 Flow Rate FiO2 04/09/17 21:30 93 Nasal Cannula 5.00 04/09/17 19:06 22 04/09/17 18:00 80 04/09/17 16:00 99.0 115/58 04/09/17 09:00 50 Result Diagram: 04/08/17 1000 04/09/17 0430 Objective Remarks PE alert Abd - soft, wound dry, min tympany, some drainage A/P Assessment and Plan Imp: CXR - poss infiltrate, on Ab's cont resp Rx PT adv diet Benji Nguyen MD April 09, 2017 22:52
[2017-04-10] VITALS (14 sets, daily range): BP systolic 118–148; BP diastolic 58–65; PULSE 66–86; RESP 17–31; TEMP 96.6–98.5; O2SAT 93–98
[2017-04-10] MEDS: HEPARIN SODIUM - SQ 10,000 UNITS/ML VIAL SQ SCH ×2 (00:41→12:44)
[2017-04-10] MEDS: CHLORHEXIDINE GLUCONATE 2 % 1 PACK (2 CLOTHS)(taper/protocol) TOPICAL SCH (04:00)
[2017-04-10] MEDS: PIPERACIL-TAZO 4.5 GM PREMIX 100 ML IV SCH ×4 (04:13→22:17)
[2017-04-10] MEDS: INSULIN NovoLIN REGULAR SUPPLEMENTAL SCALE SQ SCH ×4 (06:42→21:00)
[2017-04-10 08:19] LABS: BICARBONATE 31.2 MEQ/L (21.0-32.0); POTASSIUM 3.2 MEQ/L (3.5-5.1)
[2017-04-10] MEDS: SODIUM CHLORIDE 0.9% FLUSH 10 ML FLUSH IV FLUSH SCH (09:00)
[2017-04-10] MEDS: SODIUM CHLORIDE 0.9% FLUSH 5 ML FLUSH IVF SCH ×2 (09:00→21:00)
[2017-04-10] MEDS: RESP: ALBUTEROL 2.5 MG/IPRATROPIUM 0.5 MG NEB (SCH) INH ×3 (09:10→21:07)
[2017-04-10] MEDS: RESP: ACETYLCYSTEINE 20% 30 ML NEB NEB SCH ×2 (09:11→15:05)
--- NOTE | 2017-04-10 09:34 | HHI.PR ---
Subjective Remarks C/R Surg POD afebrile, VSS UO adeq andreas PO - c/o nausea Objective - Vital Signs Date Time Temp Pulse Resp B/P Pulse Ox O2 Delivery O2 Flow Rate FiO2 04/10/17 09:14 97 Nasal Cannula 5.00 04/10/17 06:00 68 04/10/17 04:00 97.7 17 126/59 04/09/17 09:00 50 Result Diagram: 04/08/17 1000 04/10/17 0730 Objective Remarks PE alert Abd - soft, wound dry, min tympany, some drainage A/P Assessment and Plan Imp: CXR - pending cont resp Rx PT adv diet prn Benji Nguyen MD April 10, 2017 09:34
--- NOTE | 2017-04-10 09:46 | RADRPT ---
EXAM DATE/TIME: 04/10/2017 09:26 [place] COMPARISON: CHEST SINGLE AP, April 06, 2017, 18:19. INDICATIONS : Abdominal pain history of constipation. MEDICAL HISTORY : Cardiovascular disease. Carcinoma, colon. SURGICAL HISTORY : None. ENCOUNTER: Initial ACUITY: 1 day PAIN SCORE: 0/10 LOCATION: Bilateral chest FINDINGS: Patient is rotated to the right. A single view of the chest demonstrates right pleural effusion and a djacent density. Left basilar density. Right-sided PICC line unchanged. Heart enlarged. Osseous stru ctures are intact. CONCLUSION: Stable chest. Asher Gottlieb MD on April 10, 2017 at 9:43 Board Certified Radiologist. This report was verified electronically.
[2017-04-10] MEDS: methylPREDNISolone SOD SUCC 40 MG/1 ML VIAL IV PUSH SCH (10:00)
[2017-04-10] MEDS: FUROSEMIDE 20 MG/2 ML VIAL IV PUSH SCH ×2 (10:00→17:15)
[2017-04-10] MEDS: VALSARTAN 160 MG TAB PO SCH (10:01)
[2017-04-10] MEDS: guaiFENesin E.R. 600 MG TAB PO SCH ×2 (10:01→20:17)
[2017-04-10] MEDS: PANTOPRAZOLE SODIUM 40 MG VIAL IVP SCH (10:01)
[2017-04-10] MEDS: MUPIROCIN 2% OINT 1 APPLIC/GM SYR NASAL SCH ×2 (10:01→22:17)
[2017-04-10] MEDS: POTASSIUM CHLOR 20 MEQ PREMIX 100 ML IV PRN ×3 (10:02→22:06)
[2017-04-10] MEDS: LINEZOLID 600 MG TAB PO SCH ×2 (10:02→20:17)
--- NOTE | 2017-04-10 10:35 | PD.CARD.PN ---
Subjective Subjective Remarks alert in nad Objective Vital Signs / I&O Vital Signs Date Time Temp Pulse Resp B/P Pulse Ox O2 Delivery O2 Flow Rate FiO2 04/10/17 09:14 97 Nasal Cannula 5.00 04/10/17 06:00 68 04/10/17 04:00 68 04/10/17 04:00 97.7 68 17 126/59 94 04/10/17 02:00 76 04/10/17 00:00 76 04/10/17 00:00 98.5 76 26 118/58 93 04/09/17 22:00 80 04/09/17 21:30 93 Nasal Cannula 5.00 04/09/17 20:00 84 04/09/17 20:00 97.8 84 32 135/63 90 04/09/17 19:06 22 04/09/17 19:00 94 Nasal Cannula 5.00 04/09/17 18:00 93 Nasal Cannula 5.00 04/09/17 18:00 80 04/09/17 16:00 76 04/09/17 16:00 99.0 92 30 115/58 92 04/09/17 14:00 81 04/09/17 12:00 88 04/09/17 12:00 99.0 92 30 140/65 92 I/O 04/09/17 04/09/17 04/09/17 04/10/17 04/10/17 04/10/17 07:00 15:00 23:00 07:00 15:00 23:00 Intake Total 826 ml 674 ml 507 ml 212 ml Balance 826 ml 674 ml 507 ml 212 ml Intake Oral 100 ml 310 ml 240 ml IV Total 397 ml 244 ml 267 ml 212 ml TPN/PPN 241 ml 80 ml Lipid 88 ml 40 ml # Voids 5 6 3 5 # Bowel Movements 1 2 0 0 Physical Exam GENERAL: SKIN: Warm and dry. HEAD: Normocephalic. EYES: No scleral icterus. No injection or drainage. NECK: Supple, trachea midline. No JVD or lymphadenopathy. CARDIOVASCULAR: Regular rate and rhythm without murmurs, gallops, or rubs. RESPIRATORY: Breath sounds equal bilaterally. No accessory muscle use. GASTROINTESTINAL: Abdomen soft, non-tender, nondistended. MUSCULOSKELETAL: No cyanosis, or edema. BACK: Nontender without obvious deformity. No CVA tenderness. Laboratory Laboratory Tests Test 04/10/17 07:30 Sodium Level 136 MEQ/L Potassium Level 3.2 MEQ/L Chloride Level 96 MEQ/L Carbon Dioxide Level 31.2 MEQ/L Anion Gap 9 MEQ/L Blood Urea Nitrogen 8 MG/DL Creatinine 0.41 MG/DL Estimat Glomerular Filtration 149 ML/MIN Rate Random Glucose 121 MG/DL Calcium Level 8.1 MG/DL Assessment and Plan Problem List: (1) Anemia (2) Angina at rest (3) CAD (coronary artery disease) (4) Hypoxia Assessment and Plan 1.) Class 4 Angina/anemia - resolved, improved after transfusion, 2.) Hypoxia due to pneumonia/copd, f/u pulm rec, hypoxia improved on less O2 Mikael Rodriguez MD April 10, 2017 10:34
[2017-04-10 11:54] LABS: AUTOMATED NEUTROPHIL # 24.3 TH/MM3 (1.8-7.7); BASOPHIL % 0.2 % (0.0-2.0); HEMATOCRIT 26.8 % (35.0-46.0); LYMPH % 3.4 % (9.0-44.0); LYMPHOCYTE # 0.9 TH/MM3 (1.0-4.8); MEAN CORPUSCULAR HEMOGLOBIN 26.2 PG (27.0-34.0); MEAN CORPUSCULAR HGB CONC 32.4 % (32.0-36.0); MONO % 2.7 % (0.0-8.0); NEUT % 93.7 % (16.0-70.0); PLATELET COUNT 475 TH/MM3 (150-450); RED BLOOD COUNT 3.31 MIL/MM3 (4.00-5.30); RED CELL DISTRIBUTION WIDTH 16.1 % (11.6-17.2); WHITE BLOOD COUNT 25.9 TH/MM3 (4.0-11.0)
[2017-04-10 11:58] LABS: HEMO FLAGS AUTO DIFF
[2017-04-10 12:30] LABS: BANDS 5 % (0-6); NEUTROPHIL # MANUAL DIFF 24.3 TH/MM3 (1.8-7.7); OVALOCYTES 1+ (NORMAL); PLATELET ESTIMATE SMEAR HIGH (NORMAL); PLATELET MORPHOLOGY NORMAL (NORMAL); POLYS (SEG NEUTROPHILS) 89 % (16-70); SCAN/DIFF FINAL DIFF MANUAL; WBC DIFF SAMPLE 100
[2017-04-10] MEDS: ACETAMINOPHEN/HYDROcodone 325 MG/5 MG TAB PO PRN (17:12)
[2017-04-11] VITALS (12 sets, daily range): BP systolic 129–138; BP diastolic 58–63; PULSE 68–85; RESP 18–27; TEMP 97.8–98.1; O2SAT 90–100
[2017-04-11] MEDS: RESP: ACETYLCYSTEINE 20% 30 ML NEB NEB SCH ×4 (00:26→23:04)
[2017-04-11] MEDS: RESP: ALBUTEROL 2.5 MG/IPRATROPIUM 0.5 MG NEB (PRN) NEB (00:26)
[2017-04-11] MEDS: POTASSIUM CHLOR 20 MEQ PREMIX 100 ML IV PRN ×3 (00:32→06:49)
[2017-04-11] MEDS: HEPARIN SODIUM - SQ 10,000 UNITS/ML VIAL SQ SCH ×3 (00:45→23:23)
[2017-04-11] MEDS: ACETAMINOPHEN/HYDROcodone 325 MG/5 MG TAB PO PRN (02:20)
[2017-04-11] MEDS: CHLORHEXIDINE GLUCONATE 2 % 1 PACK (2 CLOTHS)(taper/protocol) TOPICAL SCH (03:50)
[2017-04-11] MEDS: PIPERACIL-TAZO 4.5 GM PREMIX 100 ML IV SCH ×4 (04:06→23:23)
[2017-04-11] MEDS: INSULIN NovoLIN REGULAR SUPPLEMENTAL SCALE SQ SCH ×4 (07:00→23:22)
[2017-04-11] MEDS: methylPREDNISolone SOD SUCC 40 MG/1 ML VIAL IV PUSH SCH (08:09)
[2017-04-11] MEDS: PANTOPRAZOLE SODIUM 40 MG VIAL IVP SCH (08:09)
[2017-04-11] MEDS: MUPIROCIN 2% OINT 1 APPLIC/GM SYR NASAL SCH ×2 (08:10→23:21)
[2017-04-11] MEDS: guaiFENesin E.R. 600 MG TAB PO SCH ×2 (08:10→23:21)
[2017-04-11] MEDS: FUROSEMIDE 20 MG/2 ML VIAL IV PUSH SCH ×2 (08:10→16:47)
[2017-04-11] MEDS: LINEZOLID 600 MG TAB PO SCH ×2 (08:10→23:21)
[2017-04-11] MEDS: SODIUM CHLORIDE 0.9% FLUSH 10 ML FLUSH IV FLUSH SCH (08:11)
[2017-04-11] MEDS: SODIUM CHLORIDE 0.9% FLUSH 5 ML FLUSH IVF SCH ×2 (08:11→23:20)
[2017-04-11] MEDS: VALSARTAN 160 MG TAB PO SCH (08:16)
[2017-04-11] MEDS: RESP: ALBUTEROL 2.5 MG/IPRATROPIUM 0.5 MG NEB (SCH) INH ×3 (08:57→20:22)
--- NOTE | 2017-04-11 14:25 | PD.CARD.PN ---
Subjective Subjective Remarks alert in nad Objective Vital Signs / I&O Vital Signs Date Time Temp Pulse Resp B/P Pulse Ox O2 Delivery O2 Flow Rate FiO2 04/11/17 12:00 97.8 79 18 134/63 100 04/11/17 08:58 90 Nasal Cannula 5.00 04/11/17 08:00 97.8 82 24 137/63 99 04/11/17 07:00 98 Nasal Cannula 4.00 04/11/17 06:00 72 04/11/17 04:00 98.0 82 24 133/58 98 04/11/17 04:00 82 04/11/17 02:00 83 04/11/17 00:00 98.0 81 24 130/60 100 04/11/17 00:00 81 04/10/17 22:00 75 04/10/17 21:10 98 Nasal Cannula 4.00 04/10/17 20:00 97.6 78 25 148/65 94 04/10/17 20:00 79 04/10/17 19:00 94 Nasal Cannula 4.00 04/10/17 18:12 30 04/10/17 18:00 86 04/10/17 16:00 83 04/10/17 16:00 97.8 86 31 96 I/O 04/10/17 04/10/17 04/10/17 04/11/17 04/11/17 04/11/17 07:00 15:00 23:00 07:00 15:00 23:00 Intake Total 212 ml 467 ml 616 ml 620 ml Balance 212 ml 467 ml 616 ml 620 ml Intake Oral 240 ml 240 ml 120 ml IV Total 212 ml 227 ml 376 ml 500 ml # Voids 5 2 2 5 # Bowel Movements 0 1 0 0 Physical Exam GENERAL: SKIN: Warm and dry. HEAD: Normocephalic. EYES: No scleral icterus. No injection or drainage. NECK: Supple, trachea midline. No JVD or lymphadenopathy. CARDIOVASCULAR: Regular rate and rhythm without murmurs, gallops, or rubs. RESPIRATORY: Breath sounds equal bilaterally. No accessory muscle use. GASTROINTESTINAL: Abdomen soft, non-tender, nondistended. MUSCULOSKELETAL: No cyanosis, or edema. BACK: Nontender without obvious deformity. No CVA tenderness. Laboratory Laboratory Tests Test 04/10/17 04/11/17 16:15 06:00 Potassium Level 3.1 MEQ/L 3.4 MEQ/L Creatinine 0.40 MG/DL Estimat Glomerular Filtration 153 ML/MIN Rate Assessment and Plan Problem List: (1) Anemia (2) Angina at rest (3) CAD (coronary artery disease) (4) Hypoxia Assessment and Plan 1.) Class 4 Angina/anemia - resolved, improved after transfusion, 2.) Hypoxia due to pneumonia/copd, f/u pulm rec, hypoxia improved on less O2 Mikael Rodriguez MD April 11, 2017 14:24
--- NOTE | 2017-04-11 14:47 | HHI.PR ---
Subjective Remarks POD #17 lap TANISHA, open ascending colectomy rough morning Objective Vital Signs Date Time Temp Pulse Resp B/P Pulse Ox O2 Delivery O2 Flow Rate FiO2 04/11/17 12:00 97.8 79 18 134/63 100 04/11/17 08:58 90 Nasal Cannula 5.00 04/11/17 08:00 97.8 82 24 137/63 99 04/11/17 07:00 98 Nasal Cannula 4.00 04/11/17 06:00 72 04/11/17 04:00 98.0 82 24 133/58 98 04/11/17 04:00 82 04/11/17 02:00 83 04/11/17 00:00 98.0 81 24 130/60 100 04/11/17 00:00 81 04/10/17 22:00 75 04/10/17 21:10 98 Nasal Cannula 4.00 04/10/17 20:00 97.6 78 25 148/65 94 04/10/17 20:00 79 04/10/17 19:00 94 Nasal Cannula 4.00 04/10/17 18:12 30 04/10/17 18:00 86 04/10/17 16:00 83 04/10/17 16:00 97.8 86 31 96 I/O 04/10/17 04/10/17 04/10/17 04/11/17 04/11/17 04/11/17 06:59 14:59 22:59 06:59 14:59 22:59 Intake Total 212 ml 467 ml 616 ml 620 ml Balance 212 ml 467 ml 616 ml 620 ml Intake Oral 240 ml 240 ml 120 ml IV Total 212 ml 227 ml 376 ml 500 ml # Voids 5 2 2 5 # Bowel Movements 0 1 0 0 Result Diagram: 04/10/17 1125 04/11/17 0600 Objective Remarks Abdomen soft, nondistended, wound clean Assessment and Plan Assessment and Plan Megace, Ensure Check cDiff, add Metamucil Reconsult Glass Deposition Tender Colleen Plummer MD April 11, 2017 14:47
[2017-04-11] MEDS ORDERED: LOPERAMIDE HCL 2 MG CAP PO ONE (15:00)
--- NOTE | 2017-04-11 15:03 | HHI.IDPN ---
Subjective Subjective Remarks is an 81 y/o WF with PMHx of COPD, chronic tobacco use, CAD. Patient recently underwent an ascending colectomy for colon cancer on 03/25/[address] Colleen Plummer. She had laparoscopic extensive lysis of adhesions, open ascending colectomy and flexible sigmoidoscopy, estimated blood loss of 100 mL. Yesterday, the patient developed chest pain, hypoxia requiring a 100% non- rebreather. Hemoglobin has dropped as low as 8.4. Troponins are negative x3. EKG does not show any ischemic changes. The patient appears very pale at the bedside, still having active chest pain which is improved after a nitro drip. Otherwise denies any fevers, chills, cough, bleeding, PND, or orthopnea. Patient was transferred to the ICU for resp distress. Dr.Iskandar mercadow me the case. Agree to CT Chest, A/P. Currently not on pressors, UO ok. Patient has recd 2 units PRBC overnight. ID consulted for sepsis, Pneumonia in a post op pt. Overnight events reviewed. No fevers No rash No diarrhea coughs not much expectoration. Antibiotics Zosyn IV Zyvox oral. Lines Line sites with no e.o infection. Past Medical History reviewed Allergies: Coded Allergies: *MDRO Multi-Drug Resistant Organism (Verified Adverse Reaction, Unknown, ) MRSA PCR Screen POSITIVE - 04/02/2017 Objective . Vital Signs Date Time Temp Pulse Resp B/P Pulse Ox O2 Delivery O2 Flow Rate FiO2 04/11/17 12:00 97.8 79 18 134/63 100 04/11/17 08:58 90 Nasal Cannula 5.00 04/11/17 08:00 97.8 82 24 137/63 99 04/11/17 07:00 98 Nasal Cannula 4.00 04/11/17 06:00 72 04/11/17 04:00 98.0 82 24 133/58 98 04/11/17 04:00 82 04/11/17 02:00 83 04/11/17 00:00 98.0 81 24 130/60 100 04/11/17 00:00 81 04/10/17 22:00 75 04/10/17 21:10 98 Nasal Cannula 4.00 04/10/17 20:00 97.6 78 25 148/65 94 5/14/17 20:00 79 04/10/17 19:00 94 Nasal Cannula 4.00 04/10/17 18:12 30 04/10/17 18:00 86 04/10/17 16:00 83 04/10/17 16:00 97.8 86 31 96 04/10/17 04/10/17 04/11/17 15:00 23:00 07:00 Intake Total 467 ml 616 ml 620 ml Balance 467 ml 616 ml 620 ml Intake Oral 240 ml 240 ml 120 ml IV Total 227 ml 376 ml 500 ml # Voids 2 2 5 # Bowel Movements 1 0 0 . Laboratory Tests Test 04/10/17 11:25 White Blood Count 25.9 TH/MM3 Red Blood Count 3.31 MIL/MM3 Hemoglobin 8.7 GM/DL Hematocrit 26.8 % Mean Corpuscular Volume 81.0 FL Mean Corpuscular Hemoglobin 26.2 PG Mean Corpuscular Hemoglobin 32.4 % Concent Red Cell Distribution Width 16.1 % Platelet Count 475 TH/MM3 Mean Platelet Volume 8.4 FL Neutrophils (%) (Auto) 93.7 % Lymphocytes (%) (Auto) 3.4 % Monocytes (%) (Auto) 2.7 % Eosinophils (%) (Auto) 0.0 % Basophils (%) (Auto) 0.2 % Neutrophils # (Auto) 24.3 TH/MM3 Lymphocytes # (Auto) 0.9 TH/MM3 Monocytes # (Auto) 0.7 TH/MM3 Eosinophils # (Auto) 0.0 TH/MM3 Basophils # (Auto) 0.0 TH/MM3 CBC Comment AUTO DIFF Differential Total Cells 100 Counted Neutrophils % (Manual) 89 % Band Neutrophils % 5 % Lymphocytes % 3 % Monocytes % 3 % Neutrophils # (Manual) 24.3 TH/MM3 Differential Comment FINAL DIFF MANUAL Platelet Estimate HIGH Platelet Morphology Comment NORMAL Ovalocytes 1+ Laboratory Tests Test 04/10/17 04/10/17 04/11/17 07:30 16:15 06:00 Sodium Level 136 MEQ/L Potassium Level 3.2 MEQ/L 3.1 MEQ/L 3.4 MEQ/L Chloride Level 96 MEQ/L Carbon Dioxide Level 31.2 MEQ/L Anion Gap 9 MEQ/L Blood Urea Nitrogen 8 MG/DL Creatinine 0.41 MG/DL 0.40 MG/DL Estimat Glomerular Filtration 149 ML/MIN 153 ML/MIN Rate Random Glucose 121 MG/DL Calcium Level 8.1 MG/DL Imaging Last Impressions Chest X-Ray 04/02/17 0000 Signed Impressions: Service Date/Time: Sunday, April 02, 2017 04:14 - CONCLUSION: 1. Worsening patchy airspace disease throughout the right lung. 2. Minimal left basilar atelectasis. 3. Cardiomegaly. Asher Gottlieb MD CT Angiography 04/02/17 0000 Signed Impressions: Service Date/Time: Sunday, April 02, 2017 15:47 - CONCLUSION: 1. Negative for pulmonary embolus. Dense consolidation in the right lung especially posteriorly most characteristic of a large pneumonia. There is also partially loculated small to moderate right pleural effusion and right basilar atelectasis. On the left side there is a small pleural effusion and left basilar atelectasis. Austen Osei MD Abdomen/Pelvis CT 04/02/17 0000 Signed Impressions: Service Date/Time: Sunday, April 02, 2017 15:47 - CONCLUSION: 1. 8.2 x 4.2 cm fluid collection in the deep posterior pelvis, probably mildly complex free fluid. No loculated air to suggest abscess. 2. Colonic diverticulosis without diverticulitis. Postoperative cholecystectomy and partial right bowel resection. Dense consolidation at the lung bases, right greater than left bilateral effusions. Austen Osei MD Physical Exam GENERAL: Obese, well-developed patient. SKIN: No rashes, ecchymoses or lesions. Cool and dry. HEAD: Atraumatic. Normocephalic. No temporal or scalp tenderness. EYES: Pupils equal round and reactive. Extraocular motions intact. No scleral icterus. No injection or drainage. ENT: Nose without bleeding, purulent drainage or septal hematoma. Throat without erythema, tonsillar hypertrophy or exudate. Uvula midline. Airway patent. NECK: Trachea midline. Supple, nontender, no meningeal signs. CARDIOVASCULAR: Regular rate and rhythm without murmurs. RESPIRATORY: Bilateral occ wheezes, occ creps. Conducted noisy upper airway sounds. GASTROINTESTINAL: Abdomen soft, non-tender, nondistended. MUSCULOSKELETAL: Bilateral knees surgical scar is intact. NEUROLOGICAL: Awake and alert. Grossly nonfocal Psych cooperative IV line sites with no evidence of infection. Assessment & Plan Remarks Sepsis Pneumonia in the hospital setting. Acute respiratory failure on 100% nonrebreather high risk of intubation. Ascending colectomy for colon cancer on 03/25/2017 ? IA abscess or sepsis/ peritonitis High grade leucocytosis. COPD exacerbation acute CAD Recs Continue Zosyn IV Continue oral zyvox Mucinex for helping with expectoration. Follow clinically. Gary Adrian if patient would benefit from Bronchoscopy (diagnostic and therapeutic) Zee Arriaga MD April 11, 2017 15:03
[2017-04-11] MEDS: PSYLLIUM FIBER SF/GF 6 GM POWD PKT PO SCH (16:47)
[2017-04-11] MEDS: MEGESTROL ACETATE 40 MG TAB PO SCH (16:48)
[2017-04-11 17:01] LABS: C. DIFF EPI 027 PRESUMPTIVE NEGATIVE (NEGATIVE); C. DIFF TOXIN PCR NEGATIVE (NEGATIVE)
[2017-04-11] MEDS: NYSTATIN 100,000 U/GM PWD 15 GM BTL TOPICAL SCH (17:12)
--- NOTE | 2017-04-11 21:17 | HHI.PR ---
Subjective Remarks Patient VM feeling somewhat better. CTA chest yesterday showed right sided pneumonia with small effusion and right basilar atelectasis, no PE. Afebrile. Breathing better Tolerates liquids Cough, small amount of sp Appetite poor Objective Vital Signs Vital Signs Date Time Temp Pulse Resp B/P Pulse Ox O2 Delivery O2 Flow Rate FiO2 04/11/17 20:23 95 Venturi Mask 6.00 50 04/11/17 20:00 98.1 83 25 129/60 94 04/11/17 20:00 85 04/11/17 19:00 92 Venturi Mask 6.00 50 04/11/17 17:28 96 Partial Rebreather 10.00 04/11/17 16:00 98.1 68 27 138/63 100 04/11/17 12:00 97.8 79 18 134/63 100 04/11/17 08:58 90 Nasal Cannula 5.00 04/11/17 08:00 97.8 82 24 137/63 99 04/11/17 07:00 98 Nasal Cannula 4.00 04/11/17 06:00 72 04/11/17 04:00 98.0 82 24 133/58 98 04/11/17 04:00 82 04/11/17 02:00 83 04/11/17 00:00 98.0 81 24 130/60 100 04/11/17 00:00 81 04/10/17 22:00 75 I/O 04/10/17 04/10/17 04/10/17 04/11/17 04/11/17 04/11/17 07:00 15:00 23:00 07:00 15:00 23:00 Intake Total 212 ml 467 ml 616 ml 620 ml 819 ml Balance 212 ml 467 ml 616 ml 620 ml 819 ml Intake Oral 240 ml 240 ml 120 ml 360 ml IV Total 212 ml 227 ml 376 ml 500 ml 459 ml # Voids 5 2 2 5 5 # Bowel Movements 0 1 0 0 4 Result Diagram: 04/10/17 1125 04/11/17 0600 Objective Remarks GENERAL: Patient is 81 yo on NC SKIN: Warm and dry. HEAD: Normocephalic. EYES: No scleral icterus. No injection or drainage. NECK: Supple, trachea midline. No JVD or lymphadenopathy. CARDIOVASCULAR: Tachycardic without murmurs, gallops, or rubs. RESPIRATORY: Breath sounds equal bilaterally. Coarse BS on right GASTROINTESTINAL: Abdomen soft, non-tender, nondistended. MUSCULOSKELETAL: No cyanosis, or edema. Neuro: Awake and alert A/P Assessment and Plan 1)Resp failure 2)Right sided pneumonia 3)s/p Lap TANISHA, open ascending colectomy on 03/25 4)Leukocytosis 5)Anemia Plan Wean down oxygen as tolerated, keep sat >92% Bronchodilators, solumederol 40mg IV Q6 x 4 doses NIPPV PRN for resp distress Continue with abx Monitor CBC and for signs of infections ( fever, WBC) WBC trending down Monitor renal function, electrolytes replacement per protocol. GI/DVT prophylaxis Angel Key MD April 11, 2017 21:17
[2017-04-12] VITALS (14 sets, daily range): BP systolic 116–163; BP diastolic 58–72; PULSE 64–94; RESP 19–26; TEMP 97–98; O2SAT 93–100
[2017-04-12] MEDS: ACETAMINOPHEN/HYDROcodone 325 MG/5 MG TAB PO PRN (02:44)
[2017-04-12] MEDS: PIPERACIL-TAZO 4.5 GM PREMIX 100 ML IV SCH ×4 (04:15→22:24)
[2017-04-12] MEDS: NYSTATIN 100,000 U/GM PWD 15 GM BTL TOPICAL SCH ×2 (04:15→15:52)
[2017-04-12] MEDS: INSULIN NovoLIN REGULAR SUPPLEMENTAL SCALE SQ SCH ×4 (07:00→21:00)
[2017-04-12] MEDS: RESP: ACETYLCYSTEINE 20% 30 ML NEB NEB SCH ×3 (08:00→22:47)
[2017-04-12] MEDS: RESP: ALBUTEROL 2.5 MG/IPRATROPIUM 0.5 MG NEB (SCH) INH ×3 (08:11→19:14)
[2017-04-12 08:36] LABS: BICARBONATE 32.9 MEQ/L (21.0-32.0); MAGNESIUM 1.7 MG/DL (1.5-2.5)
[2017-04-12] MEDS: SODIUM CHLORIDE 0.9% FLUSH 10 ML FLUSH IV FLUSH SCH (08:47)
[2017-04-12] MEDS: guaiFENesin E.R. 600 MG TAB PO SCH ×2 (08:48→21:09)
[2017-04-12] MEDS: MEGESTROL ACETATE 40 MG TAB PO SCH (08:48)
[2017-04-12] MEDS: PANTOPRAZOLE SODIUM 40 MG VIAL IVP SCH (08:48)
[2017-04-12] MEDS: LINEZOLID 600 MG TAB PO SCH ×2 (08:48→21:09)
[2017-04-12] MEDS: methylPREDNISolone SOD SUCC 40 MG/1 ML VIAL IV PUSH SCH (08:48)
[2017-04-12] MEDS: FUROSEMIDE 20 MG/2 ML VIAL IV PUSH SCH ×2 (08:48→17:10)
[2017-04-12] MEDS: VALSARTAN 160 MG TAB PO SCH (08:48)
[2017-04-12] MEDS: MUPIROCIN 2% OINT 1 APPLIC/GM SYR NASAL SCH ×2 (08:49→21:09)
[2017-04-12] MEDS: POTASSIUM CHLOR 20 MEQ PREMIX 100 ML IV PRN (08:49)
[2017-04-12] MEDS: SODIUM CHLORIDE 0.9% FLUSH 5 ML FLUSH IVF SCH ×2 (08:49→21:10)
[2017-04-12] MEDS: PSYLLIUM FIBER SF/GF 6 GM POWD PKT PO SCH (08:50)
[2017-04-12] MEDS: HEPARIN SODIUM - SQ 10,000 UNITS/ML VIAL SQ SCH (11:16)
[2017-04-12] MEDS: POTASSIUM CHLORIDE 10 MEQ CONTROLLED RELEASE TAB PO SCH ×2 (12:28→21:09)
--- NOTE | 2017-04-12 15:04 | PD.CARD.PN ---
Subjective Subjective Remarks asleep in nad Objective Vital Signs / I&O Vital Signs Date Time Temp Pulse Resp B/P Pulse Ox O2 Delivery O2 Flow Rate FiO2 04/12/17 14:00 82 04/12/17 12:00 97.6 81 25 136/63 93 04/12/17 12:00 81 04/12/17 10:00 82 04/12/17 08:34 100 Nasal Cannula 4.00 04/12/17 08:00 64 04/12/17 08:00 97.0 64 26 135/59 96 04/12/17 07:00 98 Nasal Cannula 4.00 04/12/17 06:00 72 04/12/17 04:00 97.6 76 19 116/59 94 04/12/17 04:00 76 04/12/17 03:44 16 04/12/17 02:00 82 04/12/17 00:00 97.8 82 25 132/58 100 04/12/17 00:00 82 04/11/17 22:00 82 04/11/17 22:00 95 Non-Rebreather 15.00 04/11/17 20:23 95 Venturi Mask 6.00 50 04/11/17 20:00 98.1 83 25 129/60 94 04/11/17 20:00 85 04/11/17 19:00 92 Venturi Mask 6.00 50 04/11/17 17:28 96 Partial Rebreather 10.00 04/11/17 16:00 98.1 68 27 138/63 100 I/O 04/11/17 04/11/17 04/11/17 04/12/17 04/12/17 04/12/17 07:00 15:00 23:00 07:00 15:00 23:00 Intake Total 620 ml 819 ml 618 ml 584 ml 454 ml Balance 620 ml 819 ml 618 ml 584 ml 454 ml Intake Oral 120 ml 360 ml 180 ml 180 ml 200 ml IV Total 500 ml 459 ml 438 ml 404 ml 254 ml # Voids 5 5 3 3 5 # Bowel Movements 0 4 1 0 1 Physical Exam GENERAL: SKIN: Warm and dry. HEAD: Normocephalic. EYES: No scleral icterus. No injection or drainage. NECK: Supple, trachea midline. No JVD or lymphadenopathy. CARDIOVASCULAR: Regular rate and rhythm without murmurs, gallops, or rubs. RESPIRATORY: Breath sounds equal bilaterally. No accessory muscle use. GASTROINTESTINAL: Abdomen soft, non-tender, nondistended. MUSCULOSKELETAL: No cyanosis, or edema. BACK: Nontender without obvious deformity. No CVA tenderness. Laboratory Laboratory Tests Test 04/11/17 04/12/17 15:40 07:55 Stool C. difficile Toxin (PCR) NEGATIVE Stl C. difficile Toxin PRESUMPTIVE Epiderm 027 NEGATIVE Sodium Level 136 MEQ/L Potassium Level 3.0 MEQ/L Chloride Level 97 MEQ/L Carbon Dioxide Level 32.9 MEQ/L Anion Gap 6 MEQ/L Blood Urea Nitrogen 12 MG/DL Creatinine 0.56 MG/DL Estimat Glomerular Filtration 104 ML/MIN Rate Random Glucose 84 MG/DL Calcium Level 8.0 MG/DL Phosphorus Level 3.0 MG/DL Magnesium Level 1.7 MG/DL Assessment and Plan Problem List: (1) Anemia (2) Angina at rest (3) CAD (coronary artery disease) (4) Hypoxia Assessment and Plan 1.) Class 4 Angina/anemia - resolved, improved after transfusion, 2.) Hypoxia due to pneumonia/copd, f/u pulm rec, hypoxia improved on less O2 Problem Qualifiers (1) Anemia: Mikael Rodriguez MD April 12, 2017 15:04
--- NOTE | 2017-04-12 18:35 | HHI.PR ---
Subjective Remarks ALERT hno SOB at rest Objective Vital Signs Date Time Temp Pulse Resp B/P Pulse Ox O2 Delivery O2 Flow Rate FiO2 04/12/17 18:00 83 04/12/17 16:00 98.0 94 25 144/63 97 04/12/17 16:00 93 04/12/17 14:00 82 04/12/17 12:00 97.6 81 25 136/63 93 04/12/17 12:00 81 04/12/17 10:00 82 04/12/17 08:34 100 Nasal Cannula 4.00 04/12/17 08:00 64 04/12/17 08:00 97.0 64 26 135/59 96 04/12/17 07:00 98 Nasal Cannula 4.00 04/12/17 06:00 72 04/12/17 04:00 97.6 76 19 116/59 94 04/12/17 04:00 76 04/12/17 03:44 16 04/12/17 02:00 82 04/12/17 00:00 97.8 82 25 132/58 100 04/12/17 00:00 82 04/11/17 22:00 82 04/11/17 22:00 95 Non-Rebreather 15.00 04/11/17 20:23 95 Venturi Mask 6.00 50 04/11/17 20:00 98.1 83 25 129/60 94 04/11/17 20:00 85 04/11/17 19:00 92 Venturi Mask 6.00 50 I/O 04/11/17 04/11/17 04/11/17 04/12/17 04/12/17 04/12/17 07:00 15:00 23:00 07:00 15:00 23:00 Intake Total 620 ml 819 ml 618 ml 584 ml 454 ml Balance 620 ml 819 ml 618 ml 584 ml 454 ml Intake Oral 120 ml 360 ml 180 ml 180 ml 200 ml IV Total 500 ml 459 ml 438 ml 404 ml 254 ml # Voids 5 5 3 3 5 # Bowel Movements 0 4 1 0 1 Result Diagram: 04/10/17 1126 04/12/17 4906 Objective Remarks GENERAL: SKIN: Warm and dry. HEAD: Atraumatic. Normocephalic. EYES: Pupils equal and round. No scleral icterus. No injection or drainage. ENT: No nasal bleeding or discharge. Mucous membranes pink and moist. NECK: Trachea midline. No JVD. CARDIOVASCULAR: Regular rate and rhythm. RESPIRATORY: No accessory muscle use. Clear to auscultation. Breath sounds equal bilaterally. GASTROINTESTINAL: Abdomen soft, non-tender, nondistended. Hepatic and splenic margins not palpable. MUSCULOSKELETAL: Extremities without clubbing, cyanosis, or edema. No obvious deformities. NEUROLOGICAL: Awake and alert. No obvious cranial nerve deficits. Motor grossly within normal limits. Five out of 5 muscle strength in the arms and legs. Normal speech. PSYCHIATRIC: Appropriate mood and affect; insight and judgment normal. Assessment and Plan Assessment and Plan RESPIRATORY FAILURE PNEUMONIA , improving POST COLECTOMY PLAN O2 NEEDED ANTIBIOTICS PLM TOILET Nataliia William MD April 12, 2017 18:35
[2017-04-13] VITALS (14 sets, daily range): BP systolic 112–166; BP diastolic 55–70; PULSE 72–94; RESP 18–26; TEMP 97.8–98.5; O2SAT 93–99
[2017-04-13] MEDS: HEPARIN SODIUM - SQ 10,000 UNITS/ML VIAL SQ SCH ×2 (00:03→11:04)
[2017-04-13] MEDS: ACETAMINOPHEN/HYDROcodone 325 MG/5 MG TAB PO PRN ×4 (00:19→21:25)
[2017-04-13] MEDS: NYSTATIN 100,000 U/GM PWD 15 GM BTL TOPICAL SCH ×2 (05:03→16:39)
[2017-04-13] MEDS: PIPERACIL-TAZO 4.5 GM PREMIX 100 ML IV SCH ×3 (05:03→16:39)
[2017-04-13 05:30] LABS: BICARBONATE 29.9 MEQ/L (21.0-32.0); POTASSIUM 3.2 MEQ/L (3.5-5.1)
[2017-04-13] MEDS: POTASSIUM CHLOR 20 MEQ PREMIX 100 ML IV PRN (06:11)
[2017-04-13] MEDS: INSULIN NovoLIN REGULAR SUPPLEMENTAL SCALE SQ SCH ×4 (06:20→21:00)
--- NOTE | 2017-04-13 08:03 | HHI.PR ---
Subjective Remarks POD #9 lap TANISHA, open ascending colectomy more comfortable, tolerating NC Objective Vital Signs Date Time Temp Pulse Resp B/P Pulse Ox O2 Delivery O2 Flow Rate FiO2 04/13/17 06:00 76 04/13/17 04:00 76 04/13/17 04:00 98.5 76 22 135/60 97 04/13/17 02:00 80 04/13/17 01:19 20 04/13/17 00:00 80 04/13/17 00:00 98.3 80 23 166/70 96 04/12/17 22:00 78 04/12/17 20:00 82 04/12/17 20:00 97.1 82 25 163/72 99 04/12/17 19:17 96 Nasal Cannula 4.00 04/12/17 19:00 98 Nasal Cannula 4.00 04/12/17 18:00 83 04/12/17 16:00 98.0 94 25 144/63 97 04/12/17 16:00 93 04/12/17 14:00 82 04/12/17 12:00 97.6 81 25 136/63 93 04/12/17 12:00 81 04/12/17 10:00 82 04/12/17 08:34 100 Nasal Cannula 4.00 I/O 04/12/17 04/12/17 04/12/17 04/13/17 04/13/17 04/13/17 07:00 15:00 23:00 07:00 15:00 23:00 Intake Total 584 ml 454 ml 285 ml 234 ml Balance 584 ml 454 ml 285 ml 234 ml Intake Oral 180 ml 200 ml 120 ml 60 ml IV Total 404 ml 254 ml 165 ml 174 ml # Voids 3 5 2 2 # Bowel Movements 0 1 1 0 Result Diagram: 04/10/17 1125 04/13/17 0447 Objective Remarks Abdomen soft, nondistended, wound clean Assessment and Plan Assessment and Plan Doing well from GI standpoint, 1 loose stool yesterday, tolerating PO Pulmonary status improving Recheck K in am Colleen Plummer MD April 13, 2017 08:03
[2017-04-13] MEDS: FUROSEMIDE 20 MG/2 ML VIAL IV PUSH SCH ×2 (08:16→18:26)
[2017-04-13] MEDS: PANTOPRAZOLE SODIUM 40 MG VIAL IVP SCH (08:30)
[2017-04-13] MEDS: VALSARTAN 160 MG TAB PO SCH (08:30)
[2017-04-13] MEDS: POTASSIUM CHLORIDE 10 MEQ CONTROLLED RELEASE TAB PO SCH ×2 (08:30→21:25)
[2017-04-13] MEDS: MUPIROCIN 2% OINT 1 APPLIC/GM SYR NASAL SCH ×2 (08:30→21:25)
[2017-04-13] MEDS: guaiFENesin E.R. 600 MG TAB PO SCH ×2 (08:30→21:25)
[2017-04-13] MEDS: LINEZOLID 600 MG TAB PO SCH ×2 (08:30→21:26)
[2017-04-13] MEDS: MEGESTROL ACETATE 40 MG TAB PO SCH (08:33)
[2017-04-13] MEDS: SODIUM CHLORIDE 0.9% FLUSH 5 ML FLUSH IVF SCH ×2 (08:33→21:26)
[2017-04-13] MEDS: PSYLLIUM FIBER SF/GF 6 GM POWD PKT PO SCH (08:33)
[2017-04-13] MEDS: methylPREDNISolone SOD SUCC 40 MG/1 ML VIAL IV PUSH SCH (08:33)
[2017-04-13] MEDS: SODIUM CHLORIDE 0.9% FLUSH 10 ML FLUSH IV FLUSH SCH (08:34)
--- NOTE | 2017-04-13 08:38 | HHI.PR ---
Subjective Remarks ALERT hno SOB at rest Objective Vital Signs Date Time Temp Pulse Resp B/P Pulse Ox O2 Delivery O2 Flow Rate FiO2 04/13/17 06:00 76 04/13/17 04:00 76 04/13/17 04:00 98.5 76 22 135/60 97 04/13/17 02:00 80 04/13/17 01:19 20 04/13/17 00:00 80 04/13/17 00:00 98.3 80 23 166/70 96 04/12/17 22:00 78 04/12/17 20:00 82 04/12/17 20:00 97.1 82 25 163/72 99 04/12/17 19:17 96 Nasal Cannula 4.00 04/12/17 19:00 98 Nasal Cannula 4.00 04/12/17 18:00 83 04/12/17 16:00 98.0 94 25 144/63 97 04/12/17 16:00 93 04/12/17 14:00 82 04/12/17 12:00 97.6 81 25 136/63 93 04/12/17 12:00 81 04/12/17 10:00 82 I/O 04/12/17 04/12/17 04/12/17 04/13/17 04/13/17 04/13/17 07:00 15:00 23:00 07:00 15:00 23:00 Intake Total 584 ml 454 ml 285 ml 234 ml Balance 584 ml 454 ml 285 ml 234 ml Intake Oral 180 ml 200 ml 120 ml 60 ml IV Total 404 ml 254 ml 165 ml 174 ml # Voids 3 5 2 2 # Bowel Movements 0 1 1 0 Result Diagram: 04/10/17 1125 04/13/17 0447 Objective Remarks GENERAL: SKIN: Warm and dry. HEAD: Atraumatic. Normocephalic. EYES: Pupils equal and round. No scleral icterus. No injection or drainage. ENT: No nasal bleeding or discharge. Mucous membranes pink and moist. NECK: Trachea midline. No JVD. CARDIOVASCULAR: Regular rate and rhythm. RESPIRATORY: No accessory muscle use. Clear to auscultation. Breath sounds equal bilaterally. GASTROINTESTINAL: Abdomen soft, non-tender, nondistended. Hepatic and splenic margins not palpable. MUSCULOSKELETAL: Extremities without clubbing, cyanosis, or edema. No obvious deformities. NEUROLOGICAL: Awake and alert. No obvious cranial nerve deficits. Motor grossly within normal limits. Five out of 5 muscle strength in the arms and legs. Normal speech. PSYCHIATRIC: Appropriate mood and affect; insight and judgment normal. Assessment and Plan Assessment and Plan RESPIRATORY FAILURE PNEUMONIA , improving POST COLECTOMY PLAN O2 NEEDED ANTIBIOTICS PLM TOILET Nataliia William MD April 13, 2017 08:38
[2017-04-13] MEDS: RESP: ALBUTEROL 2.5 MG/IPRATROPIUM 0.5 MG NEB (SCH) INH (08:50)
[2017-04-13] MEDS: RESP: ACETYLCYSTEINE 20% 30 ML NEB NEB SCH ×2 (08:54→14:24)
--- NOTE | 2017-04-13 13:11 | HHI.IDPN ---
Subjective Subjective Remarks is an 81 y/o WF with PMHx of COPD, chronic tobacco use, CAD. Patient recently underwent an ascending colectomy for colon cancer on 03/25/[address] Colleen Plummer. She had laparoscopic extensive lysis of adhesions, open ascending colectomy and flexible sigmoidoscopy, estimated blood loss of 100 mL. Yesterday, the patient developed chest pain, hypoxia requiring a 100% non- rebreather. Hemoglobin has dropped as low as 8.4. Troponins are negative x3. EKG does not show any ischemic changes. The patient appears very pale at the bedside, still having active chest pain which is improved after a nitro drip. Otherwise denies any fevers, chills, cough, bleeding, PND, or orthopnea. Patient was transferred to the ICU for resp distress. Dr.Iskandar mercadow me the case. Agree to CT Chest, A/P. Currently not on pressors, UO ok. Patient has recd 2 units PRBC overnight. ID consulted for sepsis, Pneumonia in a post op pt. Overnight events reviewed. No fevers No rash No diarrhea coughs not much expectoration. Antibiotics Zosyn IV Zyvox oral. Lines Line sites with no e.o infection. Past Medical History reviewed Allergies: Coded Allergies: *MDRO Multi-Drug Resistant Organism (Verified Adverse Reaction, Unknown, ) MRSA PCR Screen POSITIVE - 04/02/2017 Objective . Vital Signs Date Time Temp Pulse Resp B/P Pulse Ox O2 Delivery O2 Flow Rate FiO2 04/13/17 09:49 28 04/13/17 08:55 93 Nasal Cannula 4.00 04/13/17 06:00 76 04/13/17 04:00 76 04/13/17 04:00 98.5 76 22 135/60 97 04/13/17 02:00 80 04/13/17 00:00 80 04/13/17 00:00 98.3 80 23 166/70 96 04/12/17 22:00 78 04/12/17 20:00 82 04/12/17 20:00 97.1 82 25 163/72 99 04/12/17 19:17 96 Nasal Cannula 4.00 04/12/17 19:00 98 Nasal Cannula 4.00 04/12/17 18:00 83 04/12/17 16:00 98.0 94 25 144/63 97 04/12/17 16:00 93 04/12/17 14:00 82 04/12/17 04/12/17 04/13/17 14:59 22:59 06:59 Intake Total 454 ml 285 ml 234 ml Balance 454 ml 285 ml 234 ml Intake Oral 200 ml 120 ml 60 ml IV Total 254 ml 165 ml 174 ml # Voids 5 2 2 # Bowel Movements 1 1 0 . Laboratory Tests Test 04/12/17 04/13/17 07:55 04:47 Sodium Level 136 MEQ/L 137 MEQ/L Potassium Level 3.0 MEQ/L 3.2 MEQ/L Chloride Level 97 MEQ/L 98 MEQ/L Carbon Dioxide Level 32.9 MEQ/L 29.9 MEQ/L Anion Gap 6 MEQ/L 9 MEQ/L Blood Urea Nitrogen 12 MG/DL 14 MG/DL Creatinine 0.56 MG/DL 0.57 MG/DL Estimat Glomerular Filtration 104 ML/MIN 102 ML/MIN Rate Random Glucose 84 MG/DL 92 MG/DL Calcium Level 8.0 MG/DL 7.8 MG/DL Phosphorus Level 3.0 MG/DL Magnesium Level 1.7 MG/DL Imaging Last Impressions Chest X-Ray 04/02/17 0000 Signed Impressions: Service Date/Time: Sunday, April 02, 2017 04:14 - CONCLUSION: 1. Worsening patchy airspace disease throughout the right lung. 2. Minimal left basilar atelectasis. 3. Cardiomegaly. Asher Gottlieb MD CT Angiography 04/02/17 0000 Signed Impressions: Service Date/Time: Sunday, April 02, 2017 15:47 - CONCLUSION: 1. Negative for pulmonary embolus. Dense consolidation in the right lung especially posteriorly most characteristic of a large pneumonia. There is also partially loculated small to moderate right pleural effusion and right basilar atelectasis. On the left side there is a small pleural effusion and left basilar atelectasis. Austen Osei MD Abdomen/Pelvis CT 04/02/17 0000 Signed Impressions: Service Date/Time: Sunday, April 02, 2017 15:47 - CONCLUSION: 1. 8.2 x 4.2 cm fluid collection in the deep posterior pelvis, probably mildly complex free fluid. No loculated air to suggest abscess. 2. Colonic diverticulosis without diverticulitis. Postoperative cholecystectomy and partial right bowel resection. Dense consolidation at the lung bases, right greater than left bilateral effusions. Austen Osei MD Physical Exam GENERAL: Obese, well-developed patient. SKIN: No rashes, ecchymoses or lesions. Cool and dry. HEAD: Atraumatic. Normocephalic. No temporal or scalp tenderness. EYES: Pupils equal round and reactive. Extraocular motions intact. No scleral icterus. No injection or drainage. ENT: Nose without bleeding, purulent drainage or septal hematoma. Throat without erythema, tonsillar hypertrophy or exudate. Uvula midline. Airway patent. NECK: Trachea midline. Supple, nontender, no meningeal signs. CARDIOVASCULAR: Regular rate and rhythm without murmurs. RESPIRATORY: Bilateral occ wheezes, occ creps. Conducted noisy upper airway sounds. GASTROINTESTINAL: Abdomen soft, non-tender, nondistended. MUSCULOSKELETAL: Bilateral knees surgical scar is intact. NEUROLOGICAL: Awake and alert. Grossly nonfocal Psych cooperative IV line sites with no evidence of infection. Assessment & Plan Remarks Sepsis Pneumonia in the hospital setting. Acute respiratory failure on 100% nonrebreather high risk of intubation. Ascending colectomy for colon cancer on 03/25/2017 ? IA abscess or sepsis/ peritonitis High grade leucocytosis. COPD exacerbation acute CAD Recs Continue Zosyn IV Continue oral zyvox Mucinex for helping with expectoration. Follow clinically. Zee Arriaga MD April 13, 2017 13:11 Zee Arriaga MD April 13, 2017 13:11
--- NOTE | 2017-04-13 14:03 | PD.CARD.PN ---
Subjective Subjective Remarks alert in nad Objective Vital Signs / I&O Vital Signs Date Time Temp Pulse Resp B/P Pulse Ox O2 Delivery O2 Flow Rate FiO2 04/13/17 12:00 76 04/13/17 12:00 98.2 76 19 112/55 96 04/13/17 10:00 82 04/13/17 09:49 28 04/13/17 08:55 93 Nasal Cannula 4.00 04/13/17 08:00 97.8 72 18 137/60 99 04/13/17 08:00 94 04/13/17 06:00 76 04/13/17 04:00 76 04/13/17 04:00 98.5 76 22 135/60 97 04/13/17 02:00 80 04/13/17 00:00 80 04/13/17 00:00 98.3 80 23 166/70 96 04/12/17 22:00 78 04/12/17 20:00 82 04/12/17 20:00 97.1 82 25 163/72 99 04/12/17 19:17 96 Nasal Cannula 4.00 04/12/17 19:00 98 Nasal Cannula 4.00 04/12/17 18:00 83 04/12/17 16:00 98.0 94 25 144/63 97 04/12/17 16:00 93 I/O 04/12/17 04/12/17 04/12/17 04/13/17 04/13/17 04/13/17 07:00 15:00 23:00 07:00 15:00 23:00 Intake Total 584 ml 454 ml 285 ml 234 ml Balance 584 ml 454 ml 285 ml 234 ml Intake Oral 180 ml 200 ml 120 ml 60 ml IV Total 404 ml 254 ml 165 ml 174 ml # Voids 3 5 2 2 # Bowel Movements 0 1 1 0 Physical Exam GENERAL: SKIN: Warm and dry. HEAD: Normocephalic. EYES: No scleral icterus. No injection or drainage. NECK: Supple, trachea midline. No JVD or lymphadenopathy. CARDIOVASCULAR: Regular rate and rhythm without murmurs, gallops, or rubs. RESPIRATORY: Breath sounds equal bilaterally. No accessory muscle use. GASTROINTESTINAL: Abdomen soft, non-tender, nondistended. MUSCULOSKELETAL: No cyanosis, or edema. BACK: Nontender without obvious deformity. No CVA tenderness. Laboratory Laboratory Tests Test 04/13/17 04:47 Sodium Level 137 MEQ/L Potassium Level 3.2 MEQ/L Chloride Level 98 MEQ/L Carbon Dioxide Level 29.9 MEQ/L Anion Gap 9 MEQ/L Blood Urea Nitrogen 14 MG/DL Creatinine 0.57 MG/DL Estimat Glomerular Filtration 102 ML/MIN Rate Random Glucose 92 MG/DL Calcium Level 7.8 MG/DL Assessment and Plan Problem List: (1) Anemia (2) Angina at rest (3) CAD (coronary artery disease) (4) Hypoxia Assessment and Plan 1.) Class 4 Angina/anemia - resolved, improved after transfusion, 2.) Hypoxia due to pneumonia/copd, f/u pulm rec, hypoxia improved on less O2 Problem Qualifiers (1) Anemia: Mikael Rodriguez MD April 13, 2017 14:03
[2017-04-13] MEDS: RESP: ALBUTEROL 2.5 MG/IPRATROPIUM 0.5 MG NEB (PRN) NEB ×2 (14:30→19:32)
[2017-04-14] VITALS (14 sets, daily range): BP systolic 124–159; BP diastolic 57–65; PULSE 72–96; RESP 20–32; TEMP 97.6–98.4; O2SAT 93–100
[2017-04-14] MEDS: PIPERACIL-TAZO 4.5 GM PREMIX 100 ML IV SCH ×5 (00:01→21:50)
[2017-04-14] MEDS: HEPARIN SODIUM - SQ 10,000 UNITS/ML VIAL SQ SCH ×2 (00:39→13:10)
[2017-04-14] MEDS: NYSTATIN 100,000 U/GM PWD 15 GM BTL TOPICAL SCH ×2 (05:10→16:51)
[2017-04-14] MEDS: INSULIN NovoLIN REGULAR SUPPLEMENTAL SCALE SQ SCH ×5 (07:00→21:51)
[2017-04-14] MEDS: RESP: ALBUTEROL 2.5 MG/IPRATROPIUM 0.5 MG NEB (PRN) NEB (07:29)
--- NOTE | 2017-04-14 08:04 | HHI.PR ---
Subjective Remarks ALERT hno SOB at rest Objective Vital Signs Date Time Temp Pulse Resp B/P Pulse Ox O2 Delivery O2 Flow Rate FiO2 04/14/17 07:33 100 Nasal Cannula 1.00 04/14/17 04:00 76 04/14/17 04:00 98.4 76 20 144/65 95 04/14/17 02:00 76 04/14/17 00:00 72 04/14/17 00:00 98.3 72 23 124/59 97 04/13/17 22:00 80 04/13/17 20:00 98.5 84 20 120/57 97 04/13/17 20:00 80 04/13/17 19:35 97 Nasal Cannula 4.00 04/13/17 19:00 97 Nasal Cannula 4.00 04/13/17 18:00 73 04/13/17 16:00 73 04/13/17 16:00 97.9 73 26 112/55 98 04/13/17 15:13 28 04/13/17 14:00 80 04/13/17 12:00 76 04/13/17 12:00 98.2 76 19 112/55 96 04/13/17 10:00 82 04/13/17 08:55 93 Nasal Cannula 4.00 I/O 04/13/17 04/13/17 04/13/17 04/14/17 04/14/17 04/14/17 07:00 15:00 23:00 07:00 15:00 23:00 Intake Total 234 ml 665 ml 424 ml 206 ml Output Total 1500 ml Balance 234 ml -835 ml 424 ml 206 ml Intake Oral 60 ml 270 ml 120 ml 60 ml IV Total 174 ml 395 ml 304 ml 146 ml Output Urine Total 1500 ml # Voids 2 5 2 3 # Bowel Movements 0 1 0 0 Result Diagram: 04/10/17 1125 04/14/17 0418 Objective Remarks GENERAL: SKIN: Warm and dry. HEAD: Atraumatic. Normocephalic. EYES: Pupils equal and round. No scleral icterus. No injection or drainage. ENT: No nasal bleeding or discharge. Mucous membranes pink and moist. NECK: Trachea midline. No JVD. CARDIOVASCULAR: Regular rate and rhythm. RESPIRATORY: No accessory muscle use. Clear to auscultation. Breath sounds equal bilaterally. GASTROINTESTINAL: Abdomen soft, non-tender, nondistended. Hepatic and splenic margins not palpable. MUSCULOSKELETAL: Extremities without clubbing, cyanosis, or edema. No obvious deformities. NEUROLOGICAL: Awake and alert. No obvious cranial nerve deficits. Motor grossly within normal limits. Five out of 5 muscle strength in the arms and legs. Normal speech. PSYCHIATRIC: Appropriate mood and affect; insight and judgment normal. Assessment and Plan Assessment and Plan RESPIRATORY FAILURE PNEUMONIA , improving POST COLECTOMY PLAN O2 NEEDED ANTIBIOTICS PL TOILET to [facility] Nataliia William MD April 14, 2017 08:04
[2017-04-14] MEDS: guaiFENesin E.R. 600 MG TAB PO SCH ×2 (08:59→21:51)
[2017-04-14] MEDS: ACETAMINOPHEN/HYDROcodone 325 MG/5 MG TAB PO PRN ×2 (08:59→14:50)
[2017-04-14] MEDS: POTASSIUM CHLORIDE 10 MEQ CONTROLLED RELEASE TAB PO SCH ×2 (09:00→21:50)
[2017-04-14] MEDS: SODIUM CHLORIDE 0.9% FLUSH 5 ML FLUSH IVF SCH ×2 (09:00→21:00)
[2017-04-14] MEDS: SODIUM CHLORIDE 0.9% FLUSH 10 ML FLUSH IV FLUSH SCH (09:00)
[2017-04-14] MEDS: VALSARTAN 160 MG TAB PO SCH (09:00)
[2017-04-14] MEDS: LINEZOLID 600 MG TAB PO SCH ×2 (09:00→21:50)
[2017-04-14] MEDS: MEGESTROL ACETATE 40 MG TAB PO SCH (09:00)
[2017-04-14] MEDS: PANTOPRAZOLE SODIUM 40 MG VIAL IVP SCH (09:01)
[2017-04-14] MEDS: methylPREDNISolone SOD SUCC 40 MG/1 ML VIAL IV PUSH SCH (09:01)
[2017-04-14] MEDS: FUROSEMIDE 20 MG/2 ML VIAL IV PUSH SCH ×2 (09:03→16:50)
[2017-04-14] MEDS: MUPIROCIN 2% OINT 1 APPLIC/GM SYR NASAL SCH ×2 (09:03→21:51)
[2017-04-14] MEDS: PSYLLIUM FIBER SF/GF 6 GM POWD PKT PO SCH (09:03)
--- NOTE | 2017-04-14 12:43 | PD.CARD.PN ---
Subjective Subjective Remarks asleep in nad Objective Vital Signs / I&O Vital Signs Date Time Temp Pulse Resp B/P Pulse Ox O2 Delivery O2 Flow Rate FiO2 04/14/17 10:09 24 04/14/17 10:00 96 04/14/17 08:00 84 04/14/17 07:33 100 Nasal Cannula 1.00 04/14/17 07:00 95 Nasal Cannula 2.00 04/14/17 06:00 76 04/14/17 04:00 76 04/14/17 04:00 98.4 76 20 144/65 95 04/14/17 02:00 76 04/14/17 00:00 72 04/14/17 00:00 98.3 72 23 124/59 97 04/13/17 22:00 80 04/13/17 20:00 98.5 84 20 120/57 97 04/13/17 20:00 80 04/13/17 19:35 97 Nasal Cannula 4.00 04/13/17 19:00 97 Nasal Cannula 4.00 04/13/17 18:00 73 04/13/17 16:00 73 04/13/17 16:00 97.9 73 26 112/55 98 04/13/17 14:00 80 I/O 04/13/17 04/13/17 04/13/17 04/14/17 04/14/17 04/14/17 07:00 15:00 23:00 07:00 15:00 23:00 Intake Total 234 ml 665 ml 424 ml 206 ml Output Total 1500 ml Balance 234 ml -835 ml 424 ml 206 ml Intake Oral 60 ml 270 ml 120 ml 60 ml IV Total 174 ml 395 ml 304 ml 146 ml Output Urine Total 1500 ml # Voids 2 5 2 3 # Bowel Movements 0 1 0 0 Physical Exam GENERAL: SKIN: Warm and dry. HEAD: Normocephalic. EYES: No scleral icterus. No injection or drainage. NECK: Supple, trachea midline. No JVD or lymphadenopathy. CARDIOVASCULAR: Regular rate and rhythm without murmurs, gallops, or rubs. RESPIRATORY: Breath sounds equal bilaterally. No accessory muscle use. GASTROINTESTINAL: Abdomen soft, non-tender, nondistended. MUSCULOSKELETAL: No cyanosis, or edema. BACK: Nontender without obvious deformity. No CVA tenderness. Laboratory Laboratory Tests Test 04/14/17 04:18 Potassium Level 3.2 MEQ/L Assessment and Plan Problem List: (1) Anemia (2) Angina at rest (3) CAD (coronary artery disease) (4) Hypoxia Assessment and Plan 1.) Class 4 Angina/anemia - resolved, improved after transfusion, 2.) Hypoxia due to pneumonia/copd, f/u pulm rec, hypoxia improved on less O2 Problem Qualifiers (1) Anemia: Mikael Rodriguez MD April 14, 2017 12:43
[2017-04-14] MEDS: POTASSIUM CHLOR 20 MEQ PREMIX 100 ML IV PRN (16:50)
[2017-04-15] VITALS (10 sets, daily range): BP systolic 110–129; BP diastolic 56–60; PULSE 73–122; RESP 19–23; TEMP 95.9–98.1; O2SAT 94–96
[2017-04-15] MEDS: HEPARIN SODIUM - SQ 10,000 UNITS/ML VIAL SQ SCH ×2 (00:02→11:56)
[2017-04-15] MEDS: ACETAMINOPHEN/HYDROcodone 325 MG/5 MG TAB PO PRN ×2 (00:02→09:10)
[2017-04-15] MEDS: NYSTATIN 100,000 U/GM PWD 15 GM BTL TOPICAL SCH ×2 (03:08→16:44)
[2017-04-15] MEDS: PIPERACIL-TAZO 4.5 GM PREMIX 100 ML IV SCH ×3 (03:12→16:44)
--- NOTE | 2017-04-15 08:47 | HHI.PR ---
Subjective Remarks ALERT hno SOB at rest Objective Vital Signs Date Time Temp Pulse Resp B/P Pulse Ox O2 Delivery O2 Flow Rate FiO2 04/15/17 06:00 81 04/15/17 04:00 98.1 88 21 118/56 96 04/15/17 04:00 73 04/15/17 02:00 83 04/15/17 00:00 76 04/15/17 00:00 97.8 82 21 116/56 96 04/14/17 22:00 74 04/14/17 20:00 88 04/14/17 20:00 97.8 74 20 135/62 96 04/14/17 19:33 97 Nasal Cannula 2.00 04/14/17 19:00 95 Nasal Cannula 2.00 04/14/17 18:00 82 04/14/17 16:00 97.6 74 20 132/63 96 04/14/17 16:00 74 04/14/17 15:52 27 04/14/17 14:00 78 04/14/17 12:00 73 04/14/17 12:00 97.9 73 32 159/58 96 04/14/17 10:00 96 I/O 04/14/17 04/14/17 04/14/17 04/15/17 04/15/17 04/15/17 07:00 15:00 23:00 07:00 15:00 23:00 Intake Total 206 ml 355 ml 382 ml 255 ml Balance 206 ml 355 ml 382 ml 255 ml Intake Oral 60 ml 190 ml 120 ml IV Total 146 ml 165 ml 262 ml 255 ml # Voids 3 12 3 2 # Bowel Movements 0 2 Result Diagram: 04/15/17 0435 Objective Remarks GENERAL: SKIN: Warm and dry. HEAD: Atraumatic. Normocephalic. EYES: Pupils equal and round. No scleral icterus. No injection or drainage. ENT: No nasal bleeding or discharge. Mucous membranes pink and moist. NECK: Trachea midline. No JVD. CARDIOVASCULAR: Regular rate and rhythm. RESPIRATORY: No accessory muscle use. Clear to auscultation. Breath sounds equal bilaterally. GASTROINTESTINAL: Abdomen soft, non-tender, nondistended. Hepatic and splenic margins not palpable. MUSCULOSKELETAL: Extremities without clubbing, cyanosis, or edema. No obvious deformities. NEUROLOGICAL: Awake and alert. No obvious cranial nerve deficits. Motor grossly within normal limits. Five out of 5 muscle strength in the arms and legs. Normal speech. PSYCHIATRIC: Appropriate mood and affect; insight and judgment normal. Assessment and Plan Assessment and Plan RESPIRATORY FAILURE PNEUMONIA , improving POST COLECTOMY PLAN O2 NEEDED ANTIBIOTICS PLM TOILET to [facility] floor Nataliia William MD April 15, 2017 08:47
[2017-04-15] MEDS: SODIUM CHLORIDE 0.9% FLUSH 10 ML FLUSH IV FLUSH SCH (09:00)
[2017-04-15] MEDS: SODIUM CHLORIDE 0.9% FLUSH 5 ML FLUSH IVF SCH ×2 (09:00→20:20)
[2017-04-15] MEDS: VALSARTAN 160 MG TAB PO SCH (09:08)
[2017-04-15] MEDS: guaiFENesin E.R. 600 MG TAB PO SCH ×2 (09:08→20:19)
[2017-04-15] MEDS: POTASSIUM CHLORIDE 10 MEQ CONTROLLED RELEASE TAB PO SCH ×2 (09:08→20:19)
[2017-04-15] MEDS: PSYLLIUM FIBER SF/GF 6 GM POWD PKT PO SCH (09:08)
[2017-04-15] MEDS: MUPIROCIN 2% OINT 1 APPLIC/GM SYR NASAL SCH ×2 (09:09→20:19)
[2017-04-15] MEDS: LINEZOLID 600 MG TAB PO SCH ×2 (09:09→20:19)
[2017-04-15] MEDS: MEGESTROL ACETATE 40 MG TAB PO SCH (09:09)
[2017-04-15] MEDS: PANTOPRAZOLE SODIUM 40 MG VIAL IVP SCH (09:10)
[2017-04-15] MEDS: FUROSEMIDE 20 MG/2 ML VIAL IV PUSH SCH ×2 (09:10→16:45)
[2017-04-15] MEDS: methylPREDNISolone SOD SUCC 40 MG/1 ML VIAL IV PUSH SCH (09:10)
[2017-04-15] MEDS: INSULIN NovoLIN REGULAR SUPPLEMENTAL SCALE SQ SCH ×3 (10:05→20:19)
[2017-04-15] MEDS: ONDANSETRON HCL 4 MG/2 ML VIAL IV PRN (10:05)
--- NOTE | 2017-04-15 10:18 | PD.CARD.PN ---
Objective Vital Signs / I&O GENERAL: SKIN: Warm and dry. HEAD: Normocephalic. EYES: No scleral icterus. No injection or drainage. NECK: Supple, trachea midline. No JVD or lymphadenopathy. CARDIOVASCULAR: Regular rate and rhythm without murmurs, gallops, or rubs. RESPIRATORY: Breath sounds equal bilaterally. No accessory muscle use. GASTROINTESTINAL: Abdomen soft, non-tender, nondistended. MUSCULOSKELETAL: No cyanosis, or edema. BACK: Nontender without obvious deformity. No CVA tenderness. Vital Signs Date Time Temp Pulse Resp B/P Pulse Ox O2 Delivery O2 Flow Rate FiO2 04/15/17 10:05 27 04/15/17 06:00 81 04/15/17 04:00 98.1 88 21 118/56 96 04/15/17 04:00 73 04/15/17 02:00 83 04/15/17 00:00 76 04/15/17 00:00 97.8 82 21 116/56 96 04/14/17 22:00 74 04/14/17 20:00 88 04/14/17 20:00 97.8 74 20 135/62 96 04/14/17 19:33 97 Nasal Cannula 2.00 04/14/17 19:00 95 Nasal Cannula 2.00 04/14/17 18:00 82 04/14/17 16:00 97.6 74 20 132/63 96 04/14/17 16:00 74 04/14/17 14:00 78 04/14/17 12:00 73 04/14/17 12:00 97.9 73 32 159/58 96 I/O 04/14/17 04/14/17 04/14/17 04/15/17 04/15/17 04/15/17 07:00 15:00 23:00 07:00 15:00 23:00 Intake Total 206 ml 355 ml 382 ml 255 ml Balance 206 ml 355 ml 382 ml 255 ml Intake Oral 60 ml 190 ml 120 ml IV Total 146 ml 165 ml 262 ml 255 ml # Voids 3 12 3 2 # Bowel Movements 0 2 Physical Exam GENERAL: SKIN: Warm and dry. HEAD: Normocephalic. EYES: No scleral icterus. No injection or drainage. NECK: Supple, trachea midline. No JVD or lymphadenopathy. CARDIOVASCULAR: Regular rate and rhythm without murmurs, gallops, or rubs. RESPIRATORY: Breath sounds equal bilaterally. No accessory muscle use. GASTROINTESTINAL: Abdomen soft, non-tender, nondistended. MUSCULOSKELETAL: No cyanosis, or edema. BACK: Nontender without obvious deformity. No CVA tenderness. Laboratory Laboratory Tests Test 04/15/17 04:35 Creatinine 0.63 MG/DL Estimat Glomerular Filtration 90 ML/MIN Rate Assessment and Plan Problem List: (1) Anemia (2) Angina at rest (3) CAD (coronary artery disease) (4) Hypoxia Assessment and Plan 1.) Class 4 Angina/anemia - resolved, improved after transfusion, 2.) Hypoxia due to pneumonia/copd, f/u pulm rec, hypoxia improved on less O2 Problem Qualifiers (1) Anemia: Mikael Rodriguez MD April 15, 2017 10:17
--- NOTE | 2017-04-15 22:30 | HHI.IDPN ---
Subjective Subjective Remarks delayed entryb - pt was seen earlier today around 1300 jamison reviewed is an 81 y/o WF with PMHx of COPD, chronic tobacco use, CAD. Patient recently underwent an ascending colectomy for colon cancer on 03/25/[address] Colleen Plummer. She had laparoscopic extensive lysis of adhesions, open ascending colectomy and flexible sigmoidoscopy, estimated blood loss of 100 mL. Yesterday, the patient developed chest pain, hypoxia requiring a 100% non- rebreather. Hemoglobin has dropped as low as 8.4. Troponins are negative x3. EKG does not show any ischemic changes. The patient appears very pale at the bedside, still having active chest pain which is improved after a nitro drip. Otherwise denies any fevers, chills, cough, bleeding, PND, or orthopnea. Patient was transferred to the ICU for resp distress. Pt is doing good co some abd pain earlier Overnight events reviewed. No fevers No rash No diarrhea coughs no significant expectoration. Antibiotics Zosyn IV Zyvox oral. Lines Line sites with no e.o infection. Past Medical History reviewed Allergies: Coded Allergies: *MDRO Multi-Drug Resistant Organism (Verified Adverse Reaction, Unknown, ) MRSA PCR Screen POSITIVE - 04/02/2017 Objective . Vital Signs Date Time Temp Pulse Resp B/P Pulse Ox O2 Delivery O2 Flow Rate FiO2 04/15/17 16:00 95.9 77 21 121/60 95 04/15/17 14:00 95.9 82 19 113/58 96 04/15/17 12:00 83 04/15/17 12:00 98.0 83 23 110/56 95 04/15/17 10:05 27 04/15/17 08:00 95 Nasal Cannula 2.00 04/15/17 08:00 97.8 102 21 129/58 95 04/15/17 08:00 122 04/15/17 06:00 81 04/15/17 04:00 98.1 88 21 118/56 96 04/15/17 04:00 73 04/15/17 02:00 83 04/15/17 00:00 76 04/15/17 00:00 97.8 82 21 116/56 96 04/14/17 04/14/17 04/15/17 15:00 23:00 07:00 Intake Total 355 ml 382 ml 255 ml Balance 355 ml 382 ml 255 ml Intake Oral 190 ml 120 ml IV Total 165 ml 262 ml 255 ml # Voids 12 3 2 # Bowel Movements 2 . Laboratory Tests Test 04/14/17 04/15/17 04:18 04:35 Potassium Level 3.2 MEQ/L Creatinine 0.63 MG/DL Estimat Glomerular Filtration 90 ML/MIN Rate Imaging Last Impressions Chest X-Ray 04/02/17 Signed Impressions: Service Date/Time: Sunday, April 02, 2017 04:14 - CONCLUSION: 1. Worsening patchy airspace disease throughout the right lung. 2. Minimal left basilar atelectasis. 3. Cardiomegaly. Asher Gottlieb MD CT Angiography 04/02/17 Signed Impressions: Service Date/Time: Sunday, April 02, 2017 15:47 - CONCLUSION: 1. Negative for pulmonary embolus. Dense consolidation in the right lung especially posteriorly most characteristic of a large pneumonia. There is also partially loculated small to moderate right pleural effusion and right basilar atelectasis. On the left side there is a small pleural effusion and left basilar atelectasis. Austen Osei MD Abdomen/Pelvis CT 04/02/17 Signed Impressions: Service Date/Time: Sunday, April 02, 2017 15:47 - CONCLUSION: 1. 8.2 x 4.2 cm fluid collection in the deep posterior pelvis, probably mildly complex free fluid. No loculated air to suggest abscess. 2. Colonic diverticulosis without diverticulitis. Postoperative cholecystectomy and partial right bowel resection. Dense consolidation at the lung bases, right greater than left bilateral effusions. Austen Osei MD Physical Exam GENERAL: Obese, well-developed patient. SKIN: No rashes, ecchymoses or lesions. Cool and dry. HEAD: Atraumatic. Normocephalic. No temporal or scalp tenderness. EYES: Pupils equal round and reactive. Extraocular motions intact. No scleral icterus. No injection or drainage. ENT: Nose without bleeding, purulent drainage or septal hematoma. Throat without erythema, tonsillar hypertrophy or exudate. Uvula midline. Airway patent. NECK: Trachea midline. Supple, nontender, no meningeal signs. CARDIOVASCULAR: Regular rate and rhythm without murmurs. RESPIRATORY: fairly clear to asucultatio today GASTROINTESTINAL: Abdomen soft, non-tender, moinimally distended. Incision clean , dry MUSCULOSKELETAL: Bilateral knees surgical scar is intact. NEUROLOGICAL: Awake and alert. Grossly nonfocal Psych cooperative IV line sites with no evidence of infection. Assessment & Plan Remarks Sepsis Pneumonia in the hospital setting. Acute respiratory failure on 100% nonrebreather- resolved - on NC O2 now Ascending colectomy for colon cancer on 03/25/2017 ? IA abscess or sepsis/ peritonitis High grade leucocytosis. COPD exacerbation acute CAD leukocytosis - improved Recs Continue Zosyn IV Continue oral zyvox Mucinex for helping with expectoration. Follow clinically. sputum clx if feasible Sada Rodriguez MD April 15, 2017 22:30
[2017-04-16] VITALS (8 sets, daily range): BP systolic 116–134; BP diastolic 57–62; PULSE 80–96; RESP 16–20; TEMP 96.5–97.8; O2SAT 92–97
[2017-04-16] MEDS: HEPARIN SODIUM - SQ 10,000 UNITS/ML VIAL SQ SCH ×2 (00:09→13:01)
[2017-04-16] MEDS: PIPERACIL-TAZO 4.5 GM PREMIX 100 ML IV SCH ×5 (00:09→22:43)
[2017-04-16] MEDS: ACETAMINOPHEN/HYDROcodone 325 MG/5 MG TAB PO PRN (01:19)
[2017-04-16] MEDS: INSULIN NovoLIN REGULAR SUPPLEMENTAL SCALE SQ SCH ×4 (03:53→21:00)
[2017-04-16] MEDS: NYSTATIN 100,000 U/GM PWD 15 GM BTL TOPICAL SCH ×2 (03:53→17:20)
--- NOTE | 2017-04-16 07:17 | HHI.PR ---
Subjective Remarks POD #10 lap TANISHA, open ascending colectomy comfortable Objective Vital Signs Date Time Temp Pulse Resp B/P Pulse Ox O2 Delivery O2 Flow Rate FiO2 04/16/17 04:00 97.6 86 20 122/57 94 04/16/17 00:00 97.6 91 20 116/58 94 04/15/17 20:19 81 04/15/17 20:00 97.7 96 22 123/60 94 04/15/17 16:00 95.9 77 21 121/60 95 04/15/17 14:00 95.9 82 19 113/58 96 04/15/17 12:00 83 04/15/17 12:00 98.0 83 23 110/56 95 04/15/17 10:05 27 04/15/17 08:00 95 Nasal Cannula 2.00 04/15/17 08:00 97.8 102 21 129/58 95 04/15/17 08:00 122 I/O 04/15/17 04/15/17 04/15/17 04/16/17 04/16/17 04/16/17 07:00 15:00 23:00 07:00 15:00 23:00 Intake Total 255 ml 360 ml 120 ml 120 ml Output Total 750 ml Balance 255 ml -390 ml 120 ml 120 ml Intake Oral 210 ml 120 ml 120 ml IV Total 255 ml 150 ml 0 ml Output Urine Total 750 ml # Voids 2 5 2 2 # Bowel Movements 1 1 0 Result Diagram: 04/15/17 0435 Objective Remarks Abdomen soft, nondistended, wound clean Assessment and Plan Assessment and Plan Check labs Much improved Discharge planning Colleen Plummer MD April 16, 2017 07:17
[2017-04-16] MEDS: PSYLLIUM FIBER SF/GF 6 GM POWD PKT PO SCH (09:00)
[2017-04-16] MEDS: POTASSIUM CHLORIDE 10 MEQ CONTROLLED RELEASE TAB PO SCH ×2 (09:40→21:48)
[2017-04-16] MEDS: LINEZOLID 600 MG TAB PO SCH ×2 (09:40→21:48)
[2017-04-16] MEDS: guaiFENesin E.R. 600 MG TAB PO SCH ×2 (09:40→21:48)
[2017-04-16] MEDS: VALSARTAN 160 MG TAB PO SCH (09:40)
[2017-04-16] MEDS: MEGESTROL ACETATE 40 MG TAB PO SCH (09:40)
[2017-04-16] MEDS: methylPREDNISolone SOD SUCC 40 MG/1 ML VIAL IV PUSH SCH (09:41)
[2017-04-16] MEDS: PANTOPRAZOLE SODIUM 40 MG VIAL IVP SCH (09:41)
[2017-04-16] MEDS: FUROSEMIDE 20 MG/2 ML VIAL IV PUSH SCH ×2 (09:41→17:20)
[2017-04-16] MEDS: SODIUM CHLORIDE 0.9% FLUSH 10 ML FLUSH IV FLUSH SCH (09:42)
[2017-04-16] MEDS: MUPIROCIN 2% OINT 1 APPLIC/GM SYR NASAL SCH ×2 (09:51→21:48)
[2017-04-16] MEDS: SODIUM CHLORIDE 0.9% FLUSH 5 ML FLUSH IVF SCH ×2 (10:25→21:00)
[2017-04-16 10:39] LABS: BASOPHIL # 0.1 TH/MM3 (0-0.2); BASOPHIL % 1.1 % (0.0-2.0); EOSINOPHIL # 0.1 TH/MM3 (0-0.4); EOSINOPHIL % 0.8 % (0.0-4.0); HEMATOCRIT 29.7 % (35.0-46.0); HEMO FLAGS DIFF FINAL; LYMPH % 14.5 % (9.0-44.0); LYMPHOCYTE # 1.8 TH/MM3 (1.0-4.8); MEAN CORPUSCULAR HEMOGLOBIN 26.7 PG (27.0-34.0); MEAN CORPUSCULAR HGB CONC 32.5 % (32.0-36.0); MONO % 3.3 % (0.0-8.0); NEUT % 80.3 % (16.0-70.0); PLATELET COUNT 684 TH/MM3 (150-450); RED BLOOD COUNT 3.62 MIL/MM3 (4.00-5.30); WHITE BLOOD COUNT 12.4 TH/MM3 (4.0-11.0)
[2017-04-16 11:03] LABS: BICARBONATE 26.8 MEQ/L (21.0-32.0); MAGNESIUM 1.6 MG/DL (1.5-2.5); POTASSIUM 3.3 MEQ/L (3.5-5.1)
--- NOTE | 2017-04-16 11:49 | PD.CARD.PN ---
Subjective Subjective Remarks alert in nad Objective Vital Signs / I&O Vital Signs Date Time Temp Pulse Resp B/P Pulse Ox O2 Delivery O2 Flow Rate FiO2 04/16/17 09:30 Nasal Cannula 2.00 04/16/17 08:00 97.8 80 18 129/62 97 04/16/17 04:00 97.6 86 20 122/57 94 04/16/17 00:00 97.6 91 20 116/58 94 04/15/17 20:19 81 04/15/17 20:00 97.7 96 22 123/60 94 04/15/17 16:00 95.9 77 21 121/60 95 04/15/17 14:00 95.9 82 19 113/58 96 04/15/17 12:00 83 04/15/17 12:00 98.0 83 23 110/56 95 I/O 04/15/17 04/15/17 04/15/17 04/16/17 04/16/17 04/16/17 07:00 15:00 23:00 07:00 15:00 23:00 Intake Total 255 ml 360 ml 120 ml 320 ml Output Total 750 ml Balance 255 ml -390 ml 120 ml 320 ml Intake Oral 210 ml 120 ml 120 ml IV Total 255 ml 150 ml 0 ml 200 ml Output Urine Total 750 ml # Voids 2 5 2 2 # Bowel Movements 1 1 0 Physical Exam GENERAL: SKIN: Warm and dry. HEAD: Normocephalic. EYES: No scleral icterus. No injection or drainage. NECK: Supple, trachea midline. No JVD or lymphadenopathy. CARDIOVASCULAR: Regular rate and rhythm without murmurs, gallops, or rubs. RESPIRATORY: Breath sounds equal bilaterally. No accessory muscle use. GASTROINTESTINAL: Abdomen soft, non-tender, nondistended. MUSCULOSKELETAL: No cyanosis, or edema. BACK: Nontender without obvious deformity. No CVA tenderness. Laboratory Laboratory Tests Test 04/16/17 10:00 White Blood Count 12.4 TH/MM3 Red Blood Count 3.62 MIL/MM3 Hemoglobin 9.7 GM/DL Hematocrit 29.7 % Mean Corpuscular Volume 82.0 FL Mean Corpuscular Hemoglobin 26.7 PG Mean Corpuscular Hemoglobin 32.5 % Concent Red Cell Distribution Width 17.0 % Platelet Count 684 TH/MM3 Mean Platelet Volume 7.1 FL Neutrophils (%) (Auto) 80.3 % Lymphocytes (%) (Auto) 14.5 % Monocytes (%) (Auto) 3.3 % Eosinophils (%) (Auto) 0.8 % Basophils (%) (Auto) 1.1 % Neutrophils # (Auto) 10.0 TH/MM3 Lymphocytes # (Auto) 1.8 TH/MM3 Monocytes # (Auto) 0.4 TH/MM3 Eosinophils # (Auto) 0.1 TH/MM3 Basophils # (Auto) 0.1 TH/MM3 CBC Comment DIFF FINAL Differential Comment Sodium Level 139 MEQ/L Potassium Level 3.3 MEQ/L Chloride Level 102 MEQ/L Carbon Dioxide Level 26.8 MEQ/L Anion Gap 10 MEQ/L Blood Urea Nitrogen 15 MG/DL Creatinine 0.58 MG/DL Estimat Glomerular Filtration 100 ML/MIN Rate Random Glucose 95 MG/DL Calcium Level 8.5 MG/DL Magnesium Level 1.6 MG/DL Assessment and Plan Problem List: (1) Anemia (2) Angina at rest (3) CAD (coronary artery disease) (4) Hypoxia Assessment and Plan 1.) Class 4 Angina/anemia - resolved, improved after transfusion, 2.) Hypoxia due to pneumonia/copd, f/u pulm rec, hypoxia improved on less O2 Problem Qualifiers (1) Anemia: Mikael Rodriguez MD April 16, 2017 11:49
--- NOTE | 2017-04-16 12:11 | HHI.IDPN ---
Subjective Subjective Remarks ID COVERAGE Chart reviewed is an 81 y/o WF with PMHx of COPD, chronic tobacco use, CAD. Patient recently underwent an ascending colectomy for colon cancer on 03/25/[address] Colleen Plummer. She had laparoscopic extensive lysis of adhesions, open ascending colectomy and flexible sigmoidoscopy, estimated blood loss of 100 mL. Yesterday, the patient developed chest pain, hypoxia requiring a 100% non- rebreather. Hemoglobin has dropped as low as 8.4. Troponin are negative x3. EKG does not show any ischemic changes. The patient appears very pale at the bedside, still having active chest pain which is improved after a nitro drip. Otherwise denies any fevers, chills, cough, bleeding, PND, or orthopnea. Patient was transferred to the ICU for resp distress. Notes reviewed Out of ICU Afebrile Doing good Not SOB Coughing less NO abdominal pain, (+) BM Had some nausea but no vomiting Still weak, needs help to transfer from bed to chair No rash WBC better C/S reviewed last CXR 04/10 Antibiotics Zosyn IV Zyvox oral. Lines Line sites with no e.o infection. Past Medical History reviewed Allergies: Coded Allergies: *MDRO Multi-Drug Resistant Organism (Verified Adverse Reaction, Unknown, ) MRSA PCR Screen POSITIVE - 04/02/2017 Objective . Vital Signs Date Time Temp Pulse Resp B/P Pulse Ox O2 Delivery O2 Flow Rate FiO2 04/16/17 09:30 Nasal Cannula 2.00 04/16/17 08:00 97.8 80 18 129/62 97 04/16/17 04:00 97.6 86 20 122/57 94 04/16/17 00:00 97.6 91 20 116/58 94 04/15/17 20:19 81 04/15/17 20:00 97.7 96 22 123/60 94 04/15/17 16:00 95.9 77 21 121/60 95 04/15/17 14:00 95.9 82 19 113/58 96 04/15/17 04/15/17 04/16/17 15:00 23:00 07:00 Intake Total 360 ml 120 ml 320 ml Output Total 750 ml Balance -390 ml 120 ml 320 ml Intake Oral 210 ml 120 ml 120 ml IV Total 150 ml 0 ml 200 ml Output Urine Total 750 ml # Voids 5 2 2 # Bowel Movements 1 1 0 . Laboratory Tests Test 04/16/17 10:00 White Blood Count 12.4 TH/MM3 Red Blood Count 3.62 MIL/MM3 Hemoglobin 9.7 GM/DL Hematocrit 29.7 % Mean Corpuscular Volume 82.0 FL Mean Corpuscular Hemoglobin 26.7 PG Mean Corpuscular Hemoglobin 32.5 % Concent Red Cell Distribution Width 17.0 % Platelet Count 684 TH/MM3 Mean Platelet Volume 7.1 FL Neutrophils (%) (Auto) 80.3 % Lymphocytes (%) (Auto) 14.5 % Monocytes (%) (Auto) 3.3 % Eosinophils (%) (Auto) 0.8 % Basophils (%) (Auto) 1.1 % Neutrophils # (Auto) 10.0 TH/MM3 Lymphocytes # (Auto) 1.8 TH/MM3 Monocytes # (Auto) 0.4 TH/MM3 Eosinophils # (Auto) 0.1 TH/MM3 Basophils # (Auto) 0.1 TH/MM3 CBC Comment DIFF FINAL Differential Comment Laboratory Tests Test 04/15/17 04/16/17 04:35 10:00 Creatinine 0.63 MG/DL 0.58 MG/DL Estimat Glomerular Filtration 90 ML/MIN 100 ML/MIN Rate Sodium Level 139 MEQ/L Potassium Level 3.3 MEQ/L Chloride Level 102 MEQ/L Carbon Dioxide Level 26.8 MEQ/L Anion Gap 10 MEQ/L Blood Urea Nitrogen 15 MG/DL Random Glucose 95 MG/DL Calcium Level 8.5 MG/DL Magnesium Level 1.6 MG/DL Imaging Last Impressions Chest X-Ray 04/02/17 0000 Signed Impressions: Service Date/Time: Sunday, April 02, 2017 04:14 - CONCLUSION: 1. Worsening patchy airspace disease throughout the right lung. 2. Minimal left basilar atelectasis. 3. Cardiomegaly. Asher Gottlieb MD CT Angiography 04/02/17 0000 Signed Impressions: Service Date/Time: Sunday, April 02, 2017 15:47 - CONCLUSION: 1. Negative for pulmonary embolus. Dense consolidation in the right lung especially posteriorly most characteristic of a large pneumonia. There is also partially loculated small to moderate right pleural effusion and right basilar atelectasis. On the left side there is a small pleural effusion and left basilar atelectasis. Austen Osei MD Abdomen/Pelvis CT 04/02/17 0000 Signed Impressions: Service Date/Time: Sunday, April 02, 2017 15:47 - CONCLUSION: 1. 8.2 x 4.2 cm fluid collection in the deep posterior pelvis, probably mildly complex free fluid. No loculated air to suggest abscess. 2. Colonic diverticulosis without diverticulitis. Postoperative cholecystectomy and partial right bowel resection. Dense consolidation at the lung bases, right greater than left bilateral effusions. Austen Osei MD Physical Exam GENERAL: Awake and alert, not in distress SKIN: No rashes, ecchymoses or lesions. Cool and dry. HEAD: Atraumatic. Normocephalic. No temporal or scalp tenderness. EYES: Pupils equal round and reactive. Extraocular motions intact. No scleral icterus. No injection or drainage. ENT: Nose without bleeding, purulent drainage or septal hematoma. Throat without erythema, or exudate. . NECK: Trachea midline. Supple, nontender, no meningeal signs. CARDIOVASCULAR: Regular rate and rhythm without murmurs. RESPIRATORY: clear to auscultation. Decreased at bases GASTROINTESTINAL: Abdomen soft, non-tender, not distended. Incision clean, dry MUSCULOSKELETAL: Bilateral knees surgical scar is intact. NEUROLOGICAL: Awake and alert. Grossly nonfocal Psych cooperative IV line sites with no evidence of infection. Assessment & Plan Remarks Sepsis Pneumonia in the hospital setting. Acute respiratory failure on 100% nonrebreather- resolved - on NC O2 now Ascending colectomy for colon cancer on 03/25/2017 ? IA abscess or sepsis/ peritonitis High grade leucocytosis. Better COPD exacerbation acute CAD Recs Continue Zosyn IV Continue oral zyvox Monitor progress Clinically improving Katherine Grey MD April 16, 2017 12:11
--- NOTE | 2017-04-16 16:42 | HHI.PR ---
Subjective Remarks ALERT hno SOB at rest Objective Vital Signs Date Time Temp Pulse Resp B/P Pulse Ox O2 Delivery O2 Flow Rate FiO2 04/16/17 12:00 96.5 96 18 134/61 93 04/16/17 11:26 92 Nasal Cannula 2.00 04/16/17 09:30 Nasal Cannula 2.00 04/16/17 08:00 97.8 80 18 129/62 97 04/16/17 04:00 97.6 86 20 122/57 94 04/16/17 00:00 97.6 91 20 116/58 94 04/15/17 20:19 81 04/15/17 20:00 97.7 96 22 123/60 94 I/O 04/15/17 04/15/17 04/15/17 04/16/17 04/16/17 04/16/17 06:59 14:59 22:59 06:59 14:59 22:59 Intake Total 255 ml 360 ml 120 ml 320 ml 339 ml Output Total 750 ml Balance 255 ml -390 ml 120 ml 320 ml 339 ml Intake Oral 210 ml 120 ml 120 ml 240 ml IV Total 255 ml 150 ml 0 ml 200 ml 99 ml Output Urine Total 750 ml # Voids 2 5 2 2 2 # Bowel Movements 1 1 0 3 Result Diagram: 04/16/17 1000 04/16/17 1000 Objective Remarks GENERAL: SKIN: Warm and dry. HEAD: Atraumatic. Normocephalic. EYES: Pupils equal and round. No scleral icterus. No injection or drainage. ENT: No nasal bleeding or discharge. Mucous membranes pink and moist. NECK: Trachea midline. No JVD. CARDIOVASCULAR: Regular rate and rhythm. RESPIRATORY: No accessory muscle use. Clear to auscultation. Breath sounds equal bilaterally. GASTROINTESTINAL: Abdomen soft, non-tender, nondistended. Hepatic and splenic margins not palpable. MUSCULOSKELETAL: Extremities without clubbing, cyanosis, or edema. No obvious deformities. NEUROLOGICAL: Awake and alert. No obvious cranial nerve deficits. Motor grossly within normal limits. Five out of 5 muscle strength in the arms and legs. Normal speech. PSYCHIATRIC: Appropriate mood and affect; insight and judgment normal. Assessment and Plan Assessment and Plan RESPIRATORY FAILURE PNEUMONIA , improving POST COLECTOMY PLAN O2 NEEDED ANTIBIOTICS PLM TOILET to [facility] Nataliia William MD April 16, 2017 16:42
[2017-04-17] VITALS (9 sets, daily range): BP systolic 129–141; BP diastolic 62–81; PULSE 79–96; RESP 16–20; TEMP 95.4–97.4; O2SAT 93–95
[2017-04-17] MEDS: HEPARIN SODIUM - SQ 10,000 UNITS/ML VIAL SQ SCH ×3 (01:07→23:05)
[2017-04-17] MEDS: ACETAMINOPHEN/HYDROcodone 325 MG/5 MG TAB PO PRN ×2 (01:08→23:21)
--- NOTE | 2017-04-17 02:01 | RADRPT ---
EXAM DATE/TIME: 04/17/2017 00:50 [facility] COMPARISON: No previous studies available for comparison. INDICATIONS : Bilateral leg pain. MEDICAL HISTORY : Hypertension. Methicillin-resistant Staphylococcus aureus. Colon cancer. CVA. CAD. SURGICAL HISTORY : Total knee replacement, left.Total knee replacement, right. Hysterectomy.Cholecystectomy. Appendectom y. ENCOUNTER: Initial ACUITY: Subacute PAIN SCORE: Unknown LOCATION: Bilateral legs. TECHNIQUE: Venous ultrasound of the left and right leg was performed from the inguinal ligament to the proximal calf. Real-time, color Doppler and spectral tracing, compression and augmentation techniques were us ed. FINDINGS: Examination is positive for nonocclusive thrombus in the right superficial femoral vein, popliteal ve in peroneal vein. There is occlusive thrombus in the right distal superficial femoral vein. Negative left lower extremity for deep venous thrombosis. CONCLUSION: 1. Positive right lower extremity deep venous thrombosis as above. Negative left lower extremity for DVT. Austen Osei MD on April 17, 2017 at 1:58 Board Certified Radiologist. This report was verified electronically.
[2017-04-17] MEDS: PIPERACIL-TAZO 4.5 GM PREMIX 100 ML IV SCH ×4 (04:32→21:55)
[2017-04-17] MEDS: INSULIN NovoLIN REGULAR SUPPLEMENTAL SCALE SQ SCH ×2 (04:32→11:00)
[2017-04-17] MEDS: NYSTATIN 100,000 U/GM PWD 15 GM BTL TOPICAL SCH ×2 (04:32→16:03)
[2017-04-17] MEDS: methylPREDNISolone SOD SUCC 40 MG/1 ML VIAL IV PUSH SCH (08:28)
[2017-04-17] MEDS: guaiFENesin E.R. 600 MG TAB PO SCH ×2 (08:28→21:55)
[2017-04-17] MEDS: VALSARTAN 160 MG TAB PO SCH (08:28)
[2017-04-17] MEDS: POTASSIUM CHLORIDE 10 MEQ CONTROLLED RELEASE TAB PO SCH ×2 (08:28→21:55)
[2017-04-17] MEDS: LINEZOLID 600 MG TAB PO SCH ×2 (08:28→21:55)
[2017-04-17] MEDS: FUROSEMIDE 20 MG/2 ML VIAL IV PUSH SCH ×2 (08:29→16:03)
[2017-04-17] MEDS: PANTOPRAZOLE SODIUM 40 MG VIAL IVP SCH (08:29)
[2017-04-17] MEDS: SODIUM CHLORIDE 0.9% FLUSH 5 ML FLUSH IVF SCH ×2 (08:29→21:00)
[2017-04-17] MEDS: MEGESTROL ACETATE 40 MG TAB PO SCH (08:29)
[2017-04-17 08:49] LABS: HEMATOCRIT 28.1 % (35.0-46.0); MEAN CORPUSCULAR HEMOGLOBIN 26.6 PG (27.0-34.0); MEAN CORPUSCULAR HGB CONC 32.8 % (32.0-36.0); PLATELET COUNT 555 TH/MM3 (150-450); RED BLOOD COUNT 3.47 MIL/MM3 (4.00-5.30); RED CELL DISTRIBUTION WIDTH 16.8 % (11.6-17.2); REVIEW FLAG FINAL; WHITE BLOOD COUNT 11.3 TH/MM3 (4.0-11.0)
[2017-04-17 09:00] LABS: APTT (PATIENT) 25.4 SEC (24.3-30.1); PROTHROMBIN TIME - PATIENT 10.8 SEC (9.8-11.6)
[2017-04-17] MEDS: PSYLLIUM FIBER SF/GF 6 GM POWD PKT PO SCH (09:00)
[2017-04-17] MEDS: SODIUM CHLORIDE 0.9% FLUSH 10 ML FLUSH IV FLUSH SCH (09:00)
[2017-04-17] MEDS: MUPIROCIN 2% OINT 1 APPLIC/GM SYR NASAL SCH ×2 (09:30→21:54)
--- NOTE | 2017-04-17 09:42 | PD.CARD.PN ---
Subjective Subjective Remarks alert in Objective Vital Signs / I&O Vital Signs Date Time Temp Pulse Resp B/P Pulse Ox O2 Delivery O2 Flow Rate FiO2 04/17/17 08:00 97.0 84 18 135/62 94 04/17/17 04:00 97.4 84 18 129/63 93 04/17/17 00:00 97.4 87 18 134/62 93 04/16/17 22:00 86 04/16/17 21:00 Nasal Cannula 2.00 04/16/17 20:00 97.2 89 18 130/62 93 04/16/17 16:00 97.1 86 16 126/60 94 04/16/17 12:00 96.5 96 18 134/61 93 04/16/17 11:26 92 Nasal Cannula 2.00 I/O 04/16/17 04/16/17 04/16/17 04/17/17 04/17/17 04/17/17 07:00 15:00 23:00 07:00 15:00 23:00 Intake Total 320 ml 339 ml 360 ml 320 ml Output Total 0 ml Balance 320 ml 339 ml 360 ml 320 ml Intake Oral 120 ml 240 ml 360 ml 120 ml IV Total 200 ml 99 ml 0 ml 200 ml Output Urine Total 0 ml # Voids 2 2 2 # Bowel Movements 0 3 0 0 Physical Exam GENERAL: SKIN: Warm and dry. HEAD: Normocephalic. EYES: No scleral icterus. No injection or drainage. NECK: Supple, trachea midline. No JVD or lymphadenopathy. CARDIOVASCULAR: Regular rate and rhythm without murmurs, gallops, or rubs. RESPIRATORY: Breath sounds equal bilaterally. No accessory muscle use. GASTROINTESTINAL: Abdomen soft, non-tender, nondistended. MUSCULOSKELETAL: No cyanosis, or edema. BACK: Nontender without obvious deformity. No CVA tenderness. Laboratory Laboratory Tests Test 04/16/17 04/17/17 10:00 08:39 White Blood Count 12.4 TH/MM3 11.3 TH/MM3 Red Blood Count 3.62 MIL/MM3 3.47 MIL/MM3 Hemoglobin 9.7 GM/DL 9.2 GM/DL Hematocrit 29.7 % 28.1 % Mean Corpuscular Volume 82.0 FL 81.0 FL Mean Corpuscular Hemoglobin 26.7 PG 26.6 PG Mean Corpuscular Hemoglobin 32.5 % 32.8 % Concent Red Cell Distribution Width 17.0 % 16.8 % Platelet Count 684 TH/MM3 555 TH/MM3 Mean Platelet Volume 7.1 FL 7.0 FL Neutrophils (%) (Auto) 80.3 % Lymphocytes (%) (Auto) 14.5 % Monocytes (%) (Auto) 3.3 % Eosinophils (%) (Auto) 0.8 % Basophils (%) (Auto) 1.1 % Neutrophils # (Auto) 10.0 TH/MM3 Lymphocytes # (Auto) 1.8 TH/MM3 Monocytes # (Auto) 0.4 TH/MM3 Eosinophils # (Auto) 0.1 TH/MM3 Basophils # (Auto) 0.1 TH/MM3 CBC Comment DIFF FINAL Differential Comment Sodium Level 139 MEQ/L Potassium Level 3.3 MEQ/L Chloride Level 102 MEQ/L Carbon Dioxide Level 26.8 MEQ/L Anion Gap 10 MEQ/L Blood Urea Nitrogen 15 MG/DL Creatinine 0.58 MG/DL Estimat Glomerular Filtration 100 ML/MIN Rate Random Glucose 95 MG/DL Calcium Level 8.5 MG/DL Magnesium Level 1.6 MG/DL Prothrombin Time 10.8 SEC Prothromb Time International 1.0 RATIO Ratio Activated Partial 25.4 SEC Thromboplast Time Assessment and Plan Problem List: (1) Anemia (2) Angina at rest (3) CAD (coronary artery disease) (4) Hypoxia Assessment and Plan 1.) Class 4 Angina/anemia - resolved, improved after transfusion, 2.) Hypoxia due to pneumonia/copd, f/u pulm rec, hypoxia improved on less O2 3.) DVT - on heparin, f/u cbc Problem Qualifiers (1) Anemia: Mikael Rodriguez MD April 17, 2017 09:42
--- NOTE | 2017-04-17 10:30 | HHI.PR ---
Subjective Remarks POD #11 lap TANISHA, open ascending colectomy comfortable reports lower extremity pain c/w previous DVT Objective Vital Signs Date Time Temp Pulse Resp B/P Pulse Ox O2 Delivery O2 Flow Rate FiO2 04/17/17 08:00 97.0 84 18 135/62 94 04/17/17 04:00 97.4 84 18 129/63 93 04/17/17 00:00 97.4 87 18 134/62 93 04/16/17 22:00 86 04/16/17 21:00 Nasal Cannula 2.00 04/16/17 20:00 97.2 89 18 130/62 93 04/16/17 16:00 97.1 86 16 126/60 94 04/16/17 12:00 96.5 96 18 134/61 93 04/16/17 11:26 92 Nasal Cannula 2.00 I/O 04/16/17 04/16/17 04/16/17 04/17/17 04/17/17 04/17/17 07:00 15:00 23:00 07:00 15:00 23:00 Intake Total 320 ml 339 ml 360 ml 320 ml Output Total 0 ml Balance 320 ml 339 ml 360 ml 320 ml Intake Oral 120 ml 240 ml 360 ml 120 ml IV Total 200 ml 99 ml 0 ml 200 ml Output Urine Total 0 ml # Voids 2 2 2 # Bowel Movements 0 3 0 0 Result Diagram: 04/17/17 0839 04/16/17 1000 Objective Remarks Abdomen soft, nondistended, wound clean Assessment and Plan Assessment and Plan U/S + for DVT Patient with history of previous DVT after knee surgery On heparin drip, start coumadin Waiting for placement Colleen Plummer MD April 17, 2017 10:30
[2017-04-17] MEDS: HEPARIN-D5W INJ 250 ML IV SCH (11:15)
--- NOTE | 2017-04-17 13:41 | HHI.PR ---
Subjective Remarks ALERT hno SOB at rest Objective Vital Signs Date Time Temp Pulse Resp B/P Pulse Ox O2 Delivery O2 Flow Rate FiO2 04/17/17 12:00 96.4 79 16 136/68 93 04/17/17 11:03 2.00 04/17/17 09:00 Nasal Cannula 2.00 04/17/17 08:00 97.0 84 18 135/62 94 04/17/17 04:00 97.4 84 18 129/63 93 04/17/17 00:00 97.4 87 18 134/62 93 04/16/17 22:00 86 04/16/17 21:00 Nasal Cannula 2.00 04/16/17 20:00 97.2 89 18 130/62 93 04/16/17 16:00 97.1 86 16 126/60 94 I/O 04/16/17 04/16/17 04/16/17 04/17/17 04/17/17 04/17/17 07:00 15:00 23:00 07:00 15:00 23:00 Intake Total 320 ml 339 ml 360 ml 320 ml Output Total 0 ml Balance 320 ml 339 ml 360 ml 320 ml Intake Oral 120 ml 240 ml 360 ml 120 ml IV Total 200 ml 99 ml 0 ml 200 ml Output Urine Total 0 ml # Voids 2 2 2 # Bowel Movements 0 3 0 0 Result Diagram: 04/17/17 0839 04/16/17 1000 Objective Remarks GENERAL: SKIN: Warm and dry. HEAD: Atraumatic. Normocephalic. EYES: Pupils equal and round. No scleral icterus. No injection or drainage. ENT: No nasal bleeding or discharge. Mucous membranes pink and moist. NECK: Trachea midline. No JVD. CARDIOVASCULAR: Regular rate and rhythm. RESPIRATORY: No accessory muscle use. Clear to auscultation. Breath sounds equal bilaterally. GASTROINTESTINAL: Abdomen soft, non-tender, nondistended. Hepatic and splenic margins not palpable. MUSCULOSKELETAL: Extremities without clubbing, cyanosis, or edema. No obvious deformities. NEUROLOGICAL: Awake and alert. No obvious cranial nerve deficits. Motor grossly within normal limits. Five out of 5 muscle strength in the arms and legs. Normal speech. PSYCHIATRIC: Appropriate mood and affect; insight and judgment normal. Assessment and Plan Assessment and Plan RESPIRATORY FAILURE PNEUMONIA , improving POST COLECTOMY DVT PLAN O2 NEEDED ANTIBIOTICS PLM TOILET ANTICOAGULATION Discharge Planning GENERAL: SKIN: Warm and dry. HEAD: Atraumatic. Normocephalic. EYES: Pupils equal and round. No scleral icterus. No injection or drainage. ENT: No nasal bleeding or discharge. Mucous membranes pink and moist. NECK: Trachea midline. No JVD. CARDIOVASCULAR: Regular rate and rhythm. RESPIRATORY: No accessory muscle use. Clear to auscultation. Breath sounds equal bilaterally. GASTROINTESTINAL: Abdomen soft, non-tender, nondistended. Hepatic and splenic margins not palpable. MUSCULOSKELETAL: Extremities without clubbing, cyanosis, or edema. No obvious deformities. NEUROLOGICAL: Awake and alert. No obvious cranial nerve deficits. Motor grossly within normal limits. Five out of 5 muscle strength in the arms and legs. Normal speech. PSYCHIATRIC: Appropriate mood and affect; insight and judgment normal. Nataliia William MD April 17, 2017 13:41
[2017-04-17] MEDS: WARFARIN SOD 2.5 MG TAB PO SCH (15:52)
[2017-04-17 18:29] LABS: APTT (PATIENT) 122.5 SEC (24.3-30.1)
[2017-04-17 20:24] LABS: ALKALINE PHOSPHATASE 117 U/L (45-117); ALT (GPT) 13 U/L (10-53); ANION GAP 13 MEQ/L (5-15); AST (GOT) 22 U/L (15-37); BICARBONATE 25.2 MEQ/L (21.0-32.0); BLOOD UREA NITROGEN 19 MG/DL (7-18); CHLORIDE 98 MEQ/L (98-107); GLOMERULAR FILTRATION RATE 54 ML/MIN (>89); POTASSIUM 3.1 MEQ/L (3.5-5.1); SODIUM (NA) 136 MEQ/L (136-145); TOTAL BILIRUBIN ADULT 0.3 MG/DL (0.2-1.0)
[2017-04-17 21:03] LABS: APTT (PATIENT) 32.2 SEC (24.3-30.1)
[2017-04-18] VITALS (8 sets, daily range): BP systolic 119–132; BP diastolic 57–64; PULSE 82–93; RESP 16–18; TEMP 96.5–97.6; O2SAT 94–98
[2017-04-18 03:10] LABS: APTT (PATIENT) 37.2 SEC (24.3-30.1)
[2017-04-18] MEDS: NYSTATIN 100,000 U/GM PWD 15 GM BTL TOPICAL SCH ×2 (03:46→17:00)
[2017-04-18] MEDS: PIPERACIL-TAZO 4.5 GM PREMIX 100 ML IV SCH ×4 (03:46→23:32)
--- NOTE | 2017-04-18 06:35 | RADRPT ---
EXAM DATE/TIME: 04/18/2017 05:56 [facility] COMPARISON: CHEST SINGLE AP, April 10, 2017, 9:26. INDICATIONS : Short of breath, evaluate pneumonia MEDICAL HISTORY : Carcinoma, colon. SURGICAL HISTORY : Colon resection. ENCOUNTER: Subsequent ACUITY: 3 days PAIN SCORE: 5/10 LOCATION: Bilateral chest FINDINGS: Right subclavian line is present with tip overlapping the expected region of the SVC. There is improv ement in the aeration of the lungs. Right basilar opacity is present may be due to a combination of c onsolidation and or pleural effusion. Right upper lung parenchymal opacity has not significantly collins ged. CONCLUSION: Improvement in aeration of the lungs. Ruth Pablo MD on April 18, 2017 at 6:33 Board Certified Radiologist. This report was verified electronically.
[2017-04-18] MEDS: SODIUM CHLORIDE 0.9% FLUSH 5 ML FLUSH IVF SCH ×2 (09:00→21:00)
[2017-04-18] MEDS: PSYLLIUM FIBER SF/GF 6 GM POWD PKT PO SCH (09:20)
[2017-04-18] MEDS: guaiFENesin E.R. 600 MG TAB PO SCH ×2 (09:20→22:01)
[2017-04-18] MEDS: MEGESTROL ACETATE 40 MG TAB PO SCH (09:21)
[2017-04-18] MEDS: POTASSIUM CHLORIDE 10 MEQ CONTROLLED RELEASE TAB PO SCH ×2 (09:21→22:01)
[2017-04-18] MEDS: SODIUM CHLORIDE 0.9% FLUSH 10 ML FLUSH IV FLUSH SCH ×2 (09:21→11:21)
[2017-04-18] MEDS: LINEZOLID 600 MG TAB PO SCH ×2 (09:21→22:01)
[2017-04-18] MEDS: VALSARTAN 160 MG TAB PO SCH (09:21)
[2017-04-18] MEDS: FUROSEMIDE 20 MG/2 ML VIAL IV PUSH SCH ×2 (09:22→18:53)
[2017-04-18] MEDS: methylPREDNISolone SOD SUCC 40 MG/1 ML VIAL IV PUSH SCH (09:22)
[2017-04-18] MEDS: PANTOPRAZOLE SODIUM 40 MG VIAL IVP SCH (09:22)
[2017-04-18] MEDS: MUPIROCIN 2% OINT 1 APPLIC/GM SYR NASAL SCH ×2 (09:22→21:00)
[2017-04-18 10:25] LABS: APTT (PATIENT) 35.9 SEC (24.3-30.1)
[2017-04-18] MEDS: HEPARIN SODIUM - SQ 10,000 UNITS/ML VIAL SQ SCH (11:21)
--- NOTE | 2017-04-18 13:18 | HHI.IDPN ---
Subjective Subjective Remarks Chart reviewed is an 81 y/o WF with PMHx of COPD, chronic tobacco use, CAD. Patient recently underwent an ascending colectomy for colon cancer on 03/25/[address] Colleen Plummer. She had laparoscopic extensive lysis of adhesions, open ascending colectomy and flexible sigmoidoscopy, estimated blood loss of 100 mL. Yesterday, the patient developed chest pain, hypoxia requiring a 100% non- rebreather. Hemoglobin has dropped as low as 8.4. Troponin are negative x3. EKG does not show any ischemic changes. The patient appears very pale at the bedside, still having active chest pain which is improved after a nitro drip. Otherwise denies any fevers, chills, cough, bleeding, PND, or orthopnea. Patient was transferred to the ICU for resp distress. Overnight events reviewed. On 7th floor. Halicat team at bedside. Vitals stable but patient complaining of chest pain, epigastric pain radiating to back (sharp, 10/10, with nausea but no vomiting) DVT diagnosed 04/17/17 pt on Heparin gtt and Coumadin bridging. Not Short of breath but on Oxygen 2L NC. Afebrile Not SOB Coughing resolved per patient. Still weak, needs help to transfer from bed to chair No rash WBC better Antibiotics Zosyn IV Zyvox oral. Lines Line sites with no e.o infection. Past Medical History reviewed Allergies: Coded Allergies: *MDRO Multi-Drug Resistant Organism (Verified Adverse Reaction, Unknown, ) MRSA PCR Screen POSITIVE - 04/02/2017 Objective . Vital Signs Date Time Temp Pulse Resp B/P Pulse Ox O2 Delivery O2 Flow Rate FiO2 04/18/17 12:00 96.8 86 16 121/57 98 04/18/17 08:45 Nasal Cannula 2.00 04/18/17 08:22 96 Nasal Cannula 2.00 04/18/17 08:00 97.6 82 16 132/63 95 04/18/17 04:00 97.2 82 18 125/59 96 04/18/17 00:00 97.4 86 18 120/60 94 04/17/17 22:00 96 04/17/17 20:00 97.2 92 18 135/81 95 04/17/17 19:25 Nasal Cannula 2.00 04/17/17 16:22 84 04/17/17 16:00 95.4 92 20 141/66 94 04/17/17 14:09 94 04/17/17 04/17/17 04/18/17 15:00 23:00 07:00 Intake Total 847 ml 347 ml 120 ml Balance 847 ml 347 ml 120 ml Intake Oral 600 ml 240 ml 120 ml IV Total 247 ml 107 ml # Voids 4 1 1 # Bowel Movements 3 0 . Laboratory Tests Test 04/17/17 08:39 White Blood Count 11.3 TH/MM3 Red Blood Count 3.47 MIL/MM3 Hemoglobin 9.2 GM/DL Hematocrit 28.1 % Mean Corpuscular Volume 81.0 FL Mean Corpuscular Hemoglobin 26.6 PG Mean Corpuscular Hemoglobin 32.8 % Concent Red Cell Distribution Width 16.8 % Platelet Count 555 TH/MM3 Mean Platelet Volume 7.0 FL Laboratory Tests Test 04/17/17 18:20 Sodium Level 136 MEQ/L Potassium Level 3.1 MEQ/L Chloride Level 98 MEQ/L Carbon Dioxide Level 25.2 MEQ/L Anion Gap 13 MEQ/L Blood Urea Nitrogen 19 MG/DL Creatinine 0.98 MG/DL Estimat Glomerular Filtration 54 ML/MIN Rate Random Glucose 193 MG/DL Calcium Level 8.3 MG/DL Total Bilirubin 0.3 MG/DL Aspartate Amino Transf 22 U/L (AST/SGOT) Alanine Aminotransferase 13 U/L (ALT/SGPT) Alkaline Phosphatase 117 U/L Total Protein 7.5 GM/DL Albumin 1.9 GM/DL Procalcitonin 0.11 ng/mL Imaging Last Impressions Chest X-Ray 04/02/17 0000 Signed Impressions: Service Date/Time: Sunday, April 02, 2017 04:14 - CONCLUSION: 1. Worsening patchy airspace disease throughout the right lung. 2. Minimal left basilar atelectasis. 3. Cardiomegaly. Asher Gottlieb MD CT Angiography 04/02/17 0000 Signed Impressions: Service Date/Time: Sunday, April 02, 2017 15:47 - CONCLUSION: 1. Negative for pulmonary embolus. Dense consolidation in the right lung especially posteriorly most characteristic of a large pneumonia. There is also partially loculated small to moderate right pleural effusion and right basilar atelectasis. On the left side there is a small pleural effusion and left basilar atelectasis. Austen Osei MD Abdomen/Pelvis CT 04/02/17 0000 Signed Impressions: Service Date/Time: Sunday, April 02, 2017 15:47 - CONCLUSION: 1. 8.2 x 4.2 cm fluid collection in the deep posterior pelvis, probably mildly complex free fluid. No loculated air to suggest abscess. 2. Colonic diverticulosis without diverticulitis. Postoperative cholecystectomy and partial right bowel resection. Dense consolidation at the lung bases, right greater than left bilateral effusions. Austen Osei MD Physical Exam GENERAL: Awake and alert, not in distress SKIN: No rashes, ecchymoses or lesions. Cool and dry. HEAD: Atraumatic. Normocephalic. No temporal or scalp tenderness. EYES: Pupils equal round and reactive. Extraocular motions intact. No scleral icterus. No injection or drainage. ENT: Nose without bleeding, purulent drainage or septal hematoma. Throat without erythema, or exudate. . NECK: Trachea midline. Supple, nontender, no meningeal signs. CARDIOVASCULAR: Regular rate and rhythm without murmurs. RESPIRATORY: clear to auscultation. Decreased at bases GASTROINTESTINAL: Abdomen soft, non-tender, not distended. Incision clean, dry MUSCULOSKELETAL: Bilateral knees surgical scar is intact. NEUROLOGICAL: Awake and alert. Grossly nonfocal Psych cooperative IV line sites with no evidence of infection. Assessment & Plan Remarks Sepsis Pneumonia in the hospital setting. Acute respiratory failure on 100% nonrebreather- resolved - on NC O2 now Ascending colectomy for colon cancer on 03/25/2017 ? IA abscess or sepsis/ peritonitis High grade leucocytosis. Better COPD exacerbation acute CAD Recs Stat CT angiogram pulm (concern for PE, pt also has prior h/o PE at time of prior knee surgeries few yrs back) Stat CT Abd/pelvis with contrast (re: Abd aortic aneurysm, Retroperitoneal bleed on heparin gtt) d/w Radiology. Stat Cardiac enzymes (r/o Acute MT) Stat EKGs q6 per protocol. Stat hospitalist consult: d/w who accepted patient. Plan d/w him. Hospitalist to follow all STAT labs. Reviewed CXR (PNA appears improving compared to prior days) Joe morales, RN taking care of patient. Code status d.w pt she would like to be full code as of now. She does not want to be on prolonged life support. Wants her daughter to make decisions in case she is unable to make decisions. [facility] team notified of change in clinical condition. Continue Zosyn IV Continue oral zyvox Monitor progress Change in clinical, condition critical care services provided. Zee Arriaga MD April 18, 2017 13:18
--- NOTE | 2017-04-18 13:32 | PD.CARD.PN ---
Subjective Subjective Remarks c/o chest pain Objective Vital Signs / I&O Vital Signs Date Time Temp Pulse Resp B/P Pulse Ox O2 Delivery O2 Flow Rate FiO2 04/18/17 12:00 96.8 86 16 121/57 98 04/18/17 08:45 Nasal Cannula 2.00 04/18/17 08:22 96 Nasal Cannula 2.00 04/18/17 08:00 97.6 82 16 132/63 95 04/18/17 04:00 97.2 82 18 125/59 96 04/18/17 00:00 97.4 86 18 120/60 94 04/17/17 22:00 96 04/17/17 20:00 97.2 92 18 135/81 95 04/17/17 19:25 Nasal Cannula 2.00 04/17/17 16:22 84 04/17/17 16:00 95.4 92 20 141/66 94 04/17/17 14:09 94 I/O 04/17/17 04/17/17 04/17/17 04/18/17 04/18/17 04/18/17 07:00 15:00 23:00 07:00 15:00 23:00 Intake Total 320 ml 847 ml 347 ml 120 ml Balance 320 ml 847 ml 347 ml 120 ml Intake Oral 120 ml 600 ml 240 ml 120 ml IV Total 200 ml 247 ml 107 ml # Voids 2 4 1 1 # Bowel Movements 0 3 0 Physical Exam GENERAL: SKIN: Warm and dry. HEAD: Normocephalic. EYES: No scleral icterus. No injection or drainage. NECK: Supple, trachea midline. No JVD or lymphadenopathy. CARDIOVASCULAR: Regular rate and rhythm without murmurs, gallops, or rubs. RESPIRATORY: Breath sounds equal bilaterally. No accessory muscle use. GASTROINTESTINAL: Abdomen soft, non-tender, nondistended. MUSCULOSKELETAL: No cyanosis, or edema. BACK: Nontender without obvious deformity. No CVA tenderness. Laboratory Laboratory Tests Test 04/17/17 04/17/17 04/17/17 04/18/17 17:30 18:20 20:31 02:50 Activated Partial 122.5 SEC 32.2 SEC 37.2 SEC Thromboplast Time Sodium Level 136 MEQ/L Potassium Level 3.1 MEQ/L Chloride Level 98 MEQ/L Carbon Dioxide Level 25.2 MEQ/L Anion Gap 13 MEQ/L Blood Urea Nitrogen 19 MG/DL Creatinine 0.98 MG/DL Estimat Glomerular Filtration 54 ML/MIN Rate Random Glucose 193 MG/DL Calcium Level 8.3 MG/DL Total Bilirubin 0.3 MG/DL Aspartate Amino Transf 22 U/L (AST/SGOT) Alanine Aminotransferase 13 U/L (ALT/SGPT) Alkaline Phosphatase 117 U/L Total Protein 7.5 GM/DL Albumin 1.9 GM/DL Procalcitonin 0.11 ng/mL Test 04/18/17 09:15 Activated Partial 35.9 SEC Thromboplast Time Assessment and Plan Problem List: (1) Anemia (2) Angina at rest (3) CAD (coronary artery disease) (4) Hypoxia Assessment and Plan 1.) Class 4 Angina/anemia - serial trop, stat cbc, cta chest d/w nurse at bedside, 2.) Hypoxia due to pneumonia/copd, f/u pulm rec, hypoxia improved on less O2 3.) DVT - on heparin, f/u cbc Problem Qualifiers (1) Anemia: Mikael Rodriguez MD April 18, 2017 13:32
[2017-04-18 13:47] LABS: AUTOMATED NEUTROPHIL # 10.5 TH/MM3 (1.8-7.7); BASOPHIL # 0.1 TH/MM3 (0-0.2); BASOPHIL % 0.9 % (0.0-2.0); EOSINOPHIL # 0.1 TH/MM3 (0-0.4); EOSINOPHIL % 0.7 % (0.0-4.0); HEMATOCRIT 30.4 % (35.0-46.0); HEMO FLAGS DIFF FINAL; LYMPHOCYTE # 1.4 TH/MM3 (1.0-4.8); MEAN CELL VOLUME 82.2 FL (80.0-100.0); MEAN CORPUSCULAR HEMOGLOBIN 26.2 PG (27.0-34.0); MEAN CORPUSCULAR HGB CONC 31.9 % (32.0-36.0); MONO % 4.2 % (0.0-8.0); NEUT % 83.2 % (16.0-70.0); PLATELET COUNT 422 TH/MM3 (150-450); RED BLOOD COUNT 3.69 MIL/MM3 (4.00-5.30); RED CELL DISTRIBUTION WIDTH 16.9 % (11.6-17.2); WHITE BLOOD COUNT 12.7 TH/MM3 (4.0-11.0)
--- NOTE | 2017-04-18 13:53 | PD.CONS ---
HPI Service [facility] Consult Requested By Dr. Arriaga Reason for Consult Chest pain, ?PE Primary Care Physician Magda Soria Diagnoses: (1) Chest pain (2) Leukocytosis (3) Hypokalemia (4) Hypoxia (5) COPD (chronic obstructive pulmonary disease) (6) Hypertension History of Present Illness The patient is an 81 year old female admitted for ascending colectomy for treatment of colon cancer. She is post-op day #24. I was called by Dr. Zee Arriaga with request to seen the patient in consultation for acute onset chest pain. The patient states that the pain started about 20 minutes before my arrival at bedside. It initially was 10/10, substernal, with radiation to the back. She has dyspnea, but not worse today. Pain is currently 8/10. No diaphoresis. No alleviating or exacerbating factors. The patient was diagnosed with a RLE DVT yesterday and started on coumadin with heparin drip to bridge to therapeutic INR. She is followed in the hospital by Dr. William for pulmonology, Dr. Rodriguez for cardiology, and Dr. Arriaga for infectious disease. She has been on antibiotics for healthcare associated pneumonia as well. Review of Systems Constitutional: DENIES: Fever, Chills, Night Sweats Eyes: DENIES: Blurred vision, Vision loss Ears, nose, mouth, throat: DENIES: Hearing loss Respiratory: COMPLAINS OF: Shortness of breath, DENIES: Cough, Wheezing, Sputum production Cardiovascular: COMPLAINS OF: Chest pain, DENIES: Palpitations, Dyspnea on Exertion, Lower Extremity Edema Gastrointestinal: DENIES: Abdominal pain, Constipation, Diarrhea, Nausea, Vomiting Genitourinary: DENIES: Urinary frequency, Urinary incontinence, Urgency, Hematuria, Dysuria, Nocturia Musculoskeletal: DENIES: Joint pain, Muscle aches Integumentary: DENIES: Pruritus, Rash Hematologic/lymphatic: DENIES: Bruising Neurologic: DENIES: Headache Past Family Social History Allergies: Coded Allergies: *MDRO Multi-Drug Resistant Organism (Verified Adverse Reaction, Unknown, ) MRSA PCR Screen POSITIVE - 04/02/2017 Past Medical History Attention COPD CAD History of postop DVT/PE Past Surgical History Cataract surgery Cholecystectomy Appendectomy Bilateral knee replacements Surgery left hip surgery Laparoscopic lysis of adhesions, open ascending colectomy POD #24 Reported Medications See list Family History Denies Social History Quit smoking 1 year ago. Denies alcohol or illicit drug use. Physical Exam Vital Signs Vital Signs Date Time Temp Pulse Resp B/P Pulse Ox O2 Delivery O2 Flow Rate FiO2 04/18/17 12:00 96.8 86 16 121/57 98 04/18/17 08:45 Nasal Cannula 2.00 04/18/17 08:22 96 Nasal Cannula 2.00 04/18/17 08:00 97.6 82 16 132/63 95 04/18/17 04:00 97.2 82 18 125/59 96 04/18/17 00:00 97.4 86 18 120/60 94 04/17/17 22:00 96 04/17/17 20:00 97.2 92 18 135/81 95 04/17/17 19:25 Nasal Cannula 2.00 04/17/17 16:22 84 04/17/17 16:00 95.4 92 20 141/66 94 04/17/17 14:09 94 Physical Exam GENERAL: Elderly female in no acute distress. HEENT: Normocephalic, atraumatic. Pupils equal, round and reactive. Extraocular movements intact. No scleral icterus. No injection or drainage. Oropharynx is clear. Mucous membranes are moist. CARDIOVASCULAR: Regular rate and rhythm without murmurs, gallops, or rubs. RESPIRATORY: Clear to auscultation. No wheezes, rales, or rhonchi. Breathing is non-labored. GASTROINTESTINAL: Abdomen soft, non-tender, nondistended. EXTREMITIES: No lower extremity edema. No calf tenderness. PSYCH: Alert and oriented x 3. Laboratory Laboratory Tests Test 04/17/17 04/17/17 04/17/17 04/18/17 17:30 18:20 20:31 02:50 Activated Partial 122.5 32.2 37.2 Thromboplast Time Sodium Level 136 Potassium Level 3.1 Chloride Level 98 Carbon Dioxide Level 25.2 Anion Gap 13 Blood Urea Nitrogen 19 Creatinine 0.98 Estimat Glomerular Filtration 54 Rate Random Glucose 193 Calcium Level 8.3 Total Bilirubin 0.3 Aspartate Amino Transf 22 (AST/SGOT) Alanine Aminotransferase 13 (ALT/SGPT) Alkaline Phosphatase 117 Total Protein 7.5 Albumin 1.9 Procalcitonin 0.11 Test 04/18/17 09:15 Activated Partial 35.9 Thromboplast Time Result Diagram: 04/17/17 0839 04/17/17 1820 Imaging Last Impressions Chest X-Ray 04/18/17 0600 Signed Impressions: Service Date/Time: Tuesday, April 18, 2017 05:56 - CONCLUSION: Improvement in aeration of the lungs. Ruth Pablo MD Lower Extremity Ultrasound 04/17/17 0000 Signed Impressions: Service Date/Time: Monday, April 17, 2017 00:50 - CONCLUSION: 1. Positive right lower extremity deep venous thrombosis as above. Negative left lower extremity for DVT. Austen Osei MD CT Angiography 04/02/17 0000 Signed Impressions: Service Date/Time: Sunday, April 02, 2017 15:47 - CONCLUSION: 1. Negative for pulmonary embolus. Dense consolidation in the right lung especially posteriorly most characteristic of a large pneumonia. There is also partially loculated small to moderate right pleural effusion and right basilar atelectasis. On the left side there is a small pleural effusion and left basilar atelectasis. Austen Osei MD Abdomen/Pelvis CT 04/02/17 0000 Signed Impressions: Service Date/Time: Sunday, April 02, 2017 15:47 - CONCLUSION: 1. 8.2 x 4.2 cm fluid collection in the deep posterior pelvis, probably mildly complex free fluid. No loculated air to suggest abscess. 2. Colonic diverticulosis without diverticulitis. Postoperative cholecystectomy and partial right bowel resection. Dense consolidation at the lung bases, right greater than left bilateral effusions. Austen Osei MD Assessment and Plan Assessment and Plan 1. Chest pain: Acute onset of sharp substernal chest pain radiating to the back. Check serial cardiac enzymes. Stat CT pulmonary angiogram to evaluate for PE. Discussed with Dr. Arriaga and Dr. Rodriguez at bedside. Add Nitropaste. The patient had chest pain earlier in this hospitalization that was felt to be secondary to anemia. Check STAT CBC. 2. DVT, RLE: Continue heparin, Coumadin. 3. Colon cancer management for colorectal surgery. 4. COPD: Appreciate pulmonology recommendations. Patient is chronically on 2 L of oxygen. 5. Healthcare associated pneumonia: Appreciate infectious disease recommendations. Continue antibiotics. 6. Hypertension: Continue current medications. Blood pressure is well controlled. 7. GI prophylaxis: PPI. Critical care time 45 minutes. Code Status Full code Discussed Condition With Dr. Arriaga, Les Wiley MD April 18, 2017 13:52
[2017-04-18] MEDS ORDERED: IOHEXOL 350 MG/ML 10 ML VIAL (for RAD DIAG) IV ONE (14:10)
--- NOTE | 2017-04-18 14:34 | RADRPT ---
EXAM DATE/TIME: 04/18/2017 13:43 [facility] COMPARISON: CT ABDOMEN & PELVIS W CONTRAST, April 02, 2017, 15:47. CT PULMONARY ANGIOGRAM, April 02, 2017, 15:47. INDICATIONS : Severe chest pain. Patient has DVT IV CONTRAST: 100 cc Omnipaque 350 (iohexol) IV ; Cumulative dose for multiple exams. RADIATION DOSE: 23.69 CTDIvol (mGy) ; Combined studies - Thorax/Abdomen/Pelvis MEDICAL HISTORY : Cardiovascular disease. Chronic obstructive pulmonary disease. SURGICAL HISTORY : Colon resection. ENCOUNTER: Initial ACUITY: 1 day PAIN SCALE: 8/10 LOCATION: upper chest TECHNIQUE: Volumetric scanning of the chest was performed using a pulmonary embolism protocol MIP images were re constructed. Using automated exposure control and adjustment of the mA and/or kV according to patien t size, radiation dose was kept as low as reasonably achievable to obtain optimal diagnostic quality images. FINDINGS: PULMONARY ARTERIES: No filling defects are seen in the pulmonary arteries through the segmental level. LUNGS: The dense consolidation in the right lung has improved. There are multiple mass like areas of density noted in the right lower lobe with multiple air fluid levels. The largest of these measures up to ap proximately 3 cm. PLEURAE: There is a small right pleural effusion remaining. There is only a minimal left effusion. MEDIASTINUM: There is good visualization of the great vessels of the middle mediastinum. No evidence of mediastin al or hilar adenopathy/mass. MUSCULOSKELETAL: Within normal limits for patient age. MISCELLANEOUS: The visualized upper abdominal organs demonstrate no acute abnormality. The previously noted bilatera l adrenal masses are partially visualized. CONCLUSION: 1. No evidence of pulmonary embolism. 2. Multiple masslike cavitary areas in the right lower lobe which are nonspecific and could represen t necrotic lung or fungal infections. 3. Small right pleural effusion. Dustin Brasher MD on April 18, 2017 at 14:10 Board Certified Radiologist. This report was verified electronically.
--- NOTE | 2017-04-18 15:21 | RADRPT ---
EXAM DATE/TIME: 04/18/2017 13:47 [facility] COMPARISON: CT ABDOMEN & PELVIS W CONTRAST, April 02, 2017, 15:47. INDICATIONS : Severe chest pain, history of DVT. IV CONTRAST: 100 cc Omnipaque 350 (iohexol) IV ; Cumulative dose for multiple exams. ORAL CONTRAST: No oral contrast ingested. RADIATION DOSE: 23.69 CTDIvol (mGy) ; Combined studies - Thorax/Abdomen/Pelvis MEDICAL HISTORY : Chronic obstructive pulmonary disease. Cardiovascular disease SURGICAL HISTORY : Colon resection. ENCOUNTER: Initial ACUITY: 1 day PAIN SCALE: 8/10 LOCATION: upper chest TECHNIQUE: Volumetric scanning of the abdomen and pelvis was performed. Using automated exposure control and ad justment of the mA and/or kV according to patient size, radiation dose was kept as low as reasonably achievable to obtain optimal diagnostic quality images. FINDINGS: LOWER LUNGS: There is a small right pleural effusion again noted with minimal fluid on the left. There is mild con solidation in the posterior lung bases right greater than left. LIVER: Homogeneous density without lesion. There is no dilation of the biliary tree. Status post cholecyste ctomy. SPLEEN: Means normal in size and shape with benign appearing cystic structure in the posterior upper pole. PANCREAS: Within normal limits. KIDNEYS: Normal in size and shape. There is no mass, stone or hydronephrosis. ADRENAL GLANDS: Within normal limits. VASCULAR: There is no aortic aneurysm. BOWEL/MESENTERY: There are postsurgical changes with an anastomosis in the right lower abdomen. There are multiple loo ps of nondilated air-containing small bowel again noted with several small air-fluid levels. There is no free air. Small amount of fluid in the pelvis which is ABDOMINAL WALL: Within normal limits. RETROPERITONEUM: There is no lymphadenopathy. BLADDER: No wall thickening or mass. REPRODUCTIVE: Within normal limits. INGUINAL: There is no lymphadenopathy or hernia. MUSCULOSKELETAL: Within normal limits for patient age. CONCLUSION: 1. Middle decrease in the amount of fluid in the pelvis with small amount of fluid remaining. 2. Nonspecific, nonobstructed bowel gas pattern again noted which is mildly improved as well. Postsur gical changes are noted. 3. Benign cystic structure in the spleen. 4. Small pleural effusions and consolidation in the lung bases. Dustin Brasher MD on April 18, 2017 at 15:15 Board Certified Radiologist. This report was verified electronically.
[2017-04-18] MEDS: NITROGLYCERIN 2% OINT 1 GM PACKET TOPICAL SCH ×2 (15:53→22:14)
[2017-04-18] MEDS: WARFARIN SOD 2.5 MG TAB PO SCH (15:53)
[2017-04-18] MEDS: ACETAMINOPHEN/HYDROcodone 325 MG/5 MG TAB PO PRN ×2 (15:55→22:14)
--- NOTE | 2017-04-18 16:48 | HHI.PR ---
Subjective Remarks ALERT hno SOB at rest Objective Vital Signs Date Time Temp Pulse Resp B/P Pulse Ox O2 Delivery O2 Flow Rate FiO2 04/18/17 12:00 96.8 86 16 121/57 98 04/18/17 08:45 Nasal Cannula 2.00 04/18/17 08:22 96 Nasal Cannula 2.00 04/18/17 08:00 97.6 82 16 132/63 95 04/18/17 04:00 97.2 82 18 125/59 96 04/18/17 00:00 97.4 86 18 120/60 94 04/17/17 22:00 96 04/17/17 20:00 97.2 92 18 135/81 95 04/17/17 19:25 Nasal Cannula 2.00 I/O 04/17/17 04/17/17 04/17/17 04/18/17 04/18/17 04/18/17 07:00 15:00 23:00 07:00 15:00 23:00 Intake Total 320 ml 847 ml 347 ml 120 ml 180 ml Balance 320 ml 847 ml 347 ml 120 ml 180 ml Intake Oral 120 ml 600 ml 240 ml 120 ml 180 ml IV Total 200 ml 247 ml 107 ml # Voids 2 4 1 1 2 # Bowel Movements 0 3 0 1 Result Diagram: 04/18/17 1330 04/17/17 1820 Objective Remarks GENERAL: SKIN: Warm and dry. HEAD: Atraumatic. Normocephalic. EYES: Pupils equal and round. No scleral icterus. No injection or drainage. ENT: No nasal bleeding or discharge. Mucous membranes pink and moist. NECK: Trachea midline. No JVD. CARDIOVASCULAR: Regular rate and rhythm. RESPIRATORY: No accessory muscle use. Clear to auscultation. Breath sounds equal bilaterally. GASTROINTESTINAL: Abdomen soft, non-tender, nondistended. Hepatic and splenic margins not palpable. MUSCULOSKELETAL: Extremities without clubbing, cyanosis, or edema. No obvious deformities. NEUROLOGICAL: Awake and alert. No obvious cranial nerve deficits. Motor grossly within normal limits. Five out of 5 muscle strength in the arms and legs. Normal speech. PSYCHIATRIC: Appropriate mood and affect; insight and judgment normal. Assessment and Plan Assessment and Plan RESPIRATORY FAILURE PNEUMONIA , improving POST COLECTOMY DVT PLAN O2 NEEDED ANTIBIOTICS PLM TOILET ANTICOAGULATION Nataliia William MD April 18, 2017 16:48
[2017-04-18] MEDS ORDERED: SIMETHICONE 80 MG CHEWABLE TAB CHEW PRN (18:00)
--- NOTE | 2017-04-18 18:33 | HHI.PR ---
Subjective Remarks POD #12 lap TANISHA, open ascending colectomy epigastric pain frustrated with diarrhea Objective Vital Signs Date Time Temp Pulse Resp B/P Pulse Ox O2 Delivery O2 Flow Rate FiO2 04/18/17 16:00 96.5 83 16 130/64 94 04/18/17 12:00 96.8 86 16 121/57 98 04/18/17 08:45 Nasal Cannula 2.00 04/18/17 08:22 96 Nasal Cannula 2.00 04/18/17 08:00 97.6 82 16 132/63 95 04/18/17 04:00 97.2 82 18 125/59 96 04/18/17 00:00 97.4 86 18 120/60 94 04/17/17 22:00 96 04/17/17 20:00 97.2 92 18 135/81 95 04/17/17 19:25 Nasal Cannula 2.00 I/O 04/17/17 04/17/17 04/17/17 04/18/17 04/18/17 04/18/17 07:00 15:00 23:00 07:00 15:00 23:00 Intake Total 320 ml 847 ml 347 ml 120 ml 180 ml Balance 320 ml 847 ml 347 ml 120 ml 180 ml Intake Oral 120 ml 600 ml 240 ml 120 ml 180 ml IV Total 200 ml 247 ml 107 ml # Voids 2 4 1 1 2 # Bowel Movements 0 3 0 1 Result Diagram: 04/18/17 1330 04/17/17 1820 Objective Remarks Abdomen soft, nondistended, wound clean Assessment and Plan Assessment and Plan Dr. Rodriguez evaluated CT for PE negative per nurse Hold off on transfer to rehab just yet Colleen Plummer MD April 18, 2017 18:33
[2017-04-19] VITALS (8 sets, daily range): BP systolic 117–138; BP diastolic 58–68; PULSE 82–91; RESP 16–22; TEMP 96.7–98.1; O2SAT 94–97
[2017-04-19 01:23] LABS: APTT (PATIENT) 38.3 SEC (24.3-30.1)
[2017-04-19] MEDS: NYSTATIN 100,000 U/GM PWD 15 GM BTL TOPICAL SCH ×2 (05:00→15:35)
[2017-04-19] MEDS: ONDANSETRON HCL 4 MG/2 ML VIAL IV PRN (05:34)
[2017-04-19] MEDS: PIPERACIL-TAZO 4.5 GM PREMIX 100 ML IV SCH ×3 (05:35→15:34)
[2017-04-19] MEDS: NITROGLYCERIN 2% OINT 1 GM PACKET TOPICAL SCH ×3 (05:35→22:00)
[2017-04-19 06:13] LABS: AUTOMATED NEUTROPHIL # 7.7 TH/MM3 (1.8-7.7); BASOPHIL # 0.1 TH/MM3 (0-0.2); BASOPHIL % 1.2 % (0.0-2.0); EOSINOPHIL # 0.1 TH/MM3 (0-0.4); EOSINOPHIL % 1.3 % (0.0-4.0); HEMATOCRIT 28.7 % (35.0-46.0); HEMO FLAGS DIFF FINAL; LYMPH % 20.6 % (9.0-44.0); LYMPHOCYTE # 2.2 TH/MM3 (1.0-4.8); MEAN CELL VOLUME 82.3 FL (80.0-100.0); MEAN CORPUSCULAR HEMOGLOBIN 26.4 PG (27.0-34.0); MEAN CORPUSCULAR HGB CONC 32.1 % (32.0-36.0); MONO % 4.6 % (0.0-8.0); NEUT % 72.3 % (16.0-70.0); PLATELET COUNT 346 TH/MM3 (150-450); RED BLOOD COUNT 3.49 MIL/MM3 (4.00-5.30); RED CELL DISTRIBUTION WIDTH 17.2 % (11.6-17.2); WHITE BLOOD COUNT 10.6 TH/MM3 (4.0-11.0)
[2017-04-19 06:33] LABS: INTERNATIONAL NORMALIZED RATIO 1.1 RATIO; PROTHROMBIN TIME - PATIENT 11.7 SEC (9.8-11.6)
[2017-04-19 06:48] LABS: ALKALINE PHOSPHATASE 104 U/L (45-117); ALT (GPT) 12 U/L (10-53); ANION GAP 10 MEQ/L (5-15); AST (GOT) 16 U/L (15-37); BICARBONATE 25.6 MEQ/L (21.0-32.0); BLOOD UREA NITROGEN 16 MG/DL (7-18); CHLORIDE 103 MEQ/L (98-107); GLOMERULAR FILTRATION RATE 100 ML/MIN (>89); SODIUM (NA) 139 MEQ/L (136-145); TOTAL BILIRUBIN ADULT 0.3 MG/DL (0.2-1.0)
[2017-04-19 06:55] LABS: CREATINE KINASE 10 U/L (26-192)
[2017-04-19 06:58] LABS: POTASSIUM 2.8 MEQ/L (3.5-5.1)
[2017-04-19 06:59] LABS: APTT (PATIENT) 150.8 SEC (24.3-30.1)
[2017-04-19] MEDS: POTASSIUM CHLOR 20 MEQ PREMIX 100 ML IV SCH ×2 (08:12→09:00)
[2017-04-19] MEDS: MEGESTROL ACETATE 40 MG TAB PO SCH (08:14)
[2017-04-19] MEDS: VALSARTAN 160 MG TAB PO SCH (08:14)
[2017-04-19] MEDS: POTASSIUM CHLORIDE 10 MEQ CONTROLLED RELEASE TAB PO SCH ×2 (08:14→21:00)
[2017-04-19] MEDS: LINEZOLID 600 MG TAB PO SCH ×2 (08:14→21:00)
[2017-04-19] MEDS: FUROSEMIDE 20 MG/2 ML VIAL IV PUSH SCH ×2 (08:15→15:34)
[2017-04-19] MEDS: guaiFENesin E.R. 600 MG TAB PO SCH ×2 (08:15→21:00)
[2017-04-19] MEDS: PANTOPRAZOLE SODIUM 40 MG VIAL IVP SCH (08:16)
[2017-04-19] MEDS: MUPIROCIN 2% OINT 1 APPLIC/GM SYR NASAL SCH ×2 (08:16→21:00)
[2017-04-19] MEDS: methylPREDNISolone SOD SUCC 40 MG/1 ML VIAL IV PUSH SCH (08:16)
[2017-04-19] MEDS: PSYLLIUM FIBER SF/GF 6 GM POWD PKT PO SCH (08:20)
[2017-04-19] MEDS: SODIUM CHLORIDE 0.9% FLUSH 5 ML FLUSH IVF SCH ×2 (08:21→21:00)
--- NOTE | 2017-04-19 08:46 | HHI.PR ---
Subjective Remarks ALERT no SOB at rest COUGH , CONGESTION LESS Objective Vital Signs Date Time Temp Pulse Resp B/P Pulse Ox O2 Delivery O2 Flow Rate FiO2 04/19/17 04:00 97.3 86 18 124/60 95 04/19/17 00:00 96.7 85 18 118/59 96 04/18/17 20:49 96 Nasal Cannula 2.00 04/18/17 20:00 96.9 93 18 119/57 96 04/18/17 16:00 96.5 83 16 130/64 94 04/18/17 12:00 96.8 86 16 121/57 98 I/O 04/18/17 04/18/17 04/18/17 04/19/17 04/19/17 04/19/17 07:00 15:00 23:00 07:00 15:00 23:00 Intake Total 120 ml 180 ml 506 ml 530 ml Balance 120 ml 180 ml 506 ml 530 ml Intake Oral 120 ml 180 ml 240 ml 240 ml IV Total 266 ml 290 ml # Voids 1 2 3 2 # Bowel Movements 1 1 0 Result Diagram: 04/19/17 0556 04/19/17 0055 Objective Remarks Laboratory Tests Test 04/16/17 04/17/17 04/17/17 04/17/17 10:00 08:39 17:30 18:20 White Blood Count 12.4 TH/MM3 11.3 TH/MM3 (4.0-11.0) (4.0-11.0) Red Blood Count 3.62 MIL/MM3 3.47 MIL/MM3 (4.00-5.30) (4.00-5.30) Hemoglobin 9.7 GM/DL 9.2 GM/DL (11.6-15.3) (11.6-15.3) Hematocrit 29.7 % 28.1 % (35.0-46.0) (35.0-46.0) Mean Corpuscular Hemoglobin 26.7 PG 26.6 PG (27.0-34.0) (27.0-34.0) Platelet Count 684 TH/MM3 555 TH/MM3 (150-450) (150-450) Neutrophils (%) (Auto) 80.3 % (16.0-70.0) Neutrophils # (Auto) 10.0 TH/MM3 (1.8-7.7) Potassium Level 3.3 MEQ/L 3.1 MEQ/L (3.5-5.1) (3.5-5.1) Activated Partial 122.5 SEC Thromboplast Time (24.3-30.1) Blood Urea Nitrogen 19 MG/DL (7-18) Estimat Glomerular Filtration 54 ML/MIN (>89) Rate Random Glucose 193 MG/DL (74-106) Calcium Level 8.3 MG/DL (8.5-10.1) Albumin 1.9 GM/DL (3.4-5.0) Test 04/17/17 04/18/17 04/18/17 04/18/17 20:31 02:50 09:15 13:05 Activated Partial 32.2 SEC 37.2 SEC 35.9 SEC Thromboplast Time (24.3-30.1) (24.3-30.1) (24.3-30.1) Total Creatine Kinase 17 U/L (-192) Test 04/18/17 04/18/17 04/19/17 04/19/17 13:30 19:24 00:39 00:55 White Blood Count 12.7 TH/MM3 (4.0-11.0) Red Blood Count 3.69 MIL/MM3 (4.00-5.30) Hemoglobin 9.7 GM/DL (11.6-15.3) Hematocrit 30.4 % (35.0-46.0) Mean Corpuscular Hemoglobin 26.2 PG (27.0-34.0) Mean Corpuscular Hemoglobin 31.9 % Concent (32.0-36.0) Mean Platelet Volume 6.8 FL (7.0-11.0) Neutrophils (%) (Auto) 83.2 % (16.0-70.0) Neutrophils # (Auto) 10.5 TH/MM3 (1.8-7.7) Total Creatine Kinase 16 U/L (-192) 10 U/L (26-192) Activated Partial 38.3 SEC Thromboplast Time (24.3-30.1) Potassium Level 2.8 MEQ/L (3.5-5.1) Random Glucose 150 MG/DL (74-106) Calcium Level 8.4 MG/DL (8.5-10.1) Albumin 1.8 GM/DL (3.4-5.0) Test 04/19/17 05:56 Red Blood Count 3.49 MIL/MM3 (4.00-5.30) Hemoglobin 9.2 GM/DL (11.6-15.3) Hematocrit 28.7 % (35.0-46.0) Mean Corpuscular Hemoglobin 26.4 PG (27.0-34.0) Neutrophils (%) (Auto) 72.3 % (16.0-70.0) Prothrombin Time 11.7 SEC (9.8-11.6) Activated Partial 150.8 SEC Thromboplast Time (24.3-30.1) GENERAL: SKIN: Warm and dry. HEAD: Atraumatic. Normocephalic. EYES: Pupils equal and round. No scleral icterus. No injection or drainage. ENT: No nasal bleeding or discharge. Mucous membranes pink and moist. NECK: Trachea midline. No JVD. CARDIOVASCULAR: Regular rate and rhythm. RESPIRATORY: No accessory muscle use. Clear to auscultation. Breath sounds equal bilaterally. GASTROINTESTINAL: Abdomen soft, non-tender, nondistended. Hepatic and splenic margins not palpable. MUSCULOSKELETAL: Extremities without clubbing, cyanosis, or edema. No obvious deformities. NEUROLOGICAL: Awake and alert. No obvious cranial nerve deficits. Motor grossly within normal limits. Five out of 5 muscle strength in the arms and legs. Normal speech. PSYCHIATRIC: Appropriate mood and affect; insight and judgment normal. Assessment and Plan Assessment and Plan RESPIRATORY FAILURE PNEUMONIA , improving POST COLECTOMY DVT PLAN O2 NEEDED ANTIBIOTICS PLM TOILET ANTICOAGULATION Nataliia William MD April 19, 2017 08:46
[2017-04-19 09:26] LABS: APTT (PATIENT) 25.6 SEC (24.3-30.1)
--- NOTE | 2017-04-19 09:33 | HHI.PR ---
Subjective Remarks POD #13 lap TANISHA, open ascending colectomy epigastric pain almost gone breathing comfortably Objective Vital Signs Date Time Temp Pulse Resp B/P Pulse Ox O2 Delivery O2 Flow Rate FiO2 04/19/17 08:00 97.4 84 16 138/65 95 04/19/17 04:00 97.3 86 18 124/60 95 04/19/17 00:00 96.7 85 18 118/59 96 04/18/17 20:49 96 Nasal Cannula 2.00 04/18/17 20:00 96.9 93 18 119/57 96 04/18/17 16:00 96.5 83 16 130/64 94 04/18/17 12:00 96.8 86 16 121/57 98 I/O 04/18/17 04/18/17 04/18/17 04/19/17 04/19/17 04/19/17 07:00 15:00 23:00 07:00 15:00 23:00 Intake Total 120 ml 180 ml 506 ml 530 ml Balance 120 ml 180 ml 506 ml 530 ml Intake Oral 120 ml 180 ml 240 ml 240 ml IV Total 266 ml 290 ml # Voids 1 2 3 2 # Bowel Movements 1 1 0 Result Diagram: 04/19/17 0556 04/19/17 0055 Objective Remarks Abdomen soft, nondistended, wound clean Assessment and Plan Assessment and Plan Suspect pain related to gas/bowel colic ?Cavitary lesions on lung? Await input from Dr. Arriaga and Dr. William Per PCP, CT Chest at [facility] in 09/12 did not show this finding, so this is new Colleen Plummer MD April 19, 2017 09:33
[2017-04-19] MEDS: HEPARIN-D5W INJ 250 ML IV SCH (09:54)
--- NOTE | 2017-04-19 10:36 | HHI.PR ---
Subjective Remarks Follow up chest pain, hypokalemia. Patient states that her chest pain has resolved. Denies abdominal pain. No nausea or vomiting. Denies shortness of breath. Objective Vitals Vital Signs Date Time Temp Pulse Resp B/P Pulse Ox O2 Delivery O2 Flow Rate FiO2 04/19/17 08:15 Nasal Cannula 2.00 04/19/17 08:00 97.4 84 16 138/65 95 04/19/17 04:00 97.3 86 18 124/60 95 04/19/17 00:00 96.7 85 18 118/59 96 04/18/17 20:49 96 Nasal Cannula 2.00 04/18/17 20:00 96.9 93 18 119/57 96 04/18/17 16:00 96.5 83 16 130/64 94 04/18/17 12:00 96.8 86 16 121/57 98 I/O 04/18/17 04/18/17 04/18/17 04/19/17 04/19/17 04/19/17 07:00 15:00 23:00 07:00 15:00 23:00 Intake Total 120 ml 180 ml 506 ml 530 ml Balance 120 ml 180 ml 506 ml 530 ml Intake Oral 120 ml 180 ml 240 ml 240 ml IV Total 266 ml 290 ml # Voids 1 2 3 2 # Bowel Movements 1 1 0 Result Diagram: 04/19/17 0556 04/19/17 0055 Imaging Last Impressions Chest X-Ray 04/18/17 0600 Signed Impressions: Service Date/Time: Tuesday, April 18, 2017 05:56 - CONCLUSION: Improvement in aeration of the lungs. KPasquale Pablo MD CT Angiography 04/18/17 0000 Signed Impressions: Service Date/Time: Tuesday, April 18, 2017 13:43 - CONCLUSION: 1. No evidence of pulmonary embolism. 2. Multiple masslike cavitary areas in the right lower lobe which are nonspecific and could represent necrotic lung or fungal infections. 3. Small right pleural effusion. Dustin Brasher MD Abdomen/Pelvis CT 04/18/17 0000 Signed Impressions: Service Date/Time: Tuesday, April 18, 2017 13:47 - CONCLUSION: 1. Middle decrease in the amount of fluid in the pelvis with small amount of fluid remaining. 2. Nonspecific, nonobstructed bowel gas pattern again noted which is mildly improved as well. Postsurgical changes are noted. 3. Benign cystic structure in the spleen. 4. Small pleural effusions and consolidation in the lung bases. Dustin Brasher MD Lower Extremity Ultrasound 04/17/17 0000 Signed Impressions: Service Date/Time: Monday, April 17, 2017 00:50 - CONCLUSION: 1. Positive right lower extremity deep venous thrombosis as above. Negative left lower extremity for DVT. Austen Osei MD Objective Remarks General: Elderly female in no acute distress. Heart: Regular rate and rhythm. No murmur. Lungs: Clear to auscultation bilaterally. No wheezes, rales, or rhonchi. Breathing is nonlabored. Abdomen: Soft, nontender, nondistended. Extremities: No lower extremity edema. No calf tenderness. Psych: Alert and oriented. Procedures 03/25/17 laparoscopic extensive lysis of adhesions; open ascending colectomy; flexible sigmoidoscopy Urinary Catheter: No Vascular Central Line Catheter: No A/P Problem List: (1) Chest pain ICD Code: R07.9 Status: Resolved (2) Leukocytosis ICD Code: D72.829 Status: Resolved (3) Hypokalemia ICD Code: E87.6 Status: Acute (4) Hypoxia ICD Code: R09.02 Status: Acute (5) COPD (chronic obstructive pulmonary disease) ICD Code: J44.9 Status: Chronic (6) Hypertension ICD Code: I10 Status: Chronic Assessment and Plan 1. Chest pain: Resolved. CTA was negative for pulmonary embolism. Hemoglobin was stable. Serial cardiac enzymes are negative. 2. DVT, RLE: Continue heparin drip, Coumadin. Monitor INR. 3. Colon cancer management for colorectal surgery. 4. COPD: Appreciate pulmonology recommendations. Patient is chronically on 2 L of oxygen. 5. Healthcare associated pneumonia: Appreciate infectious disease recommendations. Continue antibiotics. 6. Hypertension: Continue current medications. Blood pressure is well controlled. 7. GI prophylaxis: PPI. 8. Hypokalemia: Supplement potassium. Recheck labs this afternoon and in the morning. 9. Abnormal chest CT: Multiple masslike cavitary areas in the right lower lobe. These are nonspecific and could represent necrotic lung or fungal infections. This was discussed with infectious disease. May need bronchoscopy. Les Waldron MD April 19, 2017 10:36
--- NOTE | 2017-04-19 13:50 | PD.CARD.PN ---
Subjective Subjective Remarks deneis chest pain, in nad, alert Objective Vital Signs / I&O Vital Signs Date Time Temp Pulse Resp B/P Pulse Ox O2 Delivery O2 Flow Rate FiO2 04/19/17 12:00 98.1 88 17 136/68 95 04/19/17 08:15 Nasal Cannula 2.00 04/19/17 08:00 97.4 84 16 138/65 95 04/19/17 04:00 97.3 86 18 124/60 95 04/19/17 00:00 96.7 85 18 118/59 96 04/18/17 20:49 96 Nasal Cannula 2.00 04/18/17 20:00 96.9 93 18 119/57 96 04/18/17 16:00 96.5 83 16 130/64 94 I/O 04/18/17 04/18/17 04/18/17 04/19/17 04/19/17 04/19/17 07:00 15:00 23:00 07:00 15:00 23:00 Intake Total 120 ml 180 ml 506 ml 530 ml Balance 120 ml 180 ml 506 ml 530 ml Intake Oral 120 ml 180 ml 240 ml 240 ml IV Total 266 ml 290 ml # Voids 1 2 3 2 # Bowel Movements 1 1 0 Physical Exam GENERAL: SKIN: Warm and dry. HEAD: Normocephalic. EYES: No scleral icterus. No injection or drainage. NECK: Supple, trachea midline. No JVD or lymphadenopathy. CARDIOVASCULAR: Regular rate and rhythm without murmurs, gallops, or rubs. RESPIRATORY: Breath sounds equal bilaterally. No accessory muscle use. GASTROINTESTINAL: Abdomen soft, non-tender, nondistended. MUSCULOSKELETAL: No cyanosis, or edema. BACK: Nontender without obvious deformity. No CVA tenderness. Laboratory Laboratory Tests Test 04/18/17 04/19/17 04/19/17 04/19/17 19:24 00:39 00:55 05:56 Total Creatine Kinase 16 U/L 10 U/L Troponin I 0.03 NG/ML 0.02 NG/ML Activated Partial 38.3 SEC 150.8 SEC Thromboplast Time Sodium Level 139 MEQ/L Potassium Level 2.8 MEQ/L Chloride Level 103 MEQ/L Carbon Dioxide Level 25.6 MEQ/L Anion Gap 10 MEQ/L Blood Urea Nitrogen 16 MG/DL Creatinine 0.58 MG/DL Estimat Glomerular Filtration 100 ML/MIN Rate Random Glucose 150 MG/DL Calcium Level 8.4 MG/DL Total Bilirubin 0.3 MG/DL Aspartate Amino Transf 16 U/L (AST/SGOT) Alanine Aminotransferase 12 U/L (ALT/SGPT) Alkaline Phosphatase 104 U/L Total Protein 6.5 GM/DL Albumin 1.8 GM/DL Lipase 152 U/L White Blood Count 10.6 TH/MM3 Red Blood Count 3.49 MIL/MM3 Hemoglobin 9.2 GM/DL Hematocrit 28.7 % Mean Corpuscular Volume 82.3 FL Mean Corpuscular Hemoglobin 26.4 PG Mean Corpuscular Hemoglobin 32.1 % Concent Red Cell Distribution Width 17.2 % Platelet Count 346 TH/MM3 Mean Platelet Volume 7.0 FL Neutrophils (%) (Auto) 72.3 % Lymphocytes (%) (Auto) 20.6 % Monocytes (%) (Auto) 4.6 % Eosinophils (%) (Auto) 1.3 % Basophils (%) (Auto) 1.2 % Neutrophils # (Auto) 7.7 TH/MM3 Lymphocytes # (Auto) 2.2 TH/MM3 Monocytes # (Auto) 0.5 TH/MM3 Eosinophils # (Auto) 0.1 TH/MM3 Basophils # (Auto) 0.1 TH/MM3 CBC Comment DIFF FINAL Differential Comment Prothrombin Time 11.7 SEC Prothromb Time International 1.1 RATIO Ratio Test 04/19/17 09:03 Activated Partial 25.6 SEC Thromboplast Time Assessment and Plan Problem List: (1) Anemia (2) Angina at rest (3) CAD (coronary artery disease) (4) Hypoxia Assessment and Plan 1.) chest pain -repeat trop neg x 3, stat cbc, cta chest neg for pe, suspect chest pain due to pneumonia 2.) Hypoxia due to pneumonia/copd, f/u pulm rec, hypoxia improved on less O2 3.) DVT - on heparin, f/u cbc Problem Qualifiers (1) Anemia: Mikael Rodriguez MD April 19, 2017 13:50
--- NOTE | 2017-04-19 15:12 | HHI.IDPN ---
Subjective Subjective Remarks Chart reviewed is an 81 y/o WF with PMHx of COPD, chronic tobacco use, CAD. Patient recently underwent an ascending colectomy for colon cancer on 03/25/[address] Colleen Plummer. She had laparoscopic extensive lysis of adhesions, open ascending colectomy and flexible sigmoidoscopy, estimated blood loss of 100 mL. Yesterday, the patient developed chest pain, hypoxia requiring a 100% non- rebreather. Hemoglobin has dropped as low as 8.4. Troponin are negative x3. EKG does not show any ischemic changes. The patient appears very pale at the bedside, still having active chest pain which is improved after a nitro drip. Otherwise denies any fevers, chills, cough, bleeding, PND, or orthopnea. Patient was transferred to the ICU for resp distress. Overnight events reviewed. Afebrile Not SOB Still c/o SOB. Eating better now. No witnessed aspiration. No rash WBC better Antibiotics Zosyn IV Zyvox oral. Lines Line sites with no e.o infection. Past Medical History reviewed Allergies: Coded Allergies: *MDRO Multi-Drug Resistant Organism (Verified Adverse Reaction, Unknown, ) MRSA PCR Screen POSITIVE - 04/02/2017 Objective . Vital Signs Date Time Temp Pulse Resp B/P Pulse Ox O2 Delivery O2 Flow Rate FiO2 04/19/17 14:03 94 Nasal Cannula 2.00 04/19/17 12:00 98.1 88 17 136/68 95 04/19/17 08:15 Nasal Cannula 2.00 04/19/17 08:00 97.4 84 16 138/65 95 04/19/17 04:00 97.3 86 18 124/60 95 04/19/17 00:00 96.7 85 18 118/59 96 04/18/17 20:49 96 Nasal Cannula 2.00 04/18/17 20:00 96.9 93 18 119/57 96 04/18/17 16:00 96.5 83 16 130/64 94 04/18/17 04/18/17 04/19/17 15:00 23:00 07:00 Intake Total 180 ml 506 ml 530 ml Balance 180 ml 506 ml 530 ml Intake Oral 180 ml 240 ml 240 ml IV Total 266 ml 290 ml # Voids 2 3 2 # Bowel Movements 1 1 0 . Laboratory Tests Test 04/18/17 04/19/17 13:30 05:56 White Blood Count 12.7 TH/MM3 10.6 TH/MM3 Red Blood Count 3.69 MIL/MM3 3.49 MIL/MM3 Hemoglobin 9.7 GM/DL 9.2 GM/DL Hematocrit 30.4 % 28.7 % Mean Corpuscular Volume 82.2 FL 82.3 FL Mean Corpuscular Hemoglobin 26.2 PG 26.4 PG Mean Corpuscular Hemoglobin 31.9 % 32.1 % Concent Red Cell Distribution Width 16.9 % 17.2 % Platelet Count 422 TH/MM3 346 TH/MM3 Mean Platelet Volume 6.8 FL 7.0 FL Neutrophils (%) (Auto) 83.2 % 72.3 % Lymphocytes (%) (Auto) 11.0 % 20.6 % Monocytes (%) (Auto) 4.2 % 4.6 % Eosinophils (%) (Auto) 0.7 % 1.3 % Basophils (%) (Auto) 0.9 % 1.2 % Neutrophils # (Auto) 10.5 TH/MM3 7.7 TH/MM3 Lymphocytes # (Auto) 1.4 TH/MM3 2.2 TH/MM3 Monocytes # (Auto) 0.5 TH/MM3 0.5 TH/MM3 Eosinophils # (Auto) 0.1 TH/MM3 0.1 TH/MM3 Basophils # (Auto) 0.1 TH/MM3 0.1 TH/MM3 CBC Comment DIFF FINAL DIFF FINAL Differential Comment Laboratory Tests Test 04/17/17 04/18/17 04/18/17 04/19/17 18:20 13:05 19:24 00:55 Sodium Level 136 MEQ/L 139 MEQ/L Potassium Level 3.1 MEQ/L 2.8 MEQ/L Chloride Level 98 MEQ/L 103 MEQ/L Carbon Dioxide Level 25.2 MEQ/L 25.6 MEQ/L Anion Gap 13 MEQ/L 10 MEQ/L Blood Urea Nitrogen 19 MG/DL 16 MG/DL Creatinine 0.98 MG/DL 0.58 MG/DL Estimat Glomerular Filtration 54 ML/MIN 100 ML/MIN Rate Random Glucose 193 MG/DL 150 MG/DL Calcium Level 8.3 MG/DL 8.4 MG/DL Total Bilirubin 0.3 MG/DL 0.3 MG/DL Aspartate Amino Transf 22 U/L 16 U/L (AST/SGOT) Alanine Aminotransferase 13 U/L 12 U/L (ALT/SGPT) Alkaline Phosphatase 117 U/L 104 U/L Total Protein 7.5 GM/DL 6.5 GM/DL Albumin 1.9 GM/DL 1.8 GM/DL Procalcitonin 0.11 ng/mL Total Creatine Kinase 17 U/L 16 U/L 10 U/L Troponin I 0.02 NG/ML 0.03 NG/ML 0.02 NG/ML Lipase 152 U/L Imaging Last Impressions Chest X-Ray 04/02/17 Signed Impressions: Service Date/Time: Sunday, April 02, 2017 04:14 - CONCLUSION: 1. Worsening patchy airspace disease throughout the right lung. 2. Minimal left basilar atelectasis. 3. Cardiomegaly. Asher Gottlieb MD CT Angiography 04/02/17 Signed Impressions: Service Date/Time: Sunday, April 02, 2017 15:47 - CONCLUSION: 1. Negative for pulmonary embolus. Dense consolidation in the right lung especially posteriorly most characteristic of a large pneumonia. There is also partially loculated small to moderate right pleural effusion and right basilar atelectasis. On the left side there is a small pleural effusion and left basilar atelectasis. Austen Osei MD Abdomen/Pelvis CT 04/02/17 Signed Impressions: Service Date/Time: Sunday, April 02, 2017 15:47 - CONCLUSION: 1. 8.2 x 4.2 cm fluid collection in the deep posterior pelvis, probably mildly complex free fluid. No loculated air to suggest abscess. 2. Colonic diverticulosis without diverticulitis. Postoperative cholecystectomy and partial right bowel resection. Dense consolidation at the lung bases, right greater than left bilateral effusions. Austen Osei MD Physical Exam GENERAL: Awake and alert, not in distress SKIN: No rashes, ecchymoses or lesions. Cool and dry. HEAD: Atraumatic. Normocephalic. No temporal or scalp tenderness. EYES: Pupils equal round and reactive. Extraocular motions intact. No scleral icterus. No injection or drainage. ENT: Nose without bleeding, purulent drainage or septal hematoma. Throat without erythema, or exudate. . NECK: Trachea midline. Supple, nontender, no meningeal signs. CARDIOVASCULAR: Regular rate and rhythm without murmurs. RESPIRATORY: clear to auscultation. Decreased at bases GASTROINTESTINAL: Abdomen soft, non-tender, not distended. Incision clean, dry MUSCULOSKELETAL: Bilateral knees surgical scar is intact. NEUROLOGICAL: Awake and alert. Grossly nonfocal Psych cooperative IV line sites with no evidence of infection. Assessment & Plan Remarks Sepsis Cavitatory pneumonia ? aspiration related vs MRSA vs Health care organisms ? resistant. Acute respiratory failure on 100% nonrebreather- resolved - on NC O2 now Ascending colectomy for colon cancer on 03/25/2017 ? IA abscess or sepsis/ peritonitis High grade leucocytosis. Better COPD exacerbation acute CAD Recs Continue Zosyn IV Continue oral zyvox D/w and : bronchoscopy (diagnostic and therapeutic). d.w patient in presence of RN. Patient would like to discuss with her family. RN to call me if patients family has questions about the need. Other questions to be answered by about bronchoscopy consent and risks etc. Zee Arriaga MD April 19, 2017 15:12
[2017-04-19] MEDS: WARFARIN SOD 2.5 MG TAB PO SCH (15:34)
--- NOTE | 2017-04-19 15:41 | EKG ---
Date Performed: 04/18/2017 Time Performed: 12:53:27 PTAGE: 81 years EKG: Sinus rhythm RIGHT BUNDLE BRANCH BLOCK LEFT ANTERIOR FASCICULAR BLOCK ABNORMAL ECG Compared to prior tracing no s ignificant change PREVIOUS TRACING : 03/31/2017 16.10 DOCTOR: Demar Gross Interpretating Date/Time 04/19/2017 15:41:01
--- NOTE | 2017-04-19 15:42 | EKG ---
Date Performed: 04/18/2017 Time Performed: 20:50:47 PTAGE: 81 years EKG: Sinus rhythm RIGHT BUNDLE BRANCH BLOCK LEFT ANTERIOR FASCICULAR BLOCK ABNORMAL ECG Compared to prior tracing no s ignificant change PREVIOUS TRACING : 04/18/2017 12.53 DOCTOR: Demar Gross Interpretating Date/Time 04/19/2017 15:41:10
--- NOTE | 2017-04-19 15:42 | EKG ---
Date Performed: 04/19/2017 Time Performed: 00:47:08 PTAGE: 81 years EKG: Sinus rhythm . Left axis deviation RBBB with left anterior fascicular block Possible anterior infarct - age undete rmined Low QRS voltages in precordial leads Abnormal ECG NO PREVIOUS TRACING DOCTOR: Demar Gross Interpretating Date/Time 04/19/2017 15:41:17
[2017-04-19 16:04] LABS: APTT (PATIENT) 56.5 SEC (24.3-30.1)
[2017-04-19 16:52] LABS: BICARBONATE 26.3 MEQ/L (21.0-32.0)
[2017-04-19 23:25] LABS: APTT (PATIENT) 30.6 SEC (24.3-30.1)
[2017-04-20] VITALS: BP 127/58; PULSE 90; RESP 20; TEMP 96.4; O2SAT 95
[2017-04-20] MEDS: PIPERACIL-TAZO 4.5 GM PREMIX 100 ML IV SCH ×5 (00:17→21:57)
[2017-04-20] MEDS: ACETAMINOPHEN/HYDROcodone 325 MG/5 MG TAB PO PRN ×2 (00:26→22:01)
[2017-04-20 04:00] VITALS: BP 119/56; PULSE 88; RESP 22; TEMP 96.5; O2SAT 95
[2017-04-20] MEDS: NYSTATIN 100,000 U/GM PWD 15 GM BTL TOPICAL SCH ×2 (05:00→17:00)
[2017-04-20] MEDS: NITROGLYCERIN 2% OINT 1 GM PACKET TOPICAL SCH ×3 (06:00→20:31)
--- NOTE | 2017-04-20 07:29 | HHI.PR ---
Subjective Remarks POD #14 lap TANISHA, open ascending colectomy comfortable, wants to get out of hospital Objective Vital Signs Date Time Temp Pulse Resp B/P Pulse Ox O2 Delivery O2 Flow Rate FiO2 04/20/17 04:00 96.5 88 22 119/56 95 04/20/17 00:00 96.4 90 20 127/58 95 04/19/17 20:47 95 Nasal Cannula 2.00 04/19/17 20:00 96.7 91 22 117/58 97 04/19/17 16:00 97.3 82 17 135/68 95 04/19/17 14:03 94 Nasal Cannula 2.00 04/19/17 12:00 98.1 88 17 136/68 95 04/19/17 08:15 Nasal Cannula 2.00 04/19/17 08:00 97.4 84 16 138/65 95 I/O 04/19/17 04/19/17 04/19/17 04/20/17 04/20/17 04/20/17 07:00 15:00 23:00 07:00 15:00 23:00 Intake Total 530 ml 120 ml 240 ml 0 ml Balance 530 ml 120 ml 240 ml 0 ml Intake Oral 240 ml 120 ml 240 ml 0 ml IV Total 290 ml # Voids 2 3 2 3 # Bowel Movements 0 0 1 0 Result Diagram: 04/19/17 0556 04/19/17 1539 Objective Remarks Abdomen soft, nondistended, wound clean Assessment and Plan Assessment and Plan Plan for Bronchoscopy today to determine appropriate antibiotic regimen Colleen Plummer MD April 20, 2017 07:29
[2017-04-20 08:00] VITALS: BP 115/58; PULSE 83; RESP 16; TEMP 97.3; O2SAT 97
[2017-04-20] MEDS: methylPREDNISolone SOD SUCC 40 MG/1 ML VIAL IV PUSH SCH (08:16)
[2017-04-20] MEDS: VALSARTAN 160 MG TAB PO SCH (08:16)
[2017-04-20] MEDS: FUROSEMIDE 20 MG/2 ML VIAL IV PUSH SCH ×2 (08:16→17:47)
[2017-04-20] MEDS: MEGESTROL ACETATE 40 MG TAB PO SCH (08:16)
[2017-04-20] MEDS: POTASSIUM CHLORIDE 10 MEQ CONTROLLED RELEASE TAB PO SCH ×2 (08:16→19:38)
[2017-04-20] MEDS: guaiFENesin E.R. 600 MG TAB PO SCH ×2 (08:16→19:38)
[2017-04-20] MEDS: LINEZOLID 600 MG TAB PO SCH ×2 (08:16→19:38)
[2017-04-20] MEDS: PSYLLIUM FIBER SF/GF 6 GM POWD PKT PO SCH (08:16)
[2017-04-20] MEDS: MUPIROCIN 2% OINT 1 APPLIC/GM SYR NASAL SCH ×2 (08:16→19:38)
[2017-04-20] MEDS: PANTOPRAZOLE SODIUM 40 MG VIAL IVP SCH (08:17)
[2017-04-20] MEDS: SODIUM CHLORIDE 0.9% FLUSH 10 ML FLUSH IV FLUSH SCH (08:17)
[2017-04-20] MEDS: SODIUM CHLORIDE 0.9% FLUSH 5 ML FLUSH IVF SCH ×2 (08:17→19:38)
[2017-04-20 09:41] LABS: AUTOMATED NEUTROPHIL # 9.3 TH/MM3 (1.8-7.7); BASOPHIL # 0.1 TH/MM3 (0-0.2); BASOPHIL % 1.1 % (0.0-2.0); EOSINOPHIL # 0.1 TH/MM3 (0-0.4); HEMATOCRIT 28.5 % (35.0-46.0); HEMO FLAGS DIFF FINAL; LYMPHOCYTE # 1.5 TH/MM3 (1.0-4.8); MEAN CELL VOLUME 82.5 FL (80.0-100.0); MEAN CORPUSCULAR HEMOGLOBIN 26.6 PG (27.0-34.0); MEAN CORPUSCULAR HGB CONC 32.3 % (32.0-36.0); MONO % 3.1 % (0.0-8.0); NEUT % 81.8 % (16.0-70.0); PLATELET COUNT 281 TH/MM3 (150-450); RED BLOOD COUNT 3.46 MIL/MM3 (4.00-5.30); RED CELL DISTRIBUTION WIDTH 17.9 % (11.6-17.2); WHITE BLOOD COUNT 11.3 TH/MM3 (4.0-11.0)
[2017-04-20 09:51] LABS: INTERNATIONAL NORMALIZED RATIO 1.1 RATIO; PROTHROMBIN TIME - PATIENT 11.8 SEC (9.8-11.6)
[2017-04-20 09:54] LABS: APTT (PATIENT) 26.5 SEC (24.3-30.1)
--- NOTE | 2017-04-20 10:22 | HHI.PR ---
Subjective Remarks Follow-up DVT, pneumonia. Patient is scheduled for bronchoscopy at 3:30 this afternoon. Per pulmonology, stop heparin drip 4 hours prior to procedure. Patient denies chest pain or dyspnea. Denies nausea or vomiting. Objective Vitals Vital Signs Date Time Temp Pulse Resp B/P Pulse Ox O2 Delivery O2 Flow Rate FiO2 04/20/17 08:00 97.3 83 16 115/58 97 04/20/17 04:00 96.5 88 22 119/56 95 04/20/17 00:00 96.4 90 20 127/58 95 04/19/17 20:47 95 Nasal Cannula 2.00 04/19/17 20:00 96.7 91 22 117/58 97 04/19/17 16:00 97.3 82 17 135/68 95 04/19/17 14:03 94 Nasal Cannula 2.00 04/19/17 12:00 98.1 88 17 136/68 95 I/O 04/19/17 04/19/17 04/19/17 04/20/17 04/20/17 04/20/17 07:00 15:00 23:00 07:00 15:00 23:00 Intake Total 530 ml 120 ml 240 ml 0 ml Balance 530 ml 120 ml 240 ml 0 ml Intake Oral 240 ml 120 ml 240 ml 0 ml IV Total 290 ml # Voids 2 3 2 3 # Bowel Movements 0 0 1 0 Result Diagram: 04/20/17 0930 04/19/17 1539 Imaging Last Impressions Chest X-Ray 04/18/17 0600 Signed Impressions: Service Date/Time: Tuesday, April 18, 2017 05:56 - CONCLUSION: Improvement in aeration of the lungs. Ruth Pablo MD CT Angiography 04/18/17 0000 Signed Impressions: Service Date/Time: Tuesday, April 18, 2017 13:43 - CONCLUSION: 1. No evidence of pulmonary embolism. 2. Multiple masslike cavitary areas in the right lower lobe which are nonspecific and could represent necrotic lung or fungal infections. 3. Small right pleural effusion. Dustin Brasher MD Abdomen/Pelvis CT 04/18/17 0000 Signed Impressions: Service Date/Time: Tuesday, April 18, 2017 13:47 - CONCLUSION: 1. Middle decrease in the amount of fluid in the pelvis with small amount of fluid remaining. 2. Nonspecific, nonobstructed bowel gas pattern again noted which is mildly improved as well. Postsurgical changes are noted. 3. Benign cystic structure in the spleen. 4. Small pleural effusions and consolidation in the lung bases. Dustin Brasher MD Lower Extremity Ultrasound 04/17/17 0000 Signed Impressions: Service Date/Time: Monday, April 17, 2017 00:50 - CONCLUSION: 1. Positive right lower extremity deep venous thrombosis as above. Negative left lower extremity for DVT. Austen Osei MD Objective Remarks General: Elderly female in no acute distress. Heart: Regular rate and rhythm. No murmur. Lungs: Clear to auscultation bilaterally. No wheezes, rales, or rhonchi. Breathing is nonlabored. Abdomen: Soft, nontender, nondistended. Extremities: No lower extremity edema. No calf tenderness. Psych: Alert and oriented. Procedures 03/25/17 laparoscopic extensive lysis of adhesions; open ascending colectomy; flexible sigmoidoscopy Urinary Catheter: No Vascular Central Line Catheter: No A/P Problem List: (1) Chest pain ICD Code: R07.9 Status: Resolved (2) Leukocytosis ICD Code: D72.829 Status: Resolved (3) Hypokalemia ICD Code: E87.6 Status: Acute (4) Hypoxia ICD Code: R09.02 Status: Acute (5) COPD (chronic obstructive pulmonary disease) ICD Code: J44.9 Status: Chronic (6) Hypertension ICD Code: I10 Status: Chronic Assessment and Plan 1. Chest pain: Resolved. CTA was negative for pulmonary embolism. Hemoglobin was stable. Serial cardiac enzymes are negative. Likely secondary to gas pain. 2. DVT, RLE: Continue heparin drip, Coumadin. Monitor INR. Heparin drip will be on hold today for procedure. 3. Colon cancer management for colorectal surgery. 4. COPD: Appreciate pulmonology recommendations. Patient is chronically on 2 L of oxygen. 5. Healthcare associated pneumonia: Appreciate infectious disease recommendations. Continue antibiotics. 6. Hypertension: Continue current medications. Blood pressure is well controlled. 7. GI prophylaxis: PPI. 8. Hypokalemia: Improved yesterday after supplementation. Labs are pending this morning. 9. Abnormal chest CT: Multiple masslike cavitary areas in the right lower lobe. These are nonspecific and could represent necrotic lung or fungal infections. Scheduled for bronchoscopy this afternoon. Les Waldron MD April 20, 2017 10:21
[2017-04-20 10:23] LABS: BICARBONATE 25.9 MEQ/L (21.0-32.0); MAGNESIUM 1.6 MG/DL (1.5-2.5); POTASSIUM 3.6 MEQ/L (3.5-5.1)
[2017-04-20 12:00] VITALS: BP 117/63; PULSE 85; RESP 17; TEMP 97.7; O2SAT 98
--- NOTE | 2017-04-20 13:08 | PD.CARD.PN ---
Subjective Subjective Remarks alert in nad Objective Vital Signs / I&O Vital Signs Date Time Temp Pulse Resp B/P Pulse Ox O2 Delivery O2 Flow Rate FiO2 04/20/17 12:00 97.7 85 17 117/63 98 04/20/17 08:00 97.3 83 16 115/58 97 04/20/17 04:00 96.5 88 22 119/56 95 04/20/17 00:00 96.4 90 20 127/58 95 04/19/17 20:47 95 Nasal Cannula 2.00 04/19/17 20:00 96.7 91 22 117/58 97 04/19/17 16:00 97.3 82 17 135/68 95 04/19/17 14:03 94 Nasal Cannula 2.00 I/O 04/19/17 04/19/17 04/19/17 04/20/17 04/20/17 04/20/17 07:00 15:00 23:00 07:00 15:00 23:00 Intake Total 530 ml 120 ml 240 ml 0 ml Balance 530 ml 120 ml 240 ml 0 ml Intake Oral 240 ml 120 ml 240 ml 0 ml IV Total 290 ml # Voids 2 3 2 3 # Bowel Movements 0 0 1 0 Physical Exam GENERAL: SKIN: Warm and dry. HEAD: Normocephalic. EYES: No scleral icterus. No injection or drainage. NECK: Supple, trachea midline. No JVD or lymphadenopathy. CARDIOVASCULAR: Regular rate and rhythm without murmurs, gallops, or rubs. RESPIRATORY: Breath sounds equal bilaterally. No accessory muscle use. GASTROINTESTINAL: Abdomen soft, non-tender, nondistended. MUSCULOSKELETAL: No cyanosis, or edema. BACK: Nontender without obvious deformity. No CVA tenderness. Laboratory Laboratory Tests Test 04/19/17 04/19/17 04/20/17 15:39 22:10 09:30 Activated Partial 56.5 SEC 30.6 SEC 26.5 SEC Thromboplast Time Sodium Level 141 MEQ/L 141 MEQ/L Potassium Level 4.0 MEQ/L 3.6 MEQ/L Chloride Level 105 MEQ/L 107 MEQ/L Carbon Dioxide Level 26.3 MEQ/L 25.9 MEQ/L Anion Gap 10 MEQ/L 8 MEQ/L Blood Urea Nitrogen 17 MG/DL 18 MG/DL Creatinine 0.75 MG/DL 0.67 MG/DL Estimat Glomerular Filtration 74 ML/MIN 84 ML/MIN Rate Random Glucose 184 MG/DL 105 MG/DL Calcium Level 9.3 MG/DL 8.8 MG/DL White Blood Count 11.3 TH/MM3 Red Blood Count 3.46 MIL/MM3 Hemoglobin 9.2 GM/DL Hematocrit 28.5 % Mean Corpuscular Volume 82.5 FL Mean Corpuscular Hemoglobin 26.6 PG Mean Corpuscular Hemoglobin 32.3 % Concent Red Cell Distribution Width 17.9 % Platelet Count 281 TH/MM3 Mean Platelet Volume 6.9 FL Neutrophils (%) (Auto) 81.8 % Lymphocytes (%) (Auto) 13.0 % Monocytes (%) (Auto) 3.1 % Eosinophils (%) (Auto) 1.0 % Basophils (%) (Auto) 1.1 % Neutrophils # (Auto) 9.3 TH/MM3 Lymphocytes # (Auto) 1.5 TH/MM3 Monocytes # (Auto) 0.4 TH/MM3 Eosinophils # (Auto) 0.1 TH/MM3 Basophils # (Auto) 0.1 TH/MM3 CBC Comment DIFF FINAL Differential Comment Prothrombin Time 11.8 SEC Prothromb Time International 1.1 RATIO Ratio Magnesium Level 1.6 MG/DL Assessment and Plan Problem List: (1) Anemia (2) Angina at rest (3) CAD (coronary artery disease) (4) Hypoxia Assessment and Plan 1.) chest pain -repeat trop neg x 3, stat cbc, cta chest neg for pe, suspect chest pain due to pneumonia 2.) Hypoxia due to pneumonia/copd, f/u pulm rec, hypoxia improved on less O2 3.) DVT - on heparin, f/u cbc Problem Qualifiers (1) Anemia: Mikael Rodriguez MD April 20, 2017 13:08
[2017-04-20 13:57] VITALS: O2SAT 97
--- NOTE | 2017-04-20 15:06 | HHI.IDPN ---
Subjective Subjective Remarks Chart reviewed is an 81 y/o WF with PMHx of COPD, chronic tobacco use, CAD. Patient recently underwent an ascending colectomy for colon cancer on 03/25/[address] Colleen Plummer. She had laparoscopic extensive lysis of adhesions, open ascending colectomy and flexible sigmoidoscopy, estimated blood loss of 100 mL. Yesterday, the patient developed chest pain, hypoxia requiring a 100% non- rebreather. Hemoglobin has dropped as low as 8.4. Troponin are negative x3. EKG does not show any ischemic changes. The patient appears very pale at the bedside, still having active chest pain which is improved after a nitro drip. Otherwise denies any fevers, chills, cough, bleeding, PND, or orthopnea. Patient was transferred to the ICU for resp distress. delayed entry. Overnight events reviewed. Afebrile Not SOB No rash WBC better Sitting in a chair comfortable NPO for Bronchoscopy today. Antibiotics Zosyn IV Zyvox oral. Lines Line sites with no e.o infection. Past Medical History reviewed Allergies: Coded Allergies: *MDRO Multi-Drug Resistant Organism (Verified Adverse Reaction, Unknown, ) MRSA PCR Screen POSITIVE - 04/02/2017 Objective . Vital Signs Date Time Temp Pulse Resp B/P Pulse Ox O2 Delivery O2 Flow Rate FiO2 04/20/17 13:57 97 Nasal Cannula 2.00 04/20/17 12:00 97.7 85 17 117/63 98 04/20/17 08:00 97.3 83 16 115/58 97 04/20/17 04:00 96.5 88 22 119/56 95 04/20/17 00:00 96.4 90 20 127/58 95 04/19/17 20:47 95 Nasal Cannula 2.00 04/19/17 20:00 96.7 91 22 117/58 97 04/19/17 16:00 97.3 82 17 135/68 95 04/19/17 04/19/17 04/20/17 15:00 23:00 07:00 Intake Total 120 ml 240 ml 0 ml Balance 120 ml 240 ml 0 ml Intake Oral 120 ml 240 ml 0 ml # Voids 3 2 3 # Bowel Movements 0 1 0 . Laboratory Tests Test 04/19/17 04/20/17 05:56 09:30 White Blood Count 10.6 TH/MM3 11.3 TH/MM3 Red Blood Count 3.49 MIL/MM3 3.46 MIL/MM3 Hemoglobin 9.2 GM/DL 9.2 GM/DL Hematocrit 28.7 % 28.5 % Mean Corpuscular Volume 82.3 FL 82.5 FL Mean Corpuscular Hemoglobin 26.4 PG 26.6 PG Mean Corpuscular Hemoglobin 32.1 % 32.3 % Concent Red Cell Distribution Width 17.2 % 17.9 % Platelet Count 346 TH/MM3 281 TH/MM3 Mean Platelet Volume 7.0 FL 6.9 FL Neutrophils (%) (Auto) 72.3 % 81.8 % Lymphocytes (%) (Auto) 20.6 % 13.0 % Monocytes (%) (Auto) 4.6 % 3.1 % Eosinophils (%) (Auto) 1.3 % 1.0 % Basophils (%) (Auto) 1.2 % 1.1 % Neutrophils # (Auto) 7.7 TH/MM3 9.3 TH/MM3 Lymphocytes # (Auto) 2.2 TH/MM3 1.5 TH/MM3 Monocytes # (Auto) 0.5 TH/MM3 0.4 TH/MM3 Eosinophils # (Auto) 0.1 TH/MM3 0.1 TH/MM3 Basophils # (Auto) 0.1 TH/MM3 0.1 TH/MM3 CBC Comment DIFF FINAL DIFF FINAL Differential Comment Laboratory Tests Test 04/18/17 04/19/17 04/19/17 04/20/17 19:24 00:55 15:39 09:30 Total Creatine Kinase 16 U/L 10 U/L Troponin I 0.03 NG/ML 0.02 NG/ML Sodium Level 139 MEQ/L 141 MEQ/L 141 MEQ/L Potassium Level 2.8 MEQ/L 4.0 MEQ/L 3.6 MEQ/L Chloride Level 103 MEQ/L 105 MEQ/L 107 MEQ/L Carbon Dioxide Level 25.6 MEQ/L 26.3 MEQ/L 25.9 MEQ/L Anion Gap 10 MEQ/L 10 MEQ/L 8 MEQ/L Blood Urea Nitrogen 16 MG/DL 17 MG/DL 18 MG/DL Creatinine 0.58 MG/DL 0.75 MG/DL 0.67 MG/DL Estimat Glomerular Filtration 100 ML/MIN 74 ML/MIN 84 ML/MIN Rate Random Glucose 150 MG/DL 184 MG/DL 105 MG/DL Calcium Level 8.4 MG/DL 9.3 MG/DL 8.8 MG/DL Total Bilirubin 0.3 MG/DL Aspartate Amino Transf 16 U/L (AST/SGOT) Alanine Aminotransferase 12 U/L (ALT/SGPT) Alkaline Phosphatase 104 U/L Total Protein 6.5 GM/DL Albumin 1.8 GM/DL Lipase 152 U/L Magnesium Level 1.6 MG/DL Imaging Last Impressions Chest X-Ray 04/02/17 Signed Impressions: Service Date/Time: Sunday, April 02, 2017 04:14 - CONCLUSION: 1. Worsening patchy airspace disease throughout the right lung. 2. Minimal left basilar atelectasis. 3. Cardiomegaly. Asher Gottlieb MD CT Angiography 04/02/17 Signed Impressions: Service Date/Time: Sunday, April 02, 2017 15:47 - CONCLUSION: 1. Negative for pulmonary embolus. Dense consolidation in the right lung especially posteriorly most characteristic of a large pneumonia. There is also partially loculated small to moderate right pleural effusion and right basilar atelectasis. On the left side there is a small pleural effusion and left basilar atelectasis. Austen Osei MD Abdomen/Pelvis CT 04/02/17 Signed Impressions: Service Date/Time: Sunday, April 02, 2017 15:47 - CONCLUSION: 1. 8.2 x 4.2 cm fluid collection in the deep posterior pelvis, probably mildly complex free fluid. No loculated air to suggest abscess. 2. Colonic diverticulosis without diverticulitis. Postoperative cholecystectomy and partial right bowel resection. Dense consolidation at the lung bases, right greater than left bilateral effusions. Austen Osei MD Physical Exam GENERAL: Awake and alert, not in distress SKIN: No rashes, ecchymoses or lesions. Cool and dry. HEAD: Atraumatic. Normocephalic. No temporal or scalp tenderness. EYES: Pupils equal round and reactive. Extraocular motions intact. No scleral icterus. No injection or drainage. ENT: Nose without bleeding, purulent drainage or septal hematoma. Throat without erythema, or exudate. . NECK: Trachea midline. Supple, nontender, no meningeal signs. CARDIOVASCULAR: Regular rate and rhythm without murmurs. RESPIRATORY: clear to auscultation. Decreased at bases GASTROINTESTINAL: Abdomen soft, non-tender, not distended. Incision clean, dry MUSCULOSKELETAL: Bilateral knees surgical scar is intact. NEUROLOGICAL: Awake and alert. Grossly nonfocal Psych cooperative IV line sites with no evidence of infection. Assessment & Plan Remarks Sepsis Cavitatory pneumonia ? aspiration related vs MRSA vs Health care organisms ? resistant. Acute respiratory failure on 100% nonrebreather- resolved - on NC O2 now Ascending colectomy for colon cancer on 03/25/2017 ? IA abscess or sepsis/ peritonitis High grade leucocytosis. Better COPD exacerbation acute CAD Recs Continue Zosyn IV Continue oral zyvox Bronchoscopy (diagnostic and therapeutic) today. Bronch cultures. Zee Arriaga MD April 20, 2017 15:05
[2017-04-20] MEDS ORDERED: LIDOCAINE HCL 2% 50 ML VIAL ONE (15:22)
[2017-04-20] MEDS ORDERED: EPINEPHrine HCL (1:1000) 1 MG/ML VIAL ONE (15:23)
[2017-04-20] MEDS ORDERED: EPINEPHrine HCL (1:1000) 1 MG/ML VIAL OTHER ONE (16:00)
[2017-04-20] MEDS ORDERED: *RESP: ALBUTEROL 2.5 MG/3 ML NEB (PRN) PERIprocedural Use ONLY NEB ONE (16:27)
--- NOTE | 2017-04-20 16:39 | HHI.PR ---
Subjective Remarks ALERT no SOB at rest COUGH , CONGESTION difficulty raisig secreatin CT chest cavitation RLL Objective Vital Signs Date Time Temp Pulse Resp B/P Pulse Ox O2 Delivery O2 Flow Rate FiO2 04/20/17 13:57 97 Nasal Cannula 2.00 04/20/17 12:00 97.7 85 17 117/63 98 04/20/17 08:00 97.3 83 16 115/58 97 04/20/17 04:00 96.5 88 22 119/56 95 04/20/17 00:00 96.4 90 20 127/58 95 04/19/17 20:47 95 Nasal Cannula 2.00 04/19/17 20:00 96.7 91 22 117/58 97 I/O 04/19/17 04/19/17 04/19/17 04/20/17 04/20/17 04/20/17 07:00 15:00 23:00 07:00 15:00 23:00 Intake Total 530 ml 120 ml 240 ml 0 ml 240 ml Balance 530 ml 120 ml 240 ml 0 ml 240 ml Intake Oral 240 ml 120 ml 240 ml 0 ml 0 ml IV Total 290 ml 200 ml Other 40 ml # Voids 2 3 2 3 3 # Bowel Movements 0 0 1 0 2 Result Diagram: 04/20/17 0930 04/20/17 0930 Objective Remarks Laboratory Tests Test 04/16/17 04/17/17 04/17/17 04/17/17 10:00 08:39 17:30 18:20 White Blood Count 12.4 TH/MM3 11.3 TH/MM3 (4.0-11.0) (4.0-11.0) Red Blood Count 3.62 MIL/MM3 3.47 MIL/MM3 (4.00-5.30) (4.00-5.30) Hemoglobin 9.7 GM/DL 9.2 GM/DL (11.6-15.3) (11.6-15.3) Hematocrit 29.7 % 28.1 % (35.0-46.0) (35.0-46.0) Mean Corpuscular Hemoglobin 26.7 PG 26.6 PG (27.0-34.0) (27.0-34.0) Platelet Count 684 TH/MM3 555 TH/MM3 (150-450) (150-450) Neutrophils (%) (Auto) 80.3 % (16.0-70.0) Neutrophils # (Auto) 10.0 TH/MM3 (1.8-7.7) Potassium Level 3.3 MEQ/L 3.1 MEQ/L (3.5-5.1) (3.5-5.1) Activated Partial 122.5 SEC Thromboplast Time (24.3-30.1) Blood Urea Nitrogen 19 MG/DL (7-18) Estimat Glomerular Filtration 54 ML/MIN (>89) Rate Random Glucose 193 MG/DL (74-106) Calcium Level 8.3 MG/DL (8.5-10.1) Albumin 1.9 GM/DL (3.4-5.0) Test 04/17/17 04/18/17 04/18/17 04/18/17 20:31 02:50 09:15 13:05 Activated Partial 32.2 SEC 37.2 SEC 35.9 SEC Thromboplast Time (24.3-30.1) (24.3-30.1) (24.3-30.1) Total Creatine Kinase 17 U/L (26-192) Test 04/18/17 04/18/17 04/19/17 04/19/17 13:30 19:24 00:39 00:55 White Blood Count 12.7 TH/MM3 (4.0-11.0) Red Blood Count 3.69 MIL/MM3 (4.00-5.30) Hemoglobin 9.7 GM/DL (11.6-15.3) Hematocrit 30.4 % (35.0-46.0) Mean Corpuscular Hemoglobin 26.2 PG (27.0-34.0) Mean Corpuscular Hemoglobin 31.9 % Concent (32.0-36.0) Mean Platelet Volume 6.8 FL (7.0-11.0) Neutrophils (%) (Auto) 83.2 % (16.0-70.0) Neutrophils # (Auto) 10.5 TH/MM3 (1.8-7.7) Total Creatine Kinase 16 U/L (26-192) 10 U/L (26-192) Activated Partial 38.3 SEC Thromboplast Time (24.3-30.1) Potassium Level 2.8 MEQ/L (3.5-5.1) Random Glucose 150 MG/DL (74-106) Calcium Level 8.4 MG/DL (8.5-10.1) Albumin 1.8 GM/DL (3.4-5.0) Test 04/19/17 05:56 Red Blood Count 3.49 MIL/MM3 (4.00-5.30) Hemoglobin 9.2 GM/DL (11.6-15.3) Hematocrit 28.7 % (35.0-46.0) Mean Corpuscular Hemoglobin 26.4 PG (27.0-34.0) Neutrophils (%) (Auto) 72.3 % (16.0-70.0) Prothrombin Time 11.7 SEC (9.8-11.6) Activated Partial 150.8 SEC Thromboplast Time (24.3-30.1) GENERAL: SKIN: Warm and dry. HEAD: Atraumatic. Normocephalic. EYES: Pupils equal and round. No scleral icterus. No injection or drainage. ENT: No nasal bleeding or discharge. Mucous membranes pink and moist. NECK: Trachea midline. No JVD. CARDIOVASCULAR: Regular rate and rhythm. RESPIRATORY: No accessory muscle use. Clear to auscultation. Breath sounds equal bilaterally. GASTROINTESTINAL: Abdomen soft, non-tender, nondistended. Hepatic and splenic margins not palpable. MUSCULOSKELETAL: Extremities without clubbing, cyanosis, or edema. No obvious deformities. NEUROLOGICAL: Awake and alert. No obvious cranial nerve deficits. Motor grossly within normal limits. Five out of 5 muscle strength in the arms and legs. Normal speech. PSYCHIATRIC: Appropriate mood and affect; insight and judgment normal. Medications and IVs GENERAL: SKIN: Warm and dry. HEAD: Atraumatic. Normocephalic. EYES: Pupils equal and round. No scleral icterus. No injection or drainage. ENT: No nasal bleeding or discharge. Mucous membranes pink and moist. NECK: Trachea midline. No JVD. CARDIOVASCULAR: Regular rate and rhythm. RESPIRATORY: No accessory muscle use. Clear to auscultation. Breath sounds equal bilaterally. GASTROINTESTINAL: Abdomen soft, non-tender, nondistended. Hepatic and splenic margins not palpable. MUSCULOSKELETAL: Extremities without clubbing, cyanosis, or edema. No obvious deformities. NEUROLOGICAL: Awake and alert. No obvious cranial nerve deficits. Motor grossly within normal limits. Five out of 5 muscle strength in the arms and legs. Normal speech. PSYCHIATRIC: Appropriate mood and affect; insight and judgment normal. Assessment and Plan Assessment and Plan RESPIRATORY FAILURE PNEUMONIA , improving POST COLECTOMY DVT RLL cavitation PLAN O2 NEEDED ANTIBIOTICS PLM TOILET ANTICOAGULATION BRONCHOSCOPY TODAY Nataliia William MD April 20, 2017 16:39
[2017-04-20] MEDS ORDERED: DO NOT ADM ANY ANTICOAGULANT DRUGS PRN (16:45)
[2017-04-20] MEDS: WARFARIN SOD 2.5 MG TAB PO SCH (18:45)
[2017-04-20 20:00] VITALS: BP 117/58; PULSE 98; RESP 20; TEMP 97.7; O2SAT 95
[2017-04-20] MEDS: HEPARIN-D5W INJ 250 ML IV SCH (20:37)
[2017-04-21] VITALS: BP 114/55; PULSE 92; RESP 18; TEMP 97.6; O2SAT 98
[2017-04-21 00:01] LABS: APTT (PATIENT) 30.4 SEC (24.3-30.1)
[2017-04-21] MEDS: PIPERACIL-TAZO 4.5 GM PREMIX 100 ML IV SCH ×4 (04:42→22:35)
[2017-04-21] MEDS: NITROGLYCERIN 2% OINT 1 GM PACKET TOPICAL SCH (04:42)
[2017-04-21] MEDS: NYSTATIN 100,000 U/GM PWD 15 GM BTL TOPICAL SCH ×2 (04:42→16:31)
--- NOTE | 2017-04-21 05:29 | MR ---
cc: NATALIIA WILLIAM DATE 04/20/2017 PROCEDURE Fiberoptic bronchoscopy flexible. REASON FOR OVER BRONCHOSCOPY Right lower lung lobe cavitation. Fiberoptic bronchoscopy performed via LMA. Vocal cords intact. Trachea moderately to severely hyperemic. Tamy sharp. Right mainstem bronchus, right upper, middle and lower lobe inspected. Thick mucoid plugs seen throughout, all removed. No mass lesion or obstruction seen. Right and left mainstem bronchus likewise inspected without obstructive pathology or mass lesion. Washings and brushings right lower lobe were obtained for routine TB, fungal culture and cytological exam. A plug-tip catheter and brushing from microbiology was obtained as well from the right lower lung. Procedure well tolerated. Patient transferred to Recovery in stable condition. IMPRESSION 1. Severe tracheal bronchitis. 2. Excess mucoid secretion and plugging. 3. Samples obtained as above. 4. No endobronchial obstruction or mass lesion. 5. Samples obtained as above. 6. The patient transferred to Recovery in stable condition. Nataliia William MD WWW/DANIEL /4:44 PM /5:12 AM
[2017-04-21 06:30] LABS: APTT (PATIENT) 33.9 SEC (24.3-30.1)
[2017-04-21 08:00] VITALS: BP 101/56; PULSE 100; RESP 16; TEMP 96.7; O2SAT 97
[2017-04-21] MEDS: PSYLLIUM FIBER SF/GF 6 GM POWD PKT PO SCH (08:10)
[2017-04-21] MEDS: MUPIROCIN 2% OINT 1 APPLIC/GM SYR NASAL SCH ×2 (08:10→22:34)
[2017-04-21] MEDS: guaiFENesin E.R. 600 MG TAB PO SCH ×2 (08:11→22:34)
[2017-04-21] MEDS: POTASSIUM CHLORIDE 10 MEQ CONTROLLED RELEASE TAB PO SCH ×2 (08:11→22:36)
[2017-04-21] MEDS: VALSARTAN 160 MG TAB PO SCH (08:11)
[2017-04-21] MEDS: MEGESTROL ACETATE 40 MG TAB PO SCH (08:11)
[2017-04-21] MEDS: LINEZOLID 600 MG TAB PO SCH ×2 (08:11→22:35)
[2017-04-21] MEDS: methylPREDNISolone SOD SUCC 40 MG/1 ML VIAL IV PUSH SCH (08:12)
[2017-04-21] MEDS: SODIUM CHLORIDE 0.9% FLUSH 10 ML FLUSH IV FLUSH SCH (08:12)
[2017-04-21] MEDS: PANTOPRAZOLE SODIUM 40 MG VIAL IVP SCH (08:12)
[2017-04-21] MEDS: FUROSEMIDE 20 MG/2 ML VIAL IV PUSH SCH ×2 (08:12→16:31)
[2017-04-21] MEDS: SODIUM CHLORIDE 0.9% FLUSH 5 ML FLUSH IVF SCH ×2 (08:12→21:00)
[2017-04-21 09:41] VITALS: O2SAT 96
[2017-04-21] MEDS: LOPERAMIDE HCL 2 MG CAP PO SCH (10:09)
--- NOTE | 2017-04-21 10:30 | HHI.PR ---
Subjective Remarks POD #15 lap TANISHA, open ascending colectomy comfortable, bronch went well yesterday Objective Vital Signs Date Time Temp Pulse Resp B/P Pulse Ox O2 Delivery O2 Flow Rate FiO2 04/21/17 09:41 96 Nasal Cannula 2.00 04/21/17 08:00 96.7 100 16 101/56 97 04/21/17 00:00 97.6 92 18 114/55 98 04/20/17 20:00 97.7 98 20 117/58 95 04/20/17 18:17 Nasal Cannula 2.00 04/20/17 17:00 99.0 90 22 111/55 95 Nasal Cannula 2 04/20/17 16:45 88 26 102/52 96 Nasal Cannula 2 04/20/17 16:30 76 26 108/52 93 Nasal Cannula 2 04/20/17 16:16 99.0 74 26 106/53 99 Nasal Cannula 2 04/20/17 13:57 97 Nasal Cannula 2.00 04/20/17 12:00 97.7 85 17 117/63 98 I/O 04/20/17 04/20/17 04/20/17 04/21/17 04/21/17 04/21/17 07:00 15:00 23:00 07:00 15:00 23:00 Intake Total 0 ml 240 ml 420 ml 120 ml Output Total 0 ml Balance 0 ml 240 ml 420 ml 120 ml Intake Oral 0 ml 0 ml 120 ml 120 ml IV Total 200 ml 100 ml Other 40 ml 200 ml Estimated Blood Loss 0 ml # Voids 3 3 2 2 # Bowel Movements 0 2 1 0 Result Diagram: 04/20/1792904/20/1730 Objective Remarks Abdomen soft, nondistended, wound clean Assessment and Plan Assessment and Plan Dr. Arriaga to adjust to PO antibiotics today Hopefully to rehab in am Colleen Plummer MD April 21, 2017 10:30
[2017-04-21 12:00] VITALS: BP 92/50; PULSE 97; RESP 16; TEMP 95.1; O2SAT 96
[2017-04-21 13:03] LABS: APTT (PATIENT) 41.4 SEC (24.3-30.1)
--- NOTE | 2017-04-21 14:36 | HHI.PR ---
Subjective Remarks Follow up DVT, pneumonia. Patient states that she feels good today. Denies chest pain, dyspnea. No nausea/vomiting. Objective Vitals Vital Signs Date Time Temp Pulse Resp B/P Pulse Ox O2 Delivery O2 Flow Rate FiO2 04/21/17 12:00 95.1 97 16 92/50 96 04/21/17 09:41 96 Nasal Cannula 2.00 04/21/17 08:00 96.7 100 16 101/56 97 04/21/17 00:00 97.6 92 18 114/55 98 04/20/17 20:00 97.7 98 20 117/58 95 04/20/17 18:17 Nasal Cannula 2.00 04/20/17 17:00 99.0 90 22 111/55 95 Nasal Cannula 2 04/20/17 16:45 88 26 102/52 96 Nasal Cannula 2 04/20/17 16:30 76 26 108/52 93 Nasal Cannula 2 04/20/17 16:16 99.0 74 26 106/53 99 Nasal Cannula 2 I/O 04/20/17 04/20/17 04/20/17 04/21/17 04/21/17 04/21/17 06:59 14:59 22:59 06:59 14:59 22:59 Intake Total 0 ml 240 ml 420 ml 120 ml Output Total 0 ml Balance 0 ml 240 ml 420 ml 120 ml Intake Oral 0 ml 0 ml 120 ml 120 ml IV Total 200 ml 100 ml Other 40 ml 200 ml Estimated Blood Loss 0 ml # Voids 3 3 2 2 # Bowel Movements 0 2 1 0 Result Diagram: 04/20/1730 04/20/17 0930 Imaging Last Impressions Chest X-Ray 04/18/17 0600 Signed Impressions: Service Date/Time: Tuesday, April 18, 2017 05:56 - CONCLUSION: Improvement in aeration of the lungs. Ruth Pablo MD CT Angiography 04/18/17 0000 Signed Impressions: Service Date/Time: Tuesday, April 18, 2017 13:43 - CONCLUSION: 1. No evidence of pulmonary embolism. 2. Multiple masslike cavitary areas in the right lower lobe which are nonspecific and could represent necrotic lung or fungal infections. 3. Small right pleural effusion. Dustin Brasher MD Abdomen/Pelvis CT 04/18/17 0000 Signed Impressions: Service Date/Time: Tuesday, April 18, 2017 13:47 - CONCLUSION: 1. Middle decrease in the amount of fluid in the pelvis with small amount of fluid remaining. 2. Nonspecific, nonobstructed bowel gas pattern again noted which is mildly improved as well. Postsurgical changes are noted. 3. Benign cystic structure in the spleen. 4. Small pleural effusions and consolidation in the lung bases. Dustin Brasher MD Lower Extremity Ultrasound 04/17/17 0000 Signed Impressions: Service Date/Time: Monday, April 17, 2017 00:50 - CONCLUSION: 1. Positive right lower extremity deep venous thrombosis as above. Negative left lower extremity for DVT. Austen Osei MD Objective Remarks General: Elderly female in no acute distress. Heart: Regular rate and rhythm. No murmur. Lungs: Clear to auscultation bilaterally. No wheezes, rales, or rhonchi. Breathing is nonlabored. Abdomen: Soft, nontender, nondistended. Extremities: No lower extremity edema. No calf tenderness. Psych: Alert and oriented. Procedures 03/25/17 laparoscopic extensive lysis of adhesions; open ascending colectomy; flexible sigmoidoscopy Urinary Catheter: No Vascular Central Line Catheter: No A/P Problem List: (1) Chest pain ICD Code: R07.9 Status: Resolved (2) Leukocytosis ICD Code: D72.829 Status: Resolved (3) Hypokalemia ICD Code: E87.6 Status: Acute (4) Hypoxia ICD Code: R09.02 Status: Acute (5) COPD (chronic obstructive pulmonary disease) ICD Code: J44.9 Status: Chronic (6) Hypertension ICD Code: I10 Status: Chronic Assessment and Plan 1. Chest pain: Resolved. CTA was negative for pulmonary embolism. Hemoglobin was stable. Serial cardiac enzymes are negative. Likely secondary to gas pain. 2. DVT, RLE: Continue heparin drip, Coumadin. Monitor INR. Heparin drip resumed. 3. Colon cancer management for colorectal surgery. 4. COPD: Appreciate pulmonology recommendations. Patient is chronically on 2 L oxygen. 5. Healthcare associated pneumonia: Appreciate infectious disease recommendations. Continue antibiotics. S/P bronchoscopy. Cultures growing gram negative randy. 6. Hypertension: Continue current medications. Blood pressure is well controlled. 7. GI prophylaxis: PPI. 8. Hypokalemia: Improved. Follow labs. Discharge Planning Will need SNF. Les Waldron MD April 21, 2017 14:36
--- NOTE | 2017-04-21 14:53 | PD.CARD.PN ---
Subjective Subjective Remarks alert in nad, denies cp Objective Vital Signs / I&O Vital Signs Date Time Temp Pulse Resp B/P Pulse Ox O2 Delivery O2 Flow Rate FiO2 04/21/17 12:00 95.1 97 16 92/50 96 04/21/17 09:41 96 Nasal Cannula 2.00 04/21/17 08:00 96.7 100 16 101/56 97 04/21/17 00:00 97.6 92 18 114/55 98 04/20/17 20:00 97.7 98 20 117/58 95 04/20/17 18:17 Nasal Cannula 2.00 04/20/17 17:00 99.0 90 22 111/55 95 Nasal Cannula 2 04/20/17 16:45 88 26 102/52 96 Nasal Cannula 2 04/20/17 16:30 76 26 108/52 93 Nasal Cannula 2 04/20/17 16:16 99.0 74 26 106/53 99 Nasal Cannula 2 I/O 04/20/17 04/20/17 04/20/17 04/21/17 04/21/17 04/21/17 07:00 15:00 23:00 07:00 15:00 23:00 Intake Total 0 ml 240 ml 420 ml 120 ml Output Total 0 ml Balance 0 ml 240 ml 420 ml 120 ml Intake Oral 0 ml 0 ml 120 ml 120 ml IV Total 200 ml 100 ml Other 40 ml 200 ml Estimated Blood Loss 0 ml # Voids 3 3 2 2 # Bowel Movements 0 2 1 0 Physical Exam GENERAL: SKIN: Warm and dry. HEAD: Normocephalic. EYES: No scleral icterus. No injection or drainage. NECK: Supple, trachea midline. No JVD or lymphadenopathy. CARDIOVASCULAR: Regular rate and rhythm without murmurs, gallops, or rubs. RESPIRATORY: Breath sounds equal bilaterally. No accessory muscle use. GASTROINTESTINAL: Abdomen soft, non-tender, nondistended. MUSCULOSKELETAL: No cyanosis, or edema. BACK: Nontender without obvious deformity. No CVA tenderness. Laboratory Laboratory Tests Test 04/20/17 04/21/17 04/21/17 23:42 06:00 12:40 Activated Partial 30.4 SEC 33.9 SEC 41.4 SEC Thromboplast Time Assessment and Plan Problem List: (1) Anemia (2) Angina at rest (3) CAD (coronary artery disease) (4) Hypoxia Assessment and Plan 1.) chest pain -repeat trop neg x 3, stat cbc, cta chest neg for pe, suspect chest pain due to pneumonia 2.) Hypoxia due to pneumonia/copd, f/u pulm rec, hypoxia improved on less O2 3.) DVT - on heparin, f/u cbc Problem Qualifiers (1) Anemia: Mikael Rodriguez MD April 21, 2017 14:53
[2017-04-21 16:00] VITALS: BP 112/52; PULSE 90; RESP 16; TEMP 97.1; O2SAT 98
--- NOTE | 2017-04-21 16:01 | HHI.PR ---
Subjective Remarks ALERT no SOB at rest less cough pos bronchoscopy Objective Vital Signs Date Time Temp Pulse Resp B/P Pulse Ox O2 Delivery O2 Flow Rate FiO2 04/21/17 12:00 95.1 97 16 92/50 96 04/21/17 09:41 96 Nasal Cannula 2.00 04/21/17 08:00 96.7 100 16 101/56 97 04/21/17 00:00 97.6 92 18 114/55 98 04/20/17 20:00 97.7 98 20 117/58 95 04/20/17 18:17 Nasal Cannula 2.00 04/20/17 17:00 99.0 90 22 111/55 95 Nasal Cannula 2 04/20/17 16:45 88 26 102/52 96 Nasal Cannula 2 04/20/17 16:30 76 26 108/52 93 Nasal Cannula 2 04/20/17 16:16 99.0 74 26 106/53 99 Nasal Cannula 2 I/O 04/20/17 04/20/17 04/20/17 04/21/17 04/21/17 04/21/17 07:00 15:00 23:00 07:00 15:00 23:00 Intake Total 0 ml 240 ml 420 ml 120 ml 540 ml Output Total 0 ml Balance 0 ml 240 ml 420 ml 120 ml 540 ml Intake Oral 0 ml 0 ml 120 ml 120 ml 540 ml IV Total 200 ml 100 ml Other 40 ml 200 ml Estimated Blood Loss 0 ml # Voids 3 3 2 2 2 # Bowel Movements 0 2 1 0 2 Result Diagram: 04/20/1730 04/20/1730 Objective Remarks Laboratory Tests Test 04/16/17 04/17/17 04/17/17 04/17/17 10:00 08:39 17:30 18:20 White Blood Count 12.4 TH/MM3 11.3 TH/MM3 (4.0-11.0) (4.0-11.0) Red Blood Count 3.62 MIL/MM3 3.47 MIL/MM3 (4.00-5.30) (4.00-5.30) Hemoglobin 9.7 GM/DL 9.2 GM/DL (11.6-15.3) (11.6-15.3) Hematocrit 29.7 % 28.1 % (35.0-46.0) (35.0-46.0) Mean Corpuscular Hemoglobin 26.7 PG 26.6 PG (27.0-34.0) (27.0-34.0) Platelet Count 684 TH/MM3 555 TH/MM3 (150-450) (150-450) Neutrophils (%) (Auto) 80.3 % (16.0-70.0) Neutrophils # (Auto) 10.0 TH/MM3 (1.8-7.7) Potassium Level 3.3 MEQ/L 3.1 MEQ/L (3.5-5.1) (3.5-5.1) Activated Partial 122.5 SEC Thromboplast Time (24.3-30.1) Blood Urea Nitrogen 19 MG/DL (7-18) Estimat Glomerular Filtration 54 ML/MIN (>89) Rate Random Glucose 193 MG/DL (74-106) Calcium Level 8.3 MG/DL (8.5-10.1) Albumin 1.9 GM/DL (3.4-5.0) Test 04/17/17 04/18/17 04/18/17 04/18/17 20:31 02:50 09:15 13:05 Activated Partial 32.2 SEC 37.2 SEC 35.9 SEC Thromboplast Time (24.3-30.1) (24.3-30.1) (24.3-30.1) Total Creatine Kinase 17 U/L (26-192) Test 04/18/17 04/18/17 04/19/17 04/19/17 13:30 19:24 00:39 00:55 White Blood Count 12.7 TH/MM3 (4.0-11.0) Red Blood Count 3.69 MIL/MM3 (4.00-5.30) Hemoglobin 9.7 GM/DL (11.6-15.3) Hematocrit 30.4 % (35.0-46.0) Mean Corpuscular Hemoglobin 26.2 PG (27.0-34.0) Mean Corpuscular Hemoglobin 31.9 % Concent (32.0-36.0) Mean Platelet Volume 6.8 FL (7.0-11.0) Neutrophils (%) (Auto) 83.2 % (16.0-70.0) Neutrophils # (Auto) 10.5 TH/MM3 (1.8-7.7) Total Creatine Kinase 16 U/L (26-192) 10 U/L (26-192) Activated Partial 38.3 SEC Thromboplast Time (24.3-30.1) Potassium Level 2.8 MEQ/L (3.5-5.1) Random Glucose 150 MG/DL (74-106) Calcium Level 8.4 MG/DL (8.5-10.1) Albumin 1.8 GM/DL (3.4-5.0) Test 04/19/17 05:56 Red Blood Count 3.49 MIL/MM3 (4.00-5.30) Hemoglobin 9.2 GM/DL (11.6-15.3) Hematocrit 28.7 % (35.0-46.0) Mean Corpuscular Hemoglobin 26.4 PG (27.0-34.0) Neutrophils (%) (Auto) 72.3 % (16.0-70.0) Prothrombin Time 11.7 SEC (9.8-11.6) Activated Partial 150.8 SEC Thromboplast Time (24.3-30.1) GENERAL: SKIN: Warm and dry. HEAD: Atraumatic. Normocephalic. EYES: Pupils equal and round. No scleral icterus. No injection or drainage. ENT: No nasal bleeding or discharge. Mucous membranes pink and moist. NECK: Trachea midline. No JVD. CARDIOVASCULAR: Regular rate and rhythm. RESPIRATORY: No accessory muscle use. Clear to auscultation. Breath sounds equal bilaterally. GASTROINTESTINAL: Abdomen soft, non-tender, nondistended. Hepatic and splenic margins not palpable. MUSCULOSKELETAL: Extremities without clubbing, cyanosis, or edema. No obvious deformities. NEUROLOGICAL: Awake and alert. No obvious cranial nerve deficits. Motor grossly within normal limits. Five out of 5 muscle strength in the arms and legs. Normal speech. PSYCHIATRIC: Appropriate mood and affect; insight and judgment normal. Assessment and Plan Assessment and Plan RESPIRATORY FAILURE PNEUMONIA , improving POST COLECTOMY DVT RLL cavitation PLAN O2 NEEDED ANTIBIOTICS per ID PLM TOILET ANTICOAGULATION HOME SOON Discharge Planning GENERAL: SKIN: Warm and dry. HEAD: Atraumatic. Normocephalic. EYES: Pupils equal and round. No scleral icterus. No injection or drainage. ENT: No nasal bleeding or discharge. Mucous membranes pink and moist. NECK: Trachea midline. No JVD. CARDIOVASCULAR: Regular rate and rhythm. RESPIRATORY: No accessory muscle use. Clear to auscultation. Breath sounds equal bilaterally. GASTROINTESTINAL: Abdomen soft, non-tender, nondistended. Hepatic and splenic margins not palpable. MUSCULOSKELETAL: Extremities without clubbing, cyanosis, or edema. No obvious deformities. NEUROLOGICAL: Awake and alert. No obvious cranial nerve deficits. Motor grossly within normal limits. Five out of 5 muscle strength in the arms and legs. Normal speech. PSYCHIATRIC: Appropriate mood and affect; insight and judgment normal. Nataliia William MD April 21, 2017 16:01
[2017-04-21] MEDS: WARFARIN SOD 5 MG TAB PO SCH (16:31)
[2017-04-21] MEDS: HEPARIN-D5W INJ 250 ML IV SCH (19:02)
[2017-04-21 20:00] VITALS: BP 112/58; PULSE 70; RESP 18; TEMP 97.5; O2SAT 95
[2017-04-22] VITALS: BP 119/57; PULSE 90; RESP 18; TEMP 97.6; O2SAT 96
[2017-04-22] MEDS: NYSTATIN 100,000 U/GM PWD 15 GM BTL TOPICAL SCH (03:35)
[2017-04-22] MEDS: PIPERACIL-TAZO 4.5 GM PREMIX 100 ML IV SCH ×2 (03:35→12:30)
[2017-04-22 04:00] VITALS: BP 98/53; PULSE 86; RESP 18; TEMP 97; O2SAT 99
[2017-04-22 04:51] LABS: APTT (PATIENT) 45.4 SEC (24.3-30.1); INTERNATIONAL NORMALIZED RATIO 1.5 RATIO; PROTHROMBIN TIME - PATIENT 16.5 SEC (9.8-11.6)
[2017-04-22 06:15] LABS: AUTOMATED NEUTROPHIL # 6.6 TH/MM3 (1.8-7.7); BASOPHIL # 0.1 TH/MM3 (0-0.2); BASOPHIL % 1.2 % (0.0-2.0); EOSINOPHIL # 0.1 TH/MM3 (0-0.4); EOSINOPHIL % 1.3 % (0.0-4.0); HEMATOCRIT 28.4 % (35.0-46.0); HEMO FLAGS DIFF FINAL; LYMPH % 25.6 % (9.0-44.0); LYMPHOCYTE # 2.6 TH/MM3 (1.0-4.8); MEAN CELL VOLUME 82.2 FL (80.0-100.0); MEAN CORPUSCULAR HEMOGLOBIN 26.4 PG (27.0-34.0); MEAN CORPUSCULAR HGB CONC 32.1 % (32.0-36.0); MONO % 6.2 % (0.0-8.0); NEUT % 65.7 % (16.0-70.0); PLATELET COUNT 224 TH/MM3 (150-450); RED BLOOD COUNT 3.46 MIL/MM3 (4.00-5.30); RED CELL DISTRIBUTION WIDTH 17.3 % (11.6-17.2)
[2017-04-22 06:32] LABS: BICARBONATE 27.4 MEQ/L (21.0-32.0); POTASSIUM 3.1 MEQ/L (3.5-5.1)
[2017-04-22 08:00] VITALS: BP 109/53; PULSE 86; RESP 16; TEMP 96.6; O2SAT 98
[2017-04-22 08:14] VITALS: O2SAT 96
[2017-04-22] MEDS ORDERED: POTASSIUM CHLORIDE 10 MEQ CONTROLLED RELEASE TAB PO ONE (09:00)
--- NOTE | 2017-04-22 09:12 | HHI.PR ---
Subjective Remarks ALERT no SOB at rest less cough post bronchoscopy Objective Vital Signs Date Time Temp Pulse Resp B/P Pulse Ox O2 Delivery O2 Flow Rate FiO2 04/22/17 08:00 96.6 86 16 109/53 98 04/22/17 04:00 97.0 86 18 98/53 99 04/22/17 00:00 97.6 90 18 119/57 96 04/21/17 21:00 95 Nasal Cannula 2.00 04/21/17 20:13 Nasal Cannula 2.00 04/21/17 20:00 97.5 70 18 112/58 95 04/21/17 16:00 97.1 90 16 112/52 98 04/21/17 12:00 95.1 97 16 92/50 96 04/21/17 09:41 96 Nasal Cannula 2.00 I/O 04/21/17 04/21/17 04/21/17 04/22/17 04/22/17 04/22/17 07:00 15:00 23:00 07:00 15:00 23:00 Intake Total 120 ml 936 ml 240 ml 120 ml Balance 120 ml 936 ml 240 ml 120 ml Intake Oral 120 ml 540 ml 240 ml 120 ml IV Total 396 ml # Voids 2 2 3 1 # Bowel Movements 0 2 1 0 Result Diagram: 04/22/17 0600 04/22/17 0600 Objective Remarks Laboratory Tests Test 04/16/17 04/17/17 04/17/17 04/17/17 10:00 08:39 17:30 18:20 White Blood Count 12.4 TH/MM3 11.3 TH/MM3 (4.0-11.0) (4.0-11.0) Red Blood Count 3.62 MIL/MM3 3.47 MIL/MM3 (4.00-5.30) (4.00-5.30) Hemoglobin 9.7 GM/DL 9.2 GM/DL (11.6-15.3) (11.6-15.3) Hematocrit 29.7 % 28.1 % (35.0-46.0) (35.0-46.0) Mean Corpuscular Hemoglobin 26.7 PG 26.6 PG (27.0-34.0) (27.0-34.0) Platelet Count 684 TH/MM3 555 TH/MM3 (150-450) (150-450) Neutrophils (%) (Auto) 80.3 % (16.0-70.0) Neutrophils # (Auto) 10.0 TH/MM3 (1.8-7.7) Potassium Level 3.3 MEQ/L 3.1 MEQ/L (3.5-5.1) (3.5-5.1) Activated Partial 122.5 SEC Thromboplast Time (24.3-30.1) Blood Urea Nitrogen 19 MG/DL (7-18) Estimat Glomerular Filtration 54 ML/MIN (>89) Rate Random Glucose 193 MG/DL (74-106) Calcium Level 8.3 MG/DL (8.5-10.1) Albumin 1.9 GM/DL (3.4-5.0) Test 04/17/17 04/18/17 04/18/17 04/18/17 20:31 02:50 09:15 13:05 Activated Partial 32.2 SEC 37.2 SEC 35.9 SEC Thromboplast Time (24.3-30.1) (24.3-30.1) (24.3-30.1) Total Creatine Kinase 17 U/L (26-192) Test 04/18/17 04/18/17 04/19/17 04/19/17 13:30 19:24 00:39 00:55 White Blood Count 12.7 TH/MM3 (4.0-11.0) Red Blood Count 3.69 MIL/MM3 (4.00-5.30) Hemoglobin 9.7 GM/DL (11.6-15.3) Hematocrit 30.4 % (35.0-46.0) Mean Corpuscular Hemoglobin 26.2 PG (27.0-34.0) Mean Corpuscular Hemoglobin 31.9 % Concent (32.0-36.0) Mean Platelet Volume 6.8 FL (7.0-11.0) Neutrophils (%) (Auto) 83.2 % (16.0-70.0) Neutrophils # (Auto) 10.5 TH/MM3 (1.8-7.7) Total Creatine Kinase 16 U/L (26-192) 10 U/L (26-192) Activated Partial 38.3 SEC Thromboplast Time (24.3-30.1) Potassium Level 2.8 MEQ/L (3.5-5.1) Random Glucose 150 MG/DL (74-106) Calcium Level 8.4 MG/DL (8.5-10.1) Albumin 1.8 GM/DL (3.4-5.0) Test 04/19/17 05:56 Red Blood Count 3.49 MIL/MM3 (4.00-5.30) Hemoglobin 9.2 GM/DL (11.6-15.3) Hematocrit 28.7 % (35.0-46.0) Mean Corpuscular Hemoglobin 26.4 PG (27.0-34.0) Neutrophils (%) (Auto) 72.3 % (16.0-70.0) Prothrombin Time 11.7 SEC (9.8-11.6) Activated Partial 150.8 SEC Thromboplast Time (24.3-30.1) GENERAL: SKIN: Warm and dry. HEAD: Atraumatic. Normocephalic. EYES: Pupils equal and round. No scleral icterus. No injection or drainage. ENT: No nasal bleeding or discharge. Mucous membranes pink and moist. NECK: Trachea midline. No JVD. CARDIOVASCULAR: Regular rate and rhythm. RESPIRATORY: No accessory muscle use. Clear to auscultation. Breath sounds equal bilaterally. GASTROINTESTINAL: Abdomen soft, non-tender, nondistended. Hepatic and splenic margins not palpable. MUSCULOSKELETAL: Extremities without clubbing, cyanosis, or edema. No obvious deformities. NEUROLOGICAL: Awake and alert. No obvious cranial nerve deficits. Motor grossly within normal limits. Five out of 5 muscle strength in the arms and legs. Normal speech. PSYCHIATRIC: Appropriate mood and affect; insight and judgment normal. Medications and IVs GENERAL: SKIN: Warm and dry. HEAD: Atraumatic. Normocephalic. EYES: Pupils equal and round. No scleral icterus. No injection or drainage. ENT: No nasal bleeding or discharge. Mucous membranes pink and moist. NECK: Trachea midline. No JVD. CARDIOVASCULAR: Regular rate and rhythm. RESPIRATORY: No accessory muscle use. Clear to auscultation. Breath sounds equal bilaterally. GASTROINTESTINAL: Abdomen soft, non-tender, nondistended. Hepatic and splenic margins not palpable. MUSCULOSKELETAL: Extremities without clubbing, cyanosis, or edema. No obvious deformities. NEUROLOGICAL: Awake and alert. No obvious cranial nerve deficits. Motor grossly within normal limits. Five out of 5 muscle strength in the arms and legs. Normal speech. PSYCHIATRIC: Appropriate mood and affect; insight and judgment normal. Assessment and Plan Assessment and Plan RESPIRATORY FAILURE PNEUMONIA , improving POST COLECTOMY DVT RLL cavitation PLAN O2 NEEDED ANTIBIOTICS per ID PLM TOILET ANTICOAGULATION home soon HOME SOON Nataliia William MD April 22, 2017 09:12
--- NOTE | 2017-04-22 09:22 | PD.CARD.PN ---
Subjective Subjective Remarks alert in nad, denies chest pain Objective Vital Signs / I&O Vital Signs Date Time Temp Pulse Resp B/P Pulse Ox O2 Delivery O2 Flow Rate FiO2 04/22/17 08:00 96.6 86 16 109/53 98 04/22/17 04:00 97.0 86 18 98/53 99 04/22/17 00:00 97.6 90 18 119/57 96 04/21/17 21:00 95 Nasal Cannula 2.00 04/21/17 20:13 Nasal Cannula 2.00 04/21/17 20:00 97.5 70 18 112/58 95 04/21/17 16:00 97.1 90 16 112/52 98 04/21/17 12:00 95.1 97 16 92/50 96 04/21/17 09:41 96 Nasal Cannula 2.00 I/O 04/21/17 04/21/17 04/21/17 04/22/17 04/22/17 04/22/17 07:00 15:00 23:00 07:00 15:00 23:00 Intake Total 120 ml 936 ml 240 ml 120 ml Balance 120 ml 936 ml 240 ml 120 ml Intake Oral 120 ml 540 ml 240 ml 120 ml IV Total 396 ml # Voids 2 2 3 1 # Bowel Movements 0 2 1 0 Physical Exam GENERAL: SKIN: Warm and dry. HEAD: Normocephalic. EYES: No scleral icterus. No injection or drainage. NECK: Supple, trachea midline. No JVD or lymphadenopathy. CARDIOVASCULAR: Regular rate and rhythm without murmurs, gallops, or rubs. RESPIRATORY: Breath sounds equal bilaterally. No accessory muscle use. GASTROINTESTINAL: Abdomen soft, non-tender, nondistended. MUSCULOSKELETAL: No cyanosis, or edema. BACK: Nontender without obvious deformity. No CVA tenderness. Laboratory Laboratory Tests Test 04/21/17 04/21/17 04/21/17 04/22/17 12:40 18:50 21:50 04:00 Activated Partial 41.4 SEC 112.0 SEC 31.0 SEC 45.4 SEC Thromboplast Time Prothrombin Time 16.5 SEC Prothromb Time International 1.5 RATIO Ratio Test 04/22/17 06:00 White Blood Count 10.0 TH/MM3 Red Blood Count 3.46 MIL/MM3 Hemoglobin 9.1 GM/DL Hematocrit 28.4 % Mean Corpuscular Volume 82.2 FL Mean Corpuscular Hemoglobin 26.4 PG Mean Corpuscular Hemoglobin 32.1 % Concent Red Cell Distribution Width 17.3 % Platelet Count 224 TH/MM3 Mean Platelet Volume 7.4 FL Neutrophils (%) (Auto) 65.7 % Lymphocytes (%) (Auto) 25.6 % Monocytes (%) (Auto) 6.2 % Eosinophils (%) (Auto) 1.3 % Basophils (%) (Auto) 1.2 % Neutrophils # (Auto) 6.6 TH/MM3 Lymphocytes # (Auto) 2.6 TH/MM3 Monocytes # (Auto) 0.6 TH/MM3 Eosinophils # (Auto) 0.1 TH/MM3 Basophils # (Auto) 0.1 TH/MM3 CBC Comment DIFF FINAL Differential Comment Sodium Level 139 MEQ/L Potassium Level 3.1 MEQ/L Chloride Level 102 MEQ/L Carbon Dioxide Level 27.4 MEQ/L Anion Gap 10 MEQ/L Blood Urea Nitrogen 19 MG/DL Creatinine 0.74 MG/DL Estimat Glomerular Filtration 75 ML/MIN Rate Random Glucose 95 MG/DL Calcium Level 8.6 MG/DL Assessment and Plan Problem List: (1) Anemia (2) Angina at rest (3) CAD (coronary artery disease) (4) Hypoxia Assessment and Plan 1.) chest pain -resolved, repeat trop neg x 3, stat cbc, cta chest neg for pe, suspect chest pain due to pneumonia 2.) Hypoxia due to pneumonia/copd, f/u pulm rec, hypoxia improved on less O2 3.) DVT - on heparin, coumadin, inr=1.5 today, f/u cbc Mikael Rodriguez MD April 22, 2017 09:22
[2017-04-22] MEDS: methylPREDNISolone SOD SUCC 40 MG/1 ML VIAL IV PUSH SCH (10:02)
[2017-04-22] MEDS: LINEZOLID 600 MG TAB PO SCH (10:02)
[2017-04-22] MEDS: POTASSIUM CHLORIDE 10 MEQ CONTROLLED RELEASE TAB PO SCH (10:02)
[2017-04-22] MEDS: FUROSEMIDE 20 MG/2 ML VIAL IV PUSH SCH (10:02)
[2017-04-22] MEDS: MEGESTROL ACETATE 40 MG TAB PO SCH (10:03)
[2017-04-22] MEDS: PSYLLIUM FIBER SF/GF 6 GM POWD PKT PO SCH (10:03)
[2017-04-22] MEDS: guaiFENesin E.R. 600 MG TAB PO SCH (10:03)
[2017-04-22] MEDS: VALSARTAN 160 MG TAB PO SCH (10:03)
[2017-04-22] MEDS: LOPERAMIDE HCL 2 MG CAP PO SCH (10:03)
[2017-04-22] MEDS: PANTOPRAZOLE SODIUM 40 MG VIAL IVP SCH (10:03)
--- NOTE | 2017-04-22 10:11 | HHI.PR ---
Subjective Remarks f/u for PNA patient very anxious to go home. Denied any cough or SOB. Patient tolerating PO intake. Denied any pain. she remains afebrile. Objective Vitals Vital Signs Date Time Temp Pulse Resp B/P Pulse Ox O2 Delivery O2 Flow Rate FiO2 04/22/17 08:00 96.6 86 16 109/53 98 04/22/17 04:00 97.0 86 18 98/53 99 04/22/17 00:00 97.6 90 18 119/57 96 04/21/17 21:00 95 Nasal Cannula 2.00 04/21/17 20:13 Nasal Cannula 2.00 04/21/17 20:00 97.5 70 18 112/58 95 04/21/17 16:00 97.1 90 16 112/52 98 04/21/17 12:00 95.1 97 16 92/50 96 I/O 04/21/17 04/21/17 04/21/17 04/22/17 04/22/17 04/22/17 06:59 14:59 22:59 06:59 14:59 22:59 Intake Total 120 ml 936 ml 240 ml 120 ml Balance 120 ml 936 ml 240 ml 120 ml Intake Oral 120 ml 540 ml 240 ml 120 ml IV Total 396 ml # Voids 2 2 3 1 # Bowel Movements 0 2 1 0 Result Diagram: 04/22/17 0600 04/22/17 0600 Objective Remarks GENERAL: in NAD CARDIOVASCULAR: Regular rate and rhythm without murmurs, gallops, or rubs. RESPIRATORY: Breath sounds equal bilaterally. No accessory muscle use. GASTROINTESTINAL: Abdomen soft, non-tender, nondistended. wounds dry clean and intact. M Procedures 03/25/17 laparoscopic extensive lysis of adhesions; open ascending colectomy; flexible sigmoidoscopy Medications and IVs Current Medications Cefazolin Sodium/ Dextrose 50 ml @ 100 mls/hr MEDICAL CLAIMS MANAGER IV Last administered on 03/25/17 09:24; Start 03/25/17 at 06:45; Stop 03/28/17 at 06:44; Status DC Metronidazole 100 ml @ 100 mls/hr MEDICAL CLAIMS MANAGER PRN IV GIVE PRE-OP IN OR Last administered on 03/25/17 09:27; Start 03/25/17 at 06:45; Stop 03/27/17 at 06:44 ; Status DC Dextrose/Sodium Chloride 1,000 ml @ 125 mls/hr Q8H IV ; Start 03/25/17 at 06:45 ; Stop 03/27/17 at 13:59; Status DC Lactated Ringer's 1,000 ml @ 30 mls/hr Q24H PRN IV SEE LABEL COMMENTS; Start at 06:45; Stop 03/28/17 at 06:44; Status DC Sodium Chloride (NS 500 ml Inj) 500 ml @ 30 mls/hr [id number] PRN IV SEE LABEL COMMENTS; Start 03/25/17 at 06:45; Stop 03/28/17 at 06:44; Status DC Metoprolol Tartrate (Lopressor) 25 mg MEDICAL CLAIMS MANAGER PRN PO SEE LABEL COMMENTS; Start 03/25/17 at 06:45; Stop 03/28/17 at 06:44; Status DC Povidone Iodine (Betadine 5% Antisepsis Kit) 1 applic MEDICAL CLAIMS MANAGER PRN EACH NARE SEE LABEL COMMENTS; Start 03/25/17 at 06:45; Stop 03/28/17 at 06:44; Status DC Chlorhexidine Gluconate (Chlorhexidine 2% Cloth) 3 pack MEDICAL CLAIMS MANAGER PRN TOPICAL SEE LABEL COMMENTS; Start 03/25/17 at 06:45; Stop 03/28/17 at 06:44; Status DC Insulin Human Regular (NovoLIN R INJ) See Protocol Table ... MEDICAL CLAIMS MANAGER PRN SQ SEE PROTOCOL TABLE; Start 03/25/17 at 06:45; Stop 03/28/17 at 06:44; Status DC Midazolam HCl (Versed Inj) 2 mg STK-MED ONCE .ROUTE Last administered on 08:16; Start 03/25/17 at 08:14; Stop 03/25/17 at 08:15; Status DC Famotidine (Pepcid Inj) 20 mg STK-MED ONCE .ROUTE Last administered on 08:14; Start 03/25/17 at 08:14; Stop 03/25/17 at 08:15; Status DC Dexamethasone Sodium Phosphate 4 mg 4 mg STK-MED ONCE .ROUTE Last administered on 03/25/17 08:18; Start 03/25/17 at 08:14; Stop 03/25/17 at 08:15; Status DC Potassium Chloride/Dextrose/ Sod Cl (D5-NS + KCl 20 Meq Inj) 1,000 ml @ 50 mls/ hr Q20H IV Last administered on 03/29/17 08:44; Start 03/25/17 at 13:07; Stop 03/29/17 at 11:42; Status DC IV Flush (NS Flush) 2 ml UNSCH PRN IVF FLUSH AFTER USING IV ACCESS; Start 03/25 at 13:15 IV Flush 2 ml 2 ml BID IVF Last administered on 04/21/17 21:00; Start at 13:15 Cefazolin Sodium 1000 mg/Sodium Chloride 100 ml @ 200 mls/hr Q6H IV Last administered on 03/26/17 09:54; Start 03/25/17 at 15:00; Stop 03/26/17 at 09:29 ; Status DC Metronidazole (Flagyl 500 Mg Inj) 100 ml @ 200 mls/hr Q8H IV Last administered on 03/26/17 09:54; Start 03/25/17 at 17:00; Stop 03/26/17 at 09:29 ; Status DC Miscellaneous Information (Post-op Orders (for Pharmacy)) STAT ONCE XX ; Start 03/25/17 at 13:15; Stop 03/25/17 at 13:28; Status DC Acetaminophen/ Hydrocodone Bitart ([place] 5-325 Mg) 1 tab Q6H PRN PO PAIN SCALE 1 TO 4 Last administered on 04/20/17 22:01; Start 03/25/17 at 13:15 Acetaminophen/ Hydrocodone Bitart ([place] 5-325 Mg) 2 tab Q6H PRN PO PAIN SCALE 5 TO 10 Last administered on 04/20/17 00:26; Start 03/25/17 at 13:15 Ketorolac Tromethamine (Toradol Inj) 15 mg Q6H PRN IVP PAIN SCALE 1 TO 10 Last administered on 03/28/17 08:41; Start 03/25/17 at 13:15; Stop 03/28/17 at 13:14; Status DC Acetaminophen (Tylenol) 650 mg Q4H PRN PO Temperature > 101F; Start 03/25/17 at 13:15 Pantoprazole Sodium (Protonix Inj) 40 mg DAILY IVP Last administered on 10:03; Start 03/26/17 at 09:00 Ondansetron HCl (Zofran Inj) 4 mg Q6H PRN IV NAUSEA Last administered on 05:34; Start 03/25/17 at 13:15 Enalaprilat (Vasotec Inj) 1.25 mg Q4H PRN IV SYS BP GREATER THAN 160 MMHG; Start 03/25/17 at 13:15 Enalaprilat (Vasotec Inj) 2.5 mg Q6H PRN IV SYS BP GREATER THAN 160 MMHG; Start 03/25/17 at 13:15 Benzocaine/ Menthol 1 lozenge 1 lozenge UNSCH PRN BUCCAL SORE THROAT Last administered on 04/05/17 09:00; Start 03/25/17 at 13:15 Potassium Chloride 100 ml @ 50 mls/hr UNSCH PRN IV POTASSIUM 3 TO 3.5 Last administered on 04/14/17 16:50; Start 03/25/17 at 13:15 Potassium Chloride (KCl 40 Meq Premix Inj) 100 ml @ 25 mls/hr UNSCH PRN IV POTASSIUM LESS THAN 3 Last administered on 04/08/17 20:56; Start 03/25/17 at 13 :15 Heparin Sodium (Porcine) (Heparin Inj) 5,000 units Q12H SQ Last administered on 04/18/17 11:21; Start 03/26/17 at 12:00; Status Hold Naloxone HCl (Narcan Inj) 0.4 mg UNSCH PRN IV RESPIRATORY RATE LESS THAN 10; Start 03/25/17 at 13:15 Diphenhydramine HCl (Benadryl Inj) 25 mg Q6H PRN IV ITCHING; Start 03/25/17 at 13:15 Morphine Sulfate (Morphine 1 Mg/ ml SHOE LINING FITTER) 30 mg UNSCH IV Last administered on 15:36; Start 03/25/17 at 13:15; Stop 03/27/17 at 12:31; Status DC SHOE LINING FITTER Dosage Infused (Pha) 1 Q8HR .XX Last administered on 03/27/17 06:00; Start 03/25/17 at 14:00; Stop 03/27/17 at 12:31; Status DC Valsartan (Diovan) 160 mg DAILY PO Last administered on 04/22/17 10:03; Start 03/26/17 at 09:00 Fentanyl Citrate (fentaNYL INJ) 250 mcg STK-MED ONCE .ROUTE ; Start 03/25/17 at 13:17; Stop 03/25/17 at 13:18; Status DC Fentanyl Citrate (fentaNYL INJ) 100 mcg STK-MED ONCE .ROUTE ; Start 03/25/17 at 13:17; Stop 03/25/17 at 13:18; Status DC Morphine Sulfate (Morphine Inj) 4 mg STK-MED ONCE .ROUTE ; Start 03/25/17 at 13: 17; Stop 03/25/17 at 13:18; Status DC Ondansetron HCl (*ZOFRAN INJ PERIprocedural ONLY) 4 mg STK-MED ONCE .ROUTE Last administered on 03/25/17 13:33; Start 03/25/17 at 13:33; Stop 03/25/17 at 13:34; Status DC Miscellaneous Information ALL NURSING DEPARTME... UNSCH PRN .XX SEE LABEL COMMENTS; Start 03/25/17 at 13:45; Stop 03/26/17 at 13:44; Status DC Albuterol/ Ipratropium (Duoneb Neb) 1 ampule NOW ONCE NEB Last administered on 03/30/17 07:46; Start 03/30/17 at 07:45; Stop 03/30/17 at 07:46; Status DC Albuterol/ Ipratropium 1 ampule 1 ampule Q6HR NEB PRN NEB SOB AND WHEEZING Last administered on 04/01/17 00:00; Start 03/30/17 at 14:00; Stop 04/01/17 at 17: 08; Status DC Potassium Chloride 30 meq/ Dextrose/Sodium Chloride 1,015 ml @ 75 mls/hr [id number] IV Last administered on 04/02/17 12:39; Start 03/30/17 at 10:00; Stop at 12:54; Status DC Sodium Chloride (NS 1000 ml Inj) 1,000 ml @ 166.667 mls/hr Q6H IV Last administered on 03/30/17 15:35; Start 03/30/17 at 15:45; Stop 03/30/17 at 21:44; Status DC Aspirin (Aspirin) 325 mg NOW ONCE PO Last administered on 03/31/17 16:47; Start 03/31/17 at 16:45; Stop 03/31/17 at 16:46; Status DC Nitroglycerin 0.4 mg 0.4 mg UNSCH PRN SL CHEST PAIN Last administered on 17:48; Start 03/31/17 at 16:45; Stop 03/31/17 at 23:59; Status DC Sodium Chloride (NS 250 ml Inj) 250 ml @ 15 mls/hr ONCE ONCE IV Last administered on 04/01/17 17:00; Start 04/01/17 at 17:00; Stop 04/02/17 at 09:39; Status DC Furosemide (Lasix Inj) 20 mg ONCE ONCE IV Last administered on 04/01/17 23:08 ; Start 04/01/17 at 17:00; Stop 04/01/17 at 17:01; Status DC Albuterol/ Ipratropium 1 ampule 1 ampule Q4HR WHILE AWAKE NEB NEB Last administered on 04/02/17 08:35; Start 04/01/17 at 20:00; Stop 04/02/17 at 13:01; Status DC Piperacillin Sod/ Tazobactam Sod (Zosyn 3.375 Gm Premix) 50 ml @ 100 mls/hr Q6H IV Last administered on 04/02/17 11:59; Start 04/01/17 at 18:00; Stop at 15:45; Status DC Albuterol/ Ipratropium (Duoneb Neb) 1 ampule Q2HR NEB PRN NEB whz Last administered on 04/02/17 05:21; Start 04/02/17 at 00:45; Stop 04/02/17 at 13:01; Status DC Bumetanide (Bumex Inj) 1 mg ONCE ONCE IV PUSH Last administered on 04/02/17 13 :24; Start 04/02/17 at 12:45; Stop 04/02/17 at 12:55; Status DC Albuterol/ Ipratropium (Duoneb Neb) 1 ampule Q4HR NEB NEB Last administered on 04/06/17 12:33; Start 04/02/17 at 16:00; Stop 04/06/17 at 16:00; Status DC Albuterol/ Ipratropium 1 ampule 1 ampule Q2HR NEB PRN NEB SHORTNESS OF BREATH Last administered on 04/14/17 07:29; Start 04/02/17 at 12:45 Vancomycin HCl 1000 mg/Sodium Chloride 250 ml @ 250 mls/hr ONCE ONCE IV Last administered on 04/02/17 13:24; Start 04/02/17 at 13:15; Stop 04/02/17 at 14:14; Status DC Azithromycin 500 mg/Sodium Chloride 250 ml @ 250 mls/hr Q24H IV Last administered on 04/03/17 14:34; Start 04/02/17 at 15:00; Stop 04/03/17 at 14:37; Status DC Piperacillin Sod/ Tazobactam Sod 100 ml @ 200 mls/hr Q6H IV Last administered on 04/22/17 03:35; Start 04/02/17 at 16:30 Pharmacy Profile Note 0 ml @ 0 mls/hr UNSCH OTHER ; Start 04/02/17 at 15:45; Stop 04/06/17 at 16:15; Status DC Micafungin Sodium/ Sodium Chloride (Mycamine Inj/NS Inj) 100 ml @ 100 mls/hr ONCE ONCE IV Last administered on 04/02/17 17:01; Start 04/02/17 at 17:00; Stop 04/02/17 at 17:59; Status DC Iohexol 85 ml 85 ml STK-MED ONCE IV ; Start 04/02/17 at 15:54; Stop 04/02/17 at 15 :55; Status DC Vancomycin HCl/ Sodium Chloride (Vancomycin Inj/ NS 250 ml Inj) 262.5 ml @ 250 mls/hr Q18H IV Last administered on 04/04/17 17:35; Start 04/03/17 at 04:00; Stop 04/04/17 at 17:57; Status DC Miscellaneous Information SPECIFIC LAB TO BE SARAH... ONCE ONCE .XX ; Start at 15:45; Stop 04/04/17 at 15:46; Status DC Bumetanide 2 mg 2 mg ONCE ONCE IV PUSH Last administered on 04/02/17 17:31; Start 04/02/17 at 17:15; Stop 04/02/17 at 17:16; Status DC Potassium Chloride 100 ml @ 50 mls/hr Q2H IV Last administered on 04/02/17 22: 37; Start 04/02/17 at 17:15; Stop 04/02/17 at 21:14; Status DC Potassium Chloride (KCl 20 Meq Premix Inj) 100 ml @ 50 mls/hr Q2H IV Last administered on 04/03/17 12:00; Start 04/03/17 at 10:00; Stop 04/03/17 at 13:59; Status DC Insulin Human Regular (NovoLIN R SUPPLEMENTAL SCALE) 1 ACHS SLIDING SCALE SQ Last administered on 04/11/17 23:22; Start 04/03/17 at 11:00; Stop 04/17/17 at 14:43; Status DC Dextrose (D50w (Vial) Inj) 25 ml UNSCH PRN IV HYPOGLYCEMIA-SEE COMMENTS; Start 04/03/17 at 10:00; Stop 04/17/17 at 14:44; Status DC Glucagon 1 mg 1 mg UNSCH PRN IM/SQ HYPOGLYCEMIA-SEE COMMENTS; Start 04/03/17 at 10:00; Stop 04/17/17 at 14:44; Status DC Multivitamins 10 ml/Folic Acid 1 mg/Insulin Human Regular 40 units/ Amino Acids / Electrolytes/ Dextrose 2,010.6 ml @ 50 mls/hr Q24H IV Last administered on 20:55; Start 04/03/17 at 20:00; Stop 04/09/17 at 07:24; Status DC Fat Emulsion Intravenous (Liposyn Iii 20% Inj) 250 ml @ 10 mls/hr Q24H IV Last administered on 04/08/17 20:00; Start 04/03/17 at 20:00; Stop 04/09/17 at 07:24; Status DC Bumetanide (Bumex Inj) 1 mg ONCE ONCE IV PUSH Last administered on 04/03/17 12 :45; Start 04/03/17 at 13:00; Stop 04/03/17 at 13:01; Status DC Methylprednisolone Sodium Succinate (SoluMEDROL INJ) 40 mg Q6HR IV PUSH Last administered on 04/04/17 05:24; Start 04/03/17 at 13:00; Stop 04/04/17 at 06:01; Status DC Azithromycin 500 mg 500 mg DAILY PO Last administered on 04/08/17 09:12; Start 04/04/17 at 09:00; Stop 04/09/17 at 08:59; Status DC Vancomycin HCl/ Sodium Chloride (Vancomycin Inj/ NS 250 ml Inj) 250 ml @ 250 mls/hr Q12H IV Last administered on 04/06/17 15:24; Start 04/05/17 at 04:00; Stop 04/06/17 at 16:15; Status DC Miscellaneous Information SPECIFIC LAB TO BE SARAH... ONCE ONCE .XX ; Start 04/06 at 03:45; Stop 04/06/17 at 03:46; Status DC Propofol (Diprivan 200 Mg/20 ml Inj) 200 mg STK-MED ONCE IV ; Start 03/25/17 at 14:58; Stop 04/05/17 at 14:59; Status DC Neostigmine Methylsulfate (Prostigmin Inj) 3 mg STK-MED ONCE IV ; Start at 14:58; Stop 04/05/17 at 14:59; Status DC Ondansetron HCl 4 mg 4 mg STK-MED ONCE IV PUSH ; Start 03/25/17 at 14:58; Stop 04/05/17 at 14:59; Status DC Parenteral Electrolytes (Normosol R Inj) 1,000 ml @ As Directed STK-MED ONCE IV ; Start 03/25/17 at 14:58; Stop 04/05/17 at 14:59; Status DC Miscellaneous Information SPECIFIC LAB TO BE DRAWN:VANCOMYCIN TROUGH DATE TO... ONCE ONCE .XX ; Start 04/08/17 at 03:45; Stop 04/08/17 at 03:46; Status DC Miscellaneous Information Patient in critical care unit? Ass... [id number] .XX ; Start 04/06/17 at 11:45 Mupirocin (Bactroban Nasal 2% Oint) 1 applic BID NASAL Last administered on 22:34; Start 04/06/17 at 12:00 Chlorhexidine Gluconate (Chlorhexidine 2% Cloth) 3 pack DAILY@04 TOPICAL Last administered on 04/11/17 03:50; Start 04/07/17 at 04:00; Stop 04/11/17 at 04:01 ; Status DC Chlorhexidine Gluconate (Chlorhexidine 2% Cloth) 3 pack UNSCH PRN TOPICAL HYGIENIC CARE; Start 04/06/17 at 11:45; Stop 04/11/17 at 11:44; Status DC Furosemide (Lasix Inj) 20 mg BID@09,18 IV PUSH Last administered on 04/22/17 10:02; Start 04/06/17 at 18:00 Sodium Chloride (NS Flush) See Protocol DAILY IV FLUSH Last administered on 11:21; Start 04/07/17 at 09:00 Sodium Chloride (NS Flush) See Protocol UNSCH PRN IV FLUSH SEE PROTOCOL TABLE; Start 04/06/17 at 19:00 Heparin Sodium (Porcine) (Heparin Central Flush) See Protocol DAILY IV FLUSH Last administered on 04/19/17 08:19; Start 04/07/17 at 09:00; Status Hold Heparin Sodium (Porcine) (Heparin Central Flush) See Protocol UNSCH PRN IV FLUSH SEE PROTOCOL TABLE Last administered on 04/08/17 15:56; Start 04/06/17 at 19:00; Status Hold Sodium Chloride (NS Flush) SEE PROTOCOL UNSCH PRN IV FLUSH SEE PROTOCOL TABLE; Start 04/06/17 at 19:00 Guaifenesin (Mucinex Er) 600 mg BID PO Last administered on 04/22/17 10:03; Start 04/08/17 at 14:00 Linezolid (Zyvox) 600 mg Q12HR PO Last administered on 04/22/17 10:02; Start 04/08/17 at 21:00 Albuterol/ Ipratropium (Duoneb Neb) 1 ampule TID NEB INH Last administered on 04/13/17 08:50; Start 04/09/17 at 14:00; Stop 04/13/17 at 14:00; Status DC Acetylcysteine (Mucomyst 20% Neb) 2 ml Q8HR NEB NEB Last administered on 15:53; Start 04/09/17 at 16:00; Stop 04/13/17 at 16:00; Status DC Methylprednisolone Sodium Succinate (SoluMEDROL INJ) 40 mg DAILY IV PUSH Last administered on 04/22/17 10:02; Start 04/09/17 at 12:15 Megestrol Acetate (Megace) 40 mg DAILY PO Last administered on 04/22/17 10:03 ; Start 04/11/17 at 15:00 Loperamide HCl (Imodium) 4 mg ONCE ONCE PO Last administered on 04/11/17 17: 12; Start 04/11/17 at 15:00; Stop 04/11/17 at 15:01; Status DC Psyllium Hydrophilic Mucilloid (Metamucil Smooth Texture Sf/ Gf Pkt) 1 pkt DAILY PO Last administered on 04/22/17 10:03; Start 04/11/17 at 15:00 Nystatin (Mycostatin Powder) 1 applic Q12H TOPICAL Last administered on 03:35; Start 04/11/17 at 17:00 Potassium Chloride (KCl) 20 meq BID PO Last administered on 04/22/17 10:02; Start 04/12/17 at 12:00 Warfarin Sodium 2.5 mg 2.5 mg DAILY@16 PO Last administered on 04/20/17 18:45 ; Start 04/17/17 at 16:00; Stop 04/21/17 at 09:56; Status DC Heparin Sodium/ Dextrose (Heparin-D5W Inj) 250 ml @ 0 mls/hr TITRATE IV Last administered on 04/21/17 19:02; Start 04/17/17 at 10:45 Nitroglycerin (Nitroglycerin 2% Oint) 0.5 inch Q8HR TOPICAL Last administered on 04/21/17 04:42; Start 04/18/17 at 14:00; Stop 04/21/17 at 10:29; Status DC Iohexol (Omnipaque 350 Inj) 100 ml STK-MED ONCE IV Last administered on 14:10; Start 04/18/17 at 14:10; Stop 04/18/17 at 14:11; Status DC Simethicone 80 mg 80 mg PCHS PRN CHEW GAS RETENTION Last administered on 18:52; Start 04/18/17 at 18:00 Potassium Chloride (KCl 20 Meq Premix Inj) 100 ml @ 50 mls/hr Q2H IV Last administered on 04/19/17 09:00; Start 04/19/17 at 08:00; Stop 04/19/17 at 11:59 ; Status DC Lidocaine HCl (Xylocaine 2% Inj) 50 ml STK-MED ONCE .ROUTE ; Start 04/20/17 at 15:22; Stop 04/20/17 at 15:23; Status DC Epinephrine HCl (Adrenalin (1:1000) Inj) 1 mg STK-MED ONCE .ROUTE ; Start at 15:23; Stop 04/20/17 at 15:24; Status DC Epinephrine HCl (Adrenalin (1:1000) Inj) 1 mg STK-MED ONCE OTHER Last administered on 04/20/17 16:00; Start 04/20/17 at 16:00; Stop 04/20/17 at 16:23 ; Status DC Albuterol Sulfate (*ALBUTEROL NEB PERIprocedure ONLY) 2.5 mg STK-MED ONCE NEB Last administered on 04/20/17 16:27; Start 04/20/17 at 16:27; Stop 04/20/17 at 16:28; Status DC Miscellaneous Information ALL NURSING DEPARTME... UNSCH PRN .XX SEE LABEL COMMENTS; Start 04/20/17 at 16:45; Stop 04/21/17 at 16:44; Status DC Warfarin Sodium (Coumadin) 5 mg DAILY@16 PO Last administered on 04/21/17 16: 31; Start 04/21/17 at 16:00 Loperamide HCl (Imodium) 2 mg DAILY PO Last administered on 04/22/17 10:03; Start 04/21/17 at 11:00 Potassium Chloride (KCl) 30 meq ONCE ONCE PO Last administered on 04/22/17 10 :01; Start 04/22/17 at 09:00; Stop 04/22/17 at 09:01; Status DC A/P Problem List: (1) Chest pain ICD Code: R07.9 Status: Resolved (2) Leukocytosis ICD Code: D72.829 Status: Resolved (3) Hypokalemia ICD Code: E87.6 Status: Acute (4) Hypoxia ICD Code: R09.02 Status: Acute (5) COPD (chronic obstructive pulmonary disease) ICD Code: J44.9 Status: Chronic (6) Hypertension ICD Code: I10 Status: Chronic Assessment and Plan Healthcare associated pneumonia -Appreciate infectious disease recommendations. Continue antibiotics. S/P bronchoscopy. Cultures growing gram negative randy. -pending final recommendations based on cultures. Chest pain -Resolved. CTA was negative for pulmonary embolism. Hemoglobin was stable. Serial cardiac enzymes are negative. Likely secondary to gas pain. DVT, RLE - Continue heparin drip, Coumadin. Monitor INR. Heparin drip resumed. -can switch to lovenox as bridging if patient to be discharge to SNF. Colon cancer -management for colorectal surgery. COPD -Appreciate pulmonology recommendations. Patient is chronically on 2 L oxygen. Hypertension - Continue current medications. Blood pressure is well controlled. GI prophylaxis: PPI. Discharge Planning once patient is off IV antibiotics can be d/c to SNF. Alize Burgess MD April 22, 2017 10:11
[2017-04-22 10:37] LABS: APTT (PATIENT) 36.1 SEC (24.3-30.1)
[2017-04-22 12:00] VITALS: BP 109/53; PULSE 98; RESP 16; TEMP 95.4; O2SAT 99
--- NOTE | 2017-04-22 12:40 | HHI.PR ---
Subjective Remarks POD #16 lap TANISHA, open ascending colectomy comfortable, Objective Vital Signs Date Time Temp Pulse Resp B/P Pulse Ox O2 Delivery O2 Flow Rate FiO2 04/22/17 12:00 95.4 98 16 109/53 99 04/22/17 08:00 96.6 86 16 109/53 98 04/22/17 04:00 97.0 86 18 98/53 99 04/22/17 00:00 97.6 90 18 119/57 96 04/21/17 21:00 95 Nasal Cannula 2.00 04/21/17 20:13 Nasal Cannula 2.00 04/21/17 20:00 97.5 70 18 112/58 95 04/21/17 16:00 97.1 90 16 112/52 98 I/O 04/21/17 04/21/17 04/21/17 04/22/17 04/22/17 04/22/17 07:00 15:00 23:00 07:00 15:00 23:00 Intake Total 120 ml 936 ml 240 ml 120 ml Balance 120 ml 936 ml 240 ml 120 ml Intake Oral 120 ml 540 ml 240 ml 120 ml IV Total 396 ml # Voids 2 2 3 1 # Bowel Movements 0 2 1 0 Result Diagram: 04/22/17 0600 04/22/17 0600 Objective Remarks Abdomen soft, nondistended, wound clean Assessment and Plan Assessment and Plan Awaiting ID for antibiotic choice, then to rehab Colleen Plummer MD April 22, 2017 12:40
--- NOTE | 2017-04-22 13:53 | HHI.IDPN ---
Subjective Subjective Remarks Chart reviewed is an 81 y/o WF with PMHx of COPD, chronic tobacco use, CAD. Patient recently underwent an ascending colectomy for colon cancer on 03/25/[address] Colleen Plummer. She had laparoscopic extensive lysis of adhesions, open ascending colectomy and flexible sigmoidoscopy, estimated blood loss of 100 mL. Yesterday, the patient developed chest pain, hypoxia requiring a 100% non- rebreather. Hemoglobin has dropped as low as 8.4. Troponin are negative x3. EKG does not show any ischemic changes. The patient appears very pale at the bedside, still having active chest pain which is improved after a nitro drip. Otherwise denies any fevers, chills, cough, bleeding, PND, or orthopnea. Patient was transferred to the ICU for resp distress. sp bronch feeling OK OOB in chair afebrile ready to be d/c;d Antibiotics Zosyn IV Zyvox oral. Lines Line sites with no e.o infection. Past Medical History reviewed Allergies: Coded Allergies: *MDRO Multi-Drug Resistant Organism (Verified Adverse Reaction, Unknown, ) MRSA PCR Screen POSITIVE - 04/02/2017 Objective . Vital Signs Date Time Temp Pulse Resp B/P Pulse Ox O2 Delivery O2 Flow Rate FiO2 04/22/17 12:00 95.4 98 16 109/53 99 04/22/17 08:00 96.6 86 16 109/53 98 04/22/17 04:00 97.0 86 18 98/53 99 04/22/17 00:00 97.6 90 18 119/57 96 04/21/17 21:00 95 Nasal Cannula 2.00 04/21/17 20:13 Nasal Cannula 2.00 04/21/17 20:00 97.5 70 18 112/58 95 04/21/17 16:00 97.1 90 16 112/52 98 04/21/17 04/21/17 04/22/17 15:00 23:00 07:00 Intake Total 936 ml 240 ml 120 ml Balance 936 ml 240 ml 120 ml Intake Oral 540 ml 240 ml 120 ml IV Total 396 ml # Voids 2 3 1 # Bowel Movements 2 1 0 . Laboratory Tests Test 04/22/17 06:00 White Blood Count 10.0 TH/MM3 Red Blood Count 3.46 MIL/MM3 Hemoglobin 9.1 GM/DL Hematocrit 28.4 % Mean Corpuscular Volume 82.2 FL Mean Corpuscular Hemoglobin 26.4 PG Mean Corpuscular Hemoglobin 32.1 % Concent Red Cell Distribution Width 17.3 % Platelet Count 224 TH/MM3 Mean Platelet Volume 7.4 FL Neutrophils (%) (Auto) 65.7 % Lymphocytes (%) (Auto) 25.6 % Monocytes (%) (Auto) 6.2 % Eosinophils (%) (Auto) 1.3 % Basophils (%) (Auto) 1.2 % Neutrophils # (Auto) 6.6 TH/MM3 Lymphocytes # (Auto) 2.6 TH/MM3 Monocytes # (Auto) 0.6 TH/MM3 Eosinophils # (Auto) 0.1 TH/MM3 Basophils # (Auto) 0.1 TH/MM3 CBC Comment DIFF FINAL Differential Comment Laboratory Tests Test 04/22/17 06:00 Sodium Level 139 MEQ/L Potassium Level 3.1 MEQ/L Chloride Level 102 MEQ/L Carbon Dioxide Level 27.4 MEQ/L Anion Gap 10 MEQ/L Blood Urea Nitrogen 19 MG/DL Creatinine 0.74 MG/DL Estimat Glomerular Filtration 75 ML/MIN Rate Random Glucose 95 MG/DL Calcium Level 8.6 MG/DL Microbiology Date/Time Procedure Status Source Growth 04/20/17 15:59 Cancelled Bronchial Washings Bronchial 04/20/17 15:59 Cancelled Bronchial Washings Bronchial 04/20/17 15:59 Cancelled Bronchial Washings Bronchial 04/20/17 15:59 Bronchial Aspirate Culture - Preliminary Resulted Bronchial Brushings Right Lower Lobe Gram Negative Bobby 04/20/17 15:59 Acid Fast Stain - Final Resulted Bronchial Brushings Right Lower Lobe NO ACID FAST BACILLI SEEN 04/20/17 15:59 Mycobacterial Culture Resulted Bronchial Brushings Right Lower Lobe Pending 04/20/17 15:59 Fungal Smear - Final Resulted Bronchial Brushings Right Lower Lobe NO FUNGAL ELEMENTS SEEN. 04/20/17 15:59 Fungal Culture Resulted Bronchial Brushings Right Lower Lobe Pending 04/20/17 15:59 Gram Stain - Final Complete Bronchial Washings Right Lower Lobe 04/20/17 15:59 Bronchial Culture - Final Complete Pseudomonas Aeruginosa 04/20/17 15:59 Acid Fast Stain - Final Resulted Bronchial Washings Right Lower Lobe NO ACID FAST BACILLI SEEN 04/20/17 15:59 Mycobacterial Culture Resulted Bronchial Washings Right Lower Lobe Pending 04/20/17 15:59 Fungal Smear - Final Resulted Bronchial Washings Right Lower Lobe NO FUNGAL ELEMENTS SEEN. 04/20/17 15:59 Fungal Culture Resulted Bronchial Washings Right Lower Lobe Pending 04/20/17 16:30 Acid Fast Stain Received Bronchial Brushings Right Lower Lobe Pending 04/20/17 16:30 Mycobacterial Culture Received Bronchial Brushings Right Lower Lobe Pending Imaging Last Impressions Chest X-Ray 04/18/17 0600 Signed Impressions: Service Date/Time: Tuesday, April 18, 2017 05:56 - CONCLUSION: Improvement in aeration of the lungs. Ruth Pablo MD CT Angiography 04/18/17 0000 Signed Impressions: Service Date/Time: Tuesday, April 18, 2017 13:43 - CONCLUSION: 1. No evidence of pulmonary embolism. 2. Multiple masslike cavitary areas in the right lower lobe which are nonspecific and could represent necrotic lung or fungal infections. 3. Small right pleural effusion. Dustin Brasher MD Abdomen/Pelvis CT 04/18/17 0000 Signed Impressions: Service Date/Time: Tuesday, April 18, 2017 13:47 - CONCLUSION: 1. Middle decrease in the amount of fluid in the pelvis with small amount of fluid remaining. 2. Nonspecific, nonobstructed bowel gas pattern again noted which is mildly improved as well. Postsurgical changes are noted. 3. Benign cystic structure in the spleen. 4. Small pleural effusions and consolidation in the lung bases. Dustin Brasher MD Lower Extremity Ultrasound 04/17/17 0000 Signed Impressions: Service Date/Time: Monday, April 17, 2017 00:50 - CONCLUSION: 1. Positive right lower extremity deep venous thrombosis as above. Negative left lower extremity for DVT. Austen Osei MD Physical Exam GENERAL: Awake and alert, not in distress SKIN: No rashes, EYES: Pupils equal round and reactiveNo scleral icterus. No injection or drainage. ENT: Nose without bleeding, purulent drainage or septal hematoma. Throat without erythema, or exudate. . CARDIOVASCULAR: Regular rate and rhythm without murmurs. RESPIRATORY: clear to auscultation. Decreased at bases GASTROINTESTINAL: Abdomen soft, non-tender, not distended. Incision clean, dry MUSCULOSKELETAL: Bilateral knees surgical scar is intact. no edema NEUROLOGICAL: Awake and alert. Grossly nonfocal Psych cooperative IV line sites with no evidence of infection. Assessment & Plan Remarks Sepsis Cavitatory pneumonia - growing pseudomonas in BAL - dw microlab: isolate is S to levaquine - 2nd ? isolate - also PSAE slightly morphol diff Acute respiratory failure on 100% nonrebreather- resolved - on NC O2 now Ascending colectomy for colon cancer on 03/25/2017 ? IA abscess or sepsis/ peritonitis High grade leucocytosis. resolved COPD exacerbation acute CAD Recs dc Zosyn IV dc zyvox Start levaquine fu b ronch cultures untill final OK to dc on levaquin to complete 14 days of tx fu with pulmonary Sada Rodriguez MD April 22, 2017 13:53
[2017-04-22] MEDS ORDERED: LEVO750T3 PO (13:59)
[2017-04-22] MEDS ORDERED: LEVOFLOXACIN 750 MG TAB PO SCH (15:00)
[2017-04-22] MEDS ORDERED: FURO20TA PO (15:46)
[2017-04-22] MEDS ORDERED: LOPE2CAP92 PO (15:46)
[2017-04-22] MEDS ORDERED: ENOX80P SQ (15:46)
[2017-04-22] MEDS ORDERED: POTA-243 PO (15:46)
[2017-04-22] MEDS ORDERED: PRED20 PO (15:46)
[2017-04-22] MEDS ORDERED: MEGE40TA PO (15:46)
[2017-04-22] MEDS ORDERED: KONS100P3 PO (15:46)
[2017-04-22] MEDS ORDERED: NYST10007 TOPICAL (15:46)
[2017-04-22] MEDS ORDERED: COUM5TAB PO (15:46)
--- NOTE | 2017-04-22 15:49 | HHI.DS ---
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 She is post-op day #24. I was called by Dr. Zee Arriaga with request to seen the patient in consultation for acute onset chest pain. The patient states that the pain started about 20 minutes before my arrival at bedside. It initially was 10/10, substernal, with radiation to the back. She has dyspnea, but not worse today. Pain is currently 8/10. No diaphoresis. No alleviating or exacerbating factors. The patient was diagnosed with a RLE DVT yesterday and started on coumadin with heparin drip to bridge to therapeutic INR. She is followed in the hospital by Dr. William for pulmonology, Dr. Rodriguez for cardiology, and Dr. Arriaga for infectious disease. She has been on antibiotics for healthcare associated pneumonia as well. CBC/BMP: 04/22/17 0600 04/22/17 0600 Significant Findings Laboratory Tests Test 04/19/17 04/20/17 04/20/17 04/21/17 22:10 09:30 23:42 06:00 Activated Partial 30.6 SEC 30.4 SEC 33.9 SEC Thromboplast Time (24.3-30.1) (24.3-30.1) (24.3-30.1) White Blood Count 11.3 TH/MM3 (4.0-11.0) Red Blood Count 3.46 MIL/MM3 (4.00-5.30) Hemoglobin 9.2 GM/DL (11.6-15.3) Hematocrit 28.5 % (35.0-46.0) Mean Corpuscular Hemoglobin 26.6 PG (27.0-34.0) Red Cell Distribution Width 17.9 % (11.6-17.2) Mean Platelet Volume 6.9 FL (7.0-11.0) Neutrophils (%) (Auto) 81.8 % (16.0-70.0) Neutrophils # (Auto) 9.3 TH/MM3 (1.8-7.7) Prothrombin Time 11.8 SEC (9.8-11.6) Estimat Glomerular Filtration 84 ML/MIN (>89) Rate Test 04/21/17 04/21/17 04/21/17 04/22/17 12:40 18:50 21:50 04:00 Activated Partial 41.4 SEC 112.0 SEC 31.0 SEC 45.4 SEC Thromboplast Time (24.3-30.1) (24.3-30.1) (24.3-30.1) (24.3-30.1) Prothrombin Time 16.5 SEC (9.8-11.6) Test 04/22/17 04/22/17 06:00 10:00 Red Blood Count 3.46 MIL/MM3 (4.00-5.30) Hemoglobin 9.1 GM/DL (11.6-15.3) Hematocrit 28.4 % (35.0-46.0) Mean Corpuscular Hemoglobin 26.4 PG (27.0-34.0) Red Cell Distribution Width 17.3 % (11.6-17.2) Potassium Level 3.1 MEQ/L (3.5-5.1) Blood Urea Nitrogen 19 MG/DL (7-18) Estimat Glomerular Filtration 75 ML/MIN (>89) Rate Activated Partial 36.1 SEC Thromboplast Time (24.3-30.1) Imaging Last Impressions Chest X-Ray 04/18/17 0600 Signed Impressions: Service Date/Time: Tuesday, April 18, 2017 05:56 - CONCLUSION: Improvement in aeration of the lungs. Ruth Pablo MD CT Angiography 04/18/17 0000 Signed Impressions: Service Date/Time: Tuesday, April 18, 2017 13:43 - CONCLUSION: 1. No evidence of pulmonary embolism. 2. Multiple masslike cavitary areas in the right lower lobe which are nonspecific and could represent necrotic lung or fungal infections. 3. Small right pleural effusion. Dustin Brasher MD Abdomen/Pelvis CT 04/18/17 0000 Signed Impressions: Service Date/Time: Tuesday, April 18, 2017 13:47 - CONCLUSION: 1. Middle decrease in the amount of fluid in the pelvis with small amount of fluid remaining. 2. Nonspecific, nonobstructed bowel gas pattern again noted which is mildly improved as well. Postsurgical changes are noted. 3. Benign cystic structure in the spleen. 4. Small pleural effusions and consolidation in the lung bases. Dustin Brasher MD Lower Extremity Ultrasound 04/17/17 0000 Signed Impressions: Service Date/Time: Monday, April 17, 2017 00:50 - CONCLUSION: 1. Positive right lower extremity deep venous thrombosis as above. Negative left lower extremity for DVT. Austen Osei MD PE at Discharge GENERAL: in NAD CARDIOVASCULAR: Regular rate and rhythm without murmurs, gallops, or rubs. RESPIRATORY: Breath sounds equal bilaterally. No accessory muscle use. GASTROINTESTINAL: Abdomen soft, non-tender, nondistended. wounds dry clean and intact. Hospital Course Cecal cancer -Status Laparoscopic extensive lysis of adhesions, Open ascending colectomy and Flexible sigmoidoscopy on 03/25/17. -This was being managed by colorectal surgeon. Healthcare associated pneumonia -Due to long hospitalization and surgery patient had healthcare associated pneumonia. She was treated. Empirically with antibiotics. Infectious disease was consulted. -She then had a bronchoscopy done by flight surgeon in which sputum cultures grew Pseudomonas. Treatment completed during hospitalization. Chest pain -Resolved. CTA was negative for pulmonary embolism. Hemoglobin was stable. Serial cardiac enzymes are negative. Likely secondary to gas pain. DVT, RLE -She later developed DVT. She was put on heparin drip and Coumadin. - She was later transitioned to Lovenox as a bridging until Coumadin was therapeutic with INR 2-3. COPD -Appreciate pulmonology recommendations. Patient is chronically on 2 L oxygen. Hypertension - Continue current medications. Blood pressure is well controlled. Pt Condition on Discharge: Good Discharge Disposition: Discharge to SNF Discharge Time: > 30 minutes Discharge Instructions DIET: Follow Instructions for: Soft Diet, Low Residue Diet Activities you can perform: Regular-No Restrictions, See Additionl Instruction Follow up Referrals: Cardiology - 2 Weeks Colorectal Surgery - 2 Weeks with Colleen Plummer MD Pulmonology - 2 Weeks with Nataliia William MD [facility]/ - Next Day New Medications: Enoxaparin Inj (Lovenox Inj) 80 mg/0.8 ML Syr 70 MG SQ BID use lovenox for bridging until INR is between 2-3. Once at goal with INR please discontinue lovenox. blood clot #10 Ref 0 SYRINGE Furosemide (Furosemide) 20 Mg Tab 20 MG PO BID heart failure #60 Ref 0 TAB Levofloxacin (Levofloxacin) 750 Mg Tablet 750 MG PO DAILY Infection Days 14 Ref 0 TAB Prednisone (Prednisone) 20 Mg Tab 20 MG PO DAILY take 1 tablet for 3 days then decrease to 1/2 tablet for 4 day COPD #7 Ref 0 TAB Loperamide HCl (Hm Loperamide HCl) 2 Mg Cap 4 MG PO DAILY PRN diarrhea #20 Ref 0 CAP Megestrol (Megestrol) 40 Mg Tab 40 MG PO DAILY appetite #30 Ref 0 TAB Nystatin Topical (Nystop Topical) 100,000 Unit/Gm Powd 1 APPLIC TOPICAL Q12H Rash #1 Ref 0 G Potassium Chloride ER (Klor-Con 10) 10 Meq Tab 20 MEQ PO BID prevent low potassium #60 Ref 0 TAB Psyllium Powder (Konsyl) 100 % Pow 1 PKT PO DAILY constipation Days 30 Ref 0 PKT Warfarin (Coumadin) 5 Mg Tab 5 MG PO DAILY@16 goal INR is 2-3 DVT #10 Ref 0 TAB Continued Medications: Ascorbic Acid (Vitamin C) 500 Mg Cap 500 MG PO PRN ns Ref 0 CAP Atorvastatin (Atorvastatin) 40 Mg Tab 40 MG PO HS Cholesterol Management #30 Ref 0 TAB Calcium (Calcium) 600 Mg Tab 1200 MG PO DAILY Nutritional Supplement TAB Cholecalciferol (Vitamin D) 1,000 Unit Tab 1000 UNITS PO DAILY Nutritional Supplement #1 Ref 0 BOTTLE Cyanocobalamin (Vitamin B-12) 2,500 Mcg Subl 2500 MCG SL DAILY Nutritional Supplement Ref [address] (Nexium) 40 Mg Capdr 40 MG PO BID Heartburn Management Ref 0 CAP Mirabegron (Myrbetriq) 50 Mg Tab 50 MG PO DAILY Urinary Symptom Managemen #30 Ref 0 TAB Multiple Vitamins W/ Minerals (Multi For Her 50+) 1 Cap Cap 1 TAB PO DAILY Nutritional Supplement Valsartan (Valsartan) 160 Mg Tab 160 MG PO DAILY #30 Ref 0 TAB Discontinued Medications: Dipyridamole-Aspirin (Aggrenox) 200-25 Mg Cap 1 CAP PO BID Prevent Blood Clot #60 Ref 0 CAP Potassium Chloride ER (Klor-Con 10) 10 Meq Tab 10 MEQ PO DAILY Electrolyte Replacement #30 Ref 0 TAB Alize Burgess MD April 22, 2017 15:48 Alize Burgess MD April 22, 2017 15:48
[2017-04-22 16:00] VITALS: BP 120/61; PULSE 93; RESP 17; TEMP 95.4; O2SAT 99
[2017-04-22] MEDS ORDERED: ENOXAPARIN SODIUM 80 MG/0.8 ML SYRINGE SQ SCH (16:00)
[2017-04-22] MEDS: WARFARIN SOD 5 MG TAB PO SCH (16:50)
[2017-04-23] MEDS ORDERED: LOPERAMIDE HCL 2 MG CAP PO SCH (09:00)
== END 2017-04-22 18:25 | DRG 329 ==
LOC: HSDI 03-25 06:11 → HCVR 03-25 17:25 → N07B 03-27 23:36 → N03A 04-01 01:22 → N07A 04-15 14:04
PROVIDERS: ADMIT Colon & Rectal Surgery; ATTEND Colon & Rectal Surgery
PROC: 0DN84ZZ Release Small Intestine, Percutaneous Endoscopic Approach (ICD-10-PCS; 2017-03-25)
PROC: 0DNN4ZZ Release Sigmoid Colon, Percutaneous Endoscopic Approach (ICD-10-PCS; 2017-03-25)
PROC: 0DJD8ZZ Inspection of Lower Intestinal Tract, Via Natural or Artificial Opening Endoscopic (ICD-10-PCS; 2017-03-25)
PROC: 0DTK0ZZ Resection of Ascending Colon, Open Approach (ICD-10-PCS; principal; 2017-03-25 08:44)
PROC: 0DNT4ZZ (ICD-10-PCS; 2017-03-25 08:44)
PROC: 30233N1 Transfusion of Nonautologous Red Blood Cells into Peripheral Vein, Percutaneous Approach (ICD-10-PCS; 2017-04-01)
PROC: 02HV33Z Insertion of Infusion Device into Superior Vena Cava, Percutaneous Approach (ICD-10-PCS; 2017-04-06)
PROC: 0B9F8ZX Drainage of Right Lower Lung Lobe, Via Natural or Artificial Opening Endoscopic, Diagnostic (ICD-10-PCS; 2017-04-20)
PROC: 0BC68ZZ Extirpation of Matter from Right Lower Lobe Bronchus, Via Natural or Artificial Opening Endoscopic (ICD-10-PCS; 2017-04-20)
PROC: 0BC48ZZ Extirpation of Matter from Right Upper Lobe Bronchus, Via Natural or Artificial Opening Endoscopic (ICD-10-PCS; 2017-04-20)
PROC: 0BC58ZZ Extirpation of Matter from Right Middle Lobe Bronchus, Via Natural or Artificial Opening Endoscopic (ICD-10-PCS; 2017-04-20)
PROC: 0BC38ZZ Extirpation of Matter from Right Main Bronchus, Via Natural or Artificial Opening Endoscopic (ICD-10-PCS; 2017-04-20)
DX: C18.0 Malignant neoplasm of cecum (principal); J96.01 Acute respiratory failure with hypoxia; J15.1 Pneumonia due to Pseudomonas; A41.9 Sepsis, unspecified organism; J44.0 Chronic obstructive pulmonary disease with (acute) lower respiratory infection; C77.2 Secondary and unspecified malignant neoplasm of intra-abdominal lymph nodes; I48.91 Unspecified atrial fibrillation; I45.2 Bifascicular block; R71.0 Precipitous drop in hematocrit; I82.411 Acute embolism and thrombosis of right femoral vein; K63.0 Abscess of intestine; I25.110 Atherosclerotic heart disease of native coronary artery with unstable angina pectoris; J44.1 Chronic obstructive pulmonary disease with (acute) exacerbation; I82.431 Acute embolism and thrombosis of right popliteal vein; I82.811 Embolism and thrombosis of superficial veins of right lower extremity; J98.11 Atelectasis; E83.51 Hypocalcemia; K66.0 Peritoneal adhesions (postprocedural) (postinfection); J98.09 Other diseases of bronchus, not elsewhere classified; K57.30 Diverticulosis of large intestine without perforation or abscess without bleeding; I10 Essential (primary) hypertension; E78.5 Hyperlipidemia, unspecified; G62.9 Polyneuropathy, unspecified; K21.9 Gastro-esophageal reflux disease without esophagitis; E87.6 Hypokalemia; R19.7 Diarrhea, unspecified; F17.210 Nicotine dependence, cigarettes, uncomplicated; Y95 Nosocomial condition; Z22.322 Carrier or suspected carrier of Methicillin resistant Staphylococcus aureus; Z86.73 Personal history of transient ischemic attack (TIA), and cerebral infarction without residual deficits; Z96.653 Presence of artificial knee joint, bilateral; Z99.81 Dependence on supplemental oxygen
CPT/HCPCS: 36430; 36569; 36600; 71010; 71020; 71275; 74177; 76937; 80048; 80053; 80202; 82550; 82565; 82805; 82948; 83690; 83735; 83880; 84100; 84132; 84145; 84155; 84484; 85007; 85014; 85018; 85025; 85027; 85610; 85730; 86850; 86900; 86901; 86920; 87015; 87040; 87070; 87071; 87077; 87102; 87116; 87186; 87205; 87206; 87449; 87493; 87641; 88112; 88305; 88309; 93005; 93970; 94150; 94640; 94664; 94667; 94668; C1765; C9113; J0171; J0456; J0690; J1100; J1200; J1642; J1644; J1650; J1815; J1885; J1940; J2248; J2250; J2270; J2405; J2543; J2710; J2920; J3010; J3370; J3480; J7030; J7042; J7050; J7608; J7613; P9016; Q9967

== ENCOUNTER → 2017-03-18 | Outpatient (CLI) | payer MEDICARE, OTHER ==
[~2017-03-18] MED LIST: AGGR20025 PO; ASCO500C PO; ATOR40TA16 PO; CALC500 PO; CALC600T13 PO; CARV10 PO; COUM5TAB PO; CYAN25003 SL; DIOV80TA2 PO; ENOX80P SQ; FURO20TA PO; IMDU60TA PO; KONS100P3 PO; LEVO750T3 PO; LEXA10TA PO; LOPE2CAP92 PO; MEGE40TA PO; MIRA50TA PO; MULTCAP2 PO; NEXI40CA PO; NYST10007 TOPICAL; POTA-243 PO; PRED20 PO; SIMCOR PO; VALS1TAB65 PO; VESI5TAB PO; VITA100064 PO
[2017-03-18 10:04] LABS: AUTOMATED NEUTROPHIL # 9.3 TH/MM3 (1.8-7.7); BASOPHIL # 0.1 TH/MM3 (0-0.2); BASOPHIL % 0.8 % (0.0-2.0); EOSINOPHIL # 0.1 TH/MM3 (0-0.4); EOSINOPHIL % 0.7 % (0.0-4.0); HEMATOCRIT 31.4 % (35.0-46.0); HEMO FLAGS DIFF FINAL; LYMPH % 16.9 % (9.0-44.0); MEAN CORPUSCULAR HEMOGLOBIN 26.3 PG (27.0-34.0); MEAN CORPUSCULAR HGB CONC 31.7 % (32.0-36.0); MONO % 4.7 % (0.0-8.0); NEUT % 76.9 % (16.0-70.0); PLATELET COUNT 377 TH/MM3 (150-450); RED BLOOD COUNT 3.78 MIL/MM3 (4.00-5.30); RED CELL DISTRIBUTION WIDTH 14.2 % (11.6-17.2); WHITE BLOOD COUNT 12.1 TH/MM3 (4.0-11.0)
[2017-03-18 10:14] LABS: APTT (PATIENT) 26.8 SEC (24.3-30.1); PROTHROMBIN TIME - PATIENT 10.9 SEC (9.8-11.6)
[2017-03-18 10:34] LABS: BICARBONATE 26.1 MEQ/L (21.0-32.0); POTASSIUM 3.5 MEQ/L (3.5-5.1)
[2017-03-18 11:04] LABS: BACTERIA, URINE MOD /hpf; BLOOD, URINE NEG (NEG); COMMENT (UR) CULTURE INDICATED; CULTURE IF INDICATED CULTURE INDICATED; GLUCOSE,URINE NEG (NEG); KETONE, URINE NEG (NEG); MUCUS URINE FEW /lpf (OCC); PH, URINE 5.5 (5.0-8.5); SQUAMOUS EPITHELIAL CELL URINE <1 /hpf (0-5); URINE COLOR YELLOW (YELLW/STRAW)
[2017-03-18 11:11] LABS: NITRITE,URINE POS (NEG)
--- NOTE | 2017-03-18 11:44 | RADRPT ---
EXAM DATE/TIME: 03/18/2017 10:51 [facility] COMPARISON: No previous studies available for comparison. INDICATIONS : Evaluate for Pneumonia, Pneumothorax, and communicable diseases. Pre-op ascending colectomy. MEDICAL HISTORY : None. SURGICAL HISTORY : None. ENCOUNTER: Initial ACUITY: 1 day PAIN SCORE: 0/10 LOCATION: Bilateral chest FINDINGS: The lungs are clear without infiltrate, nodule, or mass. There is no appreciable pleural effusion fo r technique. Heart and mediastinum are unremarkable. There are degenerative changes within the thora cic spine and the bony structures appear slightly osteopenic. There are atherosclerotic calcification s of the aorta due to chronic atherosclerotic disease. CONCLUSION: No acute cardiopulmonary disease. Ruth Pablo MD on March 18, 2017 at 11:42 Board Certified Radiologist. This report was verified electronically.
== END ==
LOC: CPRE 09:29
PROVIDERS: ATTEND Colon & Rectal Surgery
DX: Z01.812 Encounter for preprocedural laboratory examination (principal); Z01.811 Encounter for preprocedural respiratory examination; C18.2 Malignant neoplasm of ascending colon; N39.0 Urinary tract infection, site not specified; B96.20 Unspecified Escherichia coli [E. coli] as the cause of diseases classified elsewhere; Z79.01 Long term (current) use of anticoagulants
CPT/HCPCS: 36415; 71020; 80048; 81001; 82378; 85025; 85610; 85730; 87077; 87086; 87186

== ENCOUNTER 2017-08-17 20:51 | Emergency (ER) | payer MEDICARE, OTHER ==
[~2017-08-17] VITALS: Ht 167.6 cm; Wt 68.0 kg
[~2017-08-17 20:51] MED LIST changes: -AGGR20025 PO; -CALC500 PO; -CARV10 PO; -DIOV80TA2 PO; -IMDU60TA PO; -LEXA10TA PO; -SIMCOR PO; -VESI5TAB PO
[2017-08-17 20:54] VITALS: BP 213/99; PULSE 98; RESP 16; TEMP 97.7; O2SAT 96
--- NOTE | 2017-08-17 21:41 | PD ---
Physical Exam Date Seen by Provider: Aug 17, 2017 Time Seen by Provider: 21:38 Narrative 82-year-old white female presents to emergency department with complaints of abdominal pain. Patient states that the pain started earlier today. She reports it as a sharp cramping pain and rates it a 10/10 in her lower abdomen. She has had no fever or chills. Nausea but no vomiting. No urinary symptoms. History of colon cancer. Vital signs reviewed. Awaiting bed placement. Data Data Last Documented VS Vital Signs Date Time Temp Pulse Resp B/P (MAP) Pulse Ox O2 Delivery O2 Flow Rate FiO2 08/17/17 20:54 97.7 98 16 213/99 (137) 96 Room Air [facility] Medical Record Reviewed: No Supervised Visit with JYOTI: Austen Emery Aug 17, 2017 21:41
[2017-08-17] MEDS ORDERED: SODIUM CHLOR 0.9% 1000 ML INJ 1,000 ML IV SCH (22:22)
[2017-08-17] MEDS ORDERED: SODIUM CHLORIDE 0.9% FLUSH 10 ML FLUSH IV FLUSH PRN (22:30)
--- NOTE | 2017-08-17 22:30 | PD ---
HPI Chief Complaint: Abdominal Pain Time Seen by Provider: 22:16 Travel History International Travel<30 days: No Contact w/Intl Traveler<30days: No Traveled to known affect area: No History of Present Illness HPI Patient is an 82-year-old female who presents to emergency room complaints of abdominal pain. Patient is status post cholecystectomy with Dr. Plummer on March 25, 2017 for colon cancer, patient reports that since her surgery, she has been having intermittent lower abdominal pain. Patient reports that the pain has been constant since 5 PM, she has had having nausea with no vomiting with symptoms. Patient reports that she has been having diarrhea which has been a problem for her since her surgery. Patient denies any fevers or chills, no other complaints at this time. Patient with no chest pain or shortness of breath, no fever or chills. PFSH Past Medical History Cancer: Yes (colon) Cardiovascular Problems: Yes (stress test 02/2017, murmur, CAD, MV incompetence) Diabetes: No Endocrine: No Genitourinary: Yes (incontinence) Hepatitis: No Hiatal Hernia: No Hypertension: Yes Immune Disorder: No Musculoskeletal: Yes (arthritis) Neurologic: Yes (CVA 9 yrs ago ) Psychiatric: No Respiratory: Yes (previous hx of pulomonary emoboli post surgery) Thyroid Disease: No ?: Not Past Surgical History Abdominal Surgery: Yes (kristina, appe) AICD: No Body Medical Devices: 2 lower implants in jaw for dentures, screw in L hip Cardiac Surgery: No Ear Surgery: No Endocrine Surgery: No Eye Surgery: Yes (bilat cataract) Genitourinary Surgery: No Gynecologic Surgery: Yes (hysterectomy) Joint Replacement: Yes (bilat knees) Oral Surgery: Yes (for dentures) Pacemaker: No Thoracic Surgery: No Social History Tobacco Use: No Substance Use: No Allergies-Medications (Allergen,Severity, Reaction): Coded Allergies: *MDRO Multi-Drug Resistant Organism (Verified Adverse Reaction, Unknown, ) MRSA PCR Screen POSITIVE - 04/02/2017 Reported Meds & Prescriptions Reported Meds & Active Scripts Active Zofran (Ondansetron HCl) 4 Mg Tab 4 Mg PO Q6HR PRN Augmentin (Amoxicillin-Clavulanate) 875-125 Mg Tab 1 Tab PO BID 10 Days Coumadin (Warfarin) 5 Mg Tab 5 Mg PO DAILY@16 goal INR is 2-3 Klor-Con 10 (Potassium Chloride) 10 Meq Tab 20 Meq PO BID Nystop Topical (Nystatin Topical) 100,000 Unit/Gm Powd 1 Applic TOPICAL Q12H Hm Loperamide HCl (Loperamide HCl) 2 Mg Cap 4 Mg PO DAILY PRN Reported Multiple Vitamins For Women (Multivit with Calcium,Iron,Min) 1 Each Tablet Ascorbic Acid (Ascorbic Acid (Bulk)) 100 % Pow Warfarin 7.5 Mg Tab 7.5 Mg PO TUESDAY & TUESDAY Calcium 600 Mg Tab 1,200 Mg PO DAILY Vitamin D3 (Cholecalciferol) 1,000 Unit Tab 1,000 Units PO DAILY Vitamin C (Ascorbic Acid) 500 Mg Cap 500 Mg PO PRN Atorvastatin (Atorvastatin Calcium) 40 Mg Tab 40 Mg PO HS Myrbetriq (Mirabegron) 50 Mg Tab 50 Mg PO DAILY Valsartan 160 Mg Tab 160 Mg PO DAILY Nexium (Esomeprazole DR) 40 Mg Capdr 40 Mg PO BID Review of Systems General / Constitutional: No: Fever Eyes: No: Visual changes HENT: No: Headaches Cardiovascular: No: Chest Pain or Discomfort Respiratory: No: Shortness of Breath Gastrointestinal: Positive: Nausea, Diarrhea, Abdominal Pain, No: Vomiting Genitourinary: No: Dysuria Musculoskeletal: No: Pain Skin: No Rash Neurologic: No: Weakness Psychiatric: No: Depression Endocrine: No: Polydipsia Hematologic/Lymphatic: No: Easy Bruising Physical Exam Narrative GENERAL: Mild distress SKIN: Focused skin assessment warm/dry. HEAD: Atraumatic. Normocephalic. EYES: Pupils equal and round. No scleral icterus. No injection or drainage. ENT: No nasal bleeding or discharge. Mucous membranes pink and moist. NECK: Trachea midline. No JVD. CARDIOVASCULAR: Regular rate and rhythm. No murmur appreciated. RESPIRATORY: No accessory muscle use. Clear to auscultation. Breath sounds equal bilaterally. GASTROINTESTINAL: Abdomen soft, increased tenderness to lower abdomen, nondistended. Hepatic and splenic margins not palpable. MUSCULOSKELETAL: No obvious deformities. No clubbing. No cyanosis. No edema. NEUROLOGICAL: Awake and alert. No obvious cranial nerve deficits. Motor grossly within normal limits. Normal speech. PSYCHIATRIC: Appropriate mood and affect; insight and judgment normal. Data Data Last Documented VS Vital Signs Date Time Temp Pulse Resp B/P (MAP) Pulse Ox O2 Delivery O2 Flow Rate FiO2 08/18/17 05:10 08/18/17 04:00 95 20 93 Room Air 08/17/17 20:54 97.7 Orders Orders Complete Blood Count With Diff (08/17/17 22:22) Comprehensive Metabolic Panel (08/17/17 22:22) Lipase (08/17/17 22:22) Prothrombin Time / Inr (Pt) (08/17/17 22:22) Act Partial Throm Time (Ptt) (08/17/17 22:22) Urinalysis - C+S If Indicated (08/17/17 22:22) Iv Access Insert/Monitor (08/17/17 22:22) Ecg Monitoring (08/17/17 22:22) Oximetry (08/17/17 22:22) NPO (08/17/17 22:22) Sodium Chlor 0.9% 1000 Ml Inj (Ns 1000 M (08/17/17 22:22) Sodium Chloride 0.9% Flush (Ns Flush) (08/17/17 22:30) Ct Abd/Pel W Iv Contrast(Rout) (08/18/17 ) Iohexol 350 Inj (Omnipaque 350 Inj) (08/18/17 12:20) Morphine Inj (Morphine Inj) (08/18/17 01:00) Hydralazine Inj (Apresoline Inj) (08/18/17 02:30) Blood Culture (08/18/17 02:33) Ceftriaxone Inj (Rocephin Inj) (08/18/17 02:45) Azithromycin (Zithromax) (08/18/17 02:45) Urine Culture (08/18/17 02:25) Ondansetron Inj (Zofran Inj) (08/18/17 04:45) Ondansetron Inj (Zofran Inj) (08/18/17 04:45) Labs Laboratory Tests Test 08/17/17 23:20 08/18/17 02:25 White Blood Count 12.5 TH/MM3 Red Blood Count 4.75 MIL/MM3 Hemoglobin 12.7 GM/DL Hematocrit 40.4 % Mean Corpuscular Volume 85.0 FL Mean Corpuscular Hemoglobin 26.6 PG Mean Corpuscular Hemoglobin Concent 31.3 % Red Cell Distribution Width 17.2 % Platelet Count 338 TH/MM3 Mean Platelet Volume 7.9 FL Neutrophils (%) (Auto) 77.9 % Lymphocytes (%) (Auto) 16.2 % Monocytes (%) (Auto) 4.4 % Eosinophils (%) (Auto) 1.0 % Basophils (%) (Auto) 0.5 % Neutrophils # (Auto) 9.7 TH/MM3 Lymphocytes # (Auto) 2.0 TH/MM3 Monocytes # (Auto) 0.5 TH/MM3 Eosinophils # (Auto) 0.1 TH/MM3 Basophils # (Auto) 0.1 TH/MM3 CBC Comment DIFF FINAL Differential Comment Prothrombin Time 28.2 SEC Prothromb Time International Ratio 2.5 RATIO Activated Partial Thromboplast Time 35.9 SEC Blood Urea Nitrogen 8 MG/DL Creatinine 0.63 MG/DL Random Glucose 104 MG/DL Total Protein 7.2 GM/DL Albumin 3.1 GM/DL Calcium Level 9.2 MG/DL Alkaline Phosphatase 109 U/L Aspartate Amino Transf (AST/SGOT) 22 U/L Alanine Aminotransferase (ALT/SGPT) 13 U/L Total Bilirubin 0.2 MG/DL Sodium Level 141 MEQ/L Potassium Level 3.7 MEQ/L Chloride Level 107 MEQ/L Carbon Dioxide Level 25.6 MEQ/L Anion Gap 8 MEQ/L Estimat Glomerular Filtration Rate 90 ML/MIN Lipase 116 U/L Urine Color COLORLESS Urine Turbidity CLEAR Urine pH 7.0 Urine Specific [place] 1.024 Urine Protein NEG mg/dL Urine Glucose (UA) NEG mg/dL Urine Ketones NEG mg/dL Urine Occult Blood NEG Urine Nitrite NEG Urine Bilirubin NEG Urine Urobilinogen LESS THAN 2.0 MG/DL Urine Leukocyte Esterase MOD Urine WBC 17 /hpf Urine Squamous Epithelial Cells <1 /hpf Urine Bacteria RARE /hpf Urine Mucus FEW /lpf Microscopic Urinalysis Comment CULTURE INDICATED MDM Medical Decision Making Medical Screen Exam Complete: Yes Emergency Medical Condition: Yes Medical Record Reviewed: Yes Interpretation(s) Vital Signs Date Time Temp Pulse Resp B/P (MAP) Pulse Ox O2 Delivery O2 Flow Rate FiO2 08/17/17 20:54 97.7 98 16 213/99 (137) 96 Room Air Differential Diagnosis Differential includes small bowel obstruction, colitis, electrolyte abnormality , uti Narrative Course Patient is a 82-year-old female who presents to emergency room complaints of lower abdominal pain, patient is status post colon resection for colon cancer on March 25, 2017. Reports that her lower abdominal pain has been continuous since 5pm today. Patient was placed on patient monitor at this time. Lab work including ct of abdomen and pelvis ordered. Vital Signs Date Time Temp Pulse Resp B/P (MAP) Pulse Ox O2 Delivery O2 Flow Rate FiO2 08/17/17 20:54 97.7 98 16 213/99 (137) 96 Room Air CBC & BMP Diagram 08/17/17 23:20 Total Protein 7.2, Albumin 3.1 L, Calcium Level 9.2, Alkaline Phosphatase 109, Aspartate Amino Transf (AST/SGOT) 22, Alanine Aminotransferase (ALT/SGPT) 13, Total Bilirubin 0.2 Last Impressions Abdomen/Pelvis CT 08/18/17 0000 Signed Impressions: Service Date/Time: , August 18, 2017 00:06 - CONCLUSION: 1. Mildly dilated loops of fluid-filled small bowel dispersed throughout the abdomen in a nonspecific pattern. No free air or free fluid. 2. Colonic diverticulosis without acute inflammation. 3. Prior cholecystectomy. 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 5. 1.9 cm nonspecific left adrenal gland nodule. 6. Right basilar atelectasis versus developing infiltrate. 7. Cardiomegaly. Maicol Sears Jr., MD Patient remains comfortable at this time. I did review ct findings. Patient with right basilar atelectasis versus developing infiltrate, patient initially denied cough/congestion, now reports that she has had a slight cough for the past few days. Plan to obtain blood cultures and treat for pneumonia. Discussed need for a bland diet and need to follow up with her surgeon as soon as possible. Signs and symptoms of when to return to the ER was reviewed with patient in detail. Patient comfortable with being discharged to home with follow up with her pcp as well as her surgeon. A copy of her radiology report as well as lab work was given to her at discharge Diagnosis Primary Impression: Abdominal pain Qualified Codes: R10.30 - Lower abdominal pain, unspecified Additional Impressions: Nausea & vomiting Pneumonia Qualified Codes: J18.1 - Lobar pneumonia, unspecified organism UTI (urinary tract infection) Patient Instructions: General Instructions, Narcotic given in the ED Additional Instructions: Please provide patient with a copy of her lab work and studies at discharge Please follow up with your surgeon as soon as possible, bring a copy of your studies with you to your appointment Please return to ER as needed or if symptoms return Drink plenty of fluids and eat a bland diet Please follow up with your primary care doctor Please follow up with all cultures from today Scripts Ondansetron (Zofran) 4 Mg Tab 4 MG PO Q6HR Y for NAUSEA OR VOMITING, #20 TAB 0 Refills Prov: Natalia Contreras DO 08/18/17 Amoxicillin-Clavulanate (Augmentin) 875-125 Mg Tab 1 TAB PO BID for Infection for 10 Days, #20 TAB 0 Refills Prov: Natalia Contreras DO 08/18/17 Disposition: 01 DISCHARGE HOME Condition: Stable Natalia Contreras DO Aug 17, 2017 22:30
[2017-08-17 23:30] LABS: AUTOMATED NEUTROPHIL # 9.7 TH/MM3 (1.8-7.7); BASOPHIL # 0.1 TH/MM3 (0-0.2); BASOPHIL % 0.5 % (0.0-2.0); EOSINOPHIL # 0.1 TH/MM3 (0-0.4); HEMATOCRIT 40.4 % (35.0-46.0); HEMO FLAGS DIFF FINAL; LYMPH % 16.2 % (9.0-44.0); MEAN CORPUSCULAR HEMOGLOBIN 26.6 PG (27.0-34.0); MEAN CORPUSCULAR HGB CONC 31.3 % (32.0-36.0); MONO % 4.4 % (0.0-8.0); NEUT % 77.9 % (16.0-70.0); PLATELET COUNT 338 TH/MM3 (150-450); RED BLOOD COUNT 4.75 MIL/MM3 (4.00-5.30); RED CELL DISTRIBUTION WIDTH 17.2 % (11.6-17.2); WHITE BLOOD COUNT 12.5 TH/MM3 (4.0-11.0)
[2017-08-17 23:41] LABS: APTT (PATIENT) 35.9 SEC (24.3-30.1); INTERNATIONAL NORMALIZED RATIO 2.5 RATIO; PROTHROMBIN TIME - PATIENT 28.2 SEC (9.8-11.6)
[2017-08-17 23:51] LABS: ANION GAP 8 MEQ/L (5-15); AST (GOT) 22 U/L (15-37); BICARBONATE 25.6 MEQ/L (21.0-32.0); BLOOD UREA NITROGEN 8 MG/DL (7-18); CHLORIDE 107 MEQ/L (98-107); GLOMERULAR FILTRATION RATE 90 ML/MIN (>89); POTASSIUM 3.7 MEQ/L (3.5-5.1); SODIUM (NA) 141 MEQ/L (136-145)
[2017-08-17 23:52] LABS: ALT (GPT) 13 U/L (10-53)
[2017-08-17 23:54] LABS: ALKALINE PHOSPHATASE 109 U/L (45-117); TOTAL BILIRUBIN ADULT 0.2 MG/DL (0.2-1.0)
--- NOTE | 2017-08-18 00:40 | RADRPT ---
EXAM DATE/TIME: 08/18/2017 00:06 [facility] COMPARISON: CT ABDOMEN & PELVIS W CONTRAST, April 18, 2017, 13:47. INDICATIONS : Abdomen pain. IV CONTRAST: 90 cc Omnipaque 350 (iohexol) IV ORAL CONTRAST: No oral contrast ingested. RADIATION DOSE: 7.44 CTDIvol (mGy) MEDICAL HISTORY : Cardiovascular disease. Cerebrovascular disease. Hypertension.Colon cancer SURGICAL HISTORY : Hysterectomy. Cholecystectomy.Appendectomy. ENCOUNTER: Initial ACUITY: 1 day PAIN SCALE: 6/10 LOCATION: Bilateral abdomen TECHNIQUE: Volumetric scanning of the abdomen and pelvis was performed. Using automated exposure control and ad justment of the mA and/or kV according to patient size, radiation dose was kept as low as reasonably achievable to obtain optimal diagnostic quality images. DICOM format image data is available electro nically for review and comparison. FINDINGS: LOWER LUNGS: Cardiomegaly without pericardial effusion. There is a patchy parenchymal consolidation involving the right lung base. No effusions. LIVER: Homogeneous density without lesion. There is no dilation of the biliary tree. The gallbladder is ferny gically absent. SPLEEN: Normal size without lesion. A 1 cm cyst is seen involving the spleen. Hounsfield units are 6. It is s table. PANCREAS: Within normal limits. KIDNEYS: Normal in size and shape. There is no mass, stone or hydronephrosis. There is a 1.1 cm saccular aneu rysm involving the perfor right renal artery near the renal hilum. This is a rim calcified. ADRENAL GLANDS: There is a 1.9 cm nodule involving the left adrenal gland. Hounsfield units are 50 on this portal krishna ous phase study. The right adrenal gland is normal. VASCULAR: Diffuse calcified plaque of abdominal aorta. No gross aneurysmal change. BOWEL/MESENTERY: There are several loops of mildly dilated fluid-filled small bowel scattered throughout the abdomen a nd pelvis. No focal transition point observed. Mild stranding of the mesentery involving the left low er quadrant. Numerous colonic diverticuli. No acute inflammation involving the colon. No free air or free fluid. ABDOMINAL WALL: Within normal limits. RETROPERITONEUM: There is no lymphadenopathy. BLADDER: No wall thickening or mass. REPRODUCTIVE: Within normal limits. INGUINAL: There is no lymphadenopathy or hernia. MUSCULOSKELETAL: Femoral necks through the left. A degenerative lumbar spine. CONCLUSION: 1. Mildly dilated loops of fluid-filled small bowel dispersed throughout the abdomen in a nonspecific pattern. No free air or free fluid. 2. Colonic diverticulosis without acute inflammation. 3. Prior cholecystectomy. 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 5. 1.9 cm nonspecific left adrenal gland nodule. 6. Right basilar atelectasis versus developing infiltrate. 7. Cardiomegaly. Maicol Sears Jr., MD on August 18, 2017 at 0:31 Board Certified Radiologist. This report was verified electronically.
[2017-08-18] MEDS ORDERED: MORPHINE SULFATE 4 MG/ML INJ IV PUSH ONE (01:00)
[2017-08-18] MEDS ORDERED: WARF-21 PO (01:17)
[2017-08-18] MEDS ORDERED: MULT-177 (02:16)
[2017-08-18] MEDS ORDERED: ASCOPOW5 (02:16)
[2017-08-18] MEDS ORDERED: hydrALAZINE HCL 20 MG/ML VIAL IV PUSH ONE (02:30)
[2017-08-18 02:45] VITALS: BP 185/89; PULSE 90; RESP 20; O2SAT 93
[2017-08-18] MEDS ORDERED: AZITHROMYCIN 250 MG TAB PO ONE (02:45)
[2017-08-18] MEDS ORDERED: cefTRIAXone INJ 1,000 MG in SODIUM CHLORIDE 0.9% INJ 100 ML IV ONE (02:45)
[2017-08-18 03:07] LABS: BACTERIA, URINE RARE /hpf; BLOOD, URINE NEG (NEG); COMMENT (UR) CULTURE INDICATED; CULTURE IF INDICATED CULTURE INDICATED; GLUCOSE,URINE NEG (NEG); KETONE, URINE NEG (NEG); MUCUS URINE FEW /lpf (OCC); NITRITE,URINE NEG (NEG); SQUAMOUS EPITHELIAL CELL URINE <1 /hpf (0-5); URINE COLOR COLORLESS (YELLW/STRAW)
[2017-08-18] MEDS ORDERED: AUGM875T3 PO (03:36)
[2017-08-18] MEDS ORDERED: ZOFR4TAB PO (03:36)
[2017-08-18 03:50] VITALS: BP 176/79; PULSE 86; RESP 20; O2SAT 94
[2017-08-18 04:00] VITALS: BP 152/66; PULSE 95; RESP 20; O2SAT 93
[2017-08-18] MEDS ORDERED: ONDANSETRON HCL 4 MG/2 ML VIAL IV PUSH ONE (04:45)
[2017-08-18] MEDS ORDERED: ONDANSETRON HCL 4 MG/2 ML VIAL ONE (04:45)
[2017-08-18] MEDS ORDERED: IOHEXOL 350 MG/ML 10 ML VIAL (for RAD DIAG) IVCONTRAST ONE (12:20)
== END 2017-08-18 05:15 | disposition home or self-care (01) ==
LOC: NEPE 20:51
DX: J18.1 Lobar pneumonia, unspecified organism (principal); N39.0 Urinary tract infection, site not specified; B96.4 Proteus (mirabilis) (morganii) as the cause of diseases classified elsewhere; K57.30 Diverticulosis of large intestine without perforation or abscess without bleeding; Z85.038 Personal history of other malignant neoplasm of large intestine
CPT/HCPCS: 74177; 80053; 81001; 83690; 85025; 85610; 85730; 87040; 87077; 87086; 87186; 96361; 96374; 96375; 99285; J0360; J0696; J2270; J2405; J7030; Q9967

== ENCOUNTER 2017-10-07 07:06 | Emergency (ER) | payer MEDICARE, OTHER ==
[~2017-10-07] VITALS: Ht 167.6 cm; Wt 68.0 kg
[~2017-10-07 07:06] MED LIST changes: +ASCOPOW5; +AUGM875T3 PO; -CYAN25003 SL; -ENOX80P SQ; -FURO20TA PO; +KLOR10TA PO; -KONS100P3 PO; -LEVO750T3 PO; +LOPE2CAP2 PO; -LOPE2CAP92 PO; -MEGE40TA PO; +MULT-177; -MULTCAP2 PO; -POTA-243 PO; -PRED20 PO; +WARF-21 PO; +ZOFR4TAB PO
[2017-10-07 07:09] VITALS: BP 135/85; PULSE 104; RESP 14; TEMP 98.2; O2SAT 97
[2017-10-07 07:34] VITALS: BP 143/70; PULSE 103; RESP 20; TEMP 97.8; O2SAT 95
[2017-10-07] MEDS ORDERED: ONDANSETRON HCL 4 MG/2 ML VIAL IVP ONE (07:45)
[2017-10-07] MEDS ORDERED: SODIUM CHLORIDE 0.9% FLUSH 10 ML FLUSH IV FLUSH PRN (07:45)
--- NOTE | 2017-10-07 08:25 | PD ---
HPI Chief Complaint: GI Complaint Time Seen by Provider: 07:44 Travel History International Travel<30 days: No Contact w/Intl Traveler<30days: No Traveled to known affect area: No History of Present Illness HPI 82-year-old female with a history of colon cancer status post partial colectomy within the last 3 months, presents today with complaints of nausea vomiting since last night. The patient states she didn't feel well yesterday and then started vomiting last night. She denies any fevers, chills. She does report that she has had a bowel movement. She states that she's vomited several times and reports that at least 5 times over the night. No reported dysuria urgency or frequency. There is no reported cough or shortness of breath. No ill contacts. No suspicious foods. The patient states yesterday she had canned peaches only and then started vomiting after that. PFSH Past Medical History Cancer: Yes (COLON AND LYMPH NODE) Cardiovascular Problems: Yes (stress test 02/2017, murmur, CAD, MV incompetence) Cerebrovascular Accident: Yes Diabetes: No Diminished Hearing: Yes ([place]) Endocrine: No Gastrointestinal Disorders: Yes (acid reflux) Genitourinary: Yes (incontinence) Hepatitis: No Hiatal Hernia: No Hypertension: Yes Immune Disorder: No Musculoskeletal: Yes (arthritis) Neurologic: Yes (CVA 10 yrs ago ) Psychiatric: No Respiratory: Yes (previous hx of pulomonary emoboli post surgery) Thyroid Disease: No Past Surgical History Abdominal Surgery: Yes (kristina, appe) AICD: No Body Medical Devices: 2 lower implants in jaw for dentures, screw in L hip Cardiac Surgery: No Ear Surgery: No Endocrine Surgery: No Eye Surgery: Yes (bilat cataract) Genitourinary Surgery: No Gynecologic Surgery: Yes (hysterectomy) Joint Replacement: Yes (bilat knees) Oral Surgery: Yes (for dentures) Pacemaker: No Thoracic Surgery: No Other Surgery: Yes (MASS REMOVED FROM COLON) Social History Alcohol Use: No Tobacco Use: No Substance Use: No Allergies-Medications (Allergen,Severity, Reaction): Coded Allergies: *MDRO Multi-Drug Resistant Organism (Verified Adverse Reaction, Unknown, 10/07/17) MRSA PCR Screen POSITIVE - 04/02/2017 Reported Meds & Prescriptions Reported Meds & Active Scripts Active Zofran (Ondansetron HCl) 4 Mg Tab 4 Mg PO Q8HR PRN Macrobid (Nitrofurantoin Monohydrate Macrocrystals) 100 Mg Capsule 100 Mg PO BID Zofran (Ondansetron HCl) 4 Mg Tab 4 Mg PO Q6HR PRN Klor-Con 10 (Potassium Chloride) 10 Meq Tab 20 Meq PO BID Hm Loperamide HCl (Loperamide HCl) 2 Mg Cap 4 Mg PO DAILY PRN Reported Multiple Vitamins For Women (Multivit with Calcium,Iron,Min) 1 Each Tablet Ascorbic Acid (Ascorbic Acid (Bulk)) 100 % Pow Vitamin D3 (Cholecalciferol) 1,000 Unit Tab 1,000 Units PO DAILY Atorvastatin (Atorvastatin Calcium) 40 Mg Tab 40 Mg PO HS Myrbetriq (Mirabegron) 50 Mg Tab 50 Mg PO DAILY Valsartan 160 Mg Tab 160 Mg PO DAILY Nexium (Esomeprazole DR) 40 Mg Capdr 40 Mg PO BID Review of Systems Except as stated in HPI: all other systems reviewed are Neg General / Constitutional: No: Fever HENT: No: Headaches, Neck Pain Cardiovascular: No: Chest Pain or Discomfort, Palpitations, Tachycardia Respiratory: No: Cough, Shortness of Breath Gastrointestinal: Positive: Nausea, Vomiting, Abdominal Pain (lower), No: Hematemesis ( abdominal pain) Genitourinary: No: Frequency, Dysuria Musculoskeletal: No: Weakness, Pain Neurologic: No: Weakness, Dizziness, Headache Physical Exam Narrative GENERAL: Developed well-nourished elderly female in no acute respiratory distress. SKIN: Focused skin assessment warm/dry. HEAD: Atraumatic. Normocephalic. EYES: No scleral icterus. No injection or drainage. ENT: No nasal bleeding or discharge. Mucous membranes pink and moist. NECK: Trachea midline. No JVD. CARDIOVASCULAR: Regular rate and rhythm. No murmur appreciated. RESPIRATORY: No accessory muscle use. Questionable fine Rales at the right base. Breath sounds equal bilaterally. GASTROINTESTINAL: Abdomen soft, nondistended. There is a healed surgical scar in her infraumbilical area that appears clean and noninfectious. The patient has tenderness to palpation in her lower abdominal segment. Positive voluntary guarding. MUSCULOSKELETAL: No obvious deformities. No clubbing. No cyanosis. No edema. NEUROLOGICAL: Awake and alert. No obvious cranial nerve deficits. Motor grossly within normal limits. Normal speech. PSYCHIATRIC: Appropriate mood and affect; insight and judgment normal. Data Data Last Documented VS Vital Signs Date Time Temp Pulse Resp B/P (MAP) Pulse Ox O2 Delivery O2 Flow Rate FiO2 10/07/17 14:00 83 19 137/74 (95) 96 Room Air 10/07/17 07:34 97.8 Orders Orders Complete Blood Count With Diff (10/07/17 07:45) Comprehensive Metabolic Panel (10/07/17 07:45) Lipase (10/07/17 07:45) Urinalysis - C+S If Indicated (10/07/17 07:45) Ct Abd/Pel W Iv Contrast(Rout) (10/07/17 07:45) Iv Access Insert/Monitor (10/07/17 07:45) Ecg Monitoring (10/07/17 07:45) Oximetry (10/07/17 07:45) Ondansetron Inj (Zofran Inj) (10/07/17 07:45) Sodium Chlor 0.9% 1000 Ml Inj (Ns 1000 M (10/07/17 07:45) Sodium Chloride 0.9% Flush (Ns Flush) (10/07/17 07:45) Electrocardiogram (10/07/17 07:45) Chest, Single Ap (10/07/17 07:45) Oral Contrast - Adult (10/07/17 08:12) Diatrizoate Liq ( Gastroview Liq) (10/07/17 08:32) Iohexol 350 Inj (Omnipaque 350 Inj) (10/07/17 09:50) Urine Culture (10/07/17 10:23) Ceftriaxone Inj (Rocephin Inj) (10/07/17 12:00) Ed Discharge Order (10/07/17 14:27) Labs Laboratory Tests Test 10/07/17 08:30 10/07/17 10:23 White Blood Count 14.5 TH/MM3 Red Blood Count 4.77 MIL/MM3 Hemoglobin 13.5 GM/DL Hematocrit 40.4 % Mean Corpuscular Volume 84.7 FL Mean Corpuscular Hemoglobin 28.3 PG Mean Corpuscular Hemoglobin Concent 33.4 % Red Cell Distribution Width 17.6 % Platelet Count 322 TH/MM3 Mean Platelet Volume 8.3 FL Neutrophils (%) (Auto) 82.9 % Lymphocytes (%) (Auto) 13.1 % Monocytes (%) (Auto) 3.5 % Eosinophils (%) (Auto) 0.2 % Basophils (%) (Auto) 0.3 % Neutrophils # (Auto) 12.1 TH/MM3 Lymphocytes # (Auto) 1.9 TH/MM3 Monocytes # (Auto) 0.5 TH/MM3 Eosinophils # (Auto) 0.0 TH/MM3 Basophils # (Auto) 0.0 TH/MM3 CBC Comment DIFF FINAL Differential Comment Blood Urea Nitrogen 12 MG/DL Creatinine 0.84 MG/DL Random Glucose 115 MG/DL Total Protein 8.3 GM/DL Albumin 3.5 GM/DL Calcium Level 9.9 MG/DL Alkaline Phosphatase 95 U/L Aspartate Amino Transf (AST/SGOT) 23 U/L Alanine Aminotransferase (ALT/SGPT) 17 U/L Total Bilirubin 0.6 MG/DL Sodium Level 140 MEQ/L Potassium Level 3.6 MEQ/L Chloride Level 103 MEQ/L Carbon Dioxide Level 27.5 MEQ/L Anion Gap 10 MEQ/L Estimat Glomerular Filtration Rate 65 ML/MIN Lipase 110 U/L Urine Color YELLOW Urine Turbidity HAZY Urine pH 6.0 Urine Specific [place] GREATER THAN 1.050 Urine Protein 30 mg/dL Urine Glucose (UA) NEG mg/dL Urine Ketones NEG mg/dL Urine Occult Blood TRACE Urine Nitrite POS Urine Bilirubin NEG Urine Urobilinogen LESS THAN 2.0 MG/DL Urine Leukocyte Esterase SMALL Urine RBC 2 /hpf Urine WBC 14 /hpf Urine Squamous Epithelial Cells <1 /hpf Urine Bacteria OCC /hpf Urine Hyaline Casts 36 /lpf Urine Mucus MOD /lpf Microscopic Urinalysis Comment CATH-CULTURE IND MDM Medical Decision Making Medical Screen Exam Complete: Yes Emergency Medical Condition: Yes Differential Diagnosis Perforation versus partial small obstruction versus diverticulitis Narrative Course 82-year-old female with history of colon cancer, status post resection, presents here with complaints of abdominal pain with associated nausea vomiting. Patient has lower abdominal discomfort. There is no reported fevers , chills. The patient has a white count of 14,000. CT scan shows no evidence of acute process. Remarks from the radiologist states it looks similar to previous CT scan. Patient's urinalysis is positive for infection. Cultures have been obtained. The patient's been given 1 g of Rocephin. She has been able to tolerate a by mouth challenge of Gatorade. She'll be discharged with a prescription for Macrobid, 1 tab by mouth twice a day 7 days. She'll also be given a prescription for Zofran. She is instructed to return if she does any worsening discomfort, fevers, chills, or any other reason. Diagnosis Primary Impression: Nausea & vomiting Additional Impressions: Bilateral lower abdominal discomfort Cystitis History of colon cancer Additional Instructions: Return if feeling worse, fevers, chills, or any other reason the concerns you. Scripts Ondansetron (Zofran) 4 Mg Tab 4 MG PO Q8HR Y for NAUSEA OR VOMITING, #15 TAB 0 Refills Prov: Leo Shankar MD 10/07/17 Nitrofurantoin Monohydrate Macrocrystals (Macrobid) 100 Mg Capsule 100 MG PO BID for Infection, #14 CAP 0 Refills Prov: Leo Shankar MD 10/07/17 Disposition: 01 DISCHARGE HOME Condition: Stable Leo Shankar MD Oct 07, 2017 08:25
[2017-10-07] MEDS ORDERED: DIATRIZOATE MEGLUM/DIATRIZOATE SOD 9 ML CUP ONE (08:32)
[2017-10-07] MEDS: SODIUM CHLOR 0.9% 1000 ML INJ 1,000 ML IV SCH ×2 (08:36→12:15)
[2017-10-07 08:43] LABS: AUTOMATED NEUTROPHIL # 12.1 TH/MM3 (1.8-7.7); BASOPHIL % 0.3 % (0.0-2.0); EOSINOPHIL % 0.2 % (0.0-4.0); HEMATOCRIT 40.4 % (35.0-46.0); HEMO FLAGS DIFF FINAL; LYMPH % 13.1 % (9.0-44.0); LYMPHOCYTE # 1.9 TH/MM3 (1.0-4.8); MEAN CELL VOLUME 84.7 FL (80.0-100.0); MEAN CORPUSCULAR HEMOGLOBIN 28.3 PG (27.0-34.0); MEAN CORPUSCULAR HGB CONC 33.4 % (32.0-36.0); MONO % 3.5 % (0.0-8.0); NEUT % 82.9 % (16.0-70.0); PLATELET COUNT 322 TH/MM3 (150-450); RED BLOOD COUNT 4.77 MIL/MM3 (4.00-5.30); RED CELL DISTRIBUTION WIDTH 17.6 % (11.6-17.2); WHITE BLOOD COUNT 14.5 TH/MM3 (4.0-11.0)
--- NOTE | 2017-10-07 08:50 | RADRPT ---
EXAM DATE/TIME: 10/07/2017 08:25 [facility] COMPARISON: CT PULMONARY ANGIOGRAM, April 18, 2017, 13:43. CHEST SINGLE AP, April 18, 2017, 5:56. INDICATIONS : Nausea and vomitting, concern for free air under diaphragms. MEDICAL HISTORY : Carcinoma, colon. SURGICAL HISTORY : Colon resection. ENCOUNTER: Initial ACUITY: 1 day PAIN SCORE: 0/10 LOCATION: Bilateral chest FINDINGS: Diffuse interstitial prominence without significant focal pleural or parenchymal opacities. Cardiomed iastinal contours are within normal limits. Bony thorax is intact. No gross free air noted. CONCLUSION: 1. No gross free air. 2. Changes of obstructive pulmonary disease without acute abnormality. Daniele Acevedo MD on October 07, 2017 at 8:44 Board Certified Radiologist. This report was verified electronically.
[2017-10-07 08:59] LABS: ALT (GPT) 17 U/L (10-53); ANION GAP 10 MEQ/L (5-15); AST (GOT) 23 U/L (15-37); BICARBONATE 27.5 MEQ/L (21.0-32.0); BLOOD UREA NITROGEN 12 MG/DL (7-18); CHLORIDE 103 MEQ/L (98-107); GLOMERULAR FILTRATION RATE 65 ML/MIN (>89); POTASSIUM 3.6 MEQ/L (3.5-5.1); SODIUM (NA) 140 MEQ/L (136-145)
[2017-10-07 09:02] LABS: ALKALINE PHOSPHATASE 95 U/L (45-117); TOTAL BILIRUBIN ADULT 0.6 MG/DL (0.2-1.0)
[2017-10-07] MEDS ORDERED: IOHEXOL 350 MG/ML 10 ML VIAL (for RAD DIAG) IVCONTRAST ONE (09:50)
--- NOTE | 2017-10-07 10:03 | RADRPT ---
EXAM DATE/TIME: 10/07/2017 09:42 [place] COMPARISON: CT ABDOMEN & PELVIS W CONTRAST, August 18, 2017, 0:06. INDICATIONS : Generalized abdominal pain. IV CONTRAST: 95 cc Omnipaque 350 (iohexol) IV ORAL CONTRAST: Prescribed oral contrast ingested. RADIATION DOSE: 7.24 CTDIvol (mGy) MEDICAL HISTORY : Carcinoma, colon. Hypertension. Cerebrovascular disease. SURGICAL HISTORY : Appendectomy. Hysterectomy.Cholecystectomy. ENCOUNTER: Initial ACUITY: 1 day PAIN SCALE: 4/10 LOCATION: Bilateral abdomen TECHNIQUE: Volumetric scanning of the abdomen and pelvis was performed. Using automated exposure control and ad justment of the mA and/or kV according to patient size, radiation dose was kept as low as reasonably achievable to obtain optimal diagnostic quality images. DICOM format image data is available electro nically for review and comparison. FINDINGS: Minimal bibasilar parenchymal changes are evident worse on the right than the left, stable in the int erval. There is no pericardial effusion The liver, spleen and pancreas are stable. 1 cm left splenic cyst. Stable left adrenal nodule. Surgical clips are seen in the gallbladder fossa Stable right renal artery aneurysm is noted There is mild dilatation of proximal small bowel when compared to distal and in nonspecific fashion. Transition zone is in the pelvis. Caliber of bowel above transition is 3.6 cm. Caliber below trans ition is 1 cm. There is symmetrical renal function There is no ascites or adenopathy Multiple diverticuli are seen in the descending colon. Fibroid uterus is evident There is no free air Abdominal jiang intact Degenerative changes are present in the lumbar spine. CONCLUSION: Nonspecific dilatation of proximal small bowel when compared to distal and without ev idence for obstructing lesion. This is very similar interval was seen on 08/18/17. Diverticuli sigmoid colon without diverticulitis. Cem Benito MD FACR on October 07, 2017 at 9:55 Board Certified Radiologist. This report was verified electronically.
[2017-10-07 10:53] LABS: BACTERIA, URINE OCC /hpf; BLOOD, URINE TRACE (NEG); COMMENT (UR) CATH-CULTURE IND; CULTURE IF INDICATED CATH CULTURE IND; GLUCOSE,URINE NEG (NEG); HYALINE CAST, URINE 36 /lpf (RARE); KETONE, URINE NEG (NEG); MUCUS URINE MOD /lpf (OCC); NITRITE,URINE POS (NEG); SQUAMOUS EPITHELIAL CELL URINE <1 /hpf (0-5); URINE COLOR YELLOW (YELLW/STRAW)
[2017-10-07] MEDS ORDERED: cefTRIAXone INJ 1,000 MG in SODIUM CHLORIDE 0.9% INJ 100 ML IV ONE (12:00)
[2017-10-07] MEDS ORDERED: MACR100C2 PO (12:55)
[2017-10-07] MEDS ORDERED: ZOFR4TAB PO (12:57)
[2017-10-07 14:00] VITALS: BP 137/74; PULSE 83; RESP 19; O2SAT 96
--- NOTE | 2017-10-07 18:01 | EKG ---
Date Performed: 10/07/2017 Time Performed: 08:02:35 PTAGE: 82 years EKG: Sinus rhythm RIGHT BUNDLE BRANCH BLOCK LEFT ANTERIOR FASCICULAR BLOCK ABNORMAL ECG PREVIOUS TRACING : 04/19/2017 00.47 DOCTOR: Lm Medrano Interpretating Date/Time 10/07/2017 17:58:22
== END 2017-10-07 15:21 | disposition home or self-care (01) ==
LOC: NEPC 07:06
DX: R11.2 Nausea with vomiting, unspecified (principal); N30.90 Cystitis, unspecified without hematuria; I10 Essential (primary) hypertension; R94.31 Abnormal electrocardiogram [ECG] [EKG]; B96.20 Unspecified Escherichia coli [E. coli] as the cause of diseases classified elsewhere; Z85.038 Personal history of other malignant neoplasm of large intestine
CPT/HCPCS: 71010; 74177; 80053; 81001; 83690; 85025; 87077; 87086; 87186; 93005; 96361; 96374; 96375; 99285; J0696; J2405; J7030; Q9963; Q9967

== ENCOUNTER → 2018-02-13 | Outpatient (CLI) | payer MEDICARE, OTHER ==
[~2018-02-13] MED LIST changes: -ASCO500C PO; -AUGM875T3 PO; -CALC600T13 PO; -COUM5TAB PO; +MACR100C2 PO; -NYST10007 TOPICAL; -WARF-21 PO
--- NOTE | 2018-02-15 10:20 | RADRPT ---
EXAM DATE/TIME: 02/14/2018 00:00 COMPARISON: PET/CT examination dated January 12, [address] examination of the abdomen and pelvis with contrast dated January 06, 2018 INDICATIONS : CT guided pelvic mass biopsy Pelvic process noted on the comparison exams is not safely accessible for percutaneous biopsy. Cystos copy would initially be recommended to determine if there is something to biopsy within the urinary b ladder. Mike Bautista MD on February 15, 2018 at 10:15 Board Certified Radiologist. This report was verified electronically.
== END ==
LOC: HREF 17:00
PROVIDERS: ATTEND Internal Medicine Cardiovascular Disease
DX: R19.00 Intra-abdominal and pelvic swelling, mass and lump, unspecified site (principal)